=== PATIENT | female | born 1990 | race Caucasian/White ===

== ENCOUNTER 2022-10-30 12:01 | Outpatient (OUT) | payer BC, SELFPAY ==
[2022-10-30 12:50] LABS: Alanine Aminotransferase 147 U/L (14-59); Albumin Globulin Ratio 0.8; Alkaline Phosphatase 113 U/L (46-116); Anion Gap 12.8; Aspartate Amino Transferase 73 U/L (15-37); BUN Creatinine Ratio 12.5; Bilirubin Total 0.4 mg/dL (0.2-1.0); Calcium 9.8 mg/dL (8.5-10.1); Carbon Dioxide 30.5 mmol/L (21.0-32.0); Chloride 98 mmol/L (98-107); Estimated GFR (African America >60 (>=60); Estimated GFR (Non-African Ame >60 (>=60); Glucose 85 mg/dL (74-106); Potassium 4.3 mmol/L (3.5-5.1); Sodium 137 mmol/L (136-145)
[2022-10-30 12:55] LABS: Estimated Average Glucose 126 mg/dL
[2022-10-31 11:08] LABS: Insulin 18.8 uIU/mL (2.6-24.9)
[2022-10-31 12:08] LABS: C-Peptide, Serum 3.9 ng/mL (1.1-4.4)
== END 2022-10-30 12:02 ==
LOC: LAB 12:06
PROVIDERS: PCP Family Medicine; Visit Provider Family Medicine
DX: E16.2 Hypoglycemia, unspecified (principal)
CPT/HCPCS: 36415; 80053; 83036; 83525; 84681

== ENCOUNTER 2022-12-17 07:51 | Outpatient (OUT) | payer BC, SELFPAY ==
--- NOTE | 2022-12-17 07:55 | US_ITS ---
[address] [address] Patient Name: RACHEL LEMA MRN: [id number] date: 1990 Sex: F Assigned Patient Location: US Current Patient Location: US Accession/Order Number: [id number] Exam Date: 12/17/2022 08:00 Report Date: 12/17/2022 09:36 At the request of: HYUN DYER Procedure: US right upper quadrant EXAM: US right upper quadrant HISTORY: Elevated Liver Enzymes R74.8 COMPARISON: None. TECHNIQUE: Grayscale, color and Doppler FINDINGS: The liver is normal in size and contour. Diffuse increase in hepatic echotexture. No focal hepatic mass. Hepatopedal flow in the main portal vein with a flow velocity of 21 cm/s. The gallbladder is normal in size. The wall measures 2.6 mm. Negative sonographic Inman sign. The common bile duct measures 2.7 mm, normal. The pancreas is normal in appearance. The right kidney is normal measuring 10.5 x 6.0 x 4.3 cm. The cortex measures 1 cm. US/US right upper quadrant IMPRESSION: Echogenic liver suggesting hepatic steatosis Electronically authenticated by: GERSON MEANS Date: 12/17/2022 09:36
== END 2022-12-17 07:52 | disposition home or self-care (01) ==
LOC: US 07:51
PROVIDERS: PCP Family Medicine; Visit Provider Nurse Practitioner Family
DX: R74.8 Abnormal levels of other serum enzymes (principal)
CPT/HCPCS: 76705

== ENCOUNTER 2023-11-04 19:00 | Outpatient (REF) | payer BC, SELFPAY ==
[2023-11-09 14:12] LABS: Age Gdln ACOG Testing Note (.); HPV Aptima Negative (Negative); IGP, Aptima HPV, rfx 16/18,45 Note (.)
== END 2023-11-04 19:01 | disposition home or self-care (01) ==
LOC: LAB 19:00
PROVIDERS: PCP Family Medicine; Visit Provider Obstetrics & Gynecology
DX: Z01.419 Encounter for gynecological examination (general) (routine) without abnormal findings (principal)
CPT/HCPCS: 87624; 88175

== ENCOUNTER 2024-02-08 09:30 | Outpatient (OUT) | payer BC, SELFPAY ==
--- NOTE | 2024-02-08 09:32 | US_ITS ---
[address] [address] Patient Name: RACHEL LEMA MRN: [id number] date: 1990 Sex: F Assigned Patient Location: [facility] Current Patient Location: [facility] Accession/Order Number: [id number] Exam Date: 02/08/2024 09:32 Report Date: 02/08/2024 13:16 At the request of: WEN HUGO Procedure: US pelvis w/ transvaginal EXAMINATION: US pelvis w/ transvaginal HISTORY: PELVIC PAIN COMPARISON: Ultrasound pelvis 11/28/2020 TECHNIQUE: Transabdominal and/or transvaginal sonographic examination was performed as indicated by examination type. FINDINGS: UTERUS: Hysterectomy. RIGHT OVARY: Normal size and appearance. Duplex Doppler demonstrates normal waveform and flow; resistive index 0.4. Ovary size: 2.2 x 1.6 x 2.5 cm LEFT OVARY: Normal size and appearance. Duplex Doppler demonstrates normal waveform and flow; resistive index 0.6. Ovary size: 2.7 x 1.5 x 2.2 cm CUL-DE-SAC: Unremarkable. No significant free fluid. BLADDER: Unremarkable. OTHER: None. US/US pelvis w/ transvaginal IMPRESSION: 1. No acute or suspicious findings to account for patient's symptoms. Electronically authenticated by: WOO QUIROZ Date: 02/08/2024 13:16
--- OUTSIDE RECORDS SUMMARY | 2024-02-08 09:36 | XMS_ITS | CCD ---
Author Organization [facility] Care Team Providers Care Cleat Maker Name Role Phone PHYSICIAN, DEFAULT Unavailable Unavailable PHYSICIAN, DEFAULT Unavailable Unavailable MARY, GEOVANNA P Unavailable Unavailable MARY, GEOVANNA P Unavailable Unavailable SELF, REFERRED Unavailable Unavailable UNKNOWN, PHYSICIAN Unavailable Unavailable MARY, GEOVANNA P Unavailable Unavailable MARY, GEOVANNA P Unavailable Unavailable VONTHRON, MARY Unavailable Unavailable VONTHRON, MARY Unavailable Unavailable MARY, GEOVANNA P Unavailable Unavailable MARY, GEOVANNA P Unavailable Unavailable VONTHRON, MARY Unavailable Unavailable VONTHRON, MARY Unavailable Unavailable MARY, GEOVANNA P Unavailable Unavailable CA Unavailable Unavailable TEX TREJO Unavailable Unavailable CA Unavailable Unavailable BELLE, KANCHAN Unavailable Unavailable NILL, GEOVANNA R Unavailable Unavailable Nill, Geovanna R Unavailable Unavailable Nill, Geovanna R Unavailable Unavailable Nill, Geovanna R Unavailable Unavailable NONE, XXXX Unavailable Unavailable Rohrbacher, Gayle Unavailable Rolando Huang Admitting Unavailable Rolando Huang Attending Unavailable Rohrbacher, Gayle Primary Care Unavailable JENNY Doyle Admitting Unavailable JENNY Doyle Attending Unavailable Rohrbacher, Gayle Primary Care Unavailable Stalter, Robert Attending Unavailable Rohrbacher, Gayle Primary Care Unavailable Stalter, Robert Admitting Unavailable Rohrbacher, Gayle Primary Care Unavailable Stalter, Robert Admitting Unavailable Stalter, Robert Attending Unavailable JENNY Doyle Admitting Unavailable JENNY Doyle Attending Unavailable Rohrbacher, Gayle Primary Care Unavailable Rolando Huang Admitting Unavailable Rolando Huang Attending Unavailable Rohrbacher, Gayle Primary Care Unavailable Rohrbacher, Gayle Primary Care Unavailable Alon Hu Admitting Unavailable Alon Hu Attending Unavailable Rohrbacher, Gayle Primary Care Unavailable Alon Hu Admitting Unavailable Alon Hu Attending Unavailable Rolando Huang Admitting Unavailable Rolando Huang Attending Unavailable Gayle Alains Primary Care Unavailable OANH, DR CARVER Admitting Unavailable OANH, DR CARVER Attending Unavailable REQUEST, NONE LISTED Primary Care Unavaila ble OANH, DR CARVER Consulting Unavailable Jessica Iqbal Unavailable NO FAMILY, PHYSICIAN Primary Care Provider Unava ilable DO Evans Groves Attending Provider Emerald Mcguire Unavailable SAMSON Yadav Emergency Provider MD Jessica Iqbal Primary Care Provider SAMSON Alanis Primary Care Provider MD Odessa Hess Attending Provider Noa Yadav Admitting Unavailable Noa Yadav Attending Unavailable Jessica Iqbal Primary Care [facility]available [facility] Ad[facility] Unavailable [facility] Attending Unavailable NO FAMILY, PHYSICIAN Primary Care Unavailable Gayle Alanis Primary Care Unavailable Odessa Hess Admitting Unavailable Odessa Hess Attending Unavailable DALTON CARPENTER Attending Unavailable ODESSA HESS Attending Unavailable ODESSA HESS Attending Unavailable Allergies Allergy Classification Reported Allergen(s) Allergy Type Date of Onset Reaction(s) Facility Cephalosporins (antibiotic) (1 source) Cephalexin Drug Allergy 4 Unknown Reaction [facility] house dust allergenic extract (1 source) house dust allergenic extract Drug Allergy 4 Unknown Reaction [facility] Iodine (and Iodine containting drugs) (1 source) Iodine Drug Allergy 4 shock [facility] Penicillins (antibiotic) (1 source) Penicillin Drug Allergy 4 Unknown Reaction [facility] Shellfish (1 source) Shellfish Food Allergy 4 Unknown Reaction [facility] strawberry allergenic extract (1 source) strawberry allergenic extract Drug Allergy 4 Unknown Reaction [facility] (20 sources) cephalexin; Translations: [KEFLEX] Drug Allergy 0 AOF, Unknown [facility] Repository (20 sources) iodine; Translations: [IODINE] Drug Allergy 8 AOF, shock [facility] Repository (3 sources) penicillin; Translations: [PENICILLIN] Drug Allergy 8 AOF [facility] Repository (1 source) No Known Allergies; Translations: [No Known Allergies] Propensity to adverse reactions (disorder) [facility] Repository (8 sources) cephalexin; Translations: [CEPHALEXIN] Drug Allergy 4 AOF, Unknown, Unknown Reaction [facility] Repository (1 source) Contrast media; Translations: [CONTRAST DYE] Propensity to adverse reactions to drug (disorder) 4 AOF [facility] Repository (20 sources) penicillin; Translations: [PENICILLIN G] Drug Allergy 4 AOF, Unknown, Unknown Reaction [facility] Repository (20 sources) Fish Propensity to adverse reactions Throat swells, hard time breathing [employer] [facility] [employer] Other (20 sources) House dust mite Propensity to adverse reactions Unknown [employer] Other (20 sources) Shellfish Propensity to adverse reactions Unknown [employer] Other (20 sources) [place]; Translations: [Strawberries] Propensity to adverse reactions Unknown [facility] Repository (1 source) Adhesive Tape; Translations: [Tape] Propensity to adverse reactions (disorder) [facility] Repository (1 source) Amoxicillin; Translations: [amoxicillin] Drug Allergy [facility] Repository (1 source) Seafood; Translations: [Seafood] Propensity to adverse reactions to food (disorder) [facility] Repository (20 sources) Adhesive agent; Translations: [Adhesive] Drug allergy 9 rash [facility] Repository (1 source) Iodine (And Iodine Containting Drugs) Drug allergy (disorder) [facility] Repository (1 source) Penicillins Drug allergy (disorder) 1 [facility] Repository (1 source) suture Drug allergy (disorder) 1 [facility] Repository (3 sources) house dust allergenic extract; Translations: [house dust] Drug Allergy 4 Unknown Reaction [facility] (3 sources) Shellfish; Translations: [shellfish derived] Allergy to substance 4 Unknown Reaction [facility] (3 sources) strawberry allergenic extract; Translations: [strawberry] Drug Allergy 4 Unknown Reaction [facility] (4 sources) Fish Containing Products; Translations: [Fish Containing Products] Allergy to substance 4 Throat swells, hard time breathing [facility] Medications Current Medications Medication Drug Class(es) Dates Sig (Normalized) Sig (Original) citalopram 40 mg oral tablet (20 sources) Serotonin Reuptake Inhibitor Start: 10-05-2023 take 40 mg by mouth once daily Citalopram Active 40 MG PO Daily October 05, 2023 12:00am Citalopram Como bromide 40 MG TAKE 1 TABLET BY MOUTH ONCE DAILY FOR 90 DAYS Oral for 90 Days Active doxycycline monohydrate 100 mg oral tablet (3 sources) Tetracycline-class Drug Start: 03-27-2021 take 1 tablet by mouth every twelve hours Doxycycline Monohydrate 100 MG 1 tablet Orally every 12 hrs for 10 day(s) Feb, Active [id number] 0.3 ml EPINEPHrine 1 mg/ml auto-injector (20 sources) alpha-Adrenergic Agonist, beta-Adrenergic Agonist, Catecholamine Start: 10-05-2023 inject 0.3 mg by subcutaneous injection once Epinephrine Active 0.3 MG SUBCUT Once October 05, 2023 12:00am EpiPen 2-Elpidio 0.3 MG/0.3ML as directed Injection as directed for 30 day(s) Active {21 (ethinyl estradiol 0.035 MG / norgestimate 0.25 MG Oral Tablet) / 7 (inert ingredients 1 MG Oral Tablet) } Pack [Sprintec 28 Day] (4 sources) Progestin, Estrogen take 1 tablet by mouth every twenty-four hours Sprintec 28 0.25-35 MG-MCG 1 tablet Orally Once a day for hormone & PCOS Active Flash Glucose Sensor (Freestyle Hiwot 2 Sensor) kit (4 sources) Start: Flash Glucose Sensor (Freestyle Hiwot 2 Sensor) kit Active 0 .Route 3 January 06, 2024 8:25am Replace sensor every 14 days Start: 10-05-2023 End: 01-06-2024 Flash Glucose Sensor (Freest yle Hiwot 2 Sensor) kit Discontinued 0 .Route October 05, 2023 12:00am January 06, 2024 8:27am Replace sensor every 14 days Start: 10-05-2023 Flash Glucose Sensor (Freestyle Hiwot 2 Sensor) kit Active 0 .Route 3 October 05, 2023 12:00am Replace sensor every 14 days FreeStyle Hiwot 2 Sensor Sys tm (7 sources) Start: 08-24-2022 FreeStyle Libr e 2 Sensor Systm for 90 days Dx E16.2 Jul, Active FreeStyle Hiwot 2 Sensor Systm use as directed 1 weekly for 90 days Dx E16.2 Active hydrOXYzine hydrochloride 25 mg oral tablet (14 sources) Antihistamine Start: 10-05-2023 take 75 mg by mouth once daily at bedtime Hydroxyzine Hcl Active 75 MG PO Daily at bedtime October 05, 2023 12:00am take 3 tablets by mo uth every twenty-four hours hydrOXYzine HCl 25 MG 3 tablet at bedtim e as needed Orally Once a day Active take 1 tablet by nury th every twenty-four hours hydrOXYzine HCl 25 MG 1 tablet at bedtim e as needed Orally Once a day Active ketorolac tromethamine 10 mg oral tablet (3 sources) Nonsteroidal Anti-inflammatory Drug, Cyclooxygenase Inhibitor Start: 11-17-2023 take 10 mg by mouth every six hours Ketorolac Active 10 MG PO Every 6 hours November 17, 2023 12:00am maximum total duration of 5 days from all oral, intranasal, or parenteral formulations methylPREDNISolone 4 mg oral tablet (4 sources) Corticosteroid Start: 02-04-2021 methylPREDNISolone 4 MG as directed Orally daily for 6 days Jan, Active Potassimin (4 sources) Potassimin Activ e QUEtiapine 50 mg oral tablet (20 sources) Atypical Antipsychotic Start: 10-05-2023 take 50 mg by mouth once daily at bedtime Quetiapine Active 50 MG PO Daily at bedtime October 05, 2023 12:00am Start: 08-28-2020 take 1 tablet by nury th every twenty-four hours QUEtiapine Fumarate 25 MG 1 tablet at bedtime Orally Once a day for 90 day(s) Jul, Active QUEtiapine Fumar ate 50 MG TAKE 1 TABLET BY MOUTH ONCE DAILY AT BEDTIME FOR 90 DAYS Oral for 90 days Active Semaglutide (7 sources) Start: 01-06-2024 Semaglutide (O zempic) 0.25 mg or 0.5 mg (2 mg/3 mL) pen injector Active 0.5 MG SUBCUT every week 3.68 January 06, 2024 8:25am Start: 12-21-2023 End: 01-06-2024 Semaglutide (Ozempic) 0.25 m g or 0.5 mg (2 mg/3 mL) pen injector Discontinued 0.5 MG SUBCUT every week 3.68 December 21, 2023 1:49pm January 06, 2024 8:27am Start: 11-29-2023 End: 12-21-2023 Semaglutide (Ozempic) 0.25 m g or 0.5 mg (2 mg/3 mL) pen injector Discontinued 0 .ROUTE .COMPLEX November 29, 2023 1:32pm December 21, 2023 1:50pm INJECT 0.25 MG SUBCUTANEOUSLY ONCE A WEEK FOR 4 WEEKS Start: 11-29-2023 Semaglutide (O zempic) 0.25 mg or 0.5 mg (2 mg/3 mL) pen injector Active 0 .ROUTE .COMPLEX November 29, 2023 1:32pm INJECT 0.25 MG SUBCUTANEOUSLY ONCE A WEEK FOR 4 WEEKS Start: 11-01-2023 End: 11-29-2023 Semaglutide (Ozempic) 0.25 m g or 0.5 mg (2 mg/3 mL) pen injector Discontinued 0.25 MG SUBCUT every week 1.84 November 01, 2023 12:00am November 29, 2023 1:32pm for 4 weeks Start: 11-01-2023 Semaglutide (O zempic) 0.25 mg or 0.5 mg (2 mg/3 mL) pen injector Active 0.25 MG SUBCUT every week 1.84 November 01, 2023 12:00am for 4 weeks venlafaxine 37.5 mg oral tablet (3 sources) Serotonin and Norepinephrine Reuptake Inhibitor Start: 05-21-2022 take 1 tablet by mouth every twenty-four hours Venlafaxine HCl 37.5 MG 1 tablet with food Orally Once a day for 30 day(s) Apr, Active Completed/Discontinued Medications Medication Drug Class(es) Dates Sig (Normalized) Sig (Original) metFORMIN hydrochloride 500 mg oral tablet (3 sources) Biguanide Start: 10-05-2023 End: 11-01-2023 take 500 mg by mouth twice daily at mealtime Metformin Discontinued 500 MG PO Twice daily with meals 180 90 October 05, 2023 12:00am November 01, 2023 10:05am Problems Active Problems Problem Classification Problem Date Documented Date Episodic/Chronic Allergic reactions (20 sources) Allergy status to penicillin; Translations: [Allergy to shellfish] Onset: 10-29-2017 Resolved: 10-23-2021 Episodic Anxiety disorders (20 sources) Anxiety; Translations: [Anxiety disorder, unspecified] Chronic Asthma (20 sources) Asthmatic bronchitis; Translations: [Unspecified asthma, uncomplicated] Chronic Cardiac dysrhythmias (1 source) Palpitations Episodic Conditions associated with dizziness or vertigo (1 source) Dizziness and giddiness Episodic Diabetes mellitus without complication (13 sources) Type 2 diabetes mellitus without complications; Translations: [Type 2 diabetes mellitus without complication] Onset: 10-29-2017 10-06-2023 Chronic Diabetes mellitus without complication (3 sources) Impaired fasting glucose Onset: 10-01-2021 Resolved: 10-01-2021 Episodic Diabetes or abnormal glucose tolerance complicating ; childbirth; or the puerperium (5 sources) History of gestational diabetes mellitus; Translations: [Personal history of gestational diabetes] Episodic Disorders of lipid metabolism (20 sources) Pure hypercholesterolemia; Translations: [Pure hypercholesterolemia, unspecified] Chronic Disorders usually diagnosed in infancy, childhood, or adolescence (20 sources) Transient tic disorder ; Translations: [Transient tic disorder] Chronic Female infertility (20 sources) Female infertility; Translations: [Female infertility, unspecified] Chronic Immunizations and screening for infectious disease (1 source) Encounter for screening for human papillomavirus (HPV); Translations: [ENC SCREENING HUMAN PAPILLOMAVIRUS] Onset: 05-27-2022 Episodic Menstrual disorders (20 sources) Amenorrhea; Translations: [Amenorrhea, unspecified] Chronic Mood disorders (20 sources) Major depressive disorder, single episode, unspecified; Translations: [Depression] Onset: 04-16-2021 Resolved: 10-15-2021 Chronic Neoplasms of unspecified nature or uncertain behavior (4 sources) Neoplasm of unspecified behavior of unspecified site; Translations: [Neoplasm of unspecified behavior of other specified sites] Onset: 09-15-2017 Episodic Other and unspecified benign neoplasm (4 sources) Other benign neoplasm of skin of right upper limb, including shoulder; Translations: [OTH BENIGN NEOPLASM SKIN/ RIGHT UPPER LIMB, INC SHOULDER] Onset: 10-29-2017 Episodic Other endocrine disorders (11 sources) Hypoglycemia; Translations: [Hypoglycemia, unspecified] Chronic Other endocrine disorders (3 sources) Hypoglycemia, unspecified Chronic Other injuries and conditions due to external causes (1 source) Angioneurotic edema, initial encounter; Translations: [Angioneurotic edema, initial encounter] Onset: 12-08-2023 Episodic Other liver diseases (2 sources) Fatty (change of) liver, not elsewhere classified; Translations: [Fatty liver disease, nonalcoholic] Chronic Other liver diseases (1 source) Abnormal levels of other serum enzymes Episodic Other non-traumatic joint disorders (1 source) Pain in right knee; Translations: [Pain in right knee] Onset: 11-17-2023 Episodic Other screening for suspected conditions (not mental disorders or infectious disease) (7 sources) Encounter for screening for other metabolic disorders; Translations: [Encounter for screening for lipoid disorders] Onset: 10-01-2021 Resolved: 10-01-2021 Episodic Other skin disorders (4 sources) Localized swelling, mass and lump, right upper limb; Translations: [LOCALIZED SWELLING, MASS AND LUMP, RIGHT UPPER LIMB] Onset: 10-09-2017 Episodic Other upper respiratory infections (3 sources) Acute upper respiratory infection, unspecified; Translations: [Acute maxillary sinusitis, unspecified] Onset: 03-24-2021 Resolved: 03-27-2021 Episodic Residual codes; unclassified (20 sources) Obstructive sleep apnea syndrome; Translations: [Obstructive sleep apnea (adult) (pediatric)] Chronic Residual codes; unclassified (20 sources) Disturbance in sleep behavior; Translations: [Sleep disorder, unspecified] Episodic Sprains and strains (3 sources) Strain of knee; Translations: [Strain of unspecified muscle(s) and tendon(s) at lower leg level, right leg, initial encounter] 11-17-2023 Episodic Unclassified (2 sources) Unknown / UNK(Unknown) Onset: 09-15-2017 Unclassified (1 source) long-term (current) use of oral hypoglycemic drugs; Translations: [[facility] (CURRENT) USE OF ORAL HYPOGLYCEMIC DRUGS] Onset: 10-29-2017 Past or Other Problems Problem Classification Problem Date Documented Da te Episodic/Chronic Other injuries and conditions due to external causes (1 source) Allergy, unspecified, subsequent encounter Onset: 10-23-2021 Resolved: 10-23-2021 Episodic Residual codes; unclassified (1 source) Sleep disorder, unspecified Onset: 10-01-2021 Resolved: 10-01-2021 Episodic Unclassified (2 sources) Exposure to COVID-19 virus Z20.822; Translations: [Exposure to COVID-19 virus Z20.822] Onset: 03-24-2021 Resolved: 03-24-2021 Unclassified (1 source) Acute cough R05.1 Viral infection (1 source) COVID-19 Results Test Name Value Interpretation Reference Range Facility Romanian house dust mite IgE Ab [Units/volume] in SerumOrdered By: Odessa Hess on 12-08-2023 Romanian house dust mite IgE Qn (S) <0.10 kU/L Class 0 [facility] Comment on above: Performed at: [facility] [address] [id number] Director: Arun Moser MD, Phone: [phone] Clam IgE Ab [Units/volume] i n SerumOrdered By: Odessa Hess on 12-08-2023 Clam IgE Qn (S) <0.10 kU/L Class 0 [facility] Crab IgE Ab [Units/volume] i n SerumOrdered By: Odessa Hess on 12-08-2023 Crab IgE Qn (S) <0.10 kU/L Class 0 [facility] D Farinae Mite Allergenon D Farinae Mite Allergen <0.10 Normal Class 0 [facility] Comment on above: Result Comment: Perf ormed at: BN - [facility] [address] [id number] [employer] Groover: Arun Moser MD, Phone: [phone] Performed By: #### D PTERONY, D FARINAE #### [facility] , D Pteronyssinus Allergenon 0 12-08-2023 D Pteronyssinus Allergen <0.10 Normal Class 0 [facility] Comment on above: Result Comment: Jorge L huerta of Specific IgE Class Description of Class ----- < 0.10 0 Negative 0.10 - 0.31 0/I Equivocal/Low 0.32 - 0.55 I Low 0.56 - 1.40 II Moderate 1.41 - 3.90 III High 3.91 - 19.00 IV Very High 19.01 - 100.00 V Very High >100.00 Very High PERFORMED BY: [facility] [place] [address] PATHOLOGIST COSMETOLOGIST APPRENTICE AMBROSIO GARCÍA M.D. Performed By: #### D PTERONY, D FARINAE #### [facility] , house dust mite IgE Ab [Units/volume] in SerumOrdered By: Odessa Hess on 12-08-2023 house dust mite IgE Qn (S) <0.10 kU/L Class 0 [facility] Comment on above: Levels of Specific I gE Class Description of Class ----- < 0.10 0 Negative 0.10 - 0.31 0/I Equivocal/Low 0.32 - 0.55 I Low 0.56 - 1.40 II Moderate 1.41 - 3.90 III High 3.91 - 19.00 IV Very High 19.01 - 100.00 V Very High >100.00 Very High Lobster IgE Ab [Units/volume ] in SerumOrdered By: Odessa Hess on 12-08-2023 Lobster IgE Qn (S) <0.10 kU/L Class 0 [facility] Comment on above: Performed at: [place] [address] [place], [place] [id number] Director: Arun Moser MD, Phone: [phone] No Panel InformationOrdered By: Odessa Hess on 12-08-2023 Allergen Note See comment . [facility] Comment on above: Levels of Specific I gE Class Description of Class ----- < 0.10 0 Negative 0.10 - 0.31 0/I Equivocal/Low 0.32 - 0.55 I Low 0.56 - 1.40 II Moderate 1.41 - 3.90 III High 3.91 - 19.00 IV Very High 19.01 - 100.00 V Very High >100.00 Very High Oyster IgE Ab [Units/volume] in SerumOrdered By: Odessa Hess on 12-08-2023 Oyster IgE Qn (S) <0.10 kU/L Class 0 [facility] Scallop specific IgE antibod y assayOrdered By: Odessa Hess on 12-08-2023 Scallop IgE Qn (S) <0.10 kU/L Class 0 [facility] Shellfish Allergen (6)on Clam Allergen <0.10 Normal Class 0 [facility] Comment on above: Performed By: #### S HELLFISH #### [facility] , CLASS DESCRIPTION Normal . [facility] Comment on above: Result Comment: Jorge L huerta of Specific IgE Class Description of Class ----- < 0.10 0 Negative 0.10 - 0.31 0/I Equivocal/Low 0.32 - 0.55 I Low 0.56 - 1.40 II Moderate 1.41 - 3.90 III High 3.91 - 19.00 IV Very High 19.01 - 100.00 V Very High >100.00 Very High Performed By: #### S HELLFISH #### [facility] , Crab Allergen <0.10 Normal Class 0 [facility] Comment on above: Performed By: #### S HELLFISH #### [facility] , Lobster Allergen <0.10 Normal Class 0 [facility] Comment on above: Result Comment: Perf ormed at: [facility] [id number] [employer] [place]: Arun Moser MD, Phone: [phone] Performed By: #### S HELLFISH #### [facility] , Oyster Allergen <0.10 Normal Class 0 [facility] Comment on above: Result Comment: PERF ORMED BY: [place] [address] PATHOLOGIST COSMETOLOGIST APPRENTICE AMBROSIO GARCÍA M.D. Performed By: #### S HELLFISH #### [facility] , Scallop Allergen <0.10 Normal Class 0 [facility] Comment on above: Performed By: #### S HELLFISH #### [facility] , Shrimp Allergen <0.10 Normal Class 0 [facility] Comment on above: Performed By: #### S HELLFISH #### [facility] , Shrimp specific IgE antibody assayOrdered By: Odessa Hess on 12-08-2023 Shrimp IgE Qn (S) <0.10 kU/L Class 0 [facility] [address] knee RT wo [facility] 11-17-19 CT knee RT wo [facility] [place] [address] CT Scan Report Signed Patient: Kathy Lema MR#: [id number] : 1990 Acct:[id number] Age/Sex: 33 / F ADM Date: 11/17/23 Loc: ER Room: Type: [facility] ER Attending Dr: Copies to: Noa Yadav APRN Ordering Provider: Noa Yadav APRN Date of Service: 11/17/23 CT/CT knee RT wo con: pain over ACL, previous injury to meniscus CT right knee WITHOUT CONTRAST WITH 3D RECONSTRUCTIONS: CLINICAL HISTORY: Unable to put weight on right leg after dog injury. COMPARISON: Right knee series performed earlier today. TECHNIQUE: Spiral axial unenhanced images were obtained through the right knee. Sagittal, coronal and 3D volume-rendered reconstructions were also reviewed. This CT exam was performed using one or more following dose reduction techniques: Automated exposure control, adjustment of the mA and/or kV according to patient size, or use of iterative reconstruction technique. FINDINGS: No fracture. No joint effusion. No significant degenerative change. No significant soft tissue swelling. Musculature appears grossly unremarkable. No fluid collection. CT/CT knee RT wo con IMPRESSION: NO ACUTE BONY PROCESS INVOLVING THE RIGHT KNEE. Impression dictated by: Bhavin Xiao Jr., D.O.11/17/2023 12:11 PM Dictation Location: [facility] Transcribed By: [facility] 11/17/23 1211 Dictated By: Bhavin Xiao Jr, DO 11/17/23 1207 Signed By: 11/17/23 1211 Normal [facility] XR knee RT 4V*on 11-17-2023 XR knee RT 4V* [facility] [place] [address] XRay Report Signed Patient: Kathy Lema MR#: [id number] : 1990 Acct:[id number] Age/Sex: 33 / F ADM Date: 11/17/23 Loc: ER Room: Type: [facility] ER Attending Dr: Copies to: Noa Yadav APRN Ordering Provider: Noa Yadav APRN Date of Service: 11/17/23 XR/XR knee RT 4V*: felt pop today; hx surgical intervention RIGHT KNEE - 4 views COMPARISON: None CLINICAL DATA: Patient's dog was laying on right knee and when patient got up, she felt a pop. Difficulty bearing weight and medial knee pain. AP, lateral and both oblique views were obtained. There is no acute fracture or dislocation. There is no disproportionate joint space narrowing or prominent hypertrophy. There is a trace amount joint fluid. No soft tissue anomalies are noted. XR/XR knee RT 4V* IMPRESSION: NO ACUTE BONY FINDINGS. Impression dictated by: Alise Lynne M.D.11/17/2023 10:59 AM Dictation Location: [place] [address] Transcribed By: [facility] 11/17/23 1059 Dictated By: Alise Lynne MD 11/17/23 1058 Signed By: 11/17/23 1059 Normal [facility] [facility] Human papilloma virus 16+18+ 31+33+35+39+45+51+52+56+58+59+66+68 DNA [Presence] in [place] 11-04-2023 HPV 16+18+31+33+35+39+4 5+51+52+56+58+59+66 +68 DNA Probe+sig amp Ql (Cvx) Negative Negative [facility] Comment on above: This nucleic acid am plification test detects fourteen high- risk HPV types (16,18,31,33,35,39,45,51,52,56,58,59,66,68)without differentiation.Performed at: = - [facility] [address] [id number] Director: Agnes Lou MD, Phone: [phone] at: - [facility] [address] [id number] Director: Agnes Lou MD, Phone: [phone] No Panel Informationon 11-03 HPV High Risk Other Comment Note . [facility] Comment on above: TESTS RESULT FLAG UN ITS REF RANGE LAB GAGANDEEP GNOSIS: 02 NEGATIVE FOR INTRAEPITHELIAL LESION OR MALIGNANCY.Specimen adequacy: 02 Satisfactory for evaluation. No endocervical component is identified.Performed by: 02 Karen Bradley Principal Administrative Clerk (ASCP). 02Note: Note 02 The Pap smear is a screening test designed to aid in the detection of premalignant and malignant conditions of the uterine cervix. It is not a diagnostic procedure and should not be used as the sole means of detecting cervical cancer. Both false-positive and false-negative reports do occur.Test Methodology: Note 02 This liquid based ThinPrep(R) pap test was screened with the use of an image guided system.HPV Genotype Reflex Note 02 Criteria not met, HPV Genotype not performed. ---- FLAG LEGEND: L-Low Normal,H-High Normal,LL-Alert Low,HH-Alert High <-Panic Low,>-Panic High,A-Abnormal,AA-Critical Abnormal --Performed at:02 [facility] [address] [place] [address] Agnes Lou MD, Reference Lab Test Patient Age Note . [facility] Comment on above: TESTS RESULT FLAG UN ITS REF RANGE LAB Clinician Provided Cytology Information Source.............Cervix No. of containers..01 ThinPrep Seven Deng... 3065 FLAG LEGEND: L-Low Normal,H-High Normal,LL-Alert Low,HH-Alert High <-Panic Low,>-Panic High,A-Abnormal,AA-Critical Abnormal --Performed at:01 [facility] [address] [place] [address] Agnes Lou MD, HbA1c HPLC (Bld) [Mass fract ion]on 10-05-2023 HbA1c (Bld) [Mass fraction] 7.2 % [facility] COVID/FLU/RSV RT-PCRon 05-07 SARS-CoV-2 (COVID-19) RNA DIMAS+probe Ql (Unsp spec) Positive Hublished Other COVID/FLU/RSV RT-PCR Negative Hublished Other Quick Strepon 05-07-2023 S. pyogenes Org specific cx Ql (Throat) Negative Hublished Other Quick Strep [facility] Other A1C HEMOGLOBINon 08-05-2022 HbA1c (Bld) [Mass fraction] 5.8 % Hublished Other HbA1c (Bld) [Mass fraction]o n 08-05-2022 A1C HEMOGLOBIN [facility] Other COVID + FLU Quick Testingon 04-28-2022 SARS-CoV-2 (COVID-19) RNA DIMAS+probe Ql (Unsp spec) Negative Hublished Other COVID + FLU Quick Testing Negative Hublished Other Coding Summaryon 02-17-2022 Coding Summary HTMLBase 64 BldkxoikRIm3rEo+PGhlYWQ+PE1F IMDzO90cpIGifI3TH0vDRJ3QTLHZ UBYCMX6VCN0fqFE7RByyD9ViwyMr ZvnncSEvRF01EDj3AQC1oPwfUQmo qI2brOGuK4q4CeAvXI38jO72SHad EJFbKtY0SiVurofqsHCj C9sfFbVsrGUkRma+PHRhYmxlIHdp XLFfWHgtKBVxPkLitRubAS0fFd9x ZGVyLWNvbGxhcHNlOiBj e0xuLJSpLAguMD6utEvwC2UlzFX7 TAZan0l3Nd99cUQ+XPJiWSE6jLfe DZzaw686DpFdw3kqJSM1 nAKsSVfyXUP7B40ol6J3CLLqSRDl ROL0oSD8xM7drJmudtphX3IwaYTs ZfP2FHH8iCWgjQ6ffRix dbuszQ1lFdf+S88WSC2VTZHODP4L Zpa6H6RfDmzlgSL+MZ24GGIxCG93 qXSipPYsu4dzrFq5AmYb NTSoXCX2aDukDDfoa5DrGBIcZ11u tGGzc4X7YRIdwEcyiPUjPfKkxHY9 tH3qGLexpehgz3qwnglx Tntql6wzqw70vJ95J24uZLwkOXNo KOG4EJIzHXXudAiwfl1hoN8zGl9+ DMjvi2qjc3fziIc6BwDn UOGfljUdpKljZZS7v7CpDf55I8Bp kZgri8FjTmp3di54iUQfv9M0eZM0 TSrdHGVmeZ4hIKxjDqR6 OLFsPmReqF91lYTrWWhhCh7wnRii iNfeSV6iXDBmsljlLSGeyT0mBLSe xXVnpRipVR6qEPWywmtv l281NsNeWUD8AUTkrYJzC8PshR1q DfDnIKDeOJWnN9LofBJcZCveO772 NQeeDpP4QKFopgOgK8Cs BAMhjZpvNpI3q6W9Ho0Gu4Dzhmhm SRK9YMgcUCV4KvWvVpZoOoY9D3Ma Wvl9YFEcpXugBL8aF9Lb NLClhfoshyokpZB0KSEiWRPvkS63 mOHpWTiwKt8ey5Y7h330HQWnDEWg lS38Aa2gjXexREXdtBRI jB0gkqnqw5mgvsljZcOtCMUuYZm2 HCs5ODFyxZlzOhDxEMD0QlH8TRG7 oZBfvE0zxZrhdsavkV3o Oyc+I39fnJ8aLBW1LOV0srzaTWKv hnEgJW87KJ40S5SgQcrgyELbhNU+ OQXzuhHysPlbGW0yFbYd e1pon8PiFKmiU3PfNSCfPJtyHis4 ZMPpNPO0qLD7fS2pTYEeSGosk6K5 bME5R1ZtiaYcdg8yj1hz GISkBMjtQ47atEFwo7C3RHHgeTT1 YDGkkYysZkUktE47Aiz+PGNvbGdy q5SrAbfpl2pfd5mzzBr3 MqQnPBAudtLouIzbDCK7i9NaPg17 N32jTWcgHJJqDSVhZJMkNPEbwVzk cb9nkL0iJo2+PGNvbCB3 kMM1kD1uUZRdFpE9YLkmJ918RnAe cHXxOglry3svv3wukZe7KmRgQDRm exRunGjhUCS9o4AvZc62 O45bRPxhHCBjWVQiDQYtQDJxzDov tn6ksT8qYp0+DP2ab7fwil39eL27 dHI+QQBqUGL9rTsyRHjk LHNmkI5jTUatCpB1JGUdYlDtbE89 lQEnNOezRc6fnXbjhCsiFN2uDCOa lckqq899JcWmq7lrPTOe vSZhKCcbUAH8Y95hv7S9QKNsVTKc CDR0fOY7aI9bvLqsndkzvBXjvDhs slEgaIscXLzpVOetC922 IHRvcDsnPlBhdGllbnQgTmFtZTo8 I6LaMxj5THDjnYmuEK9keLXlIVpk Lr2qmHwmaQstAZ3dMSSv canrb773JaVus6fqXAVrkGSvWPta XAL1E44ev0L3QZRhSBGlGSX2rRT9 hS6saXjvluypkOKnpRgp izScaHmdOKpqJJorJ887SCLahKua EdOyjuYrIFPwoGW3YK60LE73mBSj n6H9vFO0Y9WbWSYflcbg bpwsaGR6WXXiQFAsqA12Aa4oeOnh Jy5nRBDbLVI7CDNudQVbB5BeeY6q BrQzGPHuNITrW1LpdCJr TYaoJ093EJqxDxQ1KZRdtsLrE2Zm XLWloHmcUcN9r2W7Wp7SU0J6JH17 FN30vZFct1I1lDH1Y4Nx ULRdetwjltsguIR6FVJhKUFneU45 Cd7euCzgLy2gJJErCXM5LZUkyYAs D6KvtP4tHsLaSMDoZCSu F7EkmJWyBPzhZ014SHxtAnF5YTCg akHkH2DtUHTxcQqzRiI9c1Q3Wy5R NSc0UC05BI81cTYxl8T0 oKY8M3IxZPZdjsiorpaegRX0GWPo ZWOpkP81Nx3emRbmLb8eQQQsIFZ9 VKExdFHsZ0OunC0wViNy FBEvWYYkC8MpxSLmOClzX727JVnu JjZ9EDXhgaRqG1WvBEQajImjBcT7 c6S1Iy0FFXFfJV64XOQ7 pVF4BI80NN02R1YuCdujkKWsjDN+ PHRhYmxlIHdpZHRoPScxMDAlJyBz aZjiYF6iCh4hQQTfNDIk dOtmaVSeJzTzo4flQPMwWOmqQN8s kEweO0EvmHZ5PYEha2w9Og76Y04d W1SkuSF+WIFdtTT3uFL8 tB7kNpOxTcG3KAitC876DbUjxUBc Wpzxb4ebd6xmmRw0VvQ7CAPvtaYv kOlcBPO1b4HtHr62R77d QFbuOARxRMJvIHEiGKJjkYkfbn4u wV0jLb8+UHQpyJK9yDH3xI4vUqNu JpO9YTqgD100RkJfrSRt Xbqrs2tqq0czuXe5GoMuLEFvrzMh qGtkIUK3r9YtGs39R7LrbThcs7Ft Ylp2cd84uXXuk2U6bNX3 V9WgHCQcaxnxtPKgfXwsKI9aNHAs opvkZXNfvO2bSYImQ5s7YlSwNkU6 FLxuI6AflqO6HWBicZYi IUgvDZT2U78mn7W2COLgRQAaCAS0 wAX6hI6tmCbyrphzkYJasRxsqlQz eFbsCFggSJhhK809KEMt wJnuPNRnhD6wIQWeuLSjiCxgWA6y TIPscphxDiuWOdPBKALTPC3ZGmZV EUGULIJJLSI3E5FuUtl5 LYOubTsqCX5gjIYmXVyzUd8raUrn jCpeYR9jMNHrmqxjRTUetG6qQTHy zOUkvKiaIL5xZLOjtlmt p210ZjWrGGT2HRXueDDlJ4IhvP1o TcQdYSYeTCVzX7TsvQMyICttC677 ULbyYtF1VCAkdyNeO2Lf WHYtsMdfKdF5b3Q0Me0pUa2lQC4o JRswQG74UK92lGAmw8N6eDS1G4Gr GLByxkhnvndslEA6TUDu QKCngK59mZHlUFcmJg7yd0X9z318 PKRaSQDohU99Dw2zsSnySPVadNMJ vN5utgsnz3kjmrugKaFf STBsYWi5VVz7JOBjnFaeDmQbPTC6 VvV4HHF0oHKbeB5xjXfyzfmdhE2g Oyc+QnFjRFCtgkM5C4Fn Igj7PTSdeFggVR6jbQTmJCqhHu6v cAfesTnzWV2pLCGobbayLWSafC7m HAUjcYTqlXbvNY0dSJNw foktk823AvUeIKM0PCCdbTTuO6Gf iY0mBcYmPURiTJDqA5KpcJWzEAfv F885UCgsOoQ8ODXeptTd X6ReONFukOhsOeX7o9S1Px0VSO0K WMZ1K4YyFxh6SYHkqUeuTL6ttUWi UJnoAg1jxNafpXmlBS1c ATBcwmhvCJBadG1cEPBqlUBepCei VR5jFVKwwgeqz027IlXvQJG7NNBj qISwT8SjlM1yEeXmIAOu XXYtQ4CozOFyUYgfQ447XVwaNeG7 MMNbanBtS2WcZJYrqLgjPtL1g4Q8 Cj6UCGlwmRZ+JK98qu03 W5GrVljtFkq4KWTyJAS3fGX6cX5y VYTqWNgwk2B8fXE6H3WaisKxxd3i a2znYHEkXMrdL98inIWu i1Z4GEZnlJB3ANWpiZdsGxAgjU02 Oyc+VQWbkKenv1VeEowkc8dth3cu hOc9SjZrBDCthtBuoKij AKW6s2QlAd90Y10eFXmaARQzMGZp NFLhYRAaqHarxx1rsS7tIg8+PGNv sGP6tQD2jX5vHwGfViW4 WSasM039KgVukGJzMwomm9rle0xd yHo8VuTeHMQghzByvQnoQQG9s1Xy Qa93W5TjlOhfp5FwYmu2 wg21hTQho2I2yLY7R7ZnAZFxyyla bALrcZfcJV0eCTSukwbqGMAftJ9a MPYwC7c4PbJnKvL1MFuj F5WdwxJ5RTHtfMShYXRomTMVyN0m qupoc0qirpbaKeBfOEWeCBp9QYd1 MHHzlGicLhStCYI9UyO3 HYM7kZXpoF5jyNrjaabczA5hYoj+ DVs0i9lrhQLoWX8cqJQ5TG14ZJ78 uQYac3E4cVY5N0TkILVg aslngkiuwNN1MSFzOZCflE71Mh3s hUhbDq2uVPWhWRH2TMOllKYvM6Bl oY6pIyNuIGTcWKDoE6Vr tQYyXCbvH603ESxyVdV9DRLumbMc G1LmXLUgeAmmQlG8y5W6Hs6FFG30 SK02PJ89iGSkn3D5mBT6 H0AlVBOculsoskefcZL0VLCoAAXn qL99Zh4raWvbXn2wRCJoGBP1ZLQy wLVkV2GblP6vNeNdGOVh CMFdV3LgnWUzIBkiE333MKaePfL6 NOBnknScP7UmEDDvePafWqH1f4Z9 Kt4KOl49OD68VP47jGGk e3Z3qBI9D1GvXQWyoaeuwsyjmSQ5 BFIkNTFosO06Uc5fyZbbEx2uNLEu ZXY1IGSduAXvA9DybU1p RpLyPLFqHAAfV3MppTJfXUztB412 TVobEfE0FWMvoxIjV0DjMXWjyJbv QvB5p9K9Li6YSYzpebx0 Y7XwSdrsvSH+LK61QYMzON18uMNh dJXyp7truRn5CsMtGDGnISW2mWyg DZzgr3LjCQOhP82uxRTh c2U (more content not included)... [facility] Coding Summary HTMLBase 64 CqhscgejHNs8eHi+PGhlYWQ+PE1F NSJmV57uxWUtgY9SR5nMSS8ZVLFB YIYPEB8DOX7fsDT2CIgvO5JcrbYy HcxqjPCdPS07OBo0SMS1zGwoTFwq pC6phMPpF5e7DvMzXW63bD74OEhc CRIvPuX4HnElwvwwxORa S9iuJmWepZLkAqu+PHRhYmxlIHdp FAGaWHptEZBkGlQesFecAH0mSz4r ZGVyLWNvbGxhcHNlOiBj e3irMIKaTMkpOC2pgTwoE2OsxZP2 RNVri9l4Rc98qVG+PIMoTUT6eWry RFkta090DpHvk5poSMF5 oNSrAClvWFN6D24py8S9NLGmYRCw GXG3yIY2tG2byBqhgbhqV0WajQTb SlY6SYW3gMRpuL4jkIye wwgrjL1iNbx+T99HQV0NPHHHBA7C Fah9G2IqHarskSR+TJ29GUCqOB59 aGIvjTWnt2mhpLs3MeUt JUUsWLY7pWqdMXeea8GcLPIxE89j wKEnm9K7UFBhrAusgMQbItYjwFD9 gQ9tFQdbcpsqe3utywmd Zcdrr1cnjv57uK14G59eERzzURLr XGB0EJElWEEpvIqbwi8unO0qQv6+ UJdsk5qsg1bsmHo2RfGc KBHrgpYcoAgmALL0m7IrIr86J4Op bFqvj8UxWyo2fz11vWPft3B9fEW9 XYriMNDzqG0fPIxtVwV9 AGNsPcEvyC65cVOrQEqwQv0cmEwq eUltJC2kSNNvpylvAMOspQ7dUOGp iOEstUsoQU2xXHWjyvjm v098QgKmBCR4UQUxnFPhU8BofF2o WpUmCIOrWJKmL8NkvLFoWWqdM908 IMviDkT6VJLfhvMmB3Dj AQBksHkcXjL6n4Y0Dq2Hi9Sfmbsi OPU4RKhjKOW2AgCuIbUqFkD0K6Zj Kdy8DLIcdDewVM2zF5Dw IYZsvabzxunzlRP7QFMzDIMclY78 rRXfUVmzKx9vg6B9j781SUEbBYBi mY72Ml3iaTizWGHepQHX pE5lfeper9vxdforFoZeLJXaXUb3 ERn3WGDpxMcpOiPtPNG0MhA2BUL7 dDZubP6ayQoyegdexK1t Oyc+J10miD4qKYB2MDP8plisVODf jxHtXF56DR14D5OgGhjomENwzRJ+ LBBvblTqeIjzCD2aKmIl b5enr6UwPMipG5OrEHNdBWyxRdk2 YIFbUXZ7aNC1jQ5sBLUnCTlto6T0 kXN6E0KvltAdno8bh6dv SYPjQXjhG90ugZUqf9N4UQYsdMY3 RKInvYpqOoCfeQ33Evn+PGNvbGdy g9WbHkkwj0hgp1xgdAe8 JnRmYNEbblUliPowORW1w2OsCr49 Q93hSVmaRQKyBDZrXGOoULKaeSpe nt9gfO6tIo6+PGNvbCB3 dAW9mK0xFEVrBtM0OPmeO988MePs qDWpTohin8fyn6gpiHp9UvZfGNGq zfIhxFqlCAQ8y4CxNc08 M78bTJtqEGQqXKHdVRDsUGOekLhz ik7gkE3lBk3+YY7si5csgn08iT32 dHI+JVIcMKN3kMlnKOmq CLKbjQ9jLRuyYhY3YPXlNbKkqL57 wDNqIEqsAx6fvOmloOpvUK4nGJJf vxfzf999PpTut5xaYZZe eSExDKfoHZR1A07ct1W5PLNoIRUj TRG1rIS5iC1mxXdsydqnjCSrkEyc byBuqYbvVLjdYWvsB623 IHRvcDsnPlBhdGllbnQgTmFtZTo8 Q9OzErn8ADOheScnEM3kzFCeOIpr Jx0anBwhrYmsPA6pOFZl pvzdv920GnLlj4ppEDXbyJGmSBuz EHS3V97jz4F3HSZjCYOtRBM4vYF6 mU5oxUjzpcinnMKcoUqo wiJslWltNBagZOmrB697CVNxpZde LhIrvbGsGGRqtQV7FP18IK06cWZi w4R9pGR1P9CnYBWcycbz jhzvtUV4DITdZLPetI85Ck7hhZth Gp1mPTQqDRH6MWZagKKaY2MybG3p PuJhIIKeXIUxY5PbzRHn DQlcQ443VPuwDzF0BQJahrPrZ3Sa IMGzcYmwBiI3p2G3Yh5DV1O9KQ72 EO32mJUsi7Z6dVD0A7Lc WSFqptnqlwmdnBW2YXMnUXZrjC73 Kl1szFmyTw0eMKHpYBY1BGCetXFg H1SjiC8lZiIaFZQgPXFb Y8GiaTOrFWijE306UWcyArX8IYWu juVoU3YtWTXygOmeWsI3x0C9Fk1M CTg9TK75PC62nWVrn0V6 iRU3V6GrCJZyrvrlijeeqSI3ULQr MHXanZ27Zv1bpLcoKa9sVWJmFDW7 ULWimHZgT5QkoJ9dOmGu TNRaDKIaG8MlaPZxBEwzG342WUcy HvW0FGRegcPaJ0CdNBJgxUpkYwZ6 t9L1Uw4XBEDiMV63WOB7 cLR6VM07JW61U5UsXrjylWOafAM+ PHRhYmxlIHdpZHRoPScxMDAlJyBz xZabFJ8cEb2pPJGiKKUf hQkuvYZfEyEqi4ftVCFyVTiwQJ5b sYtwL6JsyUA9WZRir8e0Nc08F59y L9KkfED+JXQnePK4vLX2 rI2zIsCdLvH6OVflN231EiSocUAh Kbguz1eeb2ojxQy9EfZ0WVPsziDl cKdjWPM2j3RyLv17Z03z CKoqQRXzEUQeFKGpVJLkuGdvth4a nN6bKb2+GNTwyZH0zHW8eN6iEpCy RnY4BTcmY736VbWcxXHc Afqhb1bal1lkzXg7SfNkXTGfjoZe aOgqTAI4c9GiNr25Y2FqyCkst8Hx Qbj4ig78dSXpp7G7vPB8 N7JuHBDpzvdarAZyzAkzEW2bSWXu ogiuKRRipU1oEDYuJ4k7NaQvJlT6 TJmkL2XjykV9YSDztNJc NYjwFRZ3L83qu4N5SCLpGOHmEFT6 qTF3tF7dtGzmapssjRIvmEmchyJj nAnkVQzkXYrfY437BTAz cAmxBIVvxU3dQWCjsAZlkGsoHQ3r HGSeqyxtMuzPZyJKXAXCFF0NCtVG OQGKFAJFFBY6W8NsUvd5 HLPqeZznEE9coHEzLOrpZz9fqMaz xDtaIA1oFBBiykciIETbrU0eLOHj qZJhfKwbQK1iOTPnsntr n256EwGmKKA0PHEsiBKdZ1MljB2r CvZeFIPrQJUmJ7XqaAUrHDyyS168 LMelPlL0SAYipeYpZ4Do GOKwvHbgDqT4q6F9Lb1gUy9kPL9v IKufGT34QE97eAKsi7J4yDI6R5Vn HFAkdbqqlsxzzGC9OHXb JZRveF23aUOjHIigLi0cy0B2r476 UAEiYOGarU77Lr3hqRxkGTTcvSFW tG9phmpyq3ulpeelYmPr PXYzBNu1ZWk2PPXlrXncHfKqXLR7 XjH8DBI9rVJbvU9idOcbizdrfO6q Oyc+NnWyFKWpysI4L1Gy Gxk8DSEynMjrSB6alOOyIVidTh4r dEzyfNuqIK5tHAQbqpvrBHQgmK5h OSYxoXJzsJgkLO1lRWYj xdjmc218GbXsGOO5VZSrkXWvV9Kv rN0pRkOtYXSzYDYfC6AehNMnUByp R146XRxbAnR7QPFlswXx R0LjSLQsfVrrZiL7n5G7Oy4DCZ9A AJP6N0AkYxw7TVXciPfoDA8zySWi UDxsVj4nxGqirIpjZP9p DYBntujpTPWzdU2aIEJfcANmbCno SD7rWGMvjwhrp588YhVsOSR3BLRu bAErK2OqmK1ySaDlCVWs YOIlS7QqdYNyDIyyK901XYaeUbV4 VKLiouXaS1ZmVONydBfsZsS2l4D5 Hd8NNViknON+LW42wt84 C8UwSfidCbr2HIQcWXI6oUJ3qR9y YTSmCKboh5T1xGR4F7LbdiQbma7w o6wtNXWxJOvxZ54ieQQr c7N7OXXhqVM9YTZswBfrYsWzrH12 Oyc+KCFqsUkdj3CnBdttb6kjh3tu yNe7QdUgJGCkehRulIpe OQV6s8KmTo29X98oJWvwRXPrHMNs SLHaHJKqgXevwe4wdY2gVx8+PGNv kFM7hBU9rB7wSsIbOmD3 RCoqL697RrKitYZmNqzmm8akd6mm eOo3LhBqEUPbkvKbqQnoAMR8f5Ng Ss01I2PlgSdwx8VvBav6 py37wDTfq1R2dFE9X5UcUJOcrtcq nADnuHhvVI9oIMClkeghUAYplQ7f NEFlX7n7CkUxVjY5JRfp J7KgfcU2QTSvrEVbTAYyhRUTbM2p fuell0shrwkdVnOxFQZpNZi5BFo5 PXBqhEgqAtEyIUJ1BjL1 YGG7oHXifR2roKikucvleY7xIvr+ ZWw1y8yszPEcAV6wbIA1TL20RI12 xVXap7O9mPK0R7XeOVNt wmyuuasdpRH9LADtLYLkcR94Kh7a gZdrIz7aODIuQRG0YFMpdHMhF7Ye tH8uJxXpNUBpSJIcM1Zw wWLaNTvmT574IYqpMtW1EAPhzfOw T5VnBZGxhJacZgM6f0V9Gs4WWJ26 IZ08KK68pQKan7G0oCB7 I8OqDWJrzublrhoyoWX8KBYqDNAg nS19He3mqYkqJb0zDNYrPDK4ZKTm pFSwF9FlbL0pTvXaPGWk BMOdX1WefBDfYRamI184OZmcPeU1 LPPqqlJtJ9EfKGTthZcrPvK1p0Q6 Bq9MZq31DS42HL57qWUy f9S1nAN5P1NcYASpuemdjzljsCW3 IZEmVWHtkB79Zp7smAudRo7pTSZu UPZ2BRCwyHRhG3MelT6a VhYyLSXfRKPlU5JvaKHmUEawZ433 AAyqQkF1YTStwkOhC6JfJKPqzDnu TmJ0t9N2Uk7JMTjcsjk2 Y0FcZrvnhBX+CB86UFEkOI19eFYk xFKhg4ylkOe7BpScYXDfZAE6dMse TUdoo5OhAXBgI95epSWh c2U (more content not included)... [facility] Consent [facility]son 02-03-2022 Consent Forms [id number] [facility] ED Clinical Summaryon 2021 ED Clinical Summary [facility] ? Urgent Care [address] [place], [place] [id number] Clinical Summary PERSON INFORMATION Name: KATYH LEMA Age: 31 Years Sex: FEMALE : 1990 MRN: Acct#: Visit Reason: UC - Eye Discharge; Eye drainage; R EYE IRRITATION Arrival: 01/30/2022 11:59:11 Discharge: 01/30/2022 13:35:00 LOS: 000 01:36 Check In: 01/30/2022 11:59:11 Checkout: 01/30/2022 13:35:00 Address: [place] [address] PCP: Gayle Alanis CNP PROVIDER INFORMATION Provider Role Assigned Unassigned Rock RN, Pamela ED Nurse 01/30/2022 11:59:37 Alon Snowden ED PA 01/30/2022 12:06:09 VITALS INFORMATION Vital Sign Triage Latest Temperature Tympanic Temperature Temporal Artery Pulse Rate O2 Sat Respiratory Rate Blood Pressure / / MEDICAL INFORMATION Medications Given: Medication Dose Route tetanus/diphth/pertuss (Tdap) adult/adol 0.5 mL IM Allergy Information: iodine; Tape; Strawberries; Seafood; penicillin; cephalexin; amoxicillin PHYSICIAN DOCUMENTATION DISCHARGE INFORMATION: Discharge Disposition: Home Discharge Location: Home PATIENT EDUCATION INFORMATION Instructions: Bacterial Conjunctivitis, Adult, [id number] Follow-Up: With: Address: When: Gayle Alanis [address] [place] [id number] Business (1) Comments: You have been diagnosed with mild right eye bacterial conjunctivitis. Begin tobramycin eyedrops as directed. This is very contagious. Wash bedding, wash hands frequently. Avoid exposure to other children for at least the next 24 hours until symptoms have resolved. If any significant blurred vision, worse in anyway return for additional medical care. DIAGNOSIS: Acute conjunctivitis of right eye Patient Understands: Yes - Patient/family/caregiver verbalizes understanding of instructions given Comment: Normal [facility] ED Clinical Summary [facility] ? Urgent Care [address] [place] [address] Clinical Summary PERSON INFORMATION Name: KATHY LEMA Age: 31 Years Sex: FEMALE : 1990 MRN: Acct#: Visit Reason: Medical screening exam; WORK PHYSICAL Arrival: 01/30/2022 11:56:19 Discharge: 01/30/2022 13:35:00 LOS: 000 01:39 Check In: 01/30/2022 11:56:19 Checkout: 01/30/2022 13:35:00 Address: [place] [address] PCP: Gayle Alanis CNP PROVIDER INFORMATION Provider Role Assigned Unassigned Rock RN, Pamela ED Nurse 01/30/2022 11:59:33 Alon Snowden ED PA 01/30/2022 12:06:06 VITALS INFORMATION Vital Sign Triage Latest Temperature Tympanic Temperature Temporal Artery Pulse Rate O2 Sat 97 % 97 % Respiratory Rate Blood Pressure /76 mmHg /76 mmHg MEDICAL INFORMATION Medications Given: Allergy Information: iodine; Tape; Strawberries; Seafood; penicillin; cephalexin; amoxicillin PHYSICIAN DOCUMENTATION DISCHARGE INFORMATION: Discharge Disposition: Home Discharge Location: Home PATIENT EDUCATION INFORMATION Instructions: VIS, Tetanus, Diphtheria, and Pertussis (Tdap) - CDC (01/03/2021) Follow-Up: With: Address: When: Gayle Alanis [address] [place] [address] Business (1) Comments: Work physical completed today. Patient is at normal risk of worplace injury and complications. There are no significant limiting previous injuries or conditions. We discussed staying well-hydrated, stretching, training and conditioning activities to limit risk of injury. Patient was advised if at anytime dizziness, shortness of breath, wheezing, syncope, head injury, concern of concussion, palpitations, anything unusual or changes to health that they should cease activity and be reevaluated. DIAGNOSIS: Decreased visual acuity; Need for Tdap vaccination; Physical examination of employee Patient Understands: Yes - Patient/family/caregiver verbalizes understanding of instructions given Comment: Normal [facility] ED Patient Summaryon 022 ED Patient Summary [facility] ? Urgent Care [address], [place] [id number] PATIENT DISCHARGE INSTRUCTIONS Patient Information Name: KATHY LEMA Age: 31 Years Date of : 1990 Reason For Visit: UC - Eye Discharge; Eye drainage; R EYE IRRITATION Arrival Time: 01/30/2022 11:59:11 Primary Care Physician: Gayle Alains CNP Attending Physician: Alon Snowden Comment: Patient Education With: Address: When: Gayle Alanis [address] [place] [id number] Business (1) Comments: You have been diagnosed with mild right eye bacterial conjunctivitis. Begin tobramycin eyedrops as directed. This is very contagious. Wash bedding, wash hands frequently. Avoid exposure to other children for at least the next 24 hours until symptoms have resolved. If any significant blurred vision, worse in anyway return for additional medical care. Bacterial Conjunctivitis, Adult Bacterial conjunctivitis is an infection of your conjunctiva. This is the clear membrane that covers the white part of your eye and the inner part of your eyelid. This infection can make your eye: ? Red or pink. ? Itchy or irritated. This condition spreads easily from person to person (is contagious) and from one eye to the other eye. What are the causes? This condition is caused by germs (bacteria). You may get the infection if you come into close contact with: ? A person who has the infection. ? Items that have germs on them (are contaminated), such as face towels, contact lens solution, or eye makeup. What increases the risk? You are more likely to get this condition if: ? You have contact with people who have the infection. ? You wear contact lenses. ? You have a sinus infection. ? You have had a recent eye injury or surgery. ? You have a weak body defense system (immune system). ? You have dry eyes. What are the signs or symptoms? ? Thick, yellowish discharge from the eye. ? Tearing or watery eyes. ? Itchy eyes. ? Burning feeling in your eyes. ? Eye redness. ? Swollen eyelids. ? Blurred vision. How is this treated? ? Antibiotic eye drops or ointment. ? Antibiotic medicine taken by mouth. This is used for infections that do not get better with drops or ointment or that last more than 10 days. ? Cool, wet cloths placed on the eyes. ? Artificial tears used 2?6 times a day. Follow these instructions at home: Medicines ? Take or apply your antibiotic medicine as told by your doctor. Do not stop using it even if you start to feel better. ? Take or apply clof-xnq-ygokyzh and prescription medicines only as told by your doctor. ? Do not touch your eyelid with the eye-drop bottle or the ointment tube. Managing discomfort ? Wipe any fluid from your eye with a warm, wet washcloth or a cotton ball. ? Place a clean, cool, wet cloth on your eye. Do this for 10?20 minutes, 3?4 times a day. General instructions ? Do not wear contacts until the infection is gone. Wear glasses until your doctor says it is okay to wear contacts again. ? Do not wear eye makeup until the infection is gone. Throw away old eye makeup. ? Change or wash your pillowcase every day. ? Do not share towels or washcloths. ? Wash your hands often with soap and water for at least 20 seconds and especially before touching your face or eyes. Use paper towels to dry your hands. ? Do not touch or rub your eyes. ? Do not drive or use heavy machinery if your vision is blurred. Contact a doctor if: ? You have a fever. ? You do not get better after 10 days. Get help right away if: ? You have a fever and your symptoms get worse all of a sudden. ? You have very bad pain when you move your eye. ? Your face: ? Hurts. ? Is red. ? Is swollen. ? You have sudden loss of vision. Summary ? Bacterial conjunctivitis is an infection of your conjunctiva. ? This infection spreads easily from person to person. ? Wash your hands often with soap and water for at least 20 seconds and especially before touching your face or eyes. Use paper towels to dry your hands. ? Take or apply your antibiotic medicine as told by your doctor. ? Contact a doctor if you have a fever or you do not get better after 10 days. This information is not intended to replace advice given to you by your health care provider. Make sure you discuss any questions you have with your health care provider. Document Revised: 08/27/2021 Document Reviewed: 08/27/2021 [employer] Patient Education ? 2021 [employer] Medication Information: The exam and treatment you received today in the [facility] Emergency Department were for an urgent problem and are not intended as complete care. It is important for you to follow up with a doctor, nurse practitioner, or physician?s commercial real estate assistant for ongoing care. If your symptoms b (more content not included)... Normal [facility] ED Patient Summary [facility] ? Urgent Care [address] [place] [address] PATIENT DISCHARGE INSTRUCTIONS Patient Information Name: KATHY LEMA Age: 31 Years Date of : 1990 Reason For Visit: Medical screening exam; WORK PHYSICAL Arrival Time: 01/30/2022 11:56:19 Primary Care Physician: Gayle Alanis CNP Attending Physician: Alon Snowden Comment: Patient Education With: Address: When: Gayle Alanis [address] [place] [address] Business (1) Comments: Work physical completed today. Patient is at normal risk of worplace injury and complications. There are no significant limiting previous injuries or conditions. We discussed staying well-hydrated, stretching, training and conditioning activities to limit risk of injury. Patient was advised if at anytime dizziness, shortness of breath, wheezing, syncope, head injury, concern of concussion, palpitations, anything unusual or changes to health that they should cease activity and be reevaluated. Tdap (Tetanus, Diphtheria, Pertussis) Vaccine: What You Need to Know 1. Why get vaccinated? Tdap vaccine can prevent tetanus, diphtheria, and pertussis. Diphtheria and pertussis spread from person to person. Tetanus enters the body through cuts or wounds. ? TETANUS (T) causes painful stiffening of the muscles. Tetanus can lead to serious health problems, including being unable to open the mouth, having trouble swallowing and breathing, or . ? DIPHTHERIA (D) can lead to difficulty breathing, heart failure, paralysis, or . ? PERTUSSIS (aP), also known as whooping cough, can cause uncontrollable, violent coughing that makes it hard to breathe, eat, or drink. Pertussis can be extremely serious especially in babies and young children, causing pneumonia, convulsions, brain damage, or . In teens and adults, it can cause weight loss, loss of bladder control, passing out, and rib fractures from severe coughing. 2. Tdap vaccine Tdap is only for children 7 years and older, adolescents, and adults. Adolescents should receive a single dose of Tdap, preferably at age 11 or 12 years. people should get a dose of Tdap during every , preferably during the early part of the third trimester, to help protect the from pertussis. Infants are most at risk for severe, life-threatening complications from pertussis. Adults who have never received Tdap should get a dose of Tdap. Also, adults should receive a booster dose of either Tdap or Td (a different vaccine that protects against tetanus and diphtheria but not pertussis) every 10 years, or after 5 years in the case of a severe or dirty wound or burn. Tdap may be given at the same time as other vaccines. 3. Talk with your health care provider Tell your vaccine provider if the person getting the vaccine: ? Has had an allergic reaction after a previous dose of any vaccine that protects against tetanus, diphtheria, or pertussis, or has any severe, life-threatening allergies ? Has had a coma, decreased level of consciousness, or prolonged seizures within 7 days after a previous dose of any pertussis vaccine (DTP, DTaP, or Tdap) ? Has seizures or another nervous system problem ? Has ever had Guillain-Sheehan? Syndrome (also called GBS ) ? Has had severe pain or swelling after a previous dose of any vaccine that protects against tetanus or diphtheria In some cases, your health care provider may decide to postpone Tdap vaccination until a future visit. People with minor illnesses, such as a cold, may be vaccinated. People who are moderately or severely ill should usually wait until they recover before getting Tdap vaccine. Your health care provider can give you more information. 4. Risks of a vaccine reaction ? Pain, redness, or swelling where the shot was given, mild fever, headache, feeling tired, and nausea, vomiting, diarrhea, or stomachache sometimes happen after Tdap vaccination. People sometimes faint after medical procedures, including vaccination. Tell your provider if you feel dizzy or have vision changes or ringing in the ears. As with any medicine, there is a very remote chance of a vaccine causing a severe allergic reaction, other serious injury, or . 5. What if there is a serious problem? An allergic reaction could occur after the vaccinated person leaves the clinic. If you see signs of a severe allergic reaction (hives, swelling of the face and throat, difficulty breathing, a fast heartbeat, dizziness, or weakness), call and get the person to the nearest hospital. For other signs that concern you, call your health care provider. Adverse reactions should be reported to the Vaccine Adverse Event Reporting System (VAERS). Your health care provider will usually file this report, or you can do it yourself. Visit the VAERS website at www.vaers.hhs.gov or call 2-480-022- (more content not included)... [facility] Note- Provideron 01-30-2022 Urgent Care Note- Provider Patient: KATHY LEMA Age: 31 years Sex: FEMALE : 1990 Associated Diagnoses: Acute conjunctivitis of right eye Author: Alon Snowden Basic Information Time seen: Date & time 01/30/2022 13:14:00. History source: Patient. Arrival mode: Walking. History limitation: None. 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 She states it feels gritty. No known foreign bodies. She does not have any photophobia, or clear tearing. She does not wear glasses or contacts. Feels like onset of pinkeye. Review of Systems Constitutional symptoms: No fever, no chills. Eye symptoms: Vision unchanged, pain, discharge, No diplopia, ENMT symptoms: No ear pain, no sore throat. Respiratory symptoms: No shortness of breath, no cough. Health Status Allergies: Allergic Reactions (Selected) Mild Tape- No reactions were documented. Unknown Seafood- No reactions were documented. Strawberries- No reactions were documented. Severity Not Documented Amoxicillin- No reactions were documented. Cephalexin- No reactions were documented. Iodine- No reactions were documented. Penicillin- No reactions were documented.. Medications: (Selected) Inpatient Medications Ordered tetanus/diphth/pertuss (Tdap) adult/adol: 0.5 mL, IM, Once Documented Medications Documented QUEtiapine 25 mg oral tablet: 25 mg = 1 tab(s), PO, Daily, 90 tab(s), 0 Refill(s) citalopram 40 mg oral tablet: 40 mg = 1 tab(s), PO, Daily, 30 tab(s), 0 Refill(s). Past Medical/ Family/ Social History Medical history: Resolved Bronchitis ([id number]): Resolved.. Surgical history: LEEP ([id number]) in the month of 10/2017 at 27 Years. section ([id number]). Loop cone biopsy ([id number]). Hysterectomy ([id number]).. Family history: No family history items have been selected or recorded.. Social history: Social & Psychosocial Habits Alcohol 10/21/2021 Alcohol Use: Never Substance Abuse 01/30/2022 Substance use: Never Tobacco 01/30/2022 Smoking tobacco use: Former tobacco user Electronic Cigarette/Vaping 01/30/2022 Electronic Cigarette Use: Never . Problem list: Active Problems (5) Anxiety Asthma Depression Endometriosis Smoker . Physical Examination Vital Signs Vital Signs 01/30/2022 12:25 EDT Temperature Oral 37 DegC Apical Heart Rate 78 bpm Respiratory Rate 18 br/min Systolic Blood Pressure 109 mmHg Diastolic Blood Pressure 76 mmHg SpO2 97 % . Measurements 01/30/2022 12:25 EDT Height 152.4 cm Weight 79.83 kg Body Mass Index 34.37 kg/m2 . General: Alert, no acute distress, Not ill-appearing, Skin: Warm, dry. Head: Normocephalic, atraumatic. Neck: Supple, trachea midline. Eye: Pupils are equal, round and reactive to light, extraocular movements are intact, Eyelids: Right, upper and lower, normal, mild purulent drainage and crusting of upper and lower lids right eye, No pain with blinking suggestive of corneal abrasion., No clear tearing, Eyelids everted and there is no visible foreign bodies, no hordeolum. Gentle pressure over bilateral globes does not cause pain or pressure. , no chalazion, no ectropion, no entropion, not edematous, no erythema, not with foreign body present, Conjunctiva: Right, with conjunctivitis, erythematous, Mild diffuse. Ears, nose, mouth and throat: Tympanic membrane: no erythema, no dullness, Sinus: no tenderness, Nose: Normal, Mouth: Normal, Mucous membranes moist, well-hydrated., Throat: Gag reflex present, no erythema, not with exudate, no swelling, no uvula shift. Cardiovascular: Regular rate and rhythm, No murmur. Respiratory: Lungs are clear to auscultation, respirations are non-labored, breath sounds are equal, No wheezing, rales, rhonchi, no retractions, nonlabored. Gastrointestinal: Soft, Nontender. Neurological: Alert and oriented to person, place, time, and situation, No focal neurological deficit observed, CN II-XII intact, normal speech observed. Lymphatics: Exam: not anterior cervical, not posterior cervical, not swollen. Psychiatric: Cooperative, appropriate mood & affect. Medical Decision Making Rationale: Mild right eye conjunctivitis. Tobramycin to both eyes. Contagious to others. Discharged home. Impression and Plan Diagnosis Acute conjunctivitis of right eye (SFR18-QR H10.31, Discharge, Medical) Plan Condition: Stable. Disposition: Discharged: Time 01/30/2022 13:15:00, to home. Prescriptions: [facility] prescriptions Pharmacy: tobramycin 0.3% ophthalmic solution (Prescribe): See Instructions, 2 gtts ev (more content not included)... Normal [facility] Urgent Care Note- Provider Patient: KATHY LEMA Age: 31 years Sex: FEMALE : 1990 Associated Diagnoses: Physical examination of employee; Need for Tdap vaccination; Decreased visual acuity Author: Alon Snowden Basic Information Time seen: Date & time 01/30/2022 12:39:00. History source: Patient. Arrival mode: Walking. History limitation: None. 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 Pt here for work physical. Pt also signed in to be seen for right eye irritation, drainage, mild redness. 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 Patient has forms present, filled out to completion. Denies any shortness of breath. Denies any chest pain. Denies musculoskeletal pain during activity Patient presents for physical exam. All findings within normal parameters. Copies made of the physical exam. Original returned to the patient. Can refer to scanned physical exam for further documentation. Dx: Sports Physical Health Status Allergies: Allergic Reactions (Selected) Mild Tape- No reactions were documented. Unknown Seafood- No reactions were documented. Strawberries- No reactions were documented. Severity Not Documented Amoxicillin- No reactions were documented. Cephalexin- No reactions were documented. Iodine- No reactions were documented. Penicillin- No reactions were documented. . Medications: (Selected) Documented Medications Documented QUEtiapine 25 mg oral tablet: 25 mg = 1 tab(s), PO, Daily, 90 tab(s), 0 Refill(s) citalopram 40 mg oral tablet: 40 mg = 1 tab(s), PO, Daily, 30 tab(s), 0 Refill(s) . Past Medical/ Family/ Social History Medical history: Resolved Bronchitis ([id number]): Resolved. . Surgical history: LEEP ([id number]) in the month of 10/2017 at 27 Years. section ([id number]). Loop cone biopsy ([id number]). Hysterectomy ([id number]). . Family history: No family history items have been selected or recorded. . Social history: Social & Psychosocial Habits Alcohol 10/21/2021 Alcohol Use: Never Substance Abuse Comment: [place] - 12/12/2018 09:36 - Akil MILIAN, Kelsey German Tobacco 10/21/2021 Smoking tobacco use: Former tobacco user Electronic Cigarette/Vaping 10/21/2021 Electronic Cigarette Use: Never . Problem list: Active Problems (5) Anxiety Asthma Depression Endometriosis Smoker . Physical Examination Vital Signs Vital Signs 01/30/2022 12:25 EDT Temperature Oral 37 DegC Apical Heart Rate 78 bpm Respiratory Rate 18 br/min Systolic Blood Pressure 109 mmHg Diastolic Blood Pressure 76 mmHg SpO2 97 % . Eye: Extraocular movements are intact, Intraocular pressure, Visual acuity: Right eye 20/ 15, left eye 20/ 15, both eyes 20/ 15, without correction, not impaired, Eyelids: Upper and lowerNot edematous, no erythema, Conjunctiva: Right, erythematousnot with conjunctivitis, not with subconjunctival hemorrhage. 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 MMR up-to-date. Tetanus vaccine was not up-to-date and not on file here. She was given tetanus vaccine here today at the urgent care. She is aware that there is a cost associated and she is willing to pay this out of pocket if need be. She states she will past the cost under her employer most likely.. Orders [facility] Orders Pharmacy: tetanus/diphth/pertuss (Tdap) adult/adol (Order): 0.5 mL, IM, Once . Impression and Plan Diagnosis Physical examination of employee (VOO00-MD Z02.89, Discharge, Medical) Need for Tdap vaccination ([id number] Z23, Discharge, Medical) Plan Condition: Stable. Disposition: Discharged: Time 01/30/2022 13:09:00, to home. Limitations Follow up with: Gayle Alanis Work physical completed today. Patient is at normal risk of worplace injury and complications. There are no significant limiting previous injuries or conditions. We discussed staying well-hydrated, stretching, training and conditioning activities to limit risk of injury. Patient was advised if at anytime dizziness, shortness of breath, wheezing, syncope, head injury, concern of concussion, palpitations, anything unusual or changes to health that they should cease activity and be reevaluated.. Counseled: Patient, Patient indicated understanding of instructions. [Electronically Signed on: 01/30/2022 13:11 EDT] Alon Snowden [Electronically Signed on: 01/30/2022 13:13 EDT] Alon Snowden [Verified on: 01/30/2022 13:11 EDT] Alon Snowden [facility] [address] Urgent Care Record [facility] ? Urgent Care [address] [place] [address] PATIENT DISCHARGE INSTRUCTIONS Patient Information Name: KATHY LEMA Age: 31 Years Date of : 1990 Reason For Visit: Medical screening exam; WORK PHYSICAL Arrival Time: 01/30/2022 11:56:19 Primary Care Physician: Gayle Alanis CNP Attending Physician: Alon Snowden Comment: Visit Diagnosis: Diagnoses This Visit Decreased visual acuity (H54.7) Medical screening exam ([id number]) Need for Tdap vaccination (Z23) Physical examination of employee (Z02.89) If you received any narcotics, sedation, or any other medication that causes drowsiness for the next 24 hours, unless otherwise directed: ? Do not drive a car. ? Do not operate machinery such as power tools, lawn mowers, drills, sewing machines, or stoves ? Avoid alcoholic beverages and drugs for allergies, nerves, or sleep ? Do not make important personal or business decisions or sign any legal documents With: Address: When: Gayle Alanis [address] [place] [address] Business (1) Comments: Work physical completed today. Patient is at normal risk of worplace injury and complications. There are no significant limiting previous injuries or conditions. We discussed staying well-hydrated, stretching, training and conditioning activities to limit risk of injury. Patient was advised if at anytime dizziness, shortness of breath, wheezing, syncope, head injury, concern of concussion, palpitations, anything unusual or changes to health that they should cease activity and be reevaluated. Medication Information: The exam and treatment you received today in the [facility] were for an urgent problem and are not intended as complete care. It is important for you to follow up with a doctor, nurse practitioner, or physician?s commercial real estate assistant for ongoing care. If your symptoms become worse or you do not improve as expected and you are unable to reach your usual health care provider, you should return to the Emergency Department, we are available 24 hours a day. For those patients who have received Radiology results, the interpretation of your X-ray as given to you by our Urgent Care physician is only a preliminary report. The Radiologist will review your films and if there is a change in the diagnosis you will be notified by phone. Please make sure you have provided a working phone number so we can reach you if necessary. In the event that you had a lab culture while you were a patient in the Urgent Care, you will be notified by phone if there is a need to change your antibiotic. Please make sure you have provided a working phone number so we can reach you if necessary. [facility] has provided you with a complete list of medications post discharge. Please inform your primary grade teacher/provider of your visit and for further instruction on these medications. Any specific questions regarding your chronic medications and dosages should be discussed with your primary care physician(s) and/or pharmacist. Medications to Continue That Have Not Changed Other Medications tobramycin ophthalmic (tobramycin 0.3% ophthalmic solution) 2 gtts every 2 hours day #1, then 2 gtts every 4-6 hours day #2-7 in both eyes. Refills: 1. Additional medications on your home medication list not specifically addressed. Please contact the ordering physician if you have questions about these medications. citalopram (citalopram 40 mg oral tablet) 1 tab(s) Oral every day. QUEtiapine (QUEtiapine 25 mg oral tablet) 1 tab(s) Oral every day. Visit Information Allergies: Substance Reaction Symptoms Type Comments amoxicillin Drug cephalexin Drug iodine Drug penicillin Drug Seafood Food Strawberries Food Tape Other Vital Signs: Vitals and Measurements this Visit (last charted value for your 01/30/2022 visit) Vital Signs This Visit Temperature Oral: 37 DegC Apical Heart Rate: 78 bpm Respiratory Rate: 18 br/min Systolic Blood Pressure: 109 mmHg Diastolic Blood Pressure: 76 mmHg SpO2: 97 % Measurements This Visit Height/Length Measured: 152.4 cm Weight Measured: 79.83 kg Body Mass Index: 34.37 kg/m2 Problems List: Problem Onset Comments Anxiety Asthma Depression Endometriosis Smoker Added secondary to documentation in Social History. Patient Education Tdap (Tetanus, Diphtheria, Pertussis) Vaccine: What You Need to Know 1. Why get vaccinated? Tdap vaccine can prevent tetanus, diphtheria, and pertussis. Diphtheria and pertussis spread from person to person. Tetanus enters the body through cuts or wounds. ? TETANUS (T) causes painful stiffening of the muscles. Tetanus can lead to serious health problems, including being unable to open the mouth, having trouble swallowing and breathing, or . ? DIPHTHERIA (D) can lead to diff (more content not included)... Normal [facility] Urgent Care Record [facility] ? Urgent Care [address] [place] [address] PATIENT DISCHARGE INSTRUCTIONS Patient Information Name: KATHY LEMA Age: 31 Years Date of : 1990 Reason For Visit: UC - Eye Discharge; Eye drainage; R EYE IRRITATION Arrival Time: 01/30/2022 11:59:11 Primary Care Physician: Gayle Alanis CNP Attending Physician: Alon Snowden Comment: Visit Diagnosis: Diagnoses This Visit Acute conjunctivitis of right eye (H10.31) Eye drainage ([id number]) UC - Eye Discharge ([id number]) If you received any narcotics, sedation, or any other medication that causes drowsiness for the next 24 hours, unless otherwise directed: ? Do not drive a car. ? Do not operate machinery such as power tools, lawn mowers, drills, sewing machines, or stoves ? Avoid alcoholic beverages and drugs for allergies, nerves, or sleep ? Do not make important personal or business decisions or sign any legal documents With: Address: When: Gayle Juan Jeve [facility] [place] [id number] Business (1) Comments: You have been diagnosed with mild right eye bacterial conjunctivitis. Begin tobramycin eyedrops as directed. This is very contagious. Wash bedding, wash hands frequently. Avoid exposure to other children for at least the next 24 hours until symptoms have resolved. If any significant blurred vision, worse in anyway return for additional medical care. Medication Information: The exam and treatment you received today in the [facility] were for an urgent problem and are not intended as complete care. It is important for you to follow up with a doctor, nurse practitioner, or physician?s commercial real estate assistant for ongoing care. If your symptoms become worse or you do not improve as expected and you are unable to reach your usual health care provider, you should return to the Emergency Department, we are available 24 hours a day. For those patients who have received Radiology results, the interpretation of your X-ray as given to you by our Urgent Care physician is only a preliminary report. The Radiologist will review your films and if there is a change in the diagnosis you will be notified by phone. Please make sure you have provided a working phone number so we can reach you if necessary. In the event that you had a lab culture while you were a patient in the Urgent Care, you will be notified by phone if there is a need to change your antibiotic. Please make sure you have provided a working phone number so we can reach you if necessary. [facility] has provided you with a complete list of medications post discharge. Please inform your primary grade teacher/provider of your visit and for further instruction on these medications. Any specific questions regarding your chronic medications and dosages should be discussed with your primary care physician(s) and/or pharmacist. New Medications [facility] [id number], [place] [id number], [phone] tobramycin ophthalmic (tobramycin 0.3% ophthalmic solution) 2 gtts every 2 hours day #1, then 2 gtts every 4-6 hours day #2-7 in both eyes. Refills: 1. Additional medications on your home medication list not specifically addressed. Please contact the ordering physician if you have questions about these medications. citalopram (citalopram 40 mg oral tablet) 1 tab(s) Oral every day. QUEtiapine (QUEtiapine 25 mg oral tablet) 1 tab(s) Oral every day. Visit Information Allergies: Substance Reaction Symptoms Type Comments amoxicillin Drug cephalexin Drug iodine Drug penicillin Drug Seafood Food Strawberries Food Tape Other Vital Signs: Vitals and Measurements this Visit (last charted value for your 01/30/2022 visit) No vitals and measurements documented Problems List: Problem Onset Comments Anxiety Asthma Depression Endometriosis Smoker Added secondary to documentation in Social History. Patient Education Bacterial Conjunctivitis, Adult Bacterial conjunctivitis is an infection of your conjunctiva. This is the clear membrane that covers the white part of your eye and the inner part of your eyelid. This infection can make your eye: ? Red or pink. ? Itchy or irritated. This condition spreads easily from person to person (is contagious) and from one eye to the other eye. What are the causes? This condition is caused by germs (bacteria). You may get the infection if you come into close contact with: ? A person who has the infection. ? Items that have germs on them (are contaminated), such as face towels, contact lens solution, or eye makeup. What increases the risk? You are more likely to get this condition if: ? You have contact with people who have the infection. ? You wear contact lenses. ? You have a sinus infection. ? You have had a recent eye (more content not included)... [facility] Coding Summaryon 10-31-2021 [facility] CflhvhmkDXb1xYi+PGhlYWQ+PE1F NLSlK43ccCDgsR5ZG3pQEP7KLECQ YATNJO5ZJY3vzSE8MSkoA5GjocPs JmamkWIdKW27RJd9XLF4dLfcASms mF3wvJYcL8k4EzDdUN70pP82SFzr PJUcJlF9GpEnkpkzbAHi H5rxVuWldMXkQkn+PHRhYmxlIHdp XZQgUSgaDIAiZqBazUyxUO5sVo1k ZGVyLWNvbGxhcHNlOiBj o4qnSOQnTDjiQE6adDyhG4BqaBS0 PIVmz4q3Mg86tCF+NRChSGY9wXoo DTxih490MsSck5zsJEP6 zLJcXQhsBNP8V95iy6G6SIEiEEGu WES4zZP7gH1goHnvbcfiC2QteTVt ReC1EAR4mNJorU6thHcy jltwlD0bWga+U86QWR3PLJFBFB1X Ykf3S6ExLpedoMH+AK97GKLuNK92 yDFhxZHgr1bwtKd4AuNa RXEmMFP9rWmcGXmzp6GmDSNqZ12q nXHyi2C6UAWkpWuqxTCuPpImzFD3 yU7zMBomfuuwx0tvvvfo Itxrx7bivh27jC28Z51bEUjbJMYm RUB7NLHkJBWzeLbpdp9siU5oAx4+ MVzfw5jih0sszGm0WzLc CYSinvHbfRzcXXF0q0YvXz63B6Lb hFcep5VxDvj7rc42gZYky4H9uKL4 PZvgJDGcdL3zUHxjZrL7 PYYvTmNecT65qRTkDRljYn1rgFob pFjgIW9yRXDmcysaCXHfdJ4vWKJt yEVusWbmIF9jGOEwbwtt l804AxSaORM8LGLhtDMfR0JrcQ5z JcAaMDYuASRgM8AsiVRbFZloQ983 YQoxGgF9IMYtdiAfH5Ge LQPisAlcAxA3p2P2Gz1Rv5Fazufv LJV3QXbjFBB2JuHyNlJmYoK7K6Cj Qpr8JEYcuBnhXI1fG3Vr BAYgygxvxikiwLM3QEZnMHPivV19 nLXyUMayHg6qn2T4t892YFJmXYMh lV44Di3zvEthDDGufZNN sI2nmkqln2kujbmiFpNfDZSjKFj9 JWg9JOWkiOwhLcBlXEH7CqV3EBA4 mPZntY1yrNeupzpljX9b Oyc+A87xuQ0fEZE5AAI2njadYJIo tjAsDD24RE35L5StTnxojRWayAH+ DHRvrjXlxPhaMS5vZkMq t3jtb4NtONyaT3UgQFUnAPvjZrb0 WLHvTZZ2tYY0xO3uBDZwSJfkf3M1 lUQ8O1SkvgKpvp2dq5ak AINcGRdkV01qiFTwq5R0LRZcfFH1 YNCncNzfQxNxwU23Ztz+PGNvbGdy j8MfSdyps8sbd7wetFc9 OdNwVQEvzyFttFtnKQP1x6EnYw22 Z91uFWwgHKUnHBFeHQEkHQGmiZji pu9kgX6rVg0+PGNvbCB3 bUN7iP5qMSCpLnF0NPusV215QlYh hIChDzqzb3lzi0xuaEm2VaOtGBWv cuVttPucTXN5t2DwRx04 W02uFXkoFONrXJLbBJIyIFCydOsh pm2jyT5lGh7+DD5ti3oynq30wP10 dHI+AGSwIYR8mOlnEAyp TJEgxV5qMLjsTkH1KVBnRxMrjB52 cORgOMfhYr1elYqepFiuIO8fPIIy awoss970LdHpe1mwWRBr kWUrERvaCKM0K70vt1F1FQKhWIHe YPX8cIJ0qM0gtEvfjcmzeELokQnv lbYjsWhiWYkdZHfqQ745 IHRvcDsnPlBhdGllbnQgTmFtZTo8 Q8GaKkp9XAJveKlrCQ1tlDJkHSwy Xa7woNalvZwnCX2nUCMe irhio770HqMlp6joJMUrnKCkTTbi WJZ7C81pw0L3IBPwCNHaEDN5jBU1 tA2hxLetranprWIkjHig xyMcnGxuCZetOHhlM197CGKvlGnb TaNwspHfZVDzfKO7BJ31YN65cZXb w0L5vVB3E4AlXJUjbvft svvkzVR4MGIvKHGmvV71Tu2uiPxf Tf3wTAYaRNC8VEKrvOTxG8MozI9m ZcTgVFSmNOXmP1OarIAp HCwsI868IFdaVsD1GBBftkFhJ2Qc VMKtbLdhVhO2s1X1Ga6MQ9Q7OL12 IL83xEJcp9O9jOL4C9Nc BEOxmfegdqwiiTN2EIQxIADawP82 Ep6wnHkeWv6eYSKdDWT0IEQfwUXn A5OraJ8mHoArTBNyKQAj K4JhoKRzHEskI058XFqrHmW7HSUs jxDiD5JvXVTetLkmOoB1n0O6Vp5Y PGj8GC04YD41xQIyz0T4 aWX6L4OsODIgrgizczbmwHP2GTUl HKHqpS63Pr0jiPdfHr2wNQNdLHW0 HHZbfKCqP7IviV0rUlDk FKJrRGMzV5EmsJVeSWkkS654QFny ZqQ2LVVliaTdX7AgHMUheApoRxJ1 h6B1Ij7IQRIcCL91ABV2 fTU0DO33JJ31U3AaPruwdDVqxCH+ PHRhYmxlIHdpZHRoPScxMDAlJyBz lRsaPW2gUi8aXQQtDTFy mMgzlAKiSvLoc8nhFXQrONogET2c oRugV7WrvTC6PJLqk9y3Gn98P18r E1GxpKK+YAEpwHH3gMI6 lA4bDrNrHsJ5BDvnE492XtPywOMb Cpecs2bky3wnwHh3WhU6QVLtaqGp xLhpYIZ4v5WaDw02O66s WYnlGICdVCTbELPjDNStcVgdlk2t jS6fWf6+YJQmjYV0eXX7dU6jQfTr YoH3NRdzS791MhNncLWo Ttjwu0mez3zfiCn2LzVqJWZhyfMm oZerIFZ9z0ZeGe80B9HqgQnyu6Pq Kxx2sc91sCCwi7W1ySR9 V2IdCITdlvqnxBOpuZxiXL8rXGCf odfsPHDsgF7fZHCpD8o7EaTrMmE5 JBvqD0MckjT1BJTnnGJl VVhkYHY8C75ro5Y4VKEfMNBmGSX4 rQP3sL5eaElvmxiayRHhuBbwxfXo oVymDEhlKYkoN045GLIf oTseHJTolP0rGBOweLVdqLodJU1x GZHujwezTxsFPyGGIXNRYL8UMxNQ UUJIMSVDXFR6E9QtWpj4 FYXrhYuiQI8saNGiBWrvLp5dbByj eFgfOV9hLCWiodnbBGTofN5hWOAe mZCiuLlrCA5gJDMwrvee u856QcOrRRP4CVMbtHNhR9DpgR8n HjAhNKPvBJOyY9VawWSxQDgiT183 GBpnGaN5TJZpdiQcV4Wi PPYwiPrvMzY3x6B3Hh0oNm6dVC6h NKcgBM06IF55tIRim0S4jQD2G3Ec JKJdoydlaclakUN0JINo IMAkpE46yMBrJYxwGo4fi3R2k117 MIIcQODfuL97Ta3bgAnxHWJklZKV dS0pypiro1ohnmiqFpQc PNVwSEy9VSh2MSCpmChxUqIjMSI3 VmE0LUC2xGGvaG3yuWdufrtfrW1t Oyc+YoTdWOFplrS3Z8Ap Yfq5UHPzzQzqPA7avMBrRZlsVb2g qNcdqVxbGQ1mEFNavwnrCZEsoB2a CDZzmPClnTgbYI4bNAWn epswz973CgAgRKO9PPGsiRNdK6Ng xN6rMrNeGQMxMMJyZ6RrkYKlYVxq O701JUccAvI6XTWsltZn D8BpDYIeyDcaIeE7b8P8Xx2ZII9T SXP2Z3LdLsr0OUIsoEosLC0okAWo MTfzQp6qgKqotFnxMQ1z CVKdcxubWSZspU2qSSXldWBycTbd IQ1aRSPfakoxr195JvLaKEJ8BRJa kJIfX1SzmO9cRwYyKCSa OUHwE7NwxGSvHLwdY207WSkfUgS6 CGWqsgPvE2ErTOEpbRecJuW2a2A4 Fo9AJVuilSI+YK15fu03 N0DwLgatZle2FKWmTUI8rAW2gQ7k XXJvQXnxl7Y8cGU1K2BskjJshb4q d5akQZGeNEmpT57wyGGb t8D6JZZtoGM0BOIkoWvaNaEthS69 Oyc+LHMljOmyb2UzNtgpr5hhs4nx qBf6KgKeARFzmsDpqRft RWO6q9MtIp76U82zANvaMFCcUCHj QZIrBEYsoNwdec2dnT1jEz5+PGNv pAU7gWA2oQ0oOhZpNtI6 TWdyQ267QkXpwXJaVdixi3rzq2pr aLq9RvDmRQPulfLdjYuzTUY2k5Gh Ws58Q8SrpJmzy4HsNuj8 iu70zRRza8F3zMB2N8VmDDDhymya zTBxzXhfYQ9tHBWspoirIDFphA8i XQBbT2y0VqBeHjP9ABnl J9GcrwL5IPZxyVRxEDNcaDJPdP1i megaf8uayanhOwUqNIShHYs3JJa6 LITkoSylOjUcWXU3QrI5 HBD9lJDhaG1fqYsejngthL8oZee+ AGv5k5tmsRCvEO8dlQC5SM43BW24 vXDad9X1rFP1P3SzVAXg vmvddtmkuIK2CXMuXTThwU70Ho2z xUdyKk7gVUPdVYT5ZKLbsNWiX2Ka aN2mNhSvJNNlTYKrZ7Ei jLNsHLgeA852YJxoJsE5XHHzmmXg U5RfTMQwuXfnInJ4p9B2Wx8HKC25 JJ60DS35lDSdl6X5hNN5 H8UtRBUkqeywzrtsqVF4HNHkUORr bJ37Yd9hxSqjRd1hPJXxZLA0SAQo bNZaL7MymV9hExDoQFKb JEFiI0InkFAlZImtL635YRokTnL8 NZVfieJwW6YlLRTaoKmlQpF9a6X4 Mh4SRi39TJ86MX78gJYz o7X2pGB2W8HjDFOnewgukuaegUE7 JHWxZDFkqU57Dg9piVntHk1tJTEw MOH6IGPwwFTwB1StrD3c OhIfMNPbJIKxG6EocOWjVVhdT447 DTvzSwO6DTVhceYvE9XmUFFsvJoh PdF6i6H7Wo7TEZskmrf2 W7OtBhtclJT+LY94URUuNH82yRLz gOBoo2ovzVl4ThGlPGCtUXO4cYms DCkgh9FqCXWjD32wcCPo c2U (more content not included)... [facility] Coding Summary HTMLBase 64 GbbsnpthWLj5aBz+PGhlYWQ+PE1F AYUpG29ifLQatN5DP8xKPS9HBQOO QWQRPL7ZOF6ltGK5UIagC2DfqqTn DooctKMzOH80XHs5KNU0rLxhDXwx iZ2yqAWrB9r4BuUeOL31xQ53NYjd OXGwVcD9DfRmxyvotDEo U8ccUmIvkGQoKyc+PHRhYmxlIHdp DYFdKOyrIKEmMmJftQnfNG9kXl8v ZGVyLWNvbGxhcHNlOiBj n1neMKZqHWywAU7taVyrZ7CjjPU4 AYQjt4i5Rt83iFM+SBZeDRB5mHtg NZnrk135YoCzn4pqSWW2 xJLpOGxmXLH8S41hu9L4NJNgHDOr QSO4dIY1sK8hdKbordbhV2VakJGw PoD0ZFB9qLNtkJ0guKjs mdztnZ4wEqz+T69NMK2GVTGCEV5X Xij7X7XyLjxksKC+RC80FEZxLP27 yTKkyMVhq8pfuQa8DdCz QAWrWNP4mKfdLAnhq6MuUXQaZ31y kTYhm7X2QSRobJijmRLmYgVnaEM1 nJ1aSFgydvlmk3kdvypb Yzzug7bpoz51pZ57C39fHFvdMKKi MVJ0WLLwYMDcbDhaud4epG5cQn0+ YPtqb2lve7wbbPw6AoMj ERZmyfDorHqqOGS2x8NkLy51B8Tw eEwyd8SxEyo5qo66kFEbh9O3gSY2 WRzhJDWamH2cWQjnMoM3 WJCpQdQszO61yBNyMIsuLl3biEwx pWanGE8eIAUhlcczFKEsfG1eBOZm fRIkaXtoUQ1dYNOucrmo n372TqPsXEA9EXLudFViS8UbtH1p JuJyJUDtSLXcC3PikLXlTYoeR771 XMebFzQ7SQRkzzNcD0Jt ZBNrxYqgDcI4p3S2Ev8Jn8Satmcr NJI1TUnzIIH9HxSxVsSsRyY8X5Ph Fkp3RBIzaGgaSW2fE4Rs EBHhpbellrvubQR2UNCgURKnnP59 iUJbMKdoQo0kw4D9f274TTYmRTPe pT29Db2cvBnwLJOwwWGO kG1rtjpaf3dkttvmTwWsAYTxMPh5 WMk5AILlrBimXwJfSHG1VbH7YDM5 hTGlkJ0kyPuzgbyxrO9n Oyc+I80emJ4tHCK8TEZ0dzfmOUAq jiCeRA42GC39I7RcFgkgrHEqaSE+ WNWezeTyvKrhTP0vKiAn i4dvc0GcSYnsL3CmRDPoANwjKul2 CTViROT5nUT5tF3rOCBoRNpzx0U3 oTA6Z3QoqxDpxb1ne4ee GHDeYDkbC68ziZLui3Y2ZYCskLZ7 NBVdgZnrDfNjyM70Mft+PGNvbGdy u2CdXhheh3byt7uitPx8 TkEkZGEasvTcmHmeZPE4w9RnGe73 T31tSUroWSYsLBIzQFVcMFAvqDtu uk7vuY2kSe6+PGNvbCB3 hKF0fP8eMNDkWlP1YFqyR948PqOr aOBfIlcwh3utm7rtzDk0NxEcHRSc qdWgkNckYQY6e4AaQc24 T09yNMivPXLlUZSxHIUoJYNdgXjh xm8kyO6uYe2+YC1vv7hsig12dF51 dHI+ZHIfIJL4iUfdXAvg MHHypG2eHGboCaE7SAZhOeCbvJ96 xBHpQDdeUg2nwBrieZagAJ3vKPEp rhivj285NyKdx0xyQSDf lKXzDEicAQB8M12lc0O0HNIrRNGg FDD8zGQ0uH5kkBrovcbyzEGfaErt dxYeuXlwJXlaQXijR817 IHRvcDsnPlBhdGllbnQgTmFtZTo8 U7XdWol5ABBxwZrnHJ7rxCCbCKll Jm5zpXgweUbwJG5jLFKx fjynk135MaIbs1plCYMwfBLrBHub QQM4B71fn8P3XQScNDMdQXK5qWN0 cR8utMsggroopKPapFws wmRkoOldJGooTVbxH740DIJlgGrj RaQvxbKeOBRjvIK6NH81MP72fVIi h5P3pOS9R2NpZFPdtufu kijswOF0WNXtNKVwcG29Jx1tyTvp Rw8iGEGnQWI0ERTmhEBiI4HgmV5s EwBhASSbAWYoL0NdtHYd KBksB794YVpwDbG7UDFwazHkK9Ba YKIobGxbFhQ2e3G3An9HL8P7KB18 CT35bBExj2Z4yXF1Z6Qh AOKfcokcwizfaLS9RFBaEQVzyL28 Nt8frUimGf3jXDCrMWF5XVNniABf P4EjcT1qQgBoUGArQNRe V5OwdOImTDgpE753MYdbVaV2UFUo rvDvQ5KhPNDbiQkvBiL2h4S0Ie5F WOu8MX35FS82pQQrx1R2 nEI0F4MrUUVsyunqxtnayVO6BQPz YYFhxU47Lx2nrYcmNx0pGZDeTRU7 EZRawNYqB0UvhG5nFuBx URJaLOKjA4EocVPrEFotC719XFcj EiF0NAQyamVjB6IvVCEmcLgcDdT1 h7U9Qx3JBPUkSV83ATK2 vUL7FG52RX86U0TeVbipuMKieFT+ PHRhYmxlIHdpZHRoPScxMDAlJyBz qJxaWW2pUk4lGRZbFLAj fFxarZMfMlFoj3kpRBDbHDqiUI3u bJcyE3SqaQW3UIXcn0e7Re99U14l V8VvlTO+OHArvUF3hWW9 iR4mSdJgRaU1HXjbW581LwDqoFLp Sjesr5ayk4nnpJt9WqE0COHgaxAq tIrjQZE9e6VfTf91X58n HIttTQAiJZKlPONfBMUygAsrip6g rC2zRr1+FAHhxKV4iOF2zH5uCiFz MnR8ESdgF488VeMknJBs Smjyg2kxm8uypPs7OcXzCFGpwgGq iQulOEV1k5TcDt67K1PwtExsb8Ax Ssc9mh04dQIyj8U0uNQ7 V9BbYPBttjhgqEJxfWwtTQ5jQGJj cpswLEUnhG9dQVOqP2a3FiSrDhF6 SEgmN9SqsyR5ZBHjkKCt KXzyQYF4A74om5L2IOSfFRLxBOL9 gFC8oP9xbZiqharydAJmqOdahhFs lVtuAOwyVWxcQ924IOUa uGxeOKZzqH6jUDIxdZRfcMtxIZ2l CUAzmvkqPkhMIjBOKRQEIQ3BSkCQ SVEGYEZNOAG1G5SsPwa9 RBTwxYzkKR8csGTrBWreMu0oqQkv tJsvTV5eAQYmgeqpXKYjpF1sPUJm lXEsiLuvWV1vDKHneyev q834EsPuDSI6NHDjlHCeS6AsjR5n MwKnZGTtSYTrX1JbhNTzRZglO675 CTinGpQ9XWEpzuFcM6Jm CDVegMtoWoP4v8A0Cc6jLb7xRC9g DIoiFK16XT21vWAvs0A3pAT0O1Nz UOXxwqrvlnjoyAM4EEDr SRNfoK95pAAxUWkxOf8gy9D8o143 GRRgZXZthX76Rx2kzAiqDZJsoXQI uW2hqezxz3mdkebhSxKs FGBfPYv3HBz1MIGteOdgYdOoPJH7 InE9KQZ7vXFxvT0hvSrwjkxdfW8b Oyc+ViKzXVAcpcB7V4Od Hlo1RWZhaHzkXJ8mjNZcTUtcNy7v gYsmkEyyXS1yNANiibzbNLWwyK1d HEEwqWUmlNudGW3zHOYu rvjyn756QuThGAB8RAUstARdI4Nq oJ5yGvUuVKMrUOAnB8KqhNFwWVty N034UGauZeA6KZDxjmDa U7DaEEBzlGeqKuR3k9V8Mx4HJM5M ZVB3V4AeLjn3TTBvvFdtRI2fkWAt IHkaHo2fnRrlsSrrVR4j XEEuuidaFNMsbV6tTJRnpAOqrCjw GF7kZPDpeelul422RgHbRRS6TMRm qJQoS1NpgI7gUlQwVVCg OIBbC5BwbKMrGNosD930IIhkTyZ0 HAVxceUjQ1IbRMStwZhpCqZ2q1V3 Wi2HaPSeI1CsB5w8G4Gu PjwvdHI+SJ14MAZrCA52nOPjqABm o6vwfDk9ZdBjAZTsOMC5gTnsTQjg t8UsYJCyE20ceVCnn3C3 XXAvcZcyjTScKjSloHO5eL4rHOuh rlwxb5zxqaydMwtrk5gnup32sF10 G18ePMijKRNfOOJzEJSi CGLjnCikez8ciT7fRh9+PGNvbCB3 eTP3wL0gKxVeQaF2KBtkF319EgRr nQHaHobvj6tyd1ipmJk7 CoUjTOOkaoVadSgwJWO2l5ZmUe77 N15yAIdtOTFlZIUzZKNfGSSgyIgh bk2trT1eZn5+XY7ft1xa sl17dW05jMP+YBApMCC9jAvhFHkk QPHkqV7nKVkzAkO0KEMtQxKepE08 fZKePAqgTz0bnTtshYtw FK5aRQVxukatd785ZqIyv8wxCDYg aUFuFXphHWR3M67sn2G6NAAcEUHf CRC8wEO3iG6epVddvuez zLXdgWyfyiAvmDnsZBewCXorQ599 EQOpfOruUgEtsOVkN2bmszTHRE7v OjwvdGQ+MYXsVUP8gHom EXsfCORxrN6uXWOlE0z0OrZzSbZ9 BAlpJ6ZsttQ9QEWvnENaIFQfsQHX sE3temvqz1gsfxkaSfNc VBWfAQo2ICe4JEZtnRmiYkBgRZI9 DxC4IVJ7aAFssT5cdIsvjnpeaR1h Oyc+RklOOjwvdGQ+PHRk XKO3tHayCYprWDKbyX8fWAAwE8o2 ZxNkDdX3XUybZ0WbkkB7CFBkrUVv OWOltFLIgF2johhow5pm tzjsXxItJCHqNFt6WFj9ZMWytFkt IwNrRFA0BoI1APM2hBOjtR4omJvy verhlB1uEwg+TVJOOjwv dGQ+BVPpDHL3vKpxFKgpVGXvfJ3u SPBtS8l8QxUaZqM2MFfzN6QrhvV7 WMQcmJMcRKTeuJMAzI9r qnisx7tfqeiaIvSxNASdSTq5XGu8 PAUbhCxkBvDqQNS3HsS4OYQ0xNDn sK7dvXiahymvzE2uIhq+ PIM0PEW3CW29EY27K4TvPsvqqDYe bGU+PHRhYmxlIHdpZHRoPScxMDAl NjXmrJatEF4vYm5dFHLv LWN (more content not included)... Normal [facility] ED Clinical Summaryon 2021 ED Clinical Summary [facility] - Emergency Department [address] [place], [place] [id number] ED Clinical Summary PERSON INFORMATION Name: KATHY LEMA Age: 31 Years Sex: FEMALE : 1990 MRN: Acct#: Visit Reason: Allergic reaction - minor; POSS ALLGERIC REACTION Arrival: 10/21/2021 20:11:57 Discharge: 10/21/2021 21:40:00 LOS: 000 01:29 Check In: 10/21/2021 20:11:57 Checkout:10/21/2021 21:40:00 Address: [address] [place] [id number] PCP: Gayle Alanis CNP PROVIDER INFORMATION Provider Role Assigned Unassigned Brenda Cee ED PA 10/21/2021 20:16:33 Elizabeth Marin CONSUMER SALES REPRESENTATIVE Nurse 10/21/2021 20:29:17 Mojgan Noonan CONSUMER SALES REPRESENTATIVE Nurse 10/21/2021 20:29:35 VITALS INFORMATION Vital Sign Triage Latest Temperature Tympanic Temperature Temporal Artery Pulse Rate 71 bpm 68 bpm O2 Sat 100 % 100 % Respiratory Rate 16 br/min 16 br/min Blood Pressure /81 mmHg /81 mmHg MEDICAL INFORMATION Medications Given: Medication Dose Route diphenhydrAMINE (Benadryl) 25 mg PO LORazepam (Ativan) 0.5 mg PO Allergy Information: iodine; Tape; penicillin; cephalexin; amoxicillin PHYSICIAN DOCUMENTATION DISCHARGE INFORMATION: Discharge Disposition: Home Discharge Location: Home PATIENT EDUCATION INFORMATION Instructions: Panic Attack; Seafood Allergy Follow-Up: With: Address: When: Gayle Alanis CNP [address] [place] [address] Within 3 to 5 days DIAGNOSIS: 1:Anxiety state Patient Understands: Yes - Patient/family/caregiver verbalizes understanding of instructions given Comment: [facility] ED Note-Nursingon 10-21-2021 ED Note-Nursing Pt presents to ED ro om 3 ambulatory from private vehicle c/o possible allergic reaction to shell fish. Pt states she was at work and reached into a freezer and was stuck by a lobster tail . Pt anxious. Has epi pen in hand upon arrival to ED but did not administer. Pt A&O x4. Lungs clear. PA at bedside. [facility] ED Patient Summaryon 022 ED Patient Summary [facility] - Emergency Department [address] [place] [address] PATIENT DISCHARGE INSTRUCTIONS Patient Information Name: KATHY LEMA Age: 31 Years Date of : 1990 Reason For Visit: Allergic reaction - minor; POSS ALLGERIC REACTION Arrival Time: 10/21/2021 20:11:57 Primary Care Physician: Gayle Alanis CNP Attending Physician: Frank Rubalcava DO Comment: Visit Diagnosis: Diagnoses This Visit Allergic reaction - minor ([id number]) Anxiety state (F41.1) Prescription Information: If you have been given a prescription for narcotics, seek immediate medical attention if you have any difficulty breathing or any sudden status changes such as confusion and sleepiness. If you or anyone you know is experiencing suicidal thoughts, mental health, alcohol and/or drug addiction problems; contact the [facility] 21/12 Crisis Hotline -Text 4HOPE to 857484. If you received any narcotics, sedation, or any other medication that causes drowsiness for the next 24 hours, unless otherwise directed: ? Do not drive a car. ? Do not operate machinery such as power tools, lawn mowers, drills, sewing machines, or stoves ? Avoid alcoholic beverages and drugs for allergies, nerves, or sleep ? Do not make important personal or business decisions or sign any legal documents With: Address: When: Zeke GUZMANGayle [address] [place] [address] Within 3 to 5 days Medication Information: The exam and treatment you received today in the [facility] Emergency Department were for an urgent problem and are not intended as complete care. It is important for you to follow up with a doctor, nurse practitioner, or physician?s commercial real estate assistant for ongoing care. If your symptoms become worse or you do not improve as expected and you are unable to reach your usual health care provider, you should return to the Emergency Department, we are available 24 hours a day. For those patients who have received Radiology results, the interpretation of your X-ray as given to you by our Emergency Department physician is only a preliminary report. The Radiologist will review your films and if there is a change in the diagnosis you will be notified by phone. Please make sure you have provided a working phone number so we can reach you if necessary. In the event that you had a lab culture while you were a patient in the Emergency Department, you will be notified by phone if there is a need to change your antibiotic. Please make sure you have provided a working phone number so we can reach you if necessary. [facility] Emergency Department has provided you with a complete list of medications post discharge. Please inform your primary grade teacher/provider of your visit and for further instruction on these medications. Any specific questions regarding your chronic medications and dosages should be discussed with your primary care physician(s) and/or pharmacist. Medications to Continue That Have Not Changed Other Medications citalopram (citalopram 40 mg oral tablet) 1 tab(s) Oral every day. QUEtiapine (QUEtiapine 25 mg oral tablet) 1 tab(s) Oral every day. Visit Information Allergies: Substance Reaction Symptoms Type Comments amoxicillin Drug cephalexin Drug iodine Drug penicillin Drug Tape Other Vital Signs: Vitals and Measurements this Visit (last charted value for your 10/21/2021 visit) Vital Signs This Visit Temperature Oral: 36.8 DegC Peripheral Pulse Rate: 68 bpm Respiratory Rate: 16 br/min Systolic Blood Pressure: 110 mmHg Diastolic Blood Pressure: 68 mmHg SpO2: 100 % Oxygen Therapy: Room air Measurements This Visit Height/Length Dosin.400 cm Height/Length Estimated: 152.400 cm Weight Dosin.830 kg Weight Estimated: 79.830 kg Problems List: Problem Onset Comments Anxiety Asthma Depression Endometriosis Smoker Added secondary to documentation in Social History. Patient Education Panic Attack A panic attack is a sudden episode of severe anxiety, fear, or discomfort that causes physical and emotional symptoms. The attack may be in response to something frightening, or it may occur for no known reason. Symptoms of a panic attack can be similar to symptoms of a heart attack or stroke. It is important to see your health care provider when you have a panic attack so that these conditions can be ruled out. A panic attack is a symptom of another condition. Most panic attacks go away with treatment of the underlying problem. If you have panic attacks often, you may have a condition called panic disorder. What are the causes? A panic attack may be caused by: ? An extreme, life-threatening situation, such as a war or natural disaster. ? An anxiety disorder, such as post-traumatic stress disorder. ? Depression. (more content not included)... Normal [facility] A1C HEMOGLOBINon 10-01-2021 HbA1c (Bld) [Mass fraction] 5.7 % [employer] [facility] [employer] Other HbA1c (Bld) [Mass fraction]o n 10-01-2021 A1C HEMOGLOBIN [facility] [employer] Other Coding Summaryon 09-25-2021 Coding Summary HTMLBase 64 ZksgldxjKPh8qLc+PGhlYWQ+PE1F RPXsU34ncMYvmL1XH2vKUA2GDSPO ZRFEDC8DGL5yoJX4IHdcX8JikrWi MvxuxZAwOZ95KQs5FKR7xBwhJRgr tQ4dyYSsP0q9YxSoWJ67dO32BWaf VDNiRcQ6SqVsumddsKZe U1yeDyXwdAFmPpn+PHRhYmxlIHdp XKOwXUhpGZDsYzQkrBltNU5pEb9u ZGVyLWNvbGxhcHNlOiBj e8ncXBIpMSjgRL4fpYuzC3NapEG3 THJxo9i3Fb33aOQ+JAIeKZW7zQmf UZvme322LpYsv4ujZCY3 jOZpYMtjZFQ3A52uq9G5SXHtBNHo APC8wJJ2xP0bzZsiheakT5XagIGi HqR8ZYW5fIStzI3ywHfw ygancD0tVwi+U17YOA3OVECUTF9N Fzk1T3VsAmnjcJC+HA63FNXoOJ52 zFVsfSGmq7axkJf4TwZt ZQNpQIK6mHqwFGjdh4HxYZQeQ10i dWMag3V5PSLksWzpvCVoAkMggPQ8 xB5sKMusjuqll9cfyacy Aitym8zrng63eQ02C73kEYhuBAId MRR7MFEeZFLcrRaefc1qiL2mAx6+ XKesh9cxn9khfYg9PwWy CPVrukYbmFjiFPJ2m3ZgGa81K8Qu kJkdv3GwFko2uu37lHKjl8K9wPV3 JMmpLIFvwR9tEFqeQfC1 BMKmDwZqkY92oJSbFBwlFy3gzRyb cSjwXI9bFIWzpieuAFDynV8sNXFx iEQlnQrvCK2mMXMtrbrs r797DkZmHLD5EWXxsMCgO8MjiI8n EhBsOPSyAUFzL0KydQSkGGqzV897 PFmuUpA4NCWrsdDtI4Zf XZHrzHldDwG6x7G0Xi0Sf8Qyozbn LQR9HMzzXFP8NpT5RiQeSvL1C0Es Jvn3BPNflLaoVU3wA4Wk KUXjghjkpxwbbAX1DTGyUXUcbX57 wTFtCPbtKw2ld1A0e820MYOhJVJt bB39Uw2zjRkcNEOevQBI vO7oprldp8mgneyrSwVnXJPtQVt2 DEb8SBQevLubDiHwNPA6RrB4WRI9 mQHlzJ7yeJagunohzT3n Oyc+I95plJ8lLNJ9FOG4lhfaDREk yjEaKL75TI78K0QyHzjvpJJqpKA+ GPOwlcIfzWvqNL1vAhVm m6tfo9WiMEuhT5NaTWWbRXxlKvh2 LQWjZCM6tYN8rV4wKPHvKUrcp2J0 sJO5V0JsqtBlfu1dl8vo USElGGmeA02nsKWsx7Y5FWIqhRD5 EBWohBkeJsVrwL26Qox+PGNvbGdy e6AaFxctd2big0rseMt2 NnNvQRUkljPcvHxrOYB3c4CzDo03 K11hVHriGSVcXVWqUFBgYWYoxSws lo5cfO6qSq5+PGNvbCB3 hAK0zV5hXVOpOsP6QSpoG536IzPy eKAxVktfg9lvu7srjQz0VrQzEVTk wcDljNrpNFO9y1GfIp94 C45wLWhkIOIhMRPlOTOvGPDxlIag hi1vgF6uNs0+KT5nd0blat68fH41 dHI+FUXtNSL6dAutWDob EPRlkZ9cNDgrLdR8KTFwWwHfzZ75 fARmOMvnCr3dvLdwmPajQS3kTUUe aanez987SyVdc1imZSKu wBNdLDauIQS9G39qk8V8JVTbDCTk MPP9tCA6kV3twTyyxbjnpYTarNqy wnUmwXhfQGvyLOdsB068 IHRvcDsnPlBhdGllbnQgTmFtZTo8 N9ErAtw3WJZfuNouPT6mqYRhGHig El9egSjffCffSY6sOLIw ebkko757NgTmy3znANNmzSFsYPzv DTB1G86kw0D2PNCaVTPtWFM1nML4 qU3ifEsocnsbbJFcmAfl nsGdeSfqWOswNAjeD651ZXYllBbs WfXhabBnOVLrpNE1RL71NB40zCPa c4R1hXV3Q2RnPSJnvvwf irdamXG8LFGwXLTobB81Io4gfAbx Vc5uHDMfNHD8ZPYmlKElN9JlqJ1q EvBuTICsKSRaA0GdbKMq ARraE247YBanVzI6LDEknyRsJ0Rt EAFiuVjuFqR6t1S1Wo8XZ0Z3AV09 KJ64mDZyt3Y4iAI4Q8Mp ZGDvvpkstzncpYC7RIMvTFRteW50 Da8vtTuiXp0uPQZgARM0HKFkyKBv B9DnbA2fIyWkQPLeBOOv G3HspEZaPJqtZ731HZnlYvN5JRHx viEdQ8EpZOUogEzdNyB6a7X6Do3F LUo5SF75DI08rQRxe5O4 yOV7V5QvUXRvqewglihpfBO0UUYs THUjeB46So7wmSooKy5eIJRbBPH4 JDDtzNSwA5YeeH5gAfOf PDYzPKSgO3MskDXeAQxgH334NFyi TpI0BPPihlSdW3PkXPHkrItfLgN4 e5J7Di3RBUIbNB07ITC2 vGH3PT62LH88J9TwAcgkzXWsxIL+ PHRhYmxlIHdpZHRoPScxMDAlJyBz kKhtCZ7sLe2fRGCuYFAb dTfjoKWvUdXbe2pjIUIwFKkbUP3h nMcmT7ZzoJY5UDSxi2g8Nc81U69y O9JuoCI+XPHwoCI4pJI4 sA4yPuKxLkV5CYuaM327VjQzwBQk Erqzi8rch6tbmFf2KnY4NVXvnyKk dZxkLWC6e3VqEf48S61h SQcvAOSwKXBuOQLqQKGpyHzoym6t hF9sWs3+GJGeuQC9yMT7bC1wNtCj NfK0DQfqD560RaYrlPQj Rautj3rji4ogyYo8ZuWmIFGdrzBe oExwUTJ0n8QxAr18T2YzzIlqn3Zg Txq3ix20sDKsu7R7oKR4 M5KpNTYqggpbzTEshWpkIA7jFGGl ekjcCCMgiW4aTPElC9o1HrIjPhT8 YUndL3HywiQ5WJHilYDe FXmmUHA3C02ne4R9WGJtJZLbNVD9 tKT6aQ3ooAohyckilTVtyThlpvFp jVsaXNegCFjoI965MYDb tPliVXUuxA5sWOMznONpjMhzSG7z KDOzkqinUvwNXsPYWRFJCI4IMhFA YHPQJPZOUOO1L9AaWch9 RNUgmZpeEN8frUTlNLfhEv4oyUpa dDcmNC0sVMJkxiinAUXvsO1bXZIb dHPdhDbaRB6xVEUlwkcx i478BlYxEVM5TJKdmDNmG7TuzY8j ZyRgASYpNMXjN3PvxFMpVZgjF839 GRoiFnI2WSUwgfGqE2Rk PWLczYsmHvM3a6M0Yn4iEz0sQF2e DQkrEH28YD71vBDae8K0vSI7B8Je TIEanzzaazosfMO4LMRt FKBjgG11nQDlFXezDd1vt2C1g024 KJUoQIFkvG15Xv2zfUduZUFklKAZ cJ2cbvwwb0nnlzsfMgCi OLAjOIs8VHi8ZXSxkMxbZcMlLOR6 OoN7IUM9eSNtuQ5phJzuwpafiX0d Oyc+YlKpRKAhugA6L8Ri Zed3ONUkiTvgDB5oaZRoOGmsMs5h rRmudSckCK6kNTNmuzahAGQveT5d MIYfdXAmuPdvAN5kRJQb yplcx268MwLsOBF2AQMzfFIwV2Kv dG2hInYlCGIlEFSoH7DkfSThRNcw Z056XEdyOxX0MYOkrsPg J4CtNBIapZdcBzO5e2C0Fa8XWV2P FJY6N2AqRfd5JJJixLrqAE5hmTAc AKdvTo6tjIxwiKltFR8c ACSugcngVTXfcQ9uRATuhXZssCnz AJ4uDCRzuyahj151LiHuAZX1KJVi cGUqV1EufZ1lMjAgKFPj TUTlL9RbiZNpUOyxH280ZMtkTnP8 ITYdcgMvU4PbEZKmbVzdAvG3h4S6 Uv6DNLyjfDD+LN84ab67 N3LgOdiiBbn2TSSfCQS7mAK2kA7f KQGzVEyvn5Q1sNB2I7AmqoSfgo9h w9wgNNWlEIzmH07swZMc v4F1MZFquKL8JYAzkUuoLhSfuD50 Oyc+LYEoaFidt2WlGevts5gsx2ip iUy1ZlIgBYHynoBwnXym XBL2e8IkAc68E79zWLlzBHWfJGQw DSHjINRleCcmxe3weI1yQd3+PGNv fZU4yEX2qI8tUvMqAhU8 LRqgN308GqSraGXcEglzu1mtt9ib dAz9YbUhTQAckyVrjYebFBP0r9Bj Bw74D7ExhAlol3KtElw0 tl45nZKxl1T2eKU6T9EyWFIzfrve nQPlgNjdAU8aQYYsllevOUZqkN4l QDInU7w6BcIkNwB7HDxv H0HyowG0QNZluBWcUPDsmUEIpI2n ertvz7haunghXwOcNBWqGFy5TAm6 DLMatIrkHgWgSPJ3TtZ1 WSC6rNHloL9vqVzthevbsX8lOto+ KQf4v7oqbHQjRW6hpUT0DQ25DN54 fSGob2U5gAY2K6NjYKCs svhzxwdeuGS4BIKtRHIduU09Ye4r zRpeDp2cMUSmPPZ3XMQigTXuM7Xx kM7zZeDkCKLxWJQiU7Bw xDUfTOvdC284QMtbMkP8JKDeduXr S9VeWTOxzRsgDuT4d4G8Jx6PZC26 GI41XM04zTTlj1F8bMP8 U7KcYWSzxlsaesviySJ4JEVgPYGz xK82Hx0msSxsDq3wKKErBBL2JZHq pAMhF0GzsJ8xMdNuVPOd ZPGdM5FhwQHgQOrmT894XSbjIsO0 ZJZwudGxC7SaFMXegRlyTrY2x3N9 Zk3QKb00SJ27PM49nPNx q4B0eYE4D5XiXQYqmipkudiunDN6 YQVeXRMkiM69Mc7naVqxQl2fWILh HZN3NBSgwKKzG0BqqT2g QdCmJXGhCCWjQ6BewLGuAQomT215 DKdmDaQ4OGQetyTkF7RgZDVmqBxl CnL9u6H3Gw1TFBsybfn4 Z7NnQbqfiAN+DA85TROzLV12pKDh sIYgz6whlLi8VmFnOJFwHFW3aHng PQyja2IcOPIvJ41esNDp c2U (more content not included)... [facility] Discharge Instructionson Discharge Instructions [id number] [facility] ED Clinical Summaryon 2021 ED Clinical Summary [facility] ? Urgent Care [address] [place] [id number] Clinical Summary PERSON INFORMATION Name: KATHY LEMA Age: 31 Years Sex: FEMALE : 1990 MRN: Acct#: Visit Reason: Medical screening exam; BWC F/U- LEFT PINKY FINGER Arrival: 09/23/2021 09:29:53 Discharge: 09/23/2021 09:57:00 LOS: 000 00:28 Check In: 09/23/2021 09:29:53 Checkout: 09/23/2021 09:57:00 Address: [address] [place] [id number] PCP: Gayle Alanis CNP PROVIDER INFORMATION Provider Role Assigned Unassigned Emerald Galindo ED Nurse 09/23/2021 09:32:24 Rolando Huang PA-C ED PA 09/23/2021 09:36:37 VITALS INFORMATION Vital Sign Triage Latest Temperature Tympanic Temperature Temporal Artery Pulse Rate O2 Sat Respiratory Rate Blood Pressure /70 mmHg /70 mmHg MEDICAL INFORMATION Medications Given: Allergy Information: iodine; Tape; penicillin; cephalexin; amoxicillin PHYSICIAN DOCUMENTATION DISCHARGE INFORMATION: Discharge Disposition: Home Discharge Location: Home PATIENT EDUCATION INFORMATION Instructions: Follow-Up: With: Address: When: Return to this practice , only if needed DIAGNOSIS: Contusion of left little finger; Sprain of left little finger Patient Understands: Yes - Patient/family/caregiver verbalizes understanding of instructions given Comment: Normal [facility] ED Patient Summaryon 022 ED Patient Summary [facility] ? Urgent Care [address] [place], [place] [id number] PATIENT DISCHARGE INSTRUCTIONS Patient Information Name: KATHY LEMA Age: 31 Years Date of : 1990 Reason For Visit: Medical screening exam; BWC F/U- LEFT PINKY FINGER Arrival Time: 09/23/2021 09:29:53 Primary Care Physician: Gayle Alanis CNP Attending Physician: Rolando Huang PA-C Comment: Patient Education With: Address: When: Return to this practice , only if needed Medication Information: The exam and treatment you received today in the [facility] Emergency Department were for an urgent problem and are not intended as complete care. It is important for you to follow up with a doctor, nurse practitioner, or physician?s commercial real estate assistant for ongoing care. If your symptoms become worse or you do not improve as expected and you are unable to reach your usual health care provider, you should return to the Emergency Department, we are available 24 hours a day. For those patients who have received Radiology results, the interpretation of your X-ray as given to you by our Emergency Department physician is only a preliminary report. The Radiologist will review your films and if there is a change in the diagnosis you will be notified by phone. Please make sure you have provided a working phone number so we can reach you if necessary. In the event that you had a lab culture while you were a patient in the Emergency Department, you will be notified by phone if there is a need to change your antibiotic. Please make sure you have provided a working phone number so we can reach you if necessary. [facility] Emergency Department has provided you with a complete list of medications post discharge. Please inform your primary grade teacher/provider of your visit and for further instruction on these medications. Any specific questions regarding your chronic medications and dosages should be discussed with your primary care physician(s) and/or pharmacist. Additional medications on your home medication list not specifically addressed. Please contact the ordering physician if you have questions about these medications. citalopram (citalopram 40 mg oral tablet) 1 tab(s) Oral every day. QUEtiapine (QUEtiapine 25 mg oral tablet) 1 tab(s) Oral every day. Visit Information Visit Diagnosis: Diagnoses This Visit Contusion of left little finger (S60.052A) Medical screening exam ([id number]) Sprain of left little finger (S63.587A) If you received any narcotics, sedation, or any other medication that causes drowsiness for the next 24 hours, unless otherwise directed: ? Do not drive a car. ? Do not operate machinery such as power tools, lawn mowers, drills, sewing machines, or stoves ? Avoid alcoholic beverages and drugs for allergies, nerves, or sleep ? Do not make important personal or business decisions or sign any legal documents Reason for Visit: [facility], here for evaluation on left 5th finger crush injury Allergies: Substance Reaction Symptoms Type Comments amoxicillin Drug cephalexin Drug iodine Drug penicillin Drug Tape Other Vital Signs: Vitals and Measurements this Visit (last charted value for your 09/23/2021 visit) Vital Signs This Visit Apical Heart Rate: 72 bpm Respiratory Rate: 16 br/min Systolic Blood Pressure: 116 mmHg Diastolic Blood Pressure: 70 mmHg Measurements This Visit Height: 152 cm Weight: 79.83 kg Body Mass Index: 34.55 kg/m2 Problems List: Problem Onset Comments Anxiety Asthma Depression Endometriosis Smoker Added secondary to documentation in Social History. Major Tests and Procedures: The following procedures and tests were performed during your ED visit. Laboratory Radiology Cardiology Viruses or Bacteria What?s got you sick? Antibiotics only treat bacterial infections. Viral illnesses cannot be treated with antibiotics. When an antibiotic is not prescribed, ask your healthcare professional for tips on how to relieve symptoms and feel better. Usual Cause Illness Viruses Bacteria Antibiotic Needed Cold/Runny Nose NO Bronchitis/Chest Cold (in otherwise healthy children and adults) NO Whooping Cough Yes Flu NO Strep Throat Yes Sore Throat (except strep) NO Fluid in the middle ear (otitis media with effusion) NO Urinary Tract Infection Yes Antibiotics Aren?t Always the Answer www.cdc.gov/getsmart GET SMART Know When Antibiotics Work U.S. Department of Health and Human Services Centers for Disease Control and Prevention January 2014 [facility] Urgent Care Note- Provideron 09-23-2021 Urgent Care Note- Provider Patient: KATHY LEMA Age: 31 years Sex: FEMALE : 1990 Associated Diagnoses: Sprain of left little finger; Contusion of left little finger Author: Rolando Huang PA-C Basic Information Additional information: Chief Complaint from Nursing Triage Note : Chief Complaint 09/23/2021 9:41 EDT Chief Complaint [facility], here for evaluation on left 5th finger crush injury . 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 Diagnosis: Contusion left little finger, sprain left little finger This is a 31 year old here today in follow-up for a work related injury. Two weeks ago she smashed her left fifth finger in the fire doors at work. She had to physically open the door to get her finger unstuck. She was seen here where x-rays were non acute. She continues with pain, swelling, ecchymosis and difficulty with full ROM of her left fifth finger since this occurred. She initially found a splint helpful. Today she reports she has been able to tolerate work without it and she has started some hand exercises that she remembers from when she broke her other hand/finger. She still has some mild swelling and some difficulty with full flexion, but states pain is controlled. She no longer needs Tylenol or Ibuprofen. She is tolerating her light work. She is right handed. No fevers, chills or malaise. No other joint pains or myalgias. No numbness, tingling or weakness. No skin rashes, ecchymosis has improved. There are no other associated symptoms. Nothing makes the symptoms better or worse. Symptoms are described as sudden onset, moderate in nature and improved. Health Status Allergies: Allergic Reactions (Selected) Mild Tape- No reactions were documented. Severity Not Documented Amoxicillin- No reactions were documented. Cephalexin- No reactions were documented. Iodine- No reactions were documented. Penicillin- No reactions were documented.. Medications: (Selected) Documented Medications Documented QUEtiapine 25 mg oral tablet: 25 mg = 1 tab(s), PO, Daily, 90 tab(s), 0 Refill(s) citalopram 40 mg oral tablet: 40 mg = 1 tab(s), PO, Daily, 30 tab(s), 0 Refill(s). Past Medical/ Family/ Social History Medical history: Resolved Bronchitis ([id number]): Resolved.. Surgical history: LEEP ([id number]) in the month of 10/2017 at 27 Years. section ([id number]). Loop cone biopsy ([id number]). Hysterectomy ([id number]).. Family history: No family history items have been selected or recorded.. Social history: Social & Psychosocial Habits Alcohol 03/20/2019 Alcohol Use: Never Substance Abuse Comment: Denies - 12/12/2018 09:36 - Akil MILIAN, Kelsey Garcia. Tobacco 09/23/2021 Smoking tobacco use: Former tobacco user Electronic Cigarette/Vaping 09/23/2021 Electronic Cigarette Use: Never . Problem list: Active Problems (5) Anxiety Asthma Depression Endometriosis Smoker . Physical Examination Vital Signs Vital Signs 09/23/2021 9:39 EDT Apical Heart Rate 72 bpm Respiratory Rate 16 br/min Systolic Blood Pressure 116 mmHg Diastolic Blood Pressure 70 mmHg . Measurements 09/23/2021 9:39 EDT Height 152 cm Weight 79.83 kg Body Mass Index 34.55 kg/m2 . GENERAL: Awake, alert and oriented to person, place and situation. Well nourished, well developed, non toxic, NAD. EXTREMITIES: No further TTP of the left fifth finger, no TTP of the metacarpals, still with slightly limited full flexion of that finger secondary to some swelling, non painful ROM, good extension. No cyanosis, clubbing or other edema. Good muscle tone. Brisk cap refill distally, radial pulses 2+ bilaterally. SKIN: No further ecchymosis to the middle left fifth finger, otherwise normal inspection, no visualized rash. NEUROLOGIC: Light touch sensation in tact, strength diminished secondary to pain. Normal mentation. No focal neurological deficits appreciated. Medical Decision Making Continue to work on ROM. Return to full duty work. Return with new, or worsening symptoms, or symptoms failing to improve as expected and the patient voiced their understanding. Questions answered. Follow-up here only as needed. Impression and Plan Diagnosis Sprain of left little finger ([id number] S63.617A, Discharge, Medical) Contusion of left little finger ([id number] S60.052A, Discharge, Medical) Plan Condition: Stable. Disposition: Discharged: Time 09/23/2021 09:51:00, to home. Follow up with: ; Return to this practice , only if needed. Counseled: Patient, Regarding diagnosis, Regarding treatment plan, Patient indicated understanding of instructions. [Electronically Signed on: 09/23/2021 11:22 EDT] Rolando Huang PA-C [Verified on: 09/23/2021 11:22 EDT] Rolando Huang (more content not included)... Normal [facility] [address]22 Urgent Care Record [facility] ? Urgent Care [address] [place] [address] PATIENT DISCHARGE INSTRUCTIONS Patient Information Name: KATHY LEMA Age: 31 Years Date of : 1990 Reason For Visit: Medical screening exam; [facility] F/U- LEFT PINKY FINGER Arrival Time: 09/23/2021 09:29:53 Primary Care Physician: Gayle Alanis CNP Attending Physician: Rolando Huang PA-C Comment: Visit Diagnosis: Diagnoses This Visit Contusion of left little finger (S60.462A) Medical screening exam ([id number]) Sprain of left little finger (S68.954D) If you received any narcotics, sedation, or any other medication that causes drowsiness for the next 24 hours, unless otherwise directed: ? Do not drive a car. ? Do not operate machinery such as power tools, lawn mowers, drills, sewing machines, or stoves ? Avoid alcoholic beverages and drugs for allergies, nerves, or sleep ? Do not make important personal or business decisions or sign any legal documents With: Address: When: Return to this practice , only if needed Medication Information: The exam and treatment you received today in the [facility] Care were for an urgent problem and are not intended as complete care. It is important for you to follow up with a doctor, nurse practitioner, or physician?s commercial real estate assistant for ongoing care. If your symptoms become worse or you do not improve as expected and you are unable to reach your usual health care provider, you should return to the Emergency Department, we are available 24 hours a day. For those patients who have received Radiology results, the interpretation of your X-ray as given to you by our Urgent Care physician is only a preliminary report. The Radiologist will review your films and if there is a change in the diagnosis you will be notified by phone. Please make sure you have provided a working phone number so we can reach you if necessary. In the event that you had a lab culture while you were a patient in the Urgent Care, you will be notified by phone if there is a need to change your antibiotic. Please make sure you have provided a working phone number so we can reach you if necessary. [facility] has provided you with a complete list of medications post discharge. Please inform your primary grade teacher/provider of your visit and for further instruction on these medications. Any specific questions regarding your chronic medications and dosages should be discussed with your primary care physician(s) and/or pharmacist. Additional medications on your home medication list not specifically addressed. Please contact the ordering physician if you have questions about these medications. citalopram (citalopram 40 mg oral tablet) 1 tab(s) Oral every day. QUEtiapine (QUEtiapine 25 mg oral tablet) 1 tab(s) Oral every day. Visit Information Allergies: Substance Reaction Symptoms Type Comments amoxicillin Drug cephalexin Drug iodine Drug penicillin Drug Tape Other Vital Signs: Vitals and Measurements this Visit (last charted value for your 09/23/2021 visit) Vital Signs This Visit Apical Heart Rate: 72 bpm Respiratory Rate: 16 br/min Systolic Blood Pressure: 116 mmHg Diastolic Blood Pressure: 70 mmHg Measurements This Visit Height: 152 cm Weight: 79.83 kg Body Mass Index: 34.55 kg/m2 Problems List: Problem Onset Comments Anxiety Asthma Depression Endometriosis Smoker Added secondary to documentation in Social History. Patient Education Viruses or Bacteria What?s got you sick? Antibiotics only treat bacterial infections. Viral illnesses cannot be treated with antibiotics. When an antibiotic is not prescribed, ask your healthcare professional for tips on how to relieve symptoms and feel better. Usual Cause Illness Viruses Bacteria Antibiotic Needed Cold/Runny Nose NO Bronchitis/Chest Cold (in otherwise healthy children and adults) NO Whooping Cough Yes Flu NO Strep Throat Yes Sore Throat (except strep) NO Fluid in the middle ear (otitis media with effusion) NO Urinary Tract Infection Yes Antibiotics Aren?t Always the Answer www.cdc.gov/getsmart GET SMART Know When Antibiotics Work U.S. Department of Health and Human Services Centers for Disease Control and Prevention January 2014 Normal [facility] Coding Summaryon 09-18-2021 Coding Summary HTMLBase 64 GoopqeuvKYq6wIp+PGhlYWQ+PE1F ZYHqA19edPBhgB4TG7jQLS0ZOFHR ZFEMBN5QPU4fvTM5VTbrC1VnwzZy XhntqWFbDY81KRo4XXT8pPxeBOnr vI7fpJZnS1b4OlXwDB54cB57ZOqo HPIpUwU1GtGuexvwkJCa D5tyHaFwlJPsVwu+PHRhYmxlIHdp JVFrKJlcLVRmCrOxxXcwWB3iXl5j ZGVyLWNvbGxhcHNlOiBj h6woVKYjKUdyWC1wmWdmV4CoxTA9 IEQcb7w5Sz54rLG+WPVnRYO0vZwq WFkmb181CdYii0qzXHE0 rMCxODuzCBH6C51ph0R5RHGgXIIa BMG2bHV5bB0tuMbtimikF4VfbXPb QgM4GUT8oYOzbN8saWxb zjgxmP1gFez+E41OVX3ISFOGMC9K Wta5W8RoChtuhZF+YJ96APEqPP05 jWCnkXAmz6fsqUo8TvOt QZMqCFQ6kSgpOFqir2KkSYRhG89b xNCoc3A1EDDzpJibzRWsAhAsfIS4 sX5yNWejpdcod2sgnqds Mfxdm0ioiz95mT17C02tBUnaINAy OCN2PDJaUYLrxNqkup2grN0dLn0+ NOfem2bbc1ktcPc5PzOn BTYrahBgmKsfFWP2e2DbHj96Y7Wg tLijq3ToKql7li35mLIzu5P8oYN9 BWrpIGPvdH9cOUpgKfO5 IZWvPoQtzK94jPMgTCtrOm8soLom xVtkLC6dPHMvflmhJKAejW7oBQBq ySJknWmpLN1tBLEbuijb o903KtAyOGK6PCZzeGQuK0OccM9g VhPiYAEgQNFqJ5PwwETbTYyoL593 UYanHcC7UUGbspTvI8Xf RMDtnYrmSbS7i2V8Rs7Yd0Nevsas VMT8CRuyTMU5LjHoNmHmZsY3P2Pc Ojn3PBOcgZutVG7hM4Oe RKGoavoswewyeNI5RGMxGHLvxJ09 bQRvIPqiAy8tl1P8x097DQIpMAZs dJ11Cv1eqKxfWOFdaHCA jQ5gboicl3glkpulYzQyYGGxPMe1 OSx0KGPluPheYaOzYGI0FvF3JBF8 dASvfW0knCghoaaimQ2d Oyc+L44psT0pAKH4ULB0gdvmFDIg wfTnGU26JK26L2HlRidfrPAtaRK+ CUYtghTlrCniBM9cEwWm l8mne3KvFXjlB0JbBAVkXEdbVyv2 ZBYgQRK4zXS5iL7lUJLqKNzhb9M3 sPG3I6HfhlRqtc7qo5er KTCfXTuwC83iuWIjv5V3ZVDpoLE5 EBAyzDxsUpJitW47Eon+PGNvbGdy p2LzFjjkg0ssg0wenSr4 MtNcEPDaclHxzSkqEYD8z5FpWd99 Y22oRKjkYAPbFVTyPTUkRWKmiUxk ao4emW5iMu3+PGNvbCB3 gLO7hO0kBQZbVwP5OPtlK950UhDy bNHwSzpfr6rem7qfbPb8RrGfTFXx drWhkNvpDXY4q3IqGe20 E43vAKosSVGzYWKrWPPtVNCyjTfp de9vkT5dMq0+PU6jg3znhs19aY96 dHI+AJBpXOK1kKwjPQjl BHFmgO8bKTlgTxL5ERRzBeLymS31 tJFsCVmmGd8gjFzbpAgdJN5nSYCz fhnln523NgQul5gbKFRu fZGlEBvvAGK7D85so5U0ZHRyCXPi UVN8hZR5jA2nwDdmzdcdrDSirEer kzNpgMbfNUqfIAxeR813 IHRvcDsnPlBhdGllbnQgTmFtZTo8 T5StOcr5SUUabRuxDE2zxKPbMMmj Zc2yuFmxjMabFX1gNZYi kwzaz124CrKha8kcQUCiqNQuDZtb YCQ7Q28kt7K1UEAfOYEbMVQ8mDU4 dH2acLwwbilhmDJopYzf sfJcrZpbKAgdUHzcE366LCZbbTih DpAlbaJvKTAcwIT3UL74AZ39eNNi a4I8hLJ3V1RpHNRpzpjd vtvxdIM9ZRSlHNVntF20Dr9apNtm Zv8pZXFyAQY9XWYneQUqZ9KvnS0t BfCiAEQqUCVdR7IgeQIc AJuzZ507VVknPwD6VSFperMrL1Wh FUJarTaxIpK6b5M7Wd6XL3V0LA06 WW25sUErh1D2lYH1S7Kc YDWlvskvpbaxmNO4YBObFDStyJ17 Vi6ueMqrEb8bKPYzEJP7SYPdkSPs N2KzbO0rIdBpMSWuRNZu W6YqjSBwWFbyM009TIssKxD4SYMy zjHvY7PfBQFmrIxcHsE5f4S3Rf8M QXc9NV95WW27dAZep5V1 bIH7I7GuEYWdcymsyvrudCL8RRAe CPQbhU52Fy3ozPowPk1wGPJkRCU8 JVBeqLSgQ1ZzlT9pBeTz TUKyVTBsS3TdoQLsGNtvR490GMaf DlC9CBAduwAdP1FhRQQdfEqtGsB1 y0N9Ps4XVYBgWK25RRW6 oXC4WQ44OB30J9SgGzdvtRHocIV+ PHRhYmxlIHdpZHRoPScxMDAlJyBz bNybPA9mYq2bKUKqYCBy kJllrCGsHlOqr2lxIWFbEGglBH1q nQzoD9AesJK3SFWrq2r9Qr22K36d Q0KhzJX+ZAAfmRF0lGM3 qH3zKtJyNcG9PPqzP554TdHsjOCv Hqbty8mum8zkqLj8HbN6UBYkrqCe iLhnBNL8j6TjIs49C89y ZDkdMHRyXIRcBKZeODOgvOzrfe9x rP9tVn1+VXDpqTE2hJI4xG7pVeSe KpV8FEixH529ViZovFUa Qthul6oly3otnGz7RjZcCELfpbLn hLchUUL7g7KaGx36P4TbvLwcb4Ao Ipf8ng70eQFdp5W0kWY9 H2ZtKDGshjoprQQnnOqdCF5uHBQr vjjmAJBgwZ5fQLOhJ9i2YaOnXzC5 GWokR2TlxaK4SKGydMLv EGhiXWM9D46xc6K7ZZVgQRVsKTM4 fQJ8dI6nwEmtnskrnPXatYrezhJt rRwgRHlxLGzeH674SQIt sGifGYMrbI2xGEUrxZLlfGmeYR4q KTVbzcruQncYCpPBYSMNGW2EEpQB PAHYKQWBSVJ7J1XtYez2 PIIthZmeYH9wmNSqOGuzHv4laOys kHiiGT5jCOUflfzaHSFieK5iMSLl sRMlvWhrMS1uDUJfhpht t967HmOqJKB0RFRyeMXsY7HsoZ7u MxIiTOCeCMBfM5NyxYEcTRppP531 EQpnXvS9IBTbctQqY6Uo MPDwkTadEaL7r6P2Ar7cPb2jZU9l CDtgYP88GG71qONyw5G6qEO0Y3Qy HGAncvbjjjcdyVP9XOBq RLEwiP52cZGlXClmUc4op0L9v712 EZMlMXQaaX00Dd1rrAjhKQKcbHSF eZ7xgpkpp9rniptuJrZd BIRuNOc2OIg3GBIhfResCiAtISE0 HaM6NVL9gTVxbD5juMabqtiveD1w Oyc+WrRoGBDrgfZ1L3Pd Mhf7KIZeaYydLF7frXQdXVuzJr6i wZmqpRjzJD1jXOHtbqdmDFIojM3e PLYlaDFkfUrhFQ4fWHUw vcixx177RbJrLMZ8HLWatQWkH3Yl tU9lBcJeFCUgBEJgE2WteWYkQUda H791EDfsDqK9DIKgccOk V2ItVHJbhLcqZuM7x1G7Jr4OHD0R VEQ7B2NgAgd4JBVukXfqJF9kaKIe VCbfYq4edDerrGsaME2v FILgneieBYZjqI5dQWCgtRDiaUmq SK8xIXLyoxapf808FhJdMEH5ZXVf pAGvT7NhxL8qEuNlEVJg UWIbB4HfnHSiKRxwP271BKltYjP9 WMGzaxTqY4BkZOBffMdxEsE0z0V9 Vr6BZAuhnAX+CN21ou54 X7KyRugmBqv3BLZrKLX6jGB0wO3j YGFaOSrgp8V1tNP2I6PzuvXpjp1f c4cjXBLhTFfiK17ojRLg u5W8VNOcwTE8LMQzuMacBuYktG65 Oyc+RIKqwVsmj3YjPreor1uca0fc nRb8AmZnHXSqwlPddNsl NAG7a1SqIj23M46yJRxhUUYnRXWd QYGxKYDzoDmncq4plW6eRn1+PGNv cND1cYT2tG7vHxKiQkX5 VEolO514LgYrhGXlOwwbv3cdp3fs zYt8FuHhRDUupvAiqEtcZCM2n5Jg Fs57B3SazLbaw4AmAwo3 oc47dBNyw0E3rLK1B5RwRJIehuyz pPUzbJdnPC3bPQLmbyzaMLSylB2j WJXrV8x3UuXwPqQ4RIuz W8EcanU1BOBasSEiWFUmzTNTkY6x nslha2ayfxrgIyAzTQDiDSt1OUm0 DLSjkQxeFeYdUFQ5UmP6 WXI3fRRdyR1hsDcjaacnwH4mAvf+ OZo7l9fqmPBkUM3kiWY9ZP79CU83 lRYat3L3lUG2D0WlHWDt whrzrqrrzPV3CAQnHXDaoF89Qv6c bMpqGo1vDNPbGIH7NBVjgNJkU1Vz tU2wKgKoFCVvWIBbB4Le tXGqRKpuC942QHvgFxC9BXEamaTw L4DkNFWkcGgfJaW5d6H6Tj5TSO47 BI73LB82hEXzc5C7bVJ6 I2MnKUPgjicnkxqzhOO0QBOjSQCi pQ08Nx8rxUpxBg2tFDZzNVV3GCUm vKXgP1FcxT2dZqDcCEGv DFHeB3OzoDDqAHduO044OMnrKwQ3 YGLipxQbM6DdFLAjsJmwBaP2r5Z5 Yr1WDy07AN27FN83yMKz z4N8aGO3O4HmMTIanojgxgzjqVG0 TRBxREKneN51Kc5giRfaSs1jUAAh ZIB0PAUxxLHnT0DvjN2a FbYuWADbKGYuI4OwfPOgMBzlK998 KNctJaQ5HYVigpCjO7GoTZCcsLpa NvT2d0U6Qd5EZTuoamh7 L2MoJpkeoCP+HM26WETqWX98jCVb mDJwt9qwhOv4WwGvCNNnYBI5fZos NIczj5LtCGGnD11iaMAn c2U (more content not included)... Normal [facility] Discharge Instructionson 04- 20-2022 Discharge Instructions [id number] [facility] Discharge Instructions [id number]#[id number] [facility] ED Clinical Summaryon 2021 ED Clinical Summary [facility] ? Urgent Care [address] [place] [id number] Clinical Summary PERSON INFORMATION Name: KATHY LEMA Age: 31 Years Sex: FEMALE : 1990 MRN: Acct#: Visit Reason: Medical screening exam; [facility] F/U- LEFT PINKY FINGER Arrival: 09/16/2021 09:43:16 Discharge: 09/16/2021 10:25:00 LOS: 000 00:42 Check In: 09/16/2021 09:43:16 Checkout: 09/16/2021 10:25:00 Address: [address] [place] [id number] PCP: Gayle Alanis CNP PROVIDER INFORMATION Provider Role Assigned Unassigned Rolando Huang PA-C ED PA 09/16/2021 09:45:45 Trev Sy CONSUMER SALES REPRESENTATIVE Nurse 09/16/2021 09:57:14 VITALS INFORMATION Vital Sign Triage Latest Temperature Tympanic Temperature Temporal Artery Pulse Rate O2 Sat 96 % 96 % Respiratory Rate Blood Pressure /75 mmHg /75 mmHg MEDICAL INFORMATION Medications Given: Allergy Information: iodine; Tape; penicillin; cephalexin; amoxicillin PHYSICIAN DOCUMENTATION DISCHARGE INFORMATION: Discharge Disposition: Home Discharge Location: Home PATIENT EDUCATION INFORMATION Instructions: Follow-Up: With: Address: When: Return to this practice Comments: WednesdaySeptember 23 at 9:30 a.m. DIAGNOSIS: Contusion of left little finger; Sprain of left little finger Patient Understands: Yes - Patient/family/caregiver verbalizes understanding of instructions given Comment: [facility] ED Patient Summaryon 022 ED Patient Summary [facility] ? Urgent Care [address] [place] [address] PATIENT DISCHARGE INSTRUCTIONS Patient Information Name: KATHY LEMA Age: 31 Years Date of : 1990 [facility]: [id number] Reason For Visit: Medical screening exam; [facility] F/U- LEFT PINKY FINGER Arrival Time: 09/16/2021 09:43:16 Primary Care Physician: Gayle Alanis CNP Attending Physician: Rolando Huang PA-C Comment: Patient Education With: Address: When: Return to this practice Comments: WednesdaySeptember 23 at 9:30 a.m. Medication Information: The exam and treatment you received today in the [facility] Emergency Department were for an urgent problem and are not intended as complete care. It is important for you to follow up with a doctor, nurse practitioner, or physician?s commercial real estate assistant for ongoing care. If your symptoms become worse or you do not improve as expected and you are unable to reach your usual health care provider, you should return to the Emergency Department, we are available 24 hours a day. For those patients who have received Radiology results, the interpretation of your X-ray as given to you by our Emergency Department physician is only a preliminary report. The Radiologist will review your films and if there is a change in the diagnosis you will be notified by phone. Please make sure you have provided a working phone number so we can reach you if necessary. In the event that you had a lab culture while you were a patient in the Emergency Department, you will be notified by phone if there is a need to change your antibiotic. Please make sure you have provided a working phone number so we can reach you if necessary. [facility] Emergency Department has provided you with a complete list of medications post discharge. Please inform your primary grade teacher/provider of your visit and for further instruction on these medications. Any specific questions regarding your chronic medications and dosages should be discussed with your primary care physician(s) and/or pharmacist. Medications to Continue That Have Not Changed Other Medications citalopram (citalopram 40 mg oral tablet) 1 tab(s) Oral every day. QUEtiapine (QUEtiapine 25 mg oral tablet) 1 tab(s) Oral every day. Visit Information Visit Diagnosis: Diagnoses This Visit Contusion of left little finger (S60.052A) Medical screening exam ([id number]) Sprain of left little finger (S63.617A) If you received any narcotics, sedation, or any other medication that causes drowsiness for the next 24 hours, unless otherwise directed: ? Do not drive a car. ? Do not operate machinery such as power tools, lawn mowers, drills, sewing machines, or stoves ? Avoid alcoholic beverages and drugs for allergies, nerves, or sleep ? Do not make important personal or business decisions or sign any legal documents Reason for Visit: medical screening - [facility] followup Allergies: Substance Reaction Symptoms Type Comments amoxicillin Drug cephalexin Drug iodine Drug penicillin Drug Tape Other Vital Signs: Vitals and Measurements this Visit (last charted value for your 09/16/2021 visit) Vital Signs This Visit Temperature Oral: 37.4 DegC Peripheral Pulse Rate: 78 bpm Respiratory Rate: 18 br/min Systolic Blood Pressure: 107 mmHg Diastolic Blood Pressure: 75 mmHg SpO2: 96 % Oxygen Therapy: Room air Problems List: Problem Onset Comments Anxiety Asthma Depression Endometriosis Smoker Added secondary to documentation in Social History. Major Tests and Procedures: The following procedures and tests were performed during your ED visit. Laboratory Radiology Cardiology Viruses or Bacteria What?s got you sick? Antibiotics only treat bacterial infections. Viral illnesses cannot be treated with antibiotics. When an antibiotic is not prescribed, ask your healthcare professional for tips on how to relieve symptoms and feel better. Usual Cause Illness Viruses Bacteria Antibiotic Needed Cold/Runny Nose NO Bronchitis/Chest Cold (in otherwise healthy children and adults) NO Whooping Cough Yes Flu NO Strep Throat Yes Sore Throat (except strep) NO Fluid in the middle ear (otitis media with effusion) NO Urinary Tract Infection Yes Antibiotics Aren?t Always the Answer www.cdc.gov/getsmart GET SMART Know When Antibiotics Work U.S. Department of Health and Human Services Centers for Disease Control and Prevention January 2014 [facility] Urgent Care Note- Provideron 09-16-2021 Urgent Care Note- Provider Patient: KATHY LEMA Age: 31 years Sex: FEMALE : 1990 Associated Diagnoses: Sprain of left little finger; Contusion of left little finger Author: Rolando Huang PA-C History of Present Illness OCCUPATIONAL HEALTH FOLLOW-UP Date of injury: 09/10/21 Claim #: [id number] Employer: [employer] Mechanism of Injury: Smashed left fifth finger in a fire door while working at school today. Diagnosis: Contusion left little finger, sprain left little finger This is a 31 year old here today in follow-up for a work related injury. Last week she smashed her left fifth finger in the fire doors at work. She had to physically open the door again to get her finger unstuck. She was seen here where x-rays were non acute. She continues with pain, swelling, ecchymosis and difficulty with full ROM of her left fifth finger since this occurred. She has found the splint helpful. She continues to use Tylenol and Ibuprofen as needed. She is tolerating her light work. She is right handed. 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 No fevers, chills or malaise. No other joint pains or myalgias. No numbness, tingling or weakness. No skin rashes or other ecchymosis. There are no other associated symptoms. The splint has been helpful. Nothing else makes the symptoms better or worse. Symptoms are described as sudden onset, moderate in nature and slightly improved. Health Status Allergies: Allergic Reactions (Selected) Mild Tape- No reactions were documented. Severity Not Documented Amoxicillin- No reactions were documented. Cephalexin- No reactions were documented. Iodine- No reactions were documented. Penicillin- No reactions were documented.. Medications: (Selected) Documented Medications Documented QUEtiapine 25 mg oral tablet: 25 mg = 1 tab(s), PO, Daily, 90 tab(s), 0 Refill(s) citalopram 40 mg oral tablet: 40 mg = 1 tab(s), PO, Daily, 30 tab(s), 0 Refill(s). Past Medical/ Family/ Social History Medical history: Resolved Bronchitis ([id number]): Resolved.. Surgical history: LEEP ([id number]) in the month of 10/2017 at 27 Years. section ([id number]). Loop cone biopsy ([id number]). Hysterectomy ([id number]).. Family history: No family history items have been selected or recorded.. Social history: Social & Psychosocial Habits Alcohol 03/20/2019 Alcohol Use: Never Substance Abuse Comment: Denies - 12/12/2018 09:36 - Akil MILIAN, Kelsey A. Tobacco 09/22/2020 Smoking tobacco use: Former smoker, quit more Electronic Cigarette/Vaping 09/22/2020 Electronic Cigarette Use: Never . Problem list: Active Problems (5) Anxiety Asthma Depression Endometriosis Smoker . Physical Examination Vital Signs Vital Signs 09/16/2021 10:05 EDT Temperature Oral 37.4 DegC HI Peripheral Pulse Rate 78 bpm Respiratory Rate 18 br/min Systolic Blood Pressure 107 mmHg Diastolic Blood Pressure 75 mmHg SpO2 96 % Oxygen Therapy Room air . GENERAL: Awake, alert and oriented to person, place and situation. Well nourished, well developed, non toxic, NAD. EXTREMITIES: TTP the middle left fifth finger, no TTP of the metacarpals, still with limited flexion of that finger secondary to pain and some swelling, good extension, tendon function is in tact. No cyanosis, clubbing or other edema. Good muscle tone. Brisk cap refill distally, radial pulses 2+ bilaterally. SKIN: Ecchymosis to the middle left fifth finger, otherwise normal inspection, no visualized rash. NEUROLOGIC: Light touch sensation in tact, strength diminished secondary to pain. Normal mentation. No focal neurological deficits appreciated. Medical Decision Making Orders Launch Orders Patient Care: Brace/Splint ED (Order): 09/16/2021 10:02 EDT, Clif tape. Transition to clif taping versus rigid splint. Continue Tylenol/Motrin, ice as needed. Continue light duty work. Start ROM when out of the splint and outside of work. Return with new, or worsening symptoms, or symptoms failing to improve as expected and the patient voiced their understanding. Questions answered. Follow-up here in 1 week, sooner as needed. Impression and Plan Diagnosis Sprain of left little finger ([id number] S63.617A, Discharge, Medical) Contusion of left little finger ([id number] S60.052A, Discharge, Medical) Plan Condition: Stable. Disposition: Discharged: Time 09/16/2021 10:02:00, to home. Follow up with: ; Return to this practice WednesdaySeptember 23 at 9:30 a.m.. Counseled: Patient, Regarding diagnosis, Regarding treatment plan, Patient indicated understanding of instructions. [Electronically Signed on: 09/16/2021 11:49 EDT] Rolando Huang PA-C [Verified on: 09/16/2021 11:49 EDT] Rolando Huang PA-C Normal [facility] [address] Urgent Care Record [facility] ? Urgent Care [address] [place] [address] PATIENT DISCHARGE INSTRUCTIONS Patient Information Name: KATHY LEMA Age: 31 Years Date of : 1990 Reason For Visit: Medical screening exam; BWC F/U- LEFT PINKY FINGER Arrival Time: 09/16/2021 09:43:16 Primary Care Physician: Gayle Alanis CNP Attending Physician: Rolando Huang PA-C Comment: Visit Diagnosis: Diagnoses This Visit Contusion of left little finger (S60.052A) Medical screening exam ([id number]) Sprain of left little finger (S63.618G) If you received any narcotics, sedation, or any other medication that causes drowsiness for the next 24 hours, unless otherwise directed: ? Do not drive a car. ? Do not operate machinery such as power tools, lawn mowers, drills, sewing machines, or stoves ? Avoid alcoholic beverages and drugs for allergies, nerves, or sleep ? Do not make important personal or business decisions or sign any legal documents With: Address: When: Return to this practice Comments: WednesdaySeptember 23 at 9:30 a.m. Medication Information: The exam and treatment you received today in the [facility] were for an urgent problem and are not intended as complete care. It is important for you to follow up with a doctor, nurse practitioner, or physician?s commercial real estate assistant for ongoing care. If your symptoms become worse or you do not improve as expected and you are unable to reach your usual health care provider, you should return to the Emergency Department, we are available 24 hours a day. For those patients who have received Radiology results, the interpretation of your X-ray as given to you by our Urgent Care physician is only a preliminary report. The Radiologist will review your films and if there is a change in the diagnosis you will be notified by phone. Please make sure you have provided a working phone number so we can reach you if necessary. In the event that you had a lab culture while you were a patient in the Urgent Care, you will be notified by phone if there is a need to change your antibiotic. Please make sure you have provided a working phone number so we can reach you if necessary. [facility] has provided you with a complete list of medications post discharge. Please inform your primary grade teacher/provider of your visit and for further instruction on these medications. Any specific questions regarding your chronic medications and dosages should be discussed with your primary care physician(s) and/or pharmacist. Medications to Continue That Have Not Changed Other Medications citalopram (citalopram 40 mg oral tablet) 1 tab(s) Oral every day. QUEtiapine (QUEtiapine 25 mg oral tablet) 1 tab(s) Oral every day. Visit Information Allergies: Substance Reaction Symptoms Type Comments amoxicillin Drug cephalexin Drug iodine Drug penicillin Drug Tape Other Vital Signs: Vitals and Measurements this Visit (last charted value for your 09/16/2021 visit) No vitals and measurements documented Problems List: Problem Onset Comments Anxiety Asthma Depression Endometriosis Smoker Added secondary to documentation in Social History. Patient Education Viruses or Bacteria What?s got you sick? Antibiotics only treat bacterial infections. Viral illnesses cannot be treated with antibiotics. When an antibiotic is not prescribed, ask your healthcare professional for tips on how to relieve symptoms and feel better. Usual Cause Illness Viruses Bacteria Antibiotic Needed Cold/Runny Nose NO Bronchitis/Chest Cold (in otherwise healthy children and adults) NO Whooping Cough Yes Flu NO Strep Throat Yes Sore Throat (except strep) NO Fluid in the middle ear (otitis media with effusion) NO Urinary Tract Infection Yes Antibiotics Aren?t Always the Answer www.cdc.gov/getsmart GET SMART Know When Antibiotics Work U.S. Department of Health and Human Services Centers for Disease Control and Prevention January 2014 Normal [facility] Coding Summaryon 09-11-2021 Coding Summary HTMLBase 64 GcynhbqxNIo2yWq+PGhlYWQ+PE1F BIOvV61uyYWzkQ2AY1eZKL2NNWUN ICUKYL7VEE1yoMS8ZArtU8CtpaZg VzhsvVQcKT34FUt3TXF0bFcmOItr yK9vqRTdC7h1QlTkXY20wE59LEeo MCOuVwD5XgNfrbhpzQUh B6npQrHcmGWuVdt+PHRhYmxlIHdp REMeSClcVFXrTvBpfHesAR7kHh0g ZGVyLWNvbGxhcHNlOiBj i3vlYISoOYeqLO7sbMpzO8NvtMC9 CFLlf7n1Uc59xEE+MGRkYZK4iJzj SEgpw040JkAxs2nlFIB0 tXQkSOguPFU4H07jx2V2UHUrFYDc GGC9pTB0kR3nqSvzyyhyT2RnuABg YlJ4FSG0iMQgxO6eyOav pblinB2yGwj+M15XRN5KSFTPVC4G Edc9L6UrSglgvWX+MJ24OOYuWB15 xXJzyBWta2nznIm0IpPu RHQiIYI5wQnmDXlrs8HmNEVkW18s eBHdb3J2GOOxvUwwxIWkFzXlzVU7 wC9uTFiyuxagi0hayrtj Weixv6gcjq72xB15V02sLKumCFHv UQD0FFHoJMZpeYpfxk3eeH2zYq0+ CHdmk1omt5cktQg7LbHz KBTizeOrzLlzHHC0x8ViXq50A5Fk tOdnd8FwAkq9xd20xGQqo0W2uXK0 UQhuXMZucF9gBGbeUwU6 TAWxItKupO78wAItOFifPv3raGjo pBwsLU9nBTOqufivDLUuhW0sERYe rISyzDxeOU8iABGykbzv s427YkOsZUG7FGFykQBaY7GwdV3a PtLiDFEzDEAfB0RexRReDRjhI271 OUelHxO6RLHdtiZbX5Zh VDDqiRijFeL2m0S9Ms4Yw1Uixdxj CYK5ZFcnTOY4DdK5DqLzLyO7Y9Hu Vwc8RSKpfQbpAQ8tV6If VOBxrbvuauefqIX9HKOqFVCdlJ50 cJLtOWptHh8zu0O8u051YVZkPEMi hJ74Qo9urVddIWCadLIU eR4agnknt3wpkailDmInLHOcOEq3 KNd2UUHteLwdBxOvQTI0VoE1HRR3 bNHhsZ0diLagyucojF4y Oyc+D75jcN8gJPW1FXW3ngekTSEk ymDzXC87DR59T5PbDzgvoHCgtFG+ UPYdmiEvoDqqAG6gRuNa g2tjs3MrVZhjK6FoUAMpGLvaDtn5 EXZhYMW0vEG2lN1fFHMyOVnne0U2 qYR0Z5OnitEveu6wg7bt KNKpQXcwM54fmZLgm1J1EXOtwKU4 JOWzhFaeWgFbgO87Uur+PGNvbGdy t7LvAcafi5cpf5begTy9 QbIvSHVlihMtfOdfUJJ6v5LdXj67 W00sVNwcOPIwKCRfCPAbNYOawPyz bm5ndN2vAs6+PGNvbCB3 nDI5lR5xTAHkIeU4RCisG822NkBg mIBzMmflh2wle2opsSq1OaShSWJb wpWapDlxPCN3x6TyOw27 D23oCWaxWWUvAVPxKKSvSSKeoRlp yl7txR6kEj3+GF1an2zipe82gH61 dHI+AQIyNCK6fSvqMHtc FJSakN7sGYjpJoL3DBQqKsMpzV40 mOCkCStpTc5duUwdhZikWB0wYXHl ifncv505TrDrp1ldXJYl cBSjJRjfPIP2G50tq8P8UBRdZPVs VJN9cSB4bM2sfPsblysaxKBmwQou fbKgcWeoUPjbCUvjQ438 IHRvcDsnPlBhdGllbnQgTmFtZTo8 G4YiDmy3QSHjlFceOL7fpHEwSFhg Ia8dsXfpiYxwAK9oGBDw gaslf031HsQot1axZKBxkLNlSOyv NHV5D85vo3Y4OUIaIRJoSLK0xWI0 uP1vkNfpsmicqZKlbWho mmCxeUbzKHzqFVxnW557NLVglHdc KhVtfhHeQHYygSM9KL42JC18jKPg w4C8aNW4S2NoSUZbjkyn osesvKY8WVTnHCAwjA76Av1bwFsf Ne3qQLQjGSD2QTRyrWKyT9EfwJ7k BkSqTRVwGPTtR9LwoJIo TZbfU682KWxpDmR7CBUyvqUoQ7Cf DZSfrEyeEdJ4b4I1Bq4DF8K5LS65 IQ27jGYtw1U1vAK0V9Eg HKVhwvxurncxmNR7EZSoQJBumS02 Xq0mdOgxUk5kWCRxZQX8JPHsmMXz J9BoxV8wBuHlOIVpJYIv N7AsdWJfWVpwU430XJuqJwC4RMXt tyHsS8UyURLzlUbaTkX6x5I7Co4I VDj2JY66VZ58hADzj4B4 tSB7Z5OpVOAnmsvkkumivBW4QEBb PGJdwG25No9ydJmkKx6uFHRpDIC9 LQDfmJOfV1GaoZ0gKqNe RYBdZBFtI9MgoQGzBBybH438TWda ZyG3YKTnsxEaM1FiRXHniGfcTuO1 u0M6Jk2ASLRbYM14SCA8 aFH3BZ08FH10R5QeYmvraTFhjNF+ PHRhYmxlIHdpZHRoPScxMDAlJyBz dIjzZL8jRz9xBFItEWOj cHxzdCCkDvBhx0vzAIIpVUrnRV3o nImxA7MzmSE1YCPto2m7Fc45I39c S8YulDO+QGFbfZE1lSG9 mY7tHuCbDxL2PWajB386JsYxqXHv Aszdh1bdd7alsHu6OwJ3GQQjftXo rEbdHDX7k1LaZo61V22x NTgfCPCeAHOyKZRmBQMkpYdcyf8x aO3zGa0+GANdxQJ2nQX3mU8tReSa GeS9GHyzL532PvWelFJq Ayidn3igr6gbjSn8SqXeXOYwcdXc qHflRRT4y8VaOw03K7ZpiNssk2Xw Ojk6pj82bUJbm8W4lXB1 I2EbMAOouuepkBTqdLskTP7dPCGz ovirNGLorK7gXOObF3e8EqPlJlU6 UXumE6IkqjW4KRXhaNKp BEswUOU5U59cu3Q6ZABxJUGgMQM6 fDO2jD0chPrchkgyhZNjmCoekwEy zLykHXdlTPcbK932ZPWk pDuaVUIyrF8eXUWjsDQhgVflIL7l VMOcqwthIzmLVyZHHSHQGR0XOgIT LLKBLLIUIMI2I7EcQki0 BXYtyTtvPB1whSHlNEwmYr0odPbw hNrkKH2wJRCphgowFJJifP7nDAPw qYYnjJqeDX7qGFXtexyj c344NbQtLXP3FLMhdVDbO6IhuC5l IkXgSKLdOUKjS3LyuOZbXYydS536 QYtuJrS1VWTgolJeE9Zl UNPztXnvRkE3j8E7Qr4rYi4zJM2x HHkrGB30KL42yBCsd6Q6uSW9J0Ez AQSqhbcpwrdgmPP8CFUx JZTbkC40mQDcTGljFy3cx2Y6k627 WHFyNGCwwO47Ql5wkGidSMFesZSO gE2afnorp6qjpqqfTtAw WFXnERw7CWi5VPKfwQltSzMyPQV5 QoQ9PUF5wXLefA2dbQqxrahvdH3m Oyc+IcNiKAXynfJ7J9Wo Bpc6LGBlmPjpAC5jaOLcVLxzOa6j oEdglVamAD2rBIGieqbtHQSptM1c JEDbwWMfeGhkUD4rHGWg brbcw970SyAjZLI3HDCzwZCfT8Bs xU9fRlRxIRXjEDIyT2FnrSPyISlf S978MShmUiU5RNIkawSr T0JxNYNkfKhbZjS4b5G7Lq4DTZ6H YBK5M1CeGyq3KRUhmTcqOE8dpYQm VKtgZv8xcRtuaXhfDE2c IYUgubnwNXHoqB2zRBMoiSMvfVeu BJ4qGTOuwwbew401QaYpYIK7RCGm uDQjN0DnlQ5aXxTwOIQm APGxW2CmyCJpMIlkO898CMlcXtY6 QRGmpaJfJ6BsWSDpiUisNaN8j2N9 Us7MCFdaqTD+XK97vg64 E5YoJmriJsv9ODFrHYM6yZD5vE1o LZMjDKcgk6W3fNB1U0AfpyHkge6d m2tdUBLkBPptF36kuJOg s2S9FNYbaQE0XEYmhIqvBkHyhR52 Oyc+QGWajUzsq4ZkXmzcv4wnc5vy sUu0YbWeQMSekjIqnKbs GOL9q3UpKj53O30eQTjfYTMdUTUp YLUbHKQwgYuurt5zdB5xHn4+PGNv qKX6oBT0sP5yJnFsGjR9 FTknE810TjKafOReMnacb0nqk9uo lBd6JyJwKLQkwfPwxRqtCKQ6u0Zo Bb24X7CcqRryd7LeWqb5 bw43gIHkm7A4wHW2Z2UbPEZskfcv qVLygGynIW6pORDimbbzVFUvxS7d GIOqO1h7RnZyCcI7WOjg L4AwwjA6AUFxcOEpLEEyzARTgH1o kejki7mbccclJtUqEWQeQLl1SGq0 ZRXneXoqWhWhYTO3SeR0 GKY4qNWqiI1ctKurguhedI0uLbp+ NVc4p3ycvSAsVV0ysSO6KM81IO74 oTJxt5Q7dWD7A5PvFCRg vfahtctqcEW5PRAnNCTceH09Dw7s pHmkEz6bPKCxQHZ2NLJseRUbR2Yi dF4eYbLoQWTwGKCqL5Tq dJGhTWslM082TRwjAbZ0ERJvcfRn Q5WaOESblPzbWlJ7t9A5Ok5BTA13 WD38PC34rGEeq7C5cVY4 J2WyKFAcbxsfovsggEG7PJYnSNLg fD42Gv8idQfhGp9vVDAgJUX6KVZc yKGfB9VpaZ2eNxOuUSTt QAErW9LikPEoXTdfB596ZQrmOmV8 WWXmvoUeS1LkAYVzzBsqKbX3q6T6 Lo7YNz19NG31QF86jNYj a3F2bVK0H1QlUYJrvljlwkncbMC0 ZWHeCNGjsR14Zi4jdCojXp2uEGFg RBX6FKHbmUNpB9CqyE9e FmLzLQXwSIGuX4NeqTDsIWsoH794 HVeeTtP4JDFaqsNoT0SeCUZouXxf HsN0s0E5Ui7OZEvsout0 W9ZkSwwcmWT+PM42LEPjLC33rBVt zRQiz5kgxAk4VtStMPVcGCB4aIjv CDwkb7UnRUAyU00oxBOe c2U (more content not included)... [facility] Discharge Instructionson Discharge Instructions [id number] [facility] Outside Recordson 09-11-2021 Outside Records [id number]#[id number] ED Clinical Summary [facility] ? Urgent Care [address] [place], [place] [id number] Clinical Summary PERSON INFORMATION Name: KATHY LEMA Age: 31 Years Sex: FEMALE : 1990 MRN: Acct#: Visit Reason: UC - Wrist/Hand/Finger Pain or Swelling; LEFT HAND PAIN Arrival: 09/10/2021 13:42:28 Discharge: 09/10/2021 15:20:00 LOS: 000 01:38 Check In: 09/10/2021 13:42:28 Checkout: 09/10/2021 15:20:00 Address: [address] [place] [id number] PCP: Gayle Alanis CNP PROVIDER INFORMATION Provider Role Assigned Unassigned Rolando Huang PA-C ED PA 09/10/2021 13:49:02 Rock RN, Pamela ED Nurse 09/10/2021 14:21:59 VITALS INFORMATION Vital Sign Triage Latest Temperature Tympanic Temperature Temporal Artery Pulse Rate O2 Sat 96 % 96 % Respiratory Rate Blood Pressure /74 mmHg /74 mmHg MEDICAL INFORMATION Medications Given: Allergy Information: iodine; Tape; penicillin; cephalexin; amoxicillin PHYSICIAN DOCUMENTATION DISCHARGE INFORMATION: Discharge Disposition: Home Discharge Location: Home PATIENT EDUCATION INFORMATION Instructions: Contusion, Fvmj-ic-Pnqn; Finger Sprain, Adult, Qfkh-yr-Aohn Follow-Up: With: Address: When: Return to this practice Comments: September 16 at 9:30 a.m. DIAGNOSIS: Contusion of finger of left hand; Sprain of finger of left hand Patient Understands: Yes - Patient/family/caregiver verbalizes understanding of instructions given Comment: Normal [facility] ED Patient Summaryon 022 ED Patient Summary [facility] ? Urgent Care [address] [place] [address] PATIENT DISCHARGE INSTRUCTIONS Patient Information Name: KATHY LEMA Age: 31 Years Date of : 1990 Reason For Visit: UC - Wrist/Hand/Finger Pain or Swelling; LEFT HAND PAIN Arrival Time: 09/10/2021 13:42:28 Primary Care Physician: Gayle Alanis CNP Attending Physician: Rolando Huang PA-C Comment: Patient Education With: Address: When: Return to this practice Comments: September 16 at 9:30 a.m. Contusion A contusion is a deep bruise. This is a result of an injury that causes bleeding under the skin. Symptoms of bruising include pain, swelling, and discolored skin. The skin may turn blue, purple, or yellow. Follow these instructions at home: Managing pain, stiffness, and swelling You may use RICE. This stands for: ? Resting. ? Icing. ? Compression, or putting pressure. ? Elevating, or raising the injured area. To follow this method, do these actions: ? Rest the injured area. ? If told, put ice on the injured area. ? Put ice in a plastic bag. ? Place a towel between your skin and the bag. ? Leave the ice on for 20 minutes, 2?3 times per day. ? If told, put light pressure (compression) on the injured area using an elastic bandage. Make sure the bandage is not too tight. If the area tingles or becomes numb, remove it and put it back on as told by your doctor. ? If possible, raise (elevate) the injured area above the level of your heart while you are sitting or lying down. General instructions ? Take rkvf-vsg-jmxkdba and prescription medicines only as told by your doctor. ? Keep all follow-up visits as told by your doctor. This is important. Contact a doctor if: ? Your symptoms do not get better after several days of treatment. ? Your symptoms get worse. ? You have trouble moving the injured area. Get help right away if: ? You have very bad pain. ? You have a loss of feeling (numbness) in a hand or foot. ? Your hand or foot turns pale or cold. Summary ? A contusion is a deep bruise. This is a result of an injury that causes bleeding under the skin. ? Symptoms of bruising include pain, swelling, and discolored skin. The skin may turn blue, purple, or yellow. ? This condition is treated with rest, ice, compression, and elevation. This is also called RICE. You may be given fsjv-wko-ilnwdgp medicines for pain. ? Contact a doctor if you do not feel better, or you feel worse. Get help right away if you have very bad pain, have lost feeling in a hand or foot, or the area turns pale or cold. This information is not intended to replace advice given to you by your health care provider. Make sure you discuss any questions you have with your health care provider. Document Revised: 01/06/2019 Document Reviewed: 01/06/2019 [employer] Patient Education ? 2020 [email or web address]. Finger Sprain, Adult A finger sprain is a tear or stretch in a ligament in your finger. Ligaments are tissues that connect bones to each other. Follow these instructions at home: If you have a splint: ? Do not put pressure on any part of the splint until it is fully hardened. This may take many hours. ? Wear the splint as told by your doctor. Take it off only as told by your doctor. ? Loosen the splint if your fingers tingle, lose feeling (get numb), or turn cold and blue. ? Keep the splint clean. ? If the splint is not waterproof: ? Do not let it get wet. ? Cover it with a watertight covering when you take a bath or a shower. If you have a cast: ? Do not put pressure on any part of the cast until it is fully hardened. This may take many hours. ? Do not stick anything inside the cast to scratch your skin. ? Check the skin around the cast every day. Tell your doctor about any concerns. ? You may put lotion on dry skin around the edges of the cast. Do not put lotion on the skin under the cast. ? Keep the cast clean. ? If the cast is not waterproof: ? Do not let it get wet. ? Cover it with a watertight covering when you take a bath or a shower. Managing pain, stiffness, and swelling ? If directed, put ice on the injured area: ? If you have a removable splint, take it off as told by your doctor. ? Put ice in a plastic bag. ? Place a towel between your skin and the bag or between your cast and the bag. ? Leave the ice on for 20 minutes, 2?3 times a day. ? Gently move your fingers often to avoid stiffness and to lessen swelling. ? Raise (elevate) the injured area above the level of your heart while you are sitting or lying down. Medicines ? Take jprs-tuw-farqymg and prescription medicines only as told by your doctor. ? Do not drive or use heavy machinery while taking prescription pain medicine. General instructions ? Keep any bandages (dressings) dry until (more content not included)... 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 She was attempting to close them. She states they have been having problems opening and closing the doors for quite some time. She had to physically open the door again to get her finger unstuck. She put ice on her hand and took some Ibuprofen and completed her shift basically doing light duty and then came here. No previous left hand issues. She is right handed. No fevers, chills or malaise. No other joint pains or myalgias. No numbness, tingling or weakness. No skin rashes or ecchymosis. There are no other associated symptoms. Trying to bend the finger makes it worse. Rest has been helpful. Nothing else makes the symptoms better or worse. Symptoms are described as sudden onset, moderate in nature and persisting. Health Status Allergies: Allergic Reactions (Selected) Mild Tape- No reactions were documented. Severity Not Documented Amoxicillin- No reactions were documented. Cephalexin- No reactions were documented. Iodine- No reactions were documented. Penicillin- No reactions were documented.. Medications: (Selected) Prescriptions Prescribed Zofran ODT 4 mg oral tablet, disintegratin mg = 1 tab(s), PO, q8hr (int), for 2 day(s), PRN: as needed for nausea/vomiting, 6 tab(s), 0 Refill(s) Documented Medications Documented QUEtiapine 25 mg oral tablet: 25 mg = 1 tab(s), PO, Daily, 90 tab(s), 0 Refill(s) Sprintec 0.25 mg-35 mcg oral tablet: 1 tab(s), PO, Daily, 28 tab(s), 0 Refill(s) citalopram 40 mg oral tablet: 40 mg = 1 tab(s), PO, Daily, 30 tab(s), 0 Refill(s). Past Medical/ Family/ Social History Medical history: No active or resolved past medical history items have been selected or recorded.. Surgical history: LEEP ([id number]) in the month of 10/2017 at 27 Years. section ([id number]). Loop cone biopsy ([id number]).. Family history: No family history items have been selected or recorded.. Social history: Social & Psychosocial Habits Alcohol 03/20/2019 Alcohol Use: Never Substance Abuse Comment: Denies - 12/12/2018 09:36 - Akil MILIAN, Kelsey Garcia. Tobacco 09/22/2020 Smoking tobacco use: Former smoker, quit more Electronic Cigarette/Vaping 09/22/2020 Electronic Cigarette Use: Never . Problem list: Active Problems (5) Asthma Bronchitis Depression Endometriosis Smoker . Physical Examination Vital Signs Vital Signs 09/10/2021 13:55 EDT Temperature Temporal 36.9 DegC Apical Heart Rate 77 bpm Respiratory Rate 18 br/min Systolic Blood Pressure 117 mmHg Diastolic Blood Pressure 74 mmHg SpO2 96 % . GENERAL: Awake, alert and oriented to person, place and situation. Well nourished, well developed, non toxic, NAD. EXTREMITIES: TTP the entire left fifth finger and the left fifth metacarpal, with limited flexion/extension secondary to pain. No cyanosis, clubbing or edema. Good muscle tone. Brisk cap refill distally, radial pulses 2+ bilaterally. SKIN: Ecchymosis to the left fifth finger, otherwise normal inspection, no visualized rash. NEUROLOGIC: Light touch sensation in tact, strength diminished secondary to pain. Normal mentation. No focal neurological deficits appreciated. Medical Decision Making Orders Launch Orders Radiology: XR Hand Complete Left (Order): 09/10/2021 13:59 EDT Stat, pain, smashed hand/5th finger in fire door, Allow Modification Per Radiologist, Transport Mode: Cart, Launch Orders Patient Care: Brace/Splint ED (Order): 09/10/2021 15:05 EDT, Finger splint. Rest, ice, compress, and elevate. Finger splint is applied by the nurse and checked by myself, and extremity is neurovascularly in tact at the time of discharge. Return to mostly right handed work. 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 She feels she will be able to work and do most of her expected tasks without too much difficulty. Return with new, or worsening symptoms, or symptoms failing to improve as expected and the patient voiced their understanding. Questions answered. Follow-up here for recheck on Wednesday. Impression and Plan Diagnosis Sprain of left little finger ([id number] S63.617A, Discharge, Medical) Contusion of left little finger without damage to nail ([id number]-VJ S60.052A, Discharge, Medical) Plan Condition: Stable. Dispositi (more content not included)... Normal [facility] [address] Urgent Care Record [facility] ? Urgent Care [address] [place] [address] PATIENT DISCHARGE INSTRUCTIONS Patient Information Name: KATHY LEMA Age: 31 Years Date of : 1990 [facility]: [id number] Reason For Visit: UC - Wrist/Hand/Finger Pain or Swelling; LEFT HAND PAIN Arrival Time: 09/10/2021 13:42:28 Primary Care Physician: Gayle Alanis CNP Attending Physician: Rolando Huang PA-C Comment: Visit Diagnosis: Diagnoses This Visit Contusion of finger of left hand (S60.00XA) Sprain of finger of left hand (S63.619A) UC - Wrist/Hand/Finger Pain or Swelling ([id number]) If you received any narcotics, sedation, or any other medication that causes drowsiness for the next 24 hours, unless otherwise directed: ? Do not drive a car. ? Do not operate machinery such as power tools, lawn mowers, drills, sewing machines, or stoves ? Avoid alcoholic beverages and drugs for allergies, nerves, or sleep ? Do not make important personal or business decisions or sign any legal documents With: Address: When: Return to this practice Comments: September 16 at 9:30 a.m. Medication Information: The exam and treatment you received today in the [facility] were for an urgent problem and are not intended as complete care. It is important for you to follow up with a doctor, nurse practitioner, or physician?s commercial real estate assistant for ongoing care. If your symptoms become worse or you do not improve as expected and you are unable to reach your usual health care provider, you should return to the Emergency Department, we are available 24 hours a day. For those patients who have received Radiology results, the interpretation of your X-ray as given to you by our Urgent Care physician is only a preliminary report. The Radiologist will review your films and if there is a change in the diagnosis you will be notified by phone. Please make sure you have provided a working phone number so we can reach you if necessary. In the event that you had a lab culture while you were a patient in the Urgent Care, you will be notified by phone if there is a need to change your antibiotic. Please make sure you have provided a working phone number so we can reach you if necessary. [facility] has provided you with a complete list of medications post discharge. Please inform your primary grade teacher/provider of your visit and for further instruction on these medications. Any specific questions regarding your chronic medications and dosages should be discussed with your primary care physician(s) and/or pharmacist. Additional medications on your home medication list not specifically addressed. Please contact the ordering physician if you have questions about these medications. citalopram (citalopram 40 mg oral tablet) 1 tab(s) Oral every day. QUEtiapine (QUEtiapine 25 mg oral tablet) 1 tab(s) Oral every day. Visit Information Allergies: Substance Reaction Symptoms Type Comments amoxicillin Drug cephalexin Drug iodine Drug penicillin Drug Tape Other Vital Signs: Vitals and Measurements this Visit (last charted value for your 09/10/2021 visit) Vital Signs This Visit Temperature Temporal: 36.9 DegC Apical Heart Rate: 77 bpm Respiratory Rate: 18 br/min Systolic Blood Pressure: 117 mmHg Diastolic Blood Pressure: 74 mmHg SpO2: 96 % Measurements This Visit Height: 152.4 cm Weight: 77.11 kg Body Mass Index: 33.2 kg/m2 Problems List: Problem Onset Comments Anxiety Asthma Depression Endometriosis Smoker Added secondary to documentation in Social History. Patient Education Contusion A contusion is a deep bruise. This is a result of an injury that causes bleeding under the skin. Symptoms of bruising include pain, swelling, and discolored skin. The skin may turn blue, purple, or yellow. Follow these instructions at home: Managing pain, stiffness, and swelling You may use RICE. This stands for: ? Resting. ? Icing. ? Compression, or putting pressure. ? Elevating, or raising the injured area. To follow this method, do these actions: ? Rest the injured area. ? If told, put ice on the injured area. ? Put ice in a plastic bag. ? Place a towel between your skin and the bag. ? Leave the ice on for 20 minutes, 2?3 times per day. ? If told, put light pressure (compression) on the injured area using an elastic bandage. Make sure the bandage is not too tight. If the area tingles or becomes numb, remove it and put it back on as told by your doctor. ? If possible, raise (elevate) the injured area above the level of your heart while you are sitting or lying down. General instructions ? Take tpxh-cmx-wjqdgxi and prescription medicines only as told by your doctor. ? Keep all follow-up visits as told by your doctor. This is important. Contact a doctor if: ? Your symptoms do not get (more content not included)... [facility] XR Hand Complete Lefton 08-29 XR Hand Complete Left EXAM: XR Hand Complete Left HISTORY: pain, smashed hand/5th finger in fire door COMPARISON: None TECHNIQUE: 3 views of the left hand were obtained. FINDINGS: No definite acute fracture or dislocation is seen. No significant focal osseous or articular abnormalities are identified. Soft tissues are grossly within normal limits. IMPRESSION: Left hand study fails to demonstrate definite acute fracture or dislocation. Follow-up as needed. Final Dictated by: Shahbaz Camargo MD Dictated DT/TM: 09/10/21 2:32 Signed (Electronic Signature): Shahbaz Camargo MD 09/10/21 2:38 pm Technologist: KEV ALBA [facility] Coding Summaryon 06-09-2021 Coding Summary HTMLBase 64 [id number]+PE1F AOIsY30cyLQnoR5EU8hULN0UZVHF PNTRFQ5APO6tlQR3FJmjR6TwjiLl AqltjDXnRE49TRl2EIS6tWmiRSjc tP6sdTTgH5e1NdOjZR87gT74GYbn ZYWaGjP2UtUtgqrcaCTp W3dcFhGftAPwSim+PHRhYmxlIHdp NBXeATphZDRdHpOvbQrdEV8gRn0q ZGVyLWNvbGxhcHNlOiBj t8ifBOUxBTksGK4heIfwY6IjiRL6 EAOkm8z3Og46uOZ+VFUqUWM6eRmv RRleh735WuNmi3cnROR2 fUXmJZejQUV4S70wg3N7LURvRGYo DCX1nAC7hC3yzVnbkbllE9YckKHw XcY7HMO0kRBdyF2udPoa lviupV6yQat+Z20QGD3NAUWWMI5T Rbr8T9JlKyrxyFT+NV57VEXkFX43 qYPyeKDkp1pypZz2YgTw XNIcSIF3tVenRBcts9HcFWVyC17y qTLrh5Z1PFRdiVvmzSCpGkRakXB6 jV6dZPzegjisn5jxntkp Gafzg7ywbn94fV24R71qWLssLXSi QHI8HOCeNRHpeJwmzx0voC0jUn7+ XGxyb5ixe3kqnWw9WkLi IQTfbuIlhDumFHA0n9DfJd26N2Wl tDnav0YqRjg9ku13fXRkr7R9rIY5 TFurPLQjmB3mGGghBrC0 CNWmOmLgpZ85vLSuFEsfAm0hiViy tItjUF7wDGTdiqycGIVveZ6oHOUu hYFthHddZB3jCWTnymow y601QlBcNOR3OSUvgUWoQ8GuvJ8c FgRxJPRvDBHiI2QjvAGdMEkpC780 VZvvIdK6JOJjzzPiE9Ms EZAtkTwzZhY9r3G4Id1Gq1Xawfmv ECB6PNlyJZEjKxJmRvUcMbH4Y0Sa Uwp5CVEdaErnTY7qW0Mg UTEgpxppoknpjLT4ZDSaZLKsiQ32 oSKxWHriTl1qx2Q8w892BNEiATIm hL87Fy2dvQlrFTNvtZKF jA0gyljsb1wapayrQgCeVZScFEa2 AXu5UQAguWjuRgQcEVK4OkW9JOR6 zCMupJ2dgTjvdrcrjG8b Oyc+A18fbB1iOAQ3XWG8slzoPLKb hjSlZP63YQ37M3MeHkrssBNsmGN+ LVOlmaIpuDehMJ7xYmEz j3rzd8GyTZsoA6KuROJbZKzlOzf2 LVRpZZM8eTF2qG5vKUUdLSbkj9C6 eNR1V9StrbBbrr7gx6sl OLZbHOllV07bhNCvt3P7VJYniGU6 IWSuoGlvPhVlgH78Gzz+PGNvbGdy f8NhPwdgn8lpr0gvlCr6 EjJgJMCacdZnxGawXQB4i8QeGj09 U81hXOxlFWHjNCWqOFRqUWHrwJrh zm6ciQ3qIc6+PGNvbCB3 jOX2jU8nOSLuSvP3NArxK796SuNt rXFcZrwsu5onv0kbqLf2XsJaADFu dkQweKyfWIO4p8XrAz20 X20pTWnbNOBwYTJoJAUqRMTfwYmq sc5lyS3sAe4+JK3uv5qyqc65cB65 dHI+SVZyHFZ2wYpxWZqj TZUguF1xBDjuCdI6FLRuCnSshP62 aOLsYAlnKr7hlQdpdZivVM5aETKz keoxc264WwSge8bpZBEa dTBdBWhlOXK4Z57nz1H6PHBuFOHf LPL4qQD1rM7srFnombnovRUspVjf ezIolJphEHkfEOspP045 IHRvcDsnPlBhdGllbnQgTmFtZTo8 J1OxSer4ODEykYkjQR6ylMGqKOxm Do8ofRefjBpxPU2bPNUe uslxj410GjZmi2txUVLvnPThUUzn NUE9E51yh0C1TUFtRVVlIPO8aXA6 oF4wvJnfrteacLAllAam ctQykMgnZYooUFebF048QSXtrJgj LaBbsuIkBDIfsBC9JR72PZ08vDDq d3Z7dEB0Y0EgCWVciqcr kzycjJZ0GNFbGSBhiA23Ww0ksTnp Vm2sOUQmXWG2ARCjwJItH9PujH7s OwVzEXBkXOGwD1JztIKq UDebD672EPvuUfY9PYBejkXgU8Df QHIyaHtcOvE3r7W9Fr0BL5W7NC96 JZ29yKJyq5Z6jGB2X7Ch MKNebweyumplgGL6DCSgZDEmnF05 Ky0zxAjfYb8qRXPpJUG3DYUdkDGt G2EfyK7bKhPsMSLiTJWt Y2HjhYAdKMmiQ705WCamLxI1WZJn jrDhQ9LhHXSvpQrtGvL5v3C9Dg2U QBx5ZB28PC68uDPwp8Q4 wSV7W7BaFVQeirytjutidTH9YDNt HIJcgB50Ek6vcVvrRg6xMFApNVD1 VBMreRXsZ0PzjT3tQsGx WEDsJIHyB8WwaHHjKCdhV407OEpb YyE0OHZudkPwY7WuDQChlXygXjU9 o2H2Xg2SHAExGR01FLK7 tYL4JY93GN09F6LaQbkdmGSpfWZ+ PHRhYmxlIHdpZHRoPScxMDAlJyBz qPeyHA8rFh1iHLKeEYEg aXmxdXEuDgNzy8guBEPdRCejHS9a iMabK4QwzVG7WMRvk8o5Gu46Q40l C7TrvXM+ZDIvcLX3pEW6 kJ6eRaZsLqJ5VChfC529EnRocTDq Ftvpx7nnv1qfkGz9VyG9SILljtVe lFtcMZQ0j4OcAk79Q62a REgxDKLtZRAlCPAyMFVewCduxk7i dX0mWi5+WBQmaLU8dYN5lL1bPiMv EzK4RLqnG177OqJcaKKf Powen3aej3xqbFj6LdSzWTNrycHs nGolTBY2s6UdXg70U7DxaVzmp5Ik Lxo2nc48wIRuh0F1aUU8 J2AoARTqogydwDRifOfmNY2zHSDb kmspKEUunL8eGBXxA5c2FhCoGtK1 HPnqG5GuyuU0DKLmwIVi WXhhQCX7X09dn0U8JCGiBRQkECF2 xLE0sB2ycLktkbraaPOcrOsctbVe nHvnOCfmFGnyR210GDVo rLhwRKMmbS2oCODkaNAxrDxqZY6r ZVAoalbiKdgPNmRWXRIAOO7GYsVD AKXXZJCZTGW6X6UqSgs1 WGBatSdcLS8pfXXnCKctFp6ciXai fIypSH1uJCScuvsvAWWnzL2rHQOk rGHxxTvdLS5kKUJdobnq c157PhXbVXX5LHBgyPUfK6CpeH4r UpOwMOBsDKIfH4HeqKLfILtdB586 ILlbFuM2LXZsopLtZ0Ft VEErbXssXyL3d7W3Dq4cGd1fFK9p PXcyIK30CB19wSRjz7Y2nLB0A3Ki LFCovavvmmaehTN4IUMf BYOfbJ96vNZhXYsxWp9zo4T5i712 XWZqBPNfpT97Iz8csQlmFQDoqXUG rL7tjlvjf9rjmohyAyDc VTDmYZi1IJs6ZDOdbFwsIbRdFRF9 DmL9MLU2xYFujD4wxQcevtbjpX6t Oyc+ZpQsIZGzimU7T0Gh Dht0MLHtmVkdQT7zwJYaVEylAn0h jOkkeRlxMY1hRHXeufakABTxkV3j PYOcmNJimWngYP1rGLMo cgvwo503EvNbPNL8DESmwOTeD5Pn lC0uKsYdWLMkYPLjL7DaaOLzCBmv N357LFzuYoF9LEQnijSh Z3RjOFFbaOcmVsB9d6F2Wq6RDQ8Y DRB5R3UtQrg7KOOzjOxdLA6tgCBw IHihXf2brLrwlMtwET6e UVMzqniyHCPaeY5lADBtySBvqJlp KJ8ePXSzpelgb833HrBlJQK8PBCs zTLdO3JqcE3rUvOnMDCr QTJvO3ZjuZDcECaeN616ZGuiFmF3 ARLzwgZsK0LlPULudPgeJxL1k1M0 Pb4IMGbxoRW+JL67dy97 W2TpWlozHwy8SIZzMIP6lHE7cP3e UPSjRAybj7W6kKD4N1TlqsXjem0e o5xcOJMfBZpoO40vxUAj i0I8RJWplTK0HLBreVkwSoDpzK73 Oyc+RIMgrWqdd3YfBhwvr0sko0hg gUj2CwNgKJJbdtEubJjx OMV2d6SaLt21G08iXHzdKVIaXSNt MFPgHOIxfXvahi2yjN7bUw9+PGNv tAD8rWH8qF7pMzWwXlT7 PTwjT892JwVipLOhYdwkp4jyv8ui hTc7RnLbWTSruoPryMboFPZ9v0Xg Rx44X6SrnGyct9StUzp7 sl99cAOfb4D0tPH6K8LdJFHhtzfn vPTatEgaDN2uMVSwrrskBNKrnD6w ASInR6v9CfSoHgF0JEfc K3FitjG5IMXiwGWlEARlvCZMoU8t isqth6fhkhvzUgFuBWWxLMn2BPu1 UBJwzBknUfWvMBW8ApJ2 FST7fLMpdJ7oqRlorlvtoK6yJji+ JEl6y8mcjGRdMA3tmJM6ZL21XU35 iRZrl0W1nMJ1N4OdMCDd wvkvswrwqVC3GZGeYPVloT20Bm8s rBjrNs1wNMQqKUO4RYLicBEeU9Px vA3gNyRqVRTtPPGoE0Xl aAYsTNrbI135ZTukJwI6CEUotjRn E8OoIVHzzPhfCxU5s4Q0Ev6YJN33 WN75KD54cJQuu6I9cBB3 U7YcBBRricuiowmtqCS0XBJgTYGw yH24Kb0bvDgcLv1xRLMpNIT5HRDp wMTzY6TzcT5tBbToREEl JYElL3JauIXcCEayB193HQubGzO6 JVJegyWiF1JqTSIsoXdoBwO6i2U0 Bu4UCk28ZI73UV78yBXg e0U8nQI5H9QfGAXjjhqdmrwjlRJ5 YQApWJZotZ15Cr3yvTvlGx0sIHGb KRH0SKXsyGCiA1JirF9u FjCvRYYyYYKcU1MfoNNrHXvyX270 ZWyvYcP8AKXuiwAvH3PgPZExgRpj KbM6o3S6Zg7BEIvrebo5 Z7BdRmgpbVZ+VI37WWUzSQ75nJSo wWNog5uopVu6VwXnFWTeKFI4rGds AQwmf9IwSCVmJ77boEOo c2U (more content not included)... [facility] Coding Summary HTMLBase 64 TgqvrkxxKPu7xOx+PGhlYWQ+PE1F ROKpE56laSRirG4GG2uEWA3PDDPB WXAJOF3OGO5buYV8LSljT5XteuWq UapjnQYeSM38NXy6UHG3oSwyBNps mJ3vtGKeU3c0DmXtCO22zT04RXcy PUYiWvT1RiKygivfgAQz Y3oyNuYgjNSmDad+PHRhYmxlIHdp MHXfMBlyAVEnUfFilUojGO5uWy5k ZGVyLWNvbGxhcHNlOiBj a8ibAUUhUTvyRG2ddEbxL0MzcVE3 SPWxj8q6Pg37jNR+YEHiQYK7gXhu UFizx456TjVom9dmGKC7 cCBiNLqtREI8A44gw6O8IYEpFVWq ROW4wLP3fU8kwZassqpkX5TbqYLs BkR5QCI5pRKraH5zqAks mmerqR1mPwm+I02FAK8KUESPCK1T Dlw0X1ChTecnaNA+WT07PXJuQZ65 dZJtwFPcb9ouuUu2FcGu QGWvEID1hNucINqrp3ZyJSAlU68x tCLah4A9VKVccAuihDSgRhPsaTW3 qF3mCQjpbkfkq7txughg Vkgos5cazi84bO41R82oQXofVHPi PCM4IXYyWIAyjNzhar8udV0fEt7+ BIihl4dou5vfgUa0GiTx BDYzuuWngJljGTM4u5JfEv29P7Vz dRxfv0JpIbr9ab96uSNsv7L6bQC9 YZitHAKpqN0zOTcaFcG4 HEOyJgWtqK92kRQaYFzyXd3nqWia fZepNP5tHPNfogoyETBahP7lLVMi vXOtmKcvYW6tQEVytxra g650PwMvQVZ4CZTqzWWcV0DwnO5o JuLpVGSbVLDqX5BkpPUsPUbsF634 KTaoWdU8OBCxibVpH9Un BZGvfXkuByU7x4D5Qt5Ok8Qxnibz USD9BBllYPRvKsTnEjWxYpL4K7Pe Ezk2MRMasCzyZQ3rT9Aj VCAtosgxtwldkSM0SZYeQPJgxS00 xHMlYGgdWr4ko7Q3s558ERNoEZNr iF75Gu9tdAzgMGHmbCTQ bR4zmiyhr9tdykceZkQhIYHvHQl4 ENa9JGSlaVngXgRwXAT3VrI9VBV9 nKMboC2nxFqppapsfD9r Oyc+E02beH1rRVA5ZOB8vzppJSYi kiDaRV54NA14C4SlIlztsOCmeWK+ TCEclpFdoIkvNS7qBaTj a2ucq8TpDBcpP3IsXKBoGKyuHak4 MACzALC4mGX6nE1cQJJyHAhgf7L5 fAJ0W0UtxpYnkq5tg5tw LMYsFMfiN49tcSJtq7L9SXOofTD0 TZCcnPahMbNjpR08Exy+PGNvbGdy x1QvKtequ3pwi5txjKd0 IyLeLBCtoyQcvAnaDGL4p7RdBh32 S44iHZceWYQdXRVxREWiBWYrmAzj fw7joX3bNi2+PGNvbCB3 qOI9fW1vSUQqCnU5AKnsL118FqPl qZTkTekzx1tqr4ahpIe1NuDdURFb obScrZghRVJ3i0BgEp08 R74eBRyfUNIsXPVeHNWuGRWsoCti ed6eaK9qGd7+SI3dh3kufw64uG13 dHI+HSFmPHF5dGmfZVuk AWQwhR1eVDhpFgA2HKVyXlDedX89 eTAcXNstIw7wlNhzdBigGY4vIYNa keaos266SgHjb7moYBWg dHVhJKlcRBW9O82jw6K3PGOgXTXx YLS3sIM1iW7ttUkjkjsaiGZnaFbz tmYvkNpcDEbvUXdzX155 IHRvcDsnPlBhdGllbnQgTmFtZTo8 K3KuLex7SXElqEdcAV6ecKRfLDue Ac0ksKjiqMkqVF2gNXEj noanm852GsEaz3nqTDUolOTlHCul VTT0L86pi0A3BJStVGHfGKJ0bFY0 iI2ajKewknsxgOChvTex ldDexLypDHymWVvbO718UJPbgFjx ZzBpcdFuSPPrlUV6PJ09GH79jUPt d7Z5vCB0K6SdFLMznris lrdljAU8APUsAXZptC89Ai0bxHpk Gj0hCXVkWKN6ILVtzJKmL5LxdF4d CaVqKQMhJQMcG5WhjRTj MXnbP430HBcrAhP0IUKeohPrC6Xe RMInkEeaZwQ4v2H8Zq5WN7Y3GN01 NH79vYJvs5H9xPJ8P0Kf TNRlcsyxjvebeZS7YOTqQNPvpG42 Nz1ueKmiDo0uEBJqAPB4LVFbsTZd R8BdmY8lAmIlOBCpBNIv W8CinZPjLJfkU760SAzxFhG5ICJf boCqG7NiKUAfdUfdFrI2g7O3Vy1K QSv1ZO70AC54eVReg4V0 oSK5P4IdCXNhuudqipalrYN4JAOf NYMgnH76Xt4xeYddGx6dCBBuSFB7 JDMgeTDzE0TmgR6dNuTe AKVyKLMqW8NtpINtAKmuH142LZkl JwU9PEVcmsUrJ6YwPOIjeJqtMkX9 t3T5Ej9ZLMHdPC06TJQ5 hQE4GA10AJ05B1DqHctedMXllXH+ PHRhYmxlIHdpZHRoPScxMDAlJyBz hWouQT9gOz9aFLWvGUMu aRdeuCJfGzBtb9qkWZBtSKgcEU6x wDruO4RppRT4BKXfz7p9Kz74E79p D9EgjGQ+HWSurLX9iYX9 dE5pVqUjCnJ2JSrlM993SyZehXMu Fhewf4ype3ksqFz8NaS9KUTjwbXr vAtjRSV9r3FeSl78N59v ZQvhNZUnPEHmTPSpVFDvqPrdhj3a nA4kNt1+CEThpAU2xXS8fN8vBaUg UaW1OVjwU756OgRdlEDq Pllky3znr8sunNi8OjRfPZMzozKh xLxtIVN3m8YfOb56U8IpcWmhu7Eb Jer2iy55lXKfc1E0yJK7 T8NuJTGlqeyakWSfpDdiEV4aKGCy klncTUHqcV6vVPTyD1n0PfVnQxG0 RSwqX2ByeyJ0ZKCjxJAw DUhiGLB1A82zj6Z4QEAvWHZoFUR2 xIW9lT9qmXprfffipWTmzLzkakVp qTlwBBdeJBjuC528MFPl mPzbFFLznB1iHUXnrDIdfGxiEP9k XOCdfspuLhmDAePUZWHKGA0DZzYA TKRUWGCBTMH2B8LxYie8 KQPhvLsbEL3hfENaGGzgLi3qwZif pJbmRR1hBVLrajskNLLvqA9pHAFm dFPwwEwmSJ3wXPQavxxe o742CoZmMLL8SBUnwLDpR8YgqK6n OkZcFSRhOZUwS9LjjCGaVKahX185 SYzqMgR8UWUqlxDxK3Sz HWZlyIwrBsI1b4O0Oh7jJh4kHM6g CEpuMC88HS43bZXvo3B7oOC2F5Wh WAOqvdcczlteuJC7FULt IEDigR43sCHgKPhiQc1rs2M0o526 IDEvYWKotH71Ic4ipGorRTEjkGNE jF3dfosfy0cmucsqQkEz NGOaAJz3LRq0RGExyTswAsLaOIQ4 NsJ7IYB7oGXhqL3uzWvirfuxtC1d Oyc+ZcLqRJSapzI2C1Dt Fge0PYRdcXwrCB5ccSMeFNfpMv4b gCeraEtdBF5yBGXplwmpCQYdgO0v MXJdnWPjxIwaZD8gCVAe qersz673GoSaBWP4XOSojXIdM6Rh zG7yKlGwFKMmLDVgY2DvdGMeCOfb R335UWpmMuP4AGTbqfGb L8FcKHWnwGfuQoI5j3C3Lf5BID6O FSQ4R5OzYpc4QJDqbHyaMV2mjVKd YPnvVg4znBycqVbeQC4y BSFjpelvXFZyhQ6gUSXvaSTerAps MU7bNCJxpcrna560ThSlNBV1PCHx rWByW2BvaF5lGwNzBRUs RGGaG8MwpRNdADxhH577WIwlTdR0 RZOdtrDrL1TkJWLllWnlWcH0y8I4 Du1GqJWkS3OoO9z8X1Bb PjwvdHI+RI63MLFiTL58iJZumSTq h6zzzDx7BiUjMVUjHOP0eMgpNIoe n2ZvRUMtJ49wsPBzy6Q0 RILxvRnagGIrCiRvjYB2iR9kPAgy bhqti6iqwczbVvkvn1lwqa27qR10 O09pXOgeWCWjHCViAWGx VWOlzPrsbv1jdK4gYf5+PGNvbCB3 wRB8aI2mEvBeBjI1JEqfZ076VlPa cJIdBebpx4wrx9qmrNb1 QvQgDCQcyxXaoFzqJQR3z8MbPd00 D16nXFxhQEJvBNCwHPMhAWUgvOwx mn7wiU1gWm2+ZF8rs3dx ku46rK19kFK+PYCcHUU5bTbqCSmj DFDcbQ3lQAdlUzU5LEIiQdSceS28 qFGpAUgtOy4cwSlhwYqw VX6wMLRzmxccm765ClVmh9nxSGMq nMDuNVnpAVW1C87fw9B8WNRnLNQv BXG5mYE9gP6hyDipnxlb lFLytDkbxlRsjJhgENckGNmdV957 YVWnnBfcLrCzaVBtR1txrbGWHS3i OjwvdGQ+WOZaAVH3aPed PXhfTWFksG6pSWDmX3j2YsUiXoI3 SSarD3ZqpbO3LMVfjHHcSCUayHYV cB1zetafx1rrsokuGqOb NMUuJBs5RKp2DNMzqMhzOuJlGWI3 BvW9UMW2pTLjsD2ptNgpihmleS7e Oyc+RklOOjwvdGQ+PHRk IKA1oBgpEJcjRJSgsY8bFDOlM6d8 VhAfWyW5NDfhG2CqwdK7GQFepOCc HZAqhKBHmK5ivldtj0gm rqvcGwDxHNXnBZg7VOt3XMFkcCmd LqYfMPM1VsD4YLE3mVUayU1dgAnm afaxoO6kUjw+TVJOOjwv dGQ+GHRuSAB7mIjlSQsrEKCsoW5u NDIkR6j1QrBqHvV6EOinT0QldrG7 ZUKfgNXmEBGpxZYDmJ1j zklcj1wqvvxgJmOrTPUrCCs9QPe2 PRQeqCpnSgPtNPL0VoZ8WFY6bZPp lZ5bqMbrlgxpjA0rZvo+ MTO7WZL5TD09AW74H6UdWvdneEFx bGU+PHRhYmxlIHdpZHRoPScxMDAl IdUhaWioDN1sVc1pOQZd LWN (more content not included)... Normal [facility] ED Clinical Summaryon 2021 ED Clinical Summary [facility] - Emergency Department [address] [place] [id number] ED Clinical Summary PERSON INFORMATION Name: KATHY ELMA Age: 31 Years Sex: FEMALE : 1990 MRN: Acct#: Visit Reason: Post surgical problem; POST OP RIGHT LOWER ABD. Arrival: 05/31/2021 10:54:36 Discharge: 05/31/2021 11:30:00 LOS: 000 00:36 Check In: 05/31/2021 10:54:36 Checkout:05/31/2021 11:30:00 Address: [facility] [place] [facility] [address] PCP: Gayle Alanis CNP PROVIDER INFORMATION Provider Role Assigned Unassigned Robert Cox MD ED Provider 05/31/2021 10:56:42 Doug RN, Karyna Mayorga ED Nurse 05/31/2021 11:15:17 VITALS INFORMATION Vital Sign Triage Latest Temperature Tympanic Temperature Temporal Artery Pulse Rate 84 bpm 84 bpm O2 Sat 96 % 96 % Respiratory Rate 18 br/min 18 br/min Blood Pressure /61 mmHg /61 mmHg MEDICAL INFORMATION Medications Given: Allergy Information: iodine; Tape; penicillin; cephalexin; amoxicillin PHYSICIAN DOCUMENTATION DISCHARGE INFORMATION: Discharge Disposition: Home Discharge Location: PATIENT EDUCATION INFORMATION Instructions: Wound Dehiscence, Bwdr-lh-Xhfz Follow-Up: With: Address: When: Gayle Alanis CNP [address] [place] [address] Within 3 to 5 days DIAGNOSIS: 1:Wound dehiscence Patient Understands: Yes - Patient/family/caregiver verbalizes understanding of instructions given Comment: Normal [facility] ED Patient Summaryon 022 ED Patient Summary [facility] - Emergency Department [address] [place] [address] [id number] PATIENT DISCHARGE INSTRUCTIONS Patient Information Name: KATHY LEMA Age: 31 Years Date of : 1990 Reason For Visit: Post surgical problem; POST OP RIGHT LOWER ABD. Arrival Time: 05/31/2021 10:54:36 Primary Care Physician: Gayle Alanis CNP Attending Physician: Robert Cox MD Comment: Visit Diagnosis: Diagnoses This Visit Post surgical problem ([id number]) Wound dehiscence (T81.30XA) Prescription Information: If you have been given a prescription for narcotics, seek immediate medical attention if you have any difficulty breathing or any sudden status changes such as confusion and sleepiness. If you or anyone you know is experiencing suicidal thoughts, mental health, alcohol and/or drug addiction problems; contact the [facility] 21/12 Crisis Hotline -Text 4HWLY cv [id number]. If you received any narcotics, sedation, or any other medication that causes drowsiness for the next 24 hours, unless otherwise directed: ? Do not drive a car. ? Do not operate machinery such as power tools, lawn mowers, drills, sewing machines, or stoves ? Avoid alcoholic beverages and drugs for allergies, nerves, or sleep ? Do not make important personal or business decisions or sign any legal documents With: Address: When: Gayle Alanis CNP [facility] [place] [address] Within 3 to 5 days Medication Information: The exam and treatment you received today in the [facility] Emergency Department were for an urgent problem and are not intended as complete care. It is important for you to follow up with a doctor, nurse practitioner, or physician?s commercial real estate assistant for ongoing care. If your symptoms become worse or you do not improve as expected and you are unable to reach your usual health care provider, you should return to the Emergency Department, we are available 24 hours a day. For those patients who have received Radiology results, the interpretation of your X-ray as given to you by our Emergency Department physician is only a preliminary report. The Radiologist will review your films and if there is a change in the diagnosis you will be notified by phone. Please make sure you have provided a working phone number so we can reach you if necessary. In the event that you had a lab culture while you were a patient in the Emergency Department, you will be notified by phone if there is a need to change your antibiotic. Please make sure you have provided a working phone number so we can reach you if necessary. [facility] Emergency Department has provided you with a complete list of medications post discharge. Please inform your primary grade teacher/provider of your visit and for further instruction on these medications. Any specific questions regarding your chronic medications and dosages should be discussed with your primary care physician(s) and/or pharmacist. Additional medications on your home medication list not specifically addressed. Please contact the ordering physician if you have questions about these medications. citalopram (citalopram 40 mg oral tablet) 1 tab(s) Oral every day. ethinyl estradiol-norgestimate (Sprintec 0.25 mg-35 mcg oral tablet) 1 tab(s) Oral every day. ondansetron (Zofran ODT 4 mg oral tablet, disintegrating) 1 tab(s) Oral every 8 hours as needed as needed for nausea/vomiting for 2 Days. Refills: 0. QUEtiapine (QUEtiapine 25 mg oral tablet) 1 tab(s) Oral every day. Visit Information Allergies: Substance Reaction Symptoms Type Comments amoxicillin Drug cephalexin Drug iodine Drug penicillin Drug Tape Other Vital Signs: Vitals and Measurements this Visit (last charted value for your 05/31/2021 visit) Vital Signs This Visit Temperature Oral: 37.1 DegC Peripheral Pulse Rate: 84 bpm Respiratory Rate: 18 br/min Systolic Blood Pressure: 112 mmHg Diastolic Blood Pressure: 61 mmHg SpO2: 96 % Oxygen Therapy: Room air Measurements This Visit Height/Length Dosin.400 cm Height/Length Estimated: 152.400 cm Weight Dosin.000 kg Weight Estimated: 77.000 kg Problems List: Problem Onset Comments Asthma Bronchitis Depression Endometriosis Smoker Added secondary to documentation in Social History. Patient Education Wound Dehiscence Monitor for signs of infection, keep wound clean and dry. Follow-up with the surgeon to review this emergency department visit or as needed. Return to emergency department for any worsening symptoms. Wound dehiscence is when a cut from surgery (an incision) opens up and does not heal like it should. This problem usually happens 7?10 days after surgery. You may have bleeding from the cut. You may also have pain or a fever. This condition shoul (more content not included)... Normal [facility] Operative Reporton 8 Operative Report MR#: [id number] [facility] Pt. Name: Kathy Lema Room #: 0C Discharge Date: Birthdate: 1990 OPERATIVE REPORTDATE OF SURGERY: 10/29/2017SURGEON: Geovanna Hernandez M.D.DIESEL MACHINIST: Alexandr Mukherjee M.D.PREOPERATIVE DIAGNOSIS: Right dorsal forearm, benign fibroushistiocytoma.POSTOPER ATIVE DIAGNOSIS: Right dorsal forearm, benign fibroushistiocytoma.PROCEDUR E PERFORMED: Excision of mass from right dorsal forearm previoushistology as benign fibrous histiocytoma.ANESTHESIA: General.SPECIMENS: The mass was removed and sent for pathologic analysis inaddition to the overlying epidermis and dermal layer.IMPLANTS: None.ESTIMATED BLOOD LOSS: Minimal.TOURNIQUET TIME: 41 minutes.DRAINS: None.X-RAYS: None.COMPLICATIONS: None.INDICATIONS FOR PROCEDURE: Kathy is a 27-year-old female, who was seenin the outpatient clinic with recurrence of a benign fibrous histiocytoma.Pathology was reviewed and confirmed here as well. She was offered surgicalexcision due to pain caused by blunt trauma as well as the continued pain,occasional ulceration and appearance.Prior to undergoing the procedure the patient was informed of all risks,benefits and alternatives including but not exclusive of bleeding infectionand nerve or vascular damage, partial or complete, permanent or temporary,motor or sensory., DVT, PE, , tumor recurrence or spread, need foradditional procedures. Understands scar may be non-cosmetic. Understands nopromises made, given or implied. After informed consent was obtained, sheelected to proceed.DESCRIPTION OF PROCEDURE: The patient was met in the preoperative holdingarea. Informed consent was reviewed and she was transferred to theoperating room in stable condition. She was placed supine on the table.The right upper extremity was sterilely prepped and draped in standardfashion. Preoperative antibiotics were given per protocol consisting ofclindamycin due to her cephalosporin allergy. Surgical time-out wasperformed confirming the correct patient and correct site. The mass wasidentified in the subcutaneous surface tissue of the right dorsal forearm.An elliptical incision was made encompassing the entirety of the mass inthe longitudinal orientation approximately 3 x 2 cm. Electrocautery wasused to free the mass from the surrounding adipose tissue down to the levelof the fascia. The fascia was not violated. The mass was then dissectedgently off the fascia using a combination of sharp, blunt andelectrocautery dissection.. The mass was removed en bloc with the attachedepidermis and dermal tissue. Once it had been removed, the distal andulnar portion was tagged with a 2-0 Vicryl suture using 2 long tails todenote the orientation. The wound was then inspected and hemostasis wasachieved using electrocautery. The wound was then copiously irrigated withwater, hydrogen peroxide, and bacitracin normal saline multiple times toensure complete irrigation. The wound was then closed in standard fashion.3-0 Vicryl was used to close the subcutaneous tissue followed by 4-0 Biosynin the subcuticular tissue. Dermabond was placed over the wound. Asterile dressing was applied consisting of silver impregnated Mepilex,followed by a Kerlix and Jorge A.The patient was then awoken from general anesthesia without complication,transferred to the PACU in stable condition. She will plan for homedischarge. She was provided with scripts for Jupiter, doxycycline, andColace.She will follow up with Dr. Hernandez in approximately 1 week. She mayparticipate in activity as tolerated and we have encouraged finger range ofmotion. DVT prophylaxis not indicated in this case.Dr. Hernandez was present for the entirety of this case and made all criticaldecisions regarding this patient's care.Electronically Signed by:Geovanna Hernandez M.D. 11/12/2017 03:03 P Geoavnna Hernandez M.D. I was present for the cortez and critical portions and I was otherwiseimmediately available to assist. Date Dict: 10/29/2017/12:23 P/Farzana Mazariegos Trans: 10/29/2017 10:40 P/mmoDN_JN:[id number] Normal [facility] POC GLUCOSE LABon 10-29-2017 Glucose mass conc 95 mg/dL Normal 70-100 [facility] Comment on above: Performed By: #### 8 [id number] ####[facility] [facility] [place] [address], [facility] POC URINE PREGNANCYon 2017 HCG.beta subunit ( test) Ql (U) Negative Normal NEGATIVE [facility] Comment on above: Result Comment: Perf ormed in PACU Performed By: #### 8 [id number] ####[facility] [facility] [place] [address], [facility] MRI FOREARM WO CONTRAST INDIGO Ton 10-09-2017 MRI FOREARM WO CONTRAST RIGHT [facility] [address] [place] [address] Patient Name: KATHY LEMA : 1990ex: FAge: Race: WhiteMRN: [id number]. Location: 84Patient Status: DVisit #: [id number] Date: 10/08/2017 4:55:00 PMCompleted Date: 10/09/2017 10:52 AMRequesting Provider: GEOVANNA HERNANDEZ Attending Provider: GEOVANNA HERNANDEZ Report Copy To: MARY WEI Signs & Symptoms: D49.9 Neoplasm of unspecified behavior of unspecified site R88Xonsjou: Ravia, No FB per SS Precert ok per Alyse bmw PT HAS IODINE ALLEGRY, IS WORRIED ABOUT THIS BEING W W/O CONTRAST Patient refusing contrast at this time. - CHComments: , , , Ordering Provider - GEOVANNA HERNANDEZ MD , Rendering Provider - GEOVANNA HERNANDEZ MD , Exam: MRI FOREARM WO CONTRAST RIGHTAccession #: [id number] MRI FOREARM WO CONTRAST RIGHT 10/09/2017 10:56 AM EDT SIGNS AND SYMPTOMS: D49.9 Neoplasm of unspecified behavior of unspecified site I10 TECHNOLOGIST COMMENTS: Patient has a recurrent lump on the posterior aspect mid right forearm. Patient complains of pain around the lump and radiating to the wrist. Two gel caps placed inferiorly and superiorly to the lump. Patient states right forearm surgery February 2015. QUESTION FOR THE RADIOLOGIST: , , , Ordering Esthela HERNANDEZ MD , Rendering Esthela HERNANDEZ MD , PROTOCOL: Images were obtained in the following sequences:3-plane localizer, axial PD fat-sat, axial T1, coronal T1, coronal PD fat-sat, sagittal PD fat-sat, sagittal T1. COMPARISON: None. FINDINGS: Skeleton: Intact. Subcutaneous fat: Dorsal discoid soft tissue mass along the fascia immediately over the extensor carpi ulnaris of the mid forearm. Primarily low signal on T1 and T2 sequences would imply fibrous mass. There is some edema heterogeneously as well as some peripheral edema within the adjacent fat. Muscles: Extensor carpi ulnaris is indented by the mass but not infiltrated. Other muscles intact. Tendons: Intact. Neurovascular structures: Intact. IMPRESSION: Discoid mass within the dorsal subcutaneous fat of the mid forearm 15 x 20 x 6 mm in size. Likely benign but with some peripheral edema. Low signal intensity implies fibrous tissue, possibly some ossification. Nodular fasciitis may appear similar. Electronically signed by:Abdirahman Morales. Transcribed by: [email or web address], User Resident: Electronically Signed by: ABDIRAHMAN MORALES @ 10/10/2017 09:58 AM Normal [facility] Comment on above: Order Comment: , , = ========= , Ordering Esthela HERNANDEZ MD , Rendering Esthela HERNANDEZ MD , CHEST AND LATERALon 09-16-19 CHEST AND LATERAL [facility] CenterDepartment [facility] [address] [place] [address] Patient Name: KATHY LEMA : 1990ex: FAge: Race: WhiteMRN: [id number]. Location: 84Patient Status: OVisit #: [id number] Date: 09/15/2017 10:00:00 AMCompleted Date: 09/15/2017 10:07 AMRequesting Provider: GEOVANNA HERNANDEZ Attending Provider: GEOVANNA HERNANDEZ Report Copy To: Signs & Symptoms: D49.9 Neoplasm of unspecified behavior of unspecified site D55Ihftfvd: AthenaComments: , , recurrent right arm tumor mass, to rule out mass , , , Ordering Esthela - GEOVANNA HERNANDEZ MD , Rendering Provider Yobani HERNANDEZ MD , Exam: CHEST AND LATERALAccession #: [id number] [address] AND LATERAL 09/15/2017 10:07 AM EDT SIGNS AND SYMPTOMS: D49.9 Neoplasm of unspecified behavior of unspecified site I10 TECHNOLOGIST COMMENTS: patient has recurrent mass in right forearm, evaluate for any lung involvement QUESTION FOR THE RADIOLOGIST: , , recurrent right arm tumor mass, to rule out mass , , , Ordering Esthela HERNANDEZ MD , Rendering Esthela - GEOVANNA HERNANDEZ MD , PROTOCOL: AP(PA) and Lateral views were obtained. COMPARISON: None FINDINGS: 2 views of the chest reveal normal cardiac size and configuration. Lungs and costophrenic recesses are clear. Trachea is in the midline. Bony skeleton appears intact. IMPRESSION: Normal chest x-rays. Electronically signed by:Lindsay Fitch. Transcribed by: [email or web address], User Resident: Electronically Signed by: LINDSAY FITCH @ 09/15/2017 05:03 PM Normal [facility] Comment on above: Order Comment: , , r ecurrent right arm tumor mass, to rule out mass , , , Ordering Esthela HERNANDEZ MD , Rendering Esthela HERNANDEZ MD , Fabrice 04-02-2017 CNOVSP Visit (SP) Office ([facility]4) ----KATHY LEMA ([id number]) 1990 FDate Time Provider Gugnbtqsmc10/3/17 10:30 AM KANCHAN BELLE HEM[facility]4 During your visit today, we recorded the following information about you: Temperature Pulse Respiration Blood pressure 98.3 degrees 81/minute 18/minute 118/61 Weight Height Last Period 76.7 kg 1.56 m 04/01/17Lorena Vinson LPN, LIANNA 04/02/2017 10:29 AM SignedAdditional intake questions:Has the patient had nausea, vomiting, diarrhea, constipation, fatigue for ANDgt;1 week? None of the aboveDoes the patient have a decreased appetite? NoDoes patient want to see a Clinical Assoc? No(yes to any of above refer patient to schedulers for dietitian appointment) )Does patient have any new or increased numbness or tingling of extremities? NoIs patient interested in fertility information? NoDoes patient need any prescription refills? NoElectronically Signed By: Clary Moy MD 04/02/2017 1:10 PM SignedB[facility] INTITUTECONSULT NOTE - Kanchan Belle MD, PhDSOLID TUMOR ONCOLOGYPATIENT NAME: Kathy Mayorga ArleneEDICAL RECORD NUMBER: [id number] OF SERVICE: April 02, 2017CHIEF COMPLAINT: Benign Fibrous HistiocytomaHISTORY OF PRESENT ILLNESS: Patient is a 26 yo female with a pmhx significantfor diabetes on metformin who presents for evaluation of a benign fibroushistiocytoma s/p excisional biopsy. She initially presented with a BB likesubcutaneous lesion on her right forearm back in September of this year. This lesiongrew until January. She was evaluated by a local doctor in [place] whoattributed this to a benign cyst, but recommended CT imaging. [facility] She was seen at [facility] where she had the lesion removed on 03/11. Locally her pathology wasconcerning for a hypercellular neoplasm. Pathology was sent here for a secondopinion. Dr. Crespo read this pathology, diagnosing Benign Fibrous Histiocytoma.This was conveyed to the patient via telephone. Patient is interested in whatshe can do to keep this from returning. Patient denies SOB, chest pain,abdominal pain, nausea, vomiting.PAST MEDICAL HISTORY:PAST MEDICAL HISTORYDiagnosis Date- Diabetes 1.5, managed as type 2 (HCC)PAST SURGICAL HISTORY: No past surgical history on file.C-SectionLEEPDANDamp;CE xcisional Biopsy of right forearm lesionALLERGIES:ALLERGIESAll ergen Reactions- Iodine [Contrast Dy* Anaphylaxis- Keflex [Cephalexin] Hives- Penicillin G Hives patient states any of the ANDquot;cillinsANDquot;CURRE NT MEDICATIONS:citalopram (CELEXA) 20 mg tablet Take 20 mg by mouth once daily.metFORMIN ER (GLUMETZA) 500 mg 24 hr tablet Take 500 mg by mouth daily withbreakfast.etonogestrel subdermal implant 68 mg (NEXPLANON) 68 mg by SUBDERMAL route onetime only.EPINEPHrine (EPIPEN) 0.3 mg/0.3 mL (1:1,000) atIn Inject 0.3 mg intramuscularlyas needed.albuterol HFA (PROAIR HFA) 90 mcg/actuation inhaler Inhale 2 Puffs asinstructed every 4 hours as needed for Wheezing/Shortness of Breath.FAMILY HISTORY: No family history on file.SOCIAL HISTORY: Former smoker (2-3 years, one pack per week). Denies alcoholuse. 9 yo child at home. Not working at this time.REVIEW OF SYSTEMS:A full 10 point ROS was negative other than as reported in HPI.PHYSICAL EXAMINATION: BP 118/61 Pulse 81 Temp (Src) 98.3 (Oral) Resp 18 Ht 5' 1.417ANDquot; (1.56m) Wt 169 lb 3.2 oz (76.7kg) SpO2 97[room air]% LMP 04/01/2017 BMI 31.54 kg/(m2).ECOGeneral: alert, oriented, NAD, obese femaleEyes: no scleral icterus, EOMIHEENT: oropharynx grossly normal, no thyromegalyCV: S1, S2, RRRResp: clear to auscultation bilaterally; nonlaboredAbd: soft, nt, ndExt: no edema BLE, symmetric. Right sided lesion well healed from surgery. Scartissue noted subcutaneously.Skin: no rash, no open woundsPsych: appropriate mood, appropriate affectIMPRESSION/PLAN:Manuel Lema is a 26 yo female presenting for follow-up regarding a benignfibrous histiocytoma excised from her right forearm. This is indeed a benignlesion and doesn't warrant adjuvant treatment or follow-up. Patient advised toabstain from tobacco use. Patient informed that there is nothing that she tomer to keep this from returning. If she has any questions/concerns she can feelfree to reach out to my office. No follow-up needed.I saw and examined the patient with Dr. Belle who formulated the above plan.Sanket Lantigua, [facility]-1IntSelect Specialty HospitalOLID TUMOR STAFF:ATTENDING PHYSICIAN NOTE OF PERSONAL INVOLVEMENT IN CAREI have reviewed the note obtained and documented by Dr. Lantigua and I personallyparticipated in the cortez components. The following comments revise or confirmrelevant cortez components of the note.As above, a 26-year-old female being seen for recent resection of a lesion inher right forearm. [facility] hist[facility]. It has been completelyresected and there is a low risk for local recurrence, however this risk cannotbe modified by any additional treatment at this time. She was reassured by theresults of the biopsy. No need for surveillance. She should be reevaluated ifshe develops a recurrence.Kanchan Belle MD, PhDStaff, Hematology and Medical Oncologycc:Mary Wei, [id number] [facility] [address]Cvcmw: [phone]: [phone] R Nill, MD[address] [place] [id number] Provider: GEOVANNA MONTERROSO [[id number]]Allergies As of Date: 04/02/2017 Noted Allergy ReactionIODINE (CONTRAST DYE) 02/23/2014 10 - AnaphylaxisKEFLEX (CEPHALEXIN) 02/23/2014 4 - HivesPENICILLIN G 02/23/2014 4 - Hives Comments: patient states any of the cillins Date Reviewed: 04/02/2017Reviewed by: Lorena Velázquez) LIANNA Vinson - Fully AssessedReason for Visit: Consult [173]Primary Visit Diagnosis:Benign tumor [D36.9]Follow-up and Disposition History RecordedPrescriptions as of 04/02/2017 Sig: CITALOPRAM 20 MG TABLET Take 20 mg by mouth once stacey* METFORMIN ER 500 MG 24 HR TAB* Take 500 mg by mouth daily wi* ETONOGESTREL 68 MG SUBDERMAL * 68 mg by SUBDERMAL route one * EPINEPHRINE 0.3 MG/0.3 ML INJ* Inject 0.3 mg intramuscularly* ALBUTEROL SULFATE HFA 90 MCG/* Inhale 2 Puffs as instructed *Medication notes this encounter ETONOGESTREL 68 MG SUBDERMAL IMPLANT >> Lorena Vinson LPN, LPN 04/02/2017 10:26 AM >> LORENA VINSON WedApr 02, 2017 10:26 AM Does not have; Not usingProblem List As Of Date 04/02/2017 Noted Resolved Benign tumor [D36.9] INVALID FOR*Visit Notes:>> Lorena Vinson LPN WedApr 02, 2017 10:29 AM Status: SignedAdditional intake questions:Has the patient had nausea, vomiting, diarrhea, constipation, fatigue for> 1 week? None of the aboveDoes the patient have a decreased appetite? NoDoes patient want to see a Clinical Assoc? No(yes to any of above refer patient to schedulers for dietitianappointment) )Does patient have any new or increased numbness or tingling ofextremities? NoIs patient interested in fertility information? NoDoes patient need any prescription refills? No [facility] PROGRESSon 04-02-2017 PROGRESS HNO ID: [id number] thor: Kanchan Jonervice: (none)Author Type: PhysicianType: Progress NotesFiled: 04/02/2017 1:10 PMNote Text:[facility] INTITUTECONSULT NOTE - Kanchan Belle MD, PhDSOLID TUMOR ONCOLOGYPATIENT NAME: Kathy CorbinEDICBEAN RECORD NUMBER: [id number] OF SERVICE: April 02, 2017CHIEF COMPLAINT: Benign Fibrous HistiocytomaHISTORY OF PRESENT ILLNESS: Patient is a 26 yo female with a pmhxsignificant for diabetes on metformin who presents for evaluation of abenign fibrous histiocytoma s/p excisional biopsy. She initially presentedwith a BB like subcutaneous lesion on her right forearm back in September ofthis year. This lesion grew until January. She was evaluated by a localdoctor in [place] who attributed this to a benign cyst, butrecommended CT imaging. Patient [facility] because [facility]the [facility]. She was seen at [facility] where she had the lesionremoved on 03/11. Locally her pathology was concerning for a hypercellularneoplasm. Pathology was sent here for a second opinion. Dr. Zak meadows pathology, diagnosing Benign Fibrous Histiocytoma. This was conveyedto the patient via telephone. Patient is interested in what she can do tokeep this from returning. Patient denies SOB, chest pain, abdominal pain,nausea, vomiting.PAST MEDICAL HISTORY:PAST MEDICAL HISTORYDiagnosis Date- Diabetes 1.5, managed as type 2 (HCC)PAST SURGICAL HISTORY: No past surgical history on file.C-SectionLEEPDANDCExcis ional Biopsy of right forearm lesionALLERGIES:ALLERGIESAll ergen Reactions- Iodine [Contrast Dy* Anaphylaxis- Keflex [Cephalexin] Hives- Penicillin G Hives patient states any of the cillins CURRENT MEDICATIONS:citalopram (CELEXA) 20 mg tablet Take 20 mg by mouth once daily.metFORMIN ER (GLUMETZA) 500 mg 24 hr tablet Take 500 mg by mouth dailywith breakfast.etonogestrel subdermal implant 68 mg (NEXPLANON) 68 mg by SUBDERMAL routeone time only.EPINEPHrine (EPIPEN) 0.3 mg/0.3 mL (1:1,000) atIn Inject 0.3 mgintramuscularly as needed.albuterol HFA (PROAIR HFA) 90 mcg/actuation inhaler Inhale 2 Puffs asinstructed every 4 hours as needed for Wheezing/Shortness of Breath.FAMILY HISTORY: No family history on file.SOCIAL HISTORY: Former smoker (2-3 years, one pack per week). Deniesalcohol use. 9 yo child at home. Not working at this time.REVIEW OF SYSTEMS:A full 10 point ROS was negative other than as reported in HPI.PHYSICAL EXAMINATION: BP 118/61 Pulse 81 Temp (Src) 98.3 (Oral) Resp 18 Ht 5' 1.417 (1.56m) Wt 169 lb 3.2 oz (76.7kg) SpO2 97[roomair]% LMP 04/01/2017 BMI 31.54 kg/(m2).ECOGeneral: alert, oriented, NAD, obese femaleEyes: no scleral icterus, EOMIHEENT: oropharynx grossly normal, no thyromegalyCV: S1, S2, RRRResp: clear to auscultation bilaterally; nonlaboredAbd: soft, nt, ndExt: no edema BLE, symmetric. Right sided lesion well healed from surgery.Scar tissue noted subcutaneously.Skin: no rash, no open woundsPsych: appropriate mood, appropriate affectIMPRESSION/PLAN:Manuel Lema is a 26 yo female presenting for follow-up regarding abenign fibrous histiocytoma excised from her right forearm. This is indeeda benign lesion and doesn't warrant adjuvant treatment or follow-up.Patient advised to abstain from tobacco use. Patient informed that thereis nothing that she can do to keep this from returning. If she has anyquestions/concerns she can feel free to reach out to my office. Nofollow-up needed.I saw and examined the patient with Dr. Belle who formulated the aboveplan.Sanket Lantigua, JING[facility]-1[facility] MedicineSOLID TUMOR STAFF:ATTENDING PHYSICIAN NOTE OF PERSONAL INVOLVEMENT IN CAREI have reviewed the note obtained and documented by Dr. Lantigua and Ipersonally participated in the cortez components. The following commentsrevise or confirm relevant cortez components of the note.As above, a 26-year-old female being seen for recent resection of a lesionin her right forearm. The pathology has been reviewed [facility] at [facility] and this represents a benign fibrous histiocytoma. It has beencompletely resected and there is a low risk for local recurrence, howeverthis risk cannot be modified by any additional treatment at this time.She was reassured by the results of the biopsy. No need for surveillance. She should be reevaluated if she develops a recurrence.Kanchan Belle MD, PhDStaff, Hematology and Medical Oncologycc:Mary Wei, [id number] [place] [id number]: [phone]: [phone] R [place]ill, [place] [id number] [facility] Coding Summary.on 03-24-2017 Coding Summary. 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 However, the narrative phrase printed from the coding software may appear abbreviated, or result in slightly different terminology. Revised Coded By: Nettie Whitten Revised Date Saved: 03/24/2017 01:20 pm [facility] SURGICAL PATHOLOGYon SURGICAL PATHOLOGY Specimen #: [id number] Physician: GEOVANNA MONTERROSO M.D. FINAL DIAGNOSISSkin and soft tissue, right forearm, excision - Benign fibrous histiocytoma, aneurysmal variant.COMMENTThank you for sending in consultation this specimen from the right forearmof a 26-year-old female.Histologically, there are multiple tissue fragments consisting of a blandplump spindle cell proliferation arranged in a storiform pattern withintermixed hemosiderin, lipid-laden macrophages, inflammatory cells andprominent hemorrhage. The cells show minimal cytologic atypia. Providedimmunohistochemical stains show the lesions cells are variably positive forCD68 and negative for CK AE1/3, CD34, desmin, Melan-A and S100. Ki-67 showsa low proliferative rate of the tumor cells (5-10%)The histologic findings are those of a benign fibrous histiocytoma withaneurysmal/telangiectati c features. This benign neoplasm can show somealarming histologic features to those unfamiliar with this entity as it istypically hypercellular and associated with prominent hemorrhage. Althoughinitial evaluation of Ki-67 may appear to be high, closer inspection showsit is primarily staining the proliferating inflammatory cells while themajority of the tumor cells are negative. Fibrous histiocytoma isconsidered a benign neoplasm that has a minimal propensity to recurlocally.Thank you for sending this case in consultation. Please call the Bone andSoft Tissue Pathology Consultation Service at [phone] with questionsor if additional follow-up information becomes available regarding thispatient. This case was reviewed in conjunction with the bone and softtissue pathology fellow, Zen Bardales MD. BPR/RSDick 03/17/17Cole Krueger M.D., PhD(Electronic Signature) SPECIME N SUBMITTEDA: 8 SLIDES & 1 BLOCK ([id number]) CLINICAL DATANone provided. of Report: 03/22/2017Date of Procedure: 03/17/2017Date of Receipt: 03/17/2017Submitted by: GEOVANNA MONTERROSO M.D.Location: [facility] [address] [facility] [address]. Normal [facility] Operative Reporton 10-13-201 7 Operative Report Date of Surgery: 03/11/2017SURGEON: Geovanna Monterroso M.D.PREOPERATIVE DIAGNOSIS: Right dorsal forearm subcutaneous nodulePOSTOPERATIVE DIAGNOSIS: Right dorsal forearm subcutaneous noduleOPERATION: Excisional biopsy, right dorsal forearm subcutaneous nodule,incision length was 2 cm and the lesion was approximately 1.2 cmANESTHESIA: Local without 0.5% Marcaine plainESTIMATED BLOOD LOSS: Less than 3 mLINDICATIONS AND CONSENT: The patient is a 26-year-old female with asix-month history of enlarging, painful at times subcutaneous nodule in theright dorsal lateral forearm. There was a small area of pigmentationoverlying the subcutaneous nodule. It was distal to large upper armtattoo. Indications, risks, benefits, alternatives of proceeding withexcisional biopsy under local anesthesia were explained extensively to thepatient including risk of bleeding, infection, scarring, pain, recurrenceor need for further surgery. All of her questions were answered. Informedconsent was obtained.PROCEDURE: The patient was brought to the Operating Room and placed in thesupine position. The area is prepped and draped in the usual sterilefashion. It was anesthetized with 0.5% Marcaine. An incision was made inthe area of the skin crease overlying the long axis of the subcutaneousnodule. It was carried down through subcutaneous tissue using sharpdissection. A dark subcutaneous nodule was encountered which was brown,pigmented. It was loosely organized and kind of granular in appearance,possibly enlarged pigment-laden lymph node. There were some mildinflammatory changes around it. This was removed in a piecemeal fashion.The wound was irrigated. There were no cysts or lipomas. Subcutaneoustissue was reapproximated with interrupted 3-0 Monocryl suture. The skinwas then closed with interrupted 4-0 nylon sutures. There was goodhemostasis. A sterile pressure dressing was applied. Sponge and needlecounts correct x2 per nursing personnel. The patient tolerated theprocedure well.ESTIMATED BLOOD LOSS: Less than 3 mLGeovanna Monterroso M.D.glsDictated: 03/11/2017 #[id number]: 03/11/2017 #[id number]: Geovanna Monterroso M.D. [facility] Comment on above: Result Comment: Elec tronically Signed By: Geovanna Monterroso MDbr\Date and Time Signed: 03/12/17 16:11 EDT History and Physicalon 03-11 History and Physical Patient: KATHY LEMA Age: 26 years Sex: Female : 1990 Associated Diagnoses: None Author: Geovanna Monterroso MD Subjective no changes to H & P [facility] Comment on above: Result Comment: Elec tronically Signed By: Geovanna Monterroso MDbr\Date and Time Signed: 03/11/17 08:00 EDT Inpatient Patient Summaryon 03-11-2017 [facility] Inst[facility] INFORMATION Name: KATHY LEMA PHYSICIANS Admitting Physician: Geovanna Monterroso MD Physician: Geovanna Monterroso MD PCP: NONE, XXXXDischarge Diagnosis: Nodule, subcutaneous Comment: PATIENT EDUCATION INFORMATIONInstructions:[facility] Leaflets:Follow up:With: Address: When: Geovanna Monterroso [address] [place] [phone] Business (1) Within 7 to 10 days MEDICATION LISTComment: [facility] Main OR Intraoperative Recor don 03-11-2017 Main OR Intraoperative Record IntraOp Document Type FT Summary Primary Physician: Geovanna Monterroso MD Finalized Date/Time: 03/11/17 12:48:45 Pt. Name: KATHY LEMA Tierra CheneyB./Sex: 1990 Female Med Rec #: [id number] Physician: Geovanna Monterroso MD Financial #: [id number] Pt. Type: A Room/Bed: AX07/01 Admit/Disch: 03/11/17 07:51:56 - Institution: Case Times FT Entry 1 Patient Times In Room 03/11/17 09:08:00 Out Room 03/11/17 09:38:00 Procedure Times Start 03/11/17 09:17:00 Stop 03/11/17 09:36:00 Anesthesia Times Last Modified By: Gayle Mccullough CST 03/11/17 09:38:48 General Comments: 03/11/2017 Chart opened to review and send charges Asa cobb Case Attendance FT Entry 1 Entry 2 Entry 3 Case Attendee Elda GILES, Geovanna Henry CST, Karen Alexis RN, Joseline Role Performed Surgeon - Primary Scrub - Primary Construction Equipment Technician - Primary Time In 03/11/17 09:08:00 03/11/17 09:08:00 03/11/17 09:08:00 Time Out 03/11/17 09:36:00 03/11/17 09:38:00 03/11/17 09:38:00 Procedure CYST LESION CYST LESION CYST LESION REMOVAL(Right) REMOVAL(Right) REMOVAL(Right) Comments Jamshid Acosta MS 3 scrubbed for case Last Modified By: Joseline Alexis RN 03/11/17 Joseline Alexis RN 03/11/17 Joseline Alexis RN 03/11/17 10:40:13 09:47:08 09:47:08 Perioperative Protocols FT Pre-Care Text: Implements protective measures prior to operative or invasive procedure, confirms identity before the operative or invasive procedure, verifies operative procedure, surgical site, and laterality Entry 1 Procedure(s) CYST LESION Patient Identity Birthday, ID Band REMOVAL(Right) Verified (select at Check, Patient least 2): Participation Consents / H and P HandP, Surgery/Procedure Operative Site N/A Verified Consent Marking Verified Surgical Site Yes Laterality Verified Yes Verified Procedure Verified Yes Correct Patient Yes Position Verified Availability Equipment, Medication Prep Dry Yes Verified (If Applicable) Time Out Geovanna Monterroso MD, Time Out Complete 03/11/17 09:14:00 Participants Carl COBB, Karen Malhotra, Vanesa MILIAN, Joseline Outcomes Met? Yes Last Modified By: Joseline Alexis RN 03/11/17 09:15:29 Post-Care Text: The patient is free from signs and symptoms of injury caused by extraneous objects Allergy Information FT Pre-Care Text: Verifies allergies Entry 1 Allergies Reviewed? Yes Allergies Reviewed Self/Patient With Outcomes Met? Yes Last Modified By: Joseline Alexis RN 03/11/17 09:17:03 Post-Care Text: The patient received appropriate medication(s) safely administered during the perioperative period Surgical Procedures FT Entry 1 Procedure Description Procedure CYST LESION REMOVAL Modifiers Right Surgeon Description EXCISION SUBCUTANEOUS NODULE RIGHT FOREARM Primary Procedure Yes Primary Surgeon Geovanna Monetrroso MD Start 03/11/17 09:17:00 Stop 03/11/17 09:36:00 Anesthesia Type Local Surgical Service General Wound Class 1 - Clean Last Modified By: Joseline Alexis RN 03/11/17 09:47:16 General Case Data FT Pre-Care Text: Classifies surgical wound, implements aseptic technique, initiates traffic control Entry 1 Case Information OR OR 6 FT Case Level Level 1 Wound Class 1 - Clean Specialty General Preop Diagnosis SUBCUTANEOUS NODULE Postop Same As Preop Yes RIGHT FOREARM Postop Diagnosis SUBCUTANEOUS NODULE Outcomes Met? Yes RIGHT FOREARM Last Modified By: Joseline Alexis RN 03/11/17 09:22:38 Post-Care Text: The patient is free from signs and symptoms of infection Skin Assessment (Pre Procedure) FT Pre-Care Text: Implements protective measures to prevent skin/ tissue injury due to thermal or mechanical sources Evaluates for signs and symptoms of physical injury to skin and tissue Entry 1 Skin Integrity Intact, Brundage, Warm, and Skin Abnormality No Dry Outcomes Met? Yes Last Modified By: Joseline Alexis RN 03/11/17 09:23:02 Post-Care Text: The patient is free from signs and symptoms of injury caused by extraneous objects General Comments: Patient has multiple piercings covered with bandaids-MAICOL Garcia Patient Positioning FT Pre-Care Text: Identifies physical alterations that require additional precautions for procedure-specific positioning, verifies presence of prosthetics or corrective devices, positions the patient, evaluates the patient for signs and symptoms of injury as a result of positioning Entry 1 Procedure CYST LESION Body Position Supine REMOVAL(Right) Feet Uncrossed? Yes Left Arm Position Resting at Side Right Arm Position Extended on Padded Arm Left Leg Position Extended Board Right Leg Position Extended Positioning Device Safety Strap, Pillow Under Head Large Press Points Checked Yes By Joseline Alexis RN, Nill MD, Michael R Outcomes Met? Yes Last Modified By: Joseline Alexis RN 03/11/17 09:23:52 Post-Care Text: The patient is free from signs and symptoms of injury related to positioning General Comments: Patient veralized comfort for positioning-MAICOL Garcia Patient Care Devices FT Pre-Care Text: Implements protective measures to prevent skin/ tissue injury due to thermal or mechanical sources Entry 1 Equipment Type MONITOR CHARGE SURGERY Outcomes Met? Yes [F] Last Modified By: Joseline Alexis RN 03/11/17 09:24:04 Post-Care Text: The patient is free from signs and symptoms of injury caused by extraneous objects Transport To OR FT Pre-Care Text: Transports according to individual needs. Evaluates for signs and symptoms of skin and tissue injury as a result of transfer or transport Entry 1 Via Ambulatory By Joseline Alexis RN Safety Precautions N/A Outcomes Met? Yes Last Modified By: Joseline Alexis RN 03/11/17 09:24:16 Post-Care Text: The patient is free from signs and symptoms of injury related to transfer/transport Counts Verification FT Pre-Care Text: Performs required counts Entry 1 Entry 2 Procedure(s) CYST LESION CYST LESION REMOVAL(Right) REMOVAL(Right) Type Initial Final Items Sponges, Sharps Sponges, Sharps Status Correct Correct Time By Ruffing POOL TECHNICIAN, Karen E, Ruffing POOL TECHNICIAN, Karen E, Vanesa MILIAN, Joseline Marvin RN Outcomes Met? Yes Yes Last Modified By: Joseline Alexis RN 03/11/17 Joseline Alexis RN 03/11/17 09:24:35 09:24:35 Post-Care Text: The patient is free from signs and symptoms of injury caused by extraneous objects Skin Prep FT Pre-Care Text: Performs skin preparations Entry 1 Procedure CYST LESION Prep Area Right lower forearm, REMOVAL(Right) lateral, site of nodule Prep Agents Chloraprep/Dry Prior to Draping Hair Removal Methods Clipper Site Right forearm, Dr. Monterroso By Joseline Alexis RN Outcomes Met? Yes Last Modified By: Joseline Alexis RN 03/11/17 10:43:50 Post-Care Text: The patient is free from signs and symptoms of infection General Comments: Hair clipping done by Dr. Monterroso. Area prepped was on right lower forarm, lateral side with hand pronated down. -MAICOL Garcia Departure From OR FT Pre-Care Text: Transports according to individual needs. Evaluates for signs and symptoms of skin and tissue injury as a result of transfer or transport. Entry 1 Via Ambulatory Safety Precautions Patient Discharged Directly From OR PostOp Destination Home Transported By Joseline Alexis RN Patient Status Stable Skin. Condition Intact, Brundage, Warm, and Dry Airway Maintenance Oxygen in Use? No Outcomes Met? Yes Last Modified By: Joseline Alexis RN 03/11/17 09:28:29 Post-Care Text: The patient is free from signs and symptoms of injury related to transfer/transport General Comments: Skin same as preop with exception of surgical site. Patient taken back to [facility] and discharged by MAICOL Garcia -JoseRN Dressing/Packing FT Pre-Care Text: Administers care to wound sites Entry 1 Type Dressing Items BANDAGE COBAN STERILE 3 X 5YD [1583S][F] Site and Details Adaptic, bacitracin, Outcomes Met? Yes 4x4s, 3 inch coban Last Modified By: Joseline Alexis RN 03/11/17 09:28:59 Post-Care Text: The patient is free from signs and symptoms of infection Medication Administration FT Pre-Care Text: Verifies allergies, administers prescribed medications and solutions, administers prescribed antibiotic therapy and immunizing agents as ordered, evaluates response to medications Administers prescribed medications and solutions Entry 1 Expiration Date Yes Ordered By Geovanna Monterroso MD Transcribed/To Joseline Alexis RN Administered By Geovanna Monterroso MD By Outcomes Met? Yes Last Modified By: Joseline Alexis RN 03/11/17 09:29:15 Post-Care Text: The patient received appropriate medication(s) safely administered during the perioperative period For [facility] please see scanned medication reconcilliation form for medications used at the field during the procedure. Cultures and Specimens FT Pre-Care Text: Manages specimen handling and disposition Manages culture specimen collection Entry 1 Cultures Ordered No Specimens Ordered Yes Specimen Disposition Designated OR Area Frozen Section Times Outcomes Met? Yes Last Modified By: Joseline Alexis RN 03/11/17 09:29:40 Post-Care Text: The patient is free from signs and symptoms of injury caused by extraneous objects The patient is free from signs and symptoms of infection General Comments: Nodule right forearm sent for pathology-MAICOL Garcia Case Comments Finalized By: Gayle Mccullough CST Document Signatures Signed By: Joseline Alexis RN 03/11/17 10:45 Gayle Mccullough CST 03/11/17 12:[address] [facility] Main OR Preoperative Recordo n 03-11-2017 Main OR Preoperative Record Holding Area Document Type FT Summary Primary Physician: Geovanna Monterroso MD Finalized Date/Time: 03/11/17 08:34:09 Pt. Name: KATHY LEMA Tierra Sears/Sex: 1990 Female Med Rec #: [id number] Physician: Geovanna Monterroso MD Financial #: [id number] Pt. Type: A Room/Bed: [place] [address] Admit/Disch: 03/11/17 07:51:56 - Institution: Case Times Holding FT Pre-Care Text: Verifies consent for planned procedure, identifies individual values and wishes concerning care, includes family members in perioperative teaching Secures patient's records' belongings, and valuables, maintains patient's dignity and privacy, and maintains patient confidentiality Entry 1 In Holding 03/11/17 08:00:00 Outcomes Met? Yes Last Modified By: Xenia Flaherty RN 03/11/17 08:31:47 Post-Care Text: The patient participates in decisions affecting his or her perioperative plan of care The patient's right to privacy is maintained Surgery Checklist FT Entry 1 Patient Birthday, ID Band Procedure Surgical Consent, With Identification: Check, Patient Verification: Patient Participation NPO after Midnight: Yes Date/Time: 03/10/17 18:00:00 Personal Items: Contact Lenses, Jewelry Personal Items 5 earrings and or Comment: piercings Complaints of Pain: No Operative Site No Marking: Location: right forearm Does Patient Smoke No Patient states Yes Comment - Adult sister postop adult Supervision supervision available Case Cancelled in No Holding Area see comments below for reason Last Modified By: Xenia Flaherty RN 03/11/17 08:34:07 Finalized By: Xenia Flaherty RN Document Signatures Signed By: Xenia Flaherty RN 03/11/17 08:[address] [facility] Patient Education - Texton 1 Patient Education - Text Patient Education Materials Follows: Normal [facility] Vital Signs Date Time Vital Sign Value Performing Clinician Facility 01-06-2024 08:05-0400 Body height 152.4 cm DICTAPHONE MECHANIC Noa Maradiagadebbie Work Phone: [facility] 01-06-2024 08:05-0400 Body mass index (BMI) [Ratio] 34.2 kg/m2 DICTAPHONE MECHANIC Noa Kiepert Work Phone: [facility] 01-06-2024 08:05-0400 Body weight 79.37 kg DICTAPHONE MECHANIC Noa Kiepert Work Phone: [facility] 01-06-2024 08:05-0400 Diastolic blood pressure 74 mm[Hg] DICTAPHONE MECHANIC Noa Kiepert Work Phone: [facility] 01-06-2024 08:05-0400 Heart rate 85 /min DICTAPHONE MECHANIC Noa Kiepert Work Phone: [facility] 01-06-2024 08:05-0400 SaO2% (BldA) [Mass fraction] 98 % DICTAPHONE MECHANIC Noa Kiepert Work Phone: [facility] 01-06-2024 08:05-0400 Systolic blood pressure 108 mm[Hg] DICTAPHONE MECHANIC Noa Kiepert Work Phone: [facility] 11-17-2023 10:25-0400 Body height 152.4 cm DICTAPHONE MECHANIC Noa Kiepert Work Phone: [facility] 11-17-2023 10:25-0400 Body temperature 98.2 [degF] DICTAPHONE MECHANIC Noa Kiepert Work Phone: [facility] 11-17-2023 10:25-0400 Body weight 81.64 kg DICTAPHONE MECHANIC Noa Kiepert Work Phone: [facility] 11-17-2023 10:25-0400 Diastolic blood pressure 66 mm[Hg] DICTAPHONE MECHANIC Noa Kiepert Work Phone: [facility] 11-17-2023 10:25-0400 Heart rate 100 /min DICTAPHONE MECHANIC Noa Kiepert Work Phone: [facility] 11-17-2023 10:25-0400 Respiratory rate 20 /min DICTAPHONE MECHANIC Noa Kiepert Work Phone: [facility] 11-17-2023 10:25-0400 SaO2% (BldA) [Mass fraction] 98 % DICTAPHONE MECHANIC Noa Kiepert Work Phone: [facility] 11-17-2023 10:25-0400 Systolic blood pressure 141 mm[Hg] DICTAPHONE MECHANIC Noa Kiepert Work Phone: [facility] 11-01-2023 09:55-0400 Body height 152.4 cm DICTAPHONE MECHANIC Noa Kiepert Work Phone: [facility] 11-01-2023 09:55-0400 Body mass index (BMI) [Ratio] 35.2 kg/m2 DICTAPHONE MECHANIC Noa Kiepert Work Phone: [facility] 11-01-2023 09:55-0400 Body weight 81.64 kg DICTAPHONE MECHANIC Noa Kiepert Work Phone: [facility] 11-01-2023 09:55-0400 Diastolic blood pressure 70 mm[Hg] DICTAPHONE MECHANIC Noa Kiepert Work Phone: [facility] 11-01-2023 09:55-0400 Heart rate 71 /min DICTAPHONE MECHANIC Noa Kiepert Work Phone: [facility] 11-01-2023 09:55-0400 SaO2% (BldA) [Mass fraction] 98 % DICTAPHONE MECHANIC Noa Kiepert Work Phone: [facility] 11-01-2023 09:55-0400 Systolic blood pressure 108 mm[Hg] DICTAPHONE MECHANIC Noa Kiepert Work Phone: [facility] 10-05-2023 13:58-0400 Body height 152.4 cm DICTAPHONE MECHANIC Noa Kiepert Work Phone: [facility] 10-05-2023 13:58-0400 Body mass index (BMI) [Ratio] 35.7 kg/m2 DICTAPHONE MECHANIC Noa Kiepert Work Phone: [facility] 10-05-2023 13:58-0400 Body weight 83 kg SAMSON Latham Kiepert Work Phone: [facility] 10-05-2023 13:58-0400 Diastolic blood pressure 80 mm[Hg] DICTAPHONE MECHANIC Nao Kiepert Work Phone: [facility] 10-05-2023 13:58-0400 Heart rate 83 /min SAMSON Latham Kiepert Work Phone: [facility] 10-05-2023 13:58-0400 SaO2% (BldA) [Mass fraction] 99 % SAMSON Latham Kiepert Work Phone: [facility] 10-05-2023 13:58-0400 Systolic blood pressure 112 mm[Hg] SAMSON Latham Kiepert Work Phone: [facility] 05-07-2023 17:20-0500 Body height 152.4 cm Emerald Mcguire Other [facility] Other 05-07-2023 17:20-0500 Body mass index (BMI) [Ratio] 36.89 kg/m2 Emerald Mcguire Other [facility] Other 05-07-2023 17:20-0500 Body temperature 101.3 [degF] Emerald Mcguire Other [facility] Other 05-07-2023 17:20-0500 Body weight 85.69 kg Emerald Shayla Other [facility] Other 05-07-2023 17:20-0500 Respiratory rate 18 /min Emerald Mcguire Other [facility] Other 05-07-2023 17:20-0500 SaO2% (BldA) [Mass fraction] 96 % Emerald Mcguire Other [facility] Other 12-02-2022 09:30-0400 Body height 152.4 cm Gayle Orantespaola Other [facility] Other 12-02-2022 09:30-0400 Body mass index (BMI) [Ratio] 36.32 kg/m2 Gayle Zeke Other [facility] Other 12-02-2022 09:30-0400 Body weight 84.37 kg Gayle Orantespaola Other [facility] Other 12-02-2022 09:30-0400 Diastolic blood pressure 64 mm[Hg] Gayle Zeke Other [facility] Other 12-02-2022 09:30-0400 Systolic blood pressure 120 mm[Hg] Gayle Zeke Other [facility] Other 10-30-2022 11:00-0400 Body height 152.4 cm Jessica Iqbal Other [facility] Other 10-30-2022 11:00-0400 Body mass index (BMI) [Ratio] 35.74 kg/m2 Jessica Iqbal Other [facility] Other 10-30-2022 11:00-0400 Body weight 83.01 kg Jessica Iqbal Other [facility] Other 10-30-2022 11:00-0400 Diastolic blood pressure 78 mm[Hg] Jessica Iqbal Other [facility] Other 10-30-2022 11:00-0400 SaO2% (BldA) [Mass fraction] 97 % Jessica Rasheed Other [facility] Other 10-30-2022 11:00-0400 Systolic blood pressure 122 mm[Hg] Jessica Rasheed Other [facility] Other 08-05-2022 16:00-0500 Body height 152.4 cm Gayle Alanis Other [facility] Other 08-05-2022 16:00-0500 Body mass index (BMI) [Ratio] 34.95 kg/m2 Gayle Alanis Other [facility] Other 08-05-2022 16:00-0500 Body weight 81.19 kg Gayle Alanis Other [facility] Other 08-05-2022 16:00-0500 Diastolic blood pressure 78 mm[Hg] Gayle Aritar Other [facility] Other 08-05-2022 16:00-0500 Systolic blood pressure 126 mm[Hg] Gayle Aritar Other [facility] Other 05-21-2022 11:15-0500 Body height 152.4 cm Gayle Alanis Other [facility] Other 05-21-2022 11:15-0500 Body mass index (BMI) [Ratio] 34.17 kg/m2 Gayle Aritar Other [facility] Other 05-21-2022 11:15-0500 Body weight 79.38 kg Gayle Juan Jr Other [facility] Other 05-21-2022 11:15-0500 Diastolic blood pressure 76 mm[Hg] Gayle Orantesxiaobrianeve Other [facility] Other 05-21-2022 11:15-0500 SaO2% (BldA) [Mass fraction] 96 % Gayle Orantesxiaobrianr Other [facility] Other 05-21-2022 11:15-0500 Systolic blood pressure 111 mm[Hg] Gayle Orantespaola Other [facility] Other 04-28-2022 12:30-0500 Body height 152.4 cm Gayle Zeke Other [facility] Other 10-23-2021 09:15-0400 Body height 152.4 cm Gayle Zeke Other [facility] Other 10-23-2021 09:15-0400 Body mass index (BMI) [Ratio] 34.17 kg/m2 Gayle Zeke Other [facility] Other 10-23-2021 09:15-0400 Body weight 79.38 kg Gayle Radhabrianr Other [facility] Other 10-23-2021 09:15-0400 Diastolic blood pressure 78 mm[Hg] Gayle Juan Jr Other [facility] Other 10-23-2021 09:15-0400 SaO2% (BldA) [Mass fraction] 98 % Gayle Juan Jr Other [facility] Other 10-23-2021 09:15-0400 Systolic blood pressure 120 mm[Hg] Gayle Zeke Other [facility] Other 10-01-2021 15:00-0400 Body height 152.4 cm Gayle Zeke Other [facility] Other 10-01-2021 15:00-0400 Body mass index (BMI) [Ratio] 34.95 kg/m2 Gayle Zeke Other [facility] Other 10-01-2021 15:00-0400 Body weight 81.19 kg Gayle Zeke Other [facility] Other 10-01-2021 15:00-0400 Diastolic blood pressure 70 mm[Hg] Gayle Zeke Other [facility] Other 10-01-2021 15:00-0400 SaO2% (BldA) [Mass fraction] 97 % Gayle Zeke Other [facility] Other 10-01-2021 15:00-0400 Systolic blood pressure 120 mm[Hg] Gayle Zeke Other [facility] Other Encounters Encounter Date Encounter Type Care Provider Facility Start: 01-06-2024 End: 01-06-2024 ambulatory SAMSON Yadav Work Phone: [facility] Work Phone: Start: 01-06-2024 End: 01-06-2024 Patient encounter procedure [facility]adav [facility] Work Phone: Start: 12-15-2023 End: 12-15-2023 ambulatory ODESSA E RAMBASEK Not Available Start: 12-08-2023 End: 12-08-2023 Patient encounter procedure SAMSON Yadav Work Phone: [facility] [place] Work Phone: Start: 12-08-2023 End: 12-08-2023 ambulatory SAMSON Yadav Work Phone: [facility] Work Phone: Start: 11-17-2023 End: 11-17-2023 Emergency department patient visit SAMSON Yadav Work Phone: [facility] Work Phone: Start: 11-17-2023 End: 11-17-2023 ambulatory ODESSA E RAMBASEK Not Available Start: 11-04-2023 End: 11-04-2023 ambulatory DALTON OANH Not Available Start: 11-04-2023 Non-patient / Non-visit SAMSON Yadav Work Phone: [facility] Professional Moe Delo Work Phone: Start: 11-01-2023 End: 11-01-2023 Patient encounter procedure SAMSON Yadav Work Phone[facility] Work Phone: Start: 10-05-2023 End: 10-05-2023 Patient encounter procedure SAMSON Yadav Work Phone: [facility] Physician [facility] Work Phone: Start: 05-07-2023 End: 05-07-2023 ambulatory Emerald Mcguire Other [facility] [employer] Other Start: 05-07-2023 Office outpatient vi sit 15 minutes Emerald Mcguire [facility] Start: 05-07-2023 Telephone encounter Gayle Joey her [facility] Start: 03-19-2023 End: 03-19-2023 ambulatory PHYSICIAN [facility] Work Phone: Start: 03-19-2023 End: 03-19-2023 Patient encounter procedure PHYSICIAN NO [facility] Start: 12-23-2022 End: 12-23-2022 ambulatory Gayle Zkee Other [facility] Other Start: 12-23-2022 Telephone encounter Gayle Joey her [place] Start: 12-02-2022 End: 12-02-2022 ambulatory Gayle Zeke Other [facility] Other Start: 12-02-2022 Office outpatient vi sit 15 minutes Gayle Alanis [facility] Start: 11-24-2022 End: 11-24-2022 ambulatory Jessica Iqbal Other [facility] Other Start: 11-24-2022 Telephone encounter Jessica Iqbal [facility] Start: 11-12-2022 End: 11-12-2022 ambulatory Jessica Iqbal Other [facility] Other Start: 11-12-2022 Telephone encounter Jessica Iqbal [facility] Start: 10-30-2022 End: 10-30-2022 ambulatory Jessica Iqbal Other [facility] Other Start: 10-30-2022 Office outpatient vi sit 15 minutes Jessica Iqbal [facility] Start: 08-24-2022 End: 08-24-2022 ambulatory Gayle Alanis Other [employer] Other Start: 08-24-2022 Telephone encounter Gayle Joey her [facility] Start: 08-21-2022 End: 08-21-2022 ambulatory Gayle Garciaacher Other [employer] Other Start: 08-21-2022 Telephone encounter Gayle Cook her [facility] Start: 08-18-2022 End: 08-18-2022 ambulatory Gayle Garciaacher Other [facility] Other Start: 08-18-2022 Telephone encounter Gayle Cook her [place] Start: 08-05-2022 End: 08-05-2022 ambulatory Gayle Garciaacher Other [facility] Other Start: 08-05-2022 Office outpatient vi sit 25 minutes Gayle Rolandaxiaoacher [facility] Start: 06-17-2022 End: 06-17-2022 ambulatory Gayle Aritar Other [facility] Other Start: 06-17-2022 Telephone encounter Gayle Cook her [facility] [place] Start: 06-03-2022 End: 06-03-2022 ambulatory Gayle Garciaacher Other [facility] Other Start: 06-03-2022 Telephone encounter Gayle Cook her [facility] [place] Start: 05-21-2022 End: 05-21-2022 ambulatory Gayle Garciaacher Other [employer] Other Start: 05-21-2022 Office outpatient vi sit 15 minutes Gayle Garciaacher [facility] Start: 05-20-2022 End: 05-20-[address] DALOTN CARPENTER Facility: Start: 04-28-2022 End: 04-28-2022 ambulatory Gayle Orantesrbacher Other [facility] Other Start: 04-28-2022 Office outpatient vi sit 15 minutes Gayle Zeke [facility] Start: 04-28-2022 Telephone encounter Gayle Cook her [facility] Start: 01-30-2022 End: 01-30-2022 ambulatory Gayle Zeke Facility:[facility] Start: 10-23-2021 End: 10-23-2021 ambulatory Gayle Zeke Other [facility] Other Start: 10-23-2021 Office outpatient vi sit 15 minutes Gayle Zeke [facility] Start: 10-22-2021 End: 10-31-2021 ambulatory JENNY Doyle Facility:[facility] Start: 10-21-2021 End: 10-31-2021 Emergency department patient visit JENNY Doyle Facility:[facility] Start: 10-15-2021 End: 10-15-2021 ambulatory Gayle Zeke Other Hublished Other Start: 10-15-2021 Telephone encounter Gayle Orantesxiaojim her [facility] Start: 10-01-2021 End: 10-01-2021 ambulatory Gayle Zeke Other Hublished Other Start: 10-01-2021 Encounter for genera l adult medical examination without abnormal findings Gayle Zeke [facility] Start: 10-01-2021 Periodic preventive med est patient 18-39 yrs Gayle Zeke [facility] Start: 09-23-2021 Telephone encounter Gayle Orantesubaldo her [facility] Start: 09-23-2021 End: 09-23-2021 ambulatory Rolando Huang Hublished Other Start: 09-16-2021 End: 09-17-2021 ambulatory Rolando Huang Facility:[facility] Start: 09-10-2021 End: 09-11-2021 ambulatory Rolandowolf Huang Facility:[facility] Start: 06-01-2021 End: 06-01-2021 ambulatory Gayle Alanis Facility:[facility] Start: 05-31-2021 End: 05-31-2021 Emergency department patient visit Robert Cox Facility:[facility] Start: 04-16-2021 End: 04-16-2021 ambulatory Gayle Alanis Other Hublished Other Start: 04-16-2021 Telephone encounter Gayle Cook her [facility] Start: 03-27-2021 Telephone encounter Gayle Cook her [facility] Start: 03-24-2021 Office outpatient vi sit 15 minutes Gayle Alanis [facility] Start: 10-29-2017 End: 10-30-2017 Ambulatory GEOVANNA HERNANDEZ Facility:[facility] Start: 10-09-2017 End: 10-10-2017 Ambulatory GEOVANNA HERNANDEZ Facility:[facility] Start: 09-15-2017 End: 09-16-2017 Ambulatory GEOVANNA HERNANDEZ Facility:[facility] Start: 08-31-2017 End: 09-01-2017 Ambulatory DEFAULT PHYSICIAN Facility:[facility] Start: 04-02-2017 End: 04-02-2017 Ambulatory KANCHAN BELLE [facility] Start: 03-11-2017 End: 03-11-2017 Ambulatory Geovanna Monterroso Facility:[facility] Procedures Date Procedure Procedure Detail Performing Clinician Start: 11-17-2023 CT of right knee DICTAPHONE MECHANIC C james Yadav Work Phone: Start: 11-17-2023 X-ray of right knee APR N Noa Yadav Work Phone: Start: 10-29-2017 Anes integ extremiti es ant trunk & perineum nos TEX TREJO Start: 10-29-2017 EXC FOREARM LES SC 3 CM/> GEOVANNA HERNANDEZ Plan of Treatment Date Care Activity Detail Author Romanian house dust mite IgE Ab [Units/volume] in [facility] Clam IgE Ab [Units/v olume] in [facility] Crab IgE Ab [Units/v olume] in [facility] house dust mite IgE Ab [Units/volume] in [facility] Lobster IgE Ab [Units/volume] in [facility] Oyster IgE Ab [Units/volume] in [facility] Patient Education Ligament Injur ies in the Knee (DC) [facility] Work Phone: Patient referral [facility] Work Phone: Scallop IgE Ab [Units/volume] in [facility] Shrimp IgE Ab [Units/volume] in [facility] Immunizations Immunization Date Immunization Notes Care Provider Fa [facility] 03-19-2023 influenza, injectabl e, quadrivalent, preservative free DICTAPHONE MECHANIC Noa Kiepert Work Phone: [facility] 07-30-2022 measles, mumps and rubella virus vaccine DICTAPHONE MECHANIC Noa Kiepert Work Phone: [facility] 07-02-2022 measles, mumps and rubella virus vaccine DICTAPHONE MECHANIC Noa Kiepert Work Phone: [facility] 01-30-2022 tetanus toxoid, reduced diphtheria toxoid, and acellular pertussis vaccine, adsorbed DICTAPHONE MECHANIC Noa Kiepert Work Phone: [facility] 11-01-2020 COVID-19 Vaccine Pfizer - Documentation Purposes Only Gayle Alanis Other [facility] 10-11-2020 COVID-19 Vaccine Pfizer - Documentation Purposes Only Gayle Alanis Other [facility] 05-30-2018 tetanus toxoid, reduced diphtheria toxoid, and acellular pertussis vaccine, adsorbed Gayle Alanis Other [facility] 10-13-2010 TORADOL/KETOROLAC 15 mg/ml Gayle Alanis Other Hublished Other Payers Date Payer Category Payer Self-pay 2021 Unknown [id number] 2017 [employer] ( [employer] others) [id number] 2017 [employer] ( and others) 1990 Unknown [id number] 18 1990 Unknown [id number] 2.16.840.1.832495.3.579.2.7 18 1990 Unknown [id number] 2.16.840.1.345703.3.579.2.7 18 1990 Unknown [id number] 2.16.840.1.377280.3.579.2.7 18 1990 Unknown [id number] 2.16.840.1.912384.3.579.2.7 18 1990 Unknown [id number] 2.16.840.1.073191.3.579.2.7 18 1990 Unknown [id number] 2.16.840.1.456673.3.579.2.7 18 1990 Unknown [id number] 2.16.840.1.195394.3.579.2.7 18 1990 Unknown [id number] 2.16.840.1.704928.3.579.2.7 18 1990 Unknown [id number] 2.16.840.1.631934.3.579.2.5 93 1990 Unknown [id number] 2.16.840.1.319420.3.579.2.1 259 1990 Unknown [id number] 2.16.840.1.470631.3.579.2.1 259 1990 Unknown [id number] 2.16.840.1.101300.3.579.2.1 259 1959 [id number] [id number] [employer] ( and others) [facility] [id number] Medicaid [employer] [employer] [id number] Unknown Unknown [id number] 2.16.840.1.557330.3.579.2.5 31 Unknown [id number] 2.16.840.1.650307.3.579.2.5 31 Unknown [id number] 2.16.840.1.017838.3.579.2.5 31 Social History Date Type Detail Facility Unknown if ever smoked Hublished Other Sex Assigned At Sex Assigned At Hublished Other Start: 1990 Sex Assigned At Female [facility] Start: 11-17-2023 Tobacco smoking status NHIS Never smoked tobacco (finding) [facility] NEGATED: Highlighted row [facility] Clinical Notes 03-24-2021 to 05-07-2023 Note Date & Type Note Facility 05-07-2023 Evaluation note Encounter Date Diagnosis Assessment Notes Apr, Exposure to COVID-19 virus (ICD-10 - Z20.822) Apr, COVID-19 (ICD-10 - U07.1) Discharge Instructions for COVID-19 (Suspected or Confirmed ) material was printed Drink plenty fluids, get plenty of rest. Continue home medications as prescribed. Take Tylenol or Motrin as needed for aches pains or fevers. You must quarantine for 5 days after the onset of your symptoms of COVID. Follow-up with your family physician if no improvement in 2 to 3 days Apr, Sore throat (ICD-10 - J02.9) Hublished Other 07-05-2023 Evaluation note* Encounter Date Diagnosis Assessment Notes Treatment Notes Treatment Clinical Notes Nov, Hypoglycemia (ICD-10 - E16.2) Discussed with pt symptom and reviewed recent lab work, her insulin level and C Peptide was within normal limits. Her a1c is 6.0. Discussed diet and eating small frequent meals. Will also send for a referral to endocrinology to futher evaluate symptoms as these seem to be random and occuring every day. Referral placed. Pt is agreeable to plan of care. Nov, Impaired fasting glucose (ICD-10 - R73.01) Nov, History of gestational diabetes (ICD-10 - Z86.32) Nov, Elevated liver enzymes (ICD-10 - R74.8) Discussed that liver enzymes are elevated, she denies any family history of fatty liver. She is also denies any use of alcohol and Tyelnol Reviewed medication list. Will send for a liver ultrasound to rule out causes. Pt verbalizes understanding and agrees to plan of care. Hublished Other 06-02-2023 Evaluation note* Encounter Date Diagnosis Assessment Notes Treatment Notes Treatment Clinical Notes Oct, Hypoglycemia (ICD-10 - E16.2) Initiate further lab work. Discussed potential referral to Endocrinology based on labs. Hublished Other 03-08-2023 Evaluation note* Encounter Date Diagnosis Assessment Notes Treatment Notes Treatment Clinical Notes Jul, Dizziness (ICD-10 - R42) Discussed dizziness and palpitations that typically occur when her blood sugar levels are low. DIscussed will obtain blood work to evalaute these symptoms. will call with further recommendations once get labs back pt verbalzies understanding. Jul, Low blood sugar reading (ICD-10 - E16.2) Discussed low blood sugar episdoes. Discussed eating small meals during the day with healthy protien snacks to maintain a blood sugar levels. Educated on what to do in the event of low blood sugar readings. Jul, Palpitations (ICD-10 - R00.2) Jul, Screening for lipid disorders (ICD-10 - Z13.220) Due for labs. Jul, Elevated fasting glucose (ICD-10 - R73.01) She has a histoy of elevated fasting glcucose, but has been havign low blood sugar levels over the last few weeks. A1c is normal. A1c is 5.8. Hublished Other 12-22-2022 Evaluation note* Encounter Date Diagnosis Assessment Notes Treatment Notes Treatment Clinical Notes Apr, Moderate episode of recurrent major depressive disorder (ICD-10 - F33.1) Patient is not suicidal or homicidal at this time. Discussed treatment options with patient today. It was decided in collaboration with the patient to start Effexor daily for management with depression/anxiety and stop the seroquel and Celexa and she would like a referral to psychiatry for further management and recommendations. Medication profile and possible SE reviewed with patient today. Patient to take medication as directed and prescribed. Do not skip/miss doses and do not stop abruptly. Patient is not interested in counseling at this time. Warning s/s reviewed with patient today. Patient to go immediately to the ER should patient experience any of these. Follow up in 4 weeks to assess symptoms and medication effectiveness. Patient verbalizes understanding and agrees to treatment plan. Hublished Other 11-29-2022 Evaluation note* Encounter Date Diagnosis Assessment Notes Treatment Notes Treatment Clinical Notes Mar, Recurrent major depressive disorder, in partial remission (ICD-10 - F33.41) Hublished Other 11-29-2022 Evaluation note* Encounter Date Diagnosis Assessment Notes Treatment Notes Treatment Clinical Notes Mar, Acute cough (ICD-10 - R05.1) Advised patient that COVID, Influenza A and B rapid antigen test was negative in office today. Advised patient that does not mean that you will not develop COVID or Influenza or do not currently have a low viral count of COVID or influenza. The rapid test works best if symptoms have been over 72 hours and the results can vary if you are asymptomatic There is a higher chance of false negative results to occur if testing is performed too soon. Viral supportive care as directed. Increase fluids/rest, Tylenol/Motrin as needed for aches/fever, OTC cough/cold medications as needed as directed, cool mist humidifier, throat lozenges. If symptoms persist or worsen follow up. Immediate eval for warning s/sx as discussed, including but not limited to SOB, severe wheezing, difficulty breathing, chest pain, palpitations, fever <103, persistent fevers not reduced by antipyretic, severe headache, neck pain/stiffness, abdominal pain, persistent N/V, severe dehydration. Patient verbalizes understanding and is agreeable to treatment plan. Hublished Other 09-06-2022 Note [id number]09-02-2022 NotePatient Education Materials Follows:Disease Bacterial Conjunctivitis, Adult Bacterial conjunctivitis is an infection of your conjunctiva. This is the clear membrane that covers the white part of your eye and the inner part of your eyelid. This infection can make your eye: ? Red or pink. ? Itchy or irritated. This condition spreads easily from person to person (is contagious) and from one eye to the other eye. What are the causes? This condition is caused by germs (bacteria). You may get the infection if you come into close contact with: ? A person who has the infection. ? Items that have germs on them (are contaminated), such as face towels, contact lens solution, or eye makeup. What increases the risk? You are more likely to get this condition if: ? You have contact with people who have the infection. ? You wear contact lenses. ? You have a sinus infection. ? You have had a recent eye injury or surgery. ? You have a weak body defense system (immune system). ? You have dry eyes. What are the signs or symptoms? ? Thick, yellowish discharge from the eye. ? Tearing or watery eyes. ? Itchy eyes. ? Burning feeling in your eyes. ? Eye redness. ? Swollen eyelids. ? Blurred vision. How is this treated? ? Antibiotic eye drops or ointment. ? Antibiotic medicine taken by mouth. This is used for infections that do not get better with dropsor ointment or that last more than 10 days. ? Cool, wet cloths placed on the eyes. ? Artificial tears used 2?6 times a day. Follow these instructions at home: Medicines ? Take or apply your antibiotic medicine as told by your doctor. Do not stop using it even if you start to feel better. ? Take or apply nblw-zqh-wrnlmhh and prescription medicines only as told by your doctor. ? Do not touch your eyelid with the eye-drop bottle or the ointment tube. Managing discomfort ? Wipe any fluid from your eye with a warm, wet washcloth or a cotton ball. ? Place a clean, cool, wet cloth on your eye. Do this for 10?20 minutes, 3?4 times a day. General instructions ? Do not wear contacts until the infection is gone. Wear glasses until your doctor says it is okay to wear contacts again. ? Do not wear eye makeup until the infection is gone. Throw away old eye makeup. ? Change or wash your pillowcase every day. ? Do not share towels or washcloths. ? Wash your hands often with soap and water for at least 20 seconds and especially before touching your face or eyes. Use paper towels to dry your hands. ? Do not touch or rub your eyes. ? Do not drive or use heavy machinery if your vision is blurred. Contact a doctor if: ? You have a fever. ? You do not get better after 10 days. Get help right away if: ? You have a fever and your symptoms get worse all of a sudden. ? You have very bad pain when you move your eye. ? Your face: ? Hurts. ? Is red. ? Is swollen. ? You have sudden loss of vision. Summary ? Bacterial conjunctivitis is an infection of your conjunctiva. ? This infection spreads easily from person to person. ? Wash your hands often with soap and water for at least 20 seconds and especially before touching your face or eyes. Use paper towels to dry your hands. ? Take or apply your antibiotic medicine as told by your doctor. ? Contact a doctor if you have a fever or you do not get better after 10 days. This information is not intended to replace advice given to you by your health care provider. Make sure you discuss any questions you have with your health care provider. Document Revised: 08/27/2021 Document Reviewed: 08/27/2021 [employer] Patient Education ? 2021 [email or web address] Note Patient Education Materials Follows:Disease Tdap (Tetanus, Diphtheria, Pertussis) Vaccine: What You Need to Know 1. Why get vaccinated? Tdap vaccine can prevent tetanus, diphtheria, and pertussis. Diphtheria and pertussis spread from person to person. Tetanus enters the body through cuts or wounds. ? TETANUS (T) causes painful stiffening of the muscles. Tetanus can lead to serious health problems, including being unable to open the mouth, having trouble swallowing and breathing, or . ? DIPHTHERIA (D) can lead to difficulty breathing, heart failure, paralysis, or . ? PERTUSSIS (aP), also known as whooping cough, can cause uncontrollable, violent coughing that makes it hard to breathe, eat, or drink. Pertussis can be extremely serious especially in babies and young children, causing pneumonia, convulsions, brain damage, or . In teens and adults, it can cause weight loss, loss of bladder control, passing out, and rib fractures from severe coughing. 2. Tdap vaccine Tdap is only for children 7 years and older, adolescents, and adults. Adolescents should receive a single dose of Tdap, preferably at age 11 or 12 years. people should get a dose of Tdap during every , preferably during the early part of the third trimester, to help protect the from pertussis. Infants are most at risk for severe, life-threatening complications from pertussis. Adults who have never received Tdap should get a dose of Tdap. Also, adults should receive a booster dose of either Tdap or Td (a different vaccine that protects against tetanus and diphtheria but not pertussis) every 10 years, or after 5 years in the case of a severe or dirty wound or burn. Tdap may be given at the same time as other vaccines. 3. Talk with your health care provider Tell your vaccine provider if the person getting the vaccine: ? Has had an allergic reaction after a previous dose of any vaccine that protects against tetanus, diphtheria, or pertussis, or has any severe, life- threatening allergies ? Has had a coma, decreased level of consciousness, or prolonged seizures within 7 days after a previous dose of any pertussis vaccine (DTP, DTaP, or Tdap) ? Has seizures or another nervous system problem ? Has ever had Guillain-Sheehan? Syndrome (also called GBS ) ? Has had severe pain or swelling after a previous dose of any vaccine that protects against tetanus or diphtheria In some cases, your health care provider may decide to postpone Tdap vaccination until a future visit. People with minor illnesses, such as a cold, may be vaccinated. People who are moderately or severely ill should usually wait until they recover before getting Tdap vaccine. Your health care provider can give you more information. 4. Risks of a vaccine reaction ? Pain, redness, or swelling where the shot was given, mild fever, headache, feeling tired, and nausea, vomiting, diarrhea, or stomachache sometimes happen after Tdap vaccination. People sometimes faint after medical procedures, including vaccination. Tell your provider if you feel dizzy or have vision changes or ringing in the ears. As with any medicine, there is a very remote chance of a vaccine causing a severe allergic reaction, other serious injury, or . 5. What if there is a serious problem? An allergic reaction could occur after the vaccinated person leaves the clinic. If you see signs ofa severe allergic reaction (hives, swelling of the face and throat, difficulty breathing, a fast heartbeat, dizziness, or weakness), call and get the person to the nearest hospital. For other signs that concern you, call your health care provider. Adverse reactions should be reported to the Vaccine Adverse Event Reporting System (VAERS). Your health care provider will usually file this report, or you can do it yourself. Visit the VAERS websiteat www.vaers.[facility].gov or call . VAERS is only for reporting reactions, and VAERS staffmembers do not give medical advice. 6. The National Vaccine Injury Compensation Program The National Vaccine Injury Compensation Program (VICP) is a federal program that was created to compensate people who may have been injured by certain vaccines. Claims regarding alleged injury or due to vaccination have a time limit for filing, which may be as short as two years. Visit the VICP website at www.hrsa.gov/vaccinecompensation or call to learn about the program and about filing a claim. 7. How can I learn more? ? Ask your health care provider. ? Call your local or state health department. ? Visit the website of the Food and Drug Administration (FDA) for vaccine package inserts and additional information at www.fda.gov/aagpbwro-avpnt-giurbkouv/vaccines. ? Contact the Centers for Disease Control and Prevention (CDC): ? Call (5-908-AGL-INFO) or ? Visit CDC's website at www.cdc.gov/vaccines. Vaccine Information Statement Tdap (Tetanus, Diphtheria, P (more content not included)...[address]26-2022 Evaluation note* Encounter Date Diagnosis Assessment Notes Treatment Notes Treatment Clinical Notes September, Shellfish allergy (ICD-10 - Z91.013) September, Allergic reaction, subsequent encounter (ICD-10 - T78.40XD) The patient was seen today for ER/Urgent Care follow-up. All available records were reviewed and discussed with the patient. All new medications prescribed were reviewed. Any additional changes are noted above. She notes that she is doing well since the episdoes. No shortness of breath, difficulty breathing or sensation that throat is swollen. Continue to monitor. Follow-up as needed. New order for epi-pens given. Hublished Other 05-24-2022 NoteEducation Materials Immunology Seafood Allergy A seafood allergy is an abnormal reaction to fish or shellfish by the body's defense system (immunesystem). If you are allergic to seafood, your body reacts to fish or shellfish as if it is a dangerous substance. In some cases, a seafood allergy can cause a severe, life-threatening reaction that may make it hard to breathe (anaphylaxis). A shellfish allergy is one of the most common types of allergy. Shellfish includes crab, lobster, and shrimp. A shellfish allergy often does not start until the person is an adult. It is less common to have an allergy to finned fish, such as tuna, halibut, or salmon. Often, a fish allergy also does not start until the person is an adult. What are the causes? A seafood allergy happens when the immune system sees fish or shellfish as harmful and releases chemicals (antibodies) to fight it. What are the signs or symptoms? Symptoms of this condition include: ? Itching or tingling in your mouth. ? Coughing. ? Nasal congestion. ? Sneezing. ? Nausea and vomiting. ? Diarrhea. ? Headaches. In people with a severe allergy, a life-threatening reaction can occur called anaphylaxis. Get helpright away if you have symptoms of anaphylaxis, such as: ? Feeling stations superintendent the face (flushed). This may include redness. ? Itchy, red, swollen areas of skin (hives). ? Swelling of the eyes, lips, face, mouth, tongue, or throat. ? Difficulty breathing, speaking, or swallowing. ? Noisy breathing (wheezing). ? Dizziness or light-headedness. ? Fainting. ? Pain or cramping in the abdomen. How is this diagnosed? This condition may be diagnosed based on: ? A physical exam. ? Your medical history. ? Blood tests. ? A skin prick test. For this test, a small amount of a liquid containing an allergy-causing substance is put on your arm. ? A food challenge test. This test involves eating the food that may be causing the allergic response while being monitored for a reaction by your health care provider. How is this treated? There is no cure for a seafood allergy. Treatment focuses on preventing exposure to the fish or shellfish you are allergic to and treating reactions if you are exposed to the food. Mild symptoms may not need treatment. Severe reactions usually need to be treated at a hospital. Treatment may include: ? Medicines that help: ? Tighten your blood vessels (epinephrine). ? Relieve itching and hives (antihistamines). ? Widen the narrow and tight airways (bronchodilators). ? Reduce swelling (corticosteroids). ? Oxygen therapy to help you breathe. ? IV fluids to keep you hydrated. After a severe reaction, you may be given rescue medicines, such as: ? An anaphylaxis kit. ? An epinephrine injection, commonly called an auto-injector pen (pre-filled automatic epinephrine injection device). Your health care provider may teach you how to use these if you are accidentally exposed to an allergen. Follow these instructions at home: Eating and drinking ? Do not eat the shellfish or fish that you are allergic to. ? Read food labels carefully. Fish and shellfish can be ingredients in sauces, broths, and other products. ? When you eat out, let your field observer know that you have a seafood allergy. Ask how foods are prepared. General instructions ? Take xwrn-ssc-adtgfps and prescription medicines only as told by your health care provider. ? Wear a medical alert bracelet or necklace that describes your allergy. ? Carry your anaphylaxis kit or an auto-injector pen with you at all times. Use them as told by your health care provider. ? Make sure that you, your family members, and your employer know: ? The signs of anaphylaxis. ? How to use an anaphylaxis kit. ? How to use an auto-injector pen. ? If you think that you are having an anaphylactic reaction, use your auto- injector pen or anaphylaxis kit. ? Replace your auto-injector pen immediately after use in case you have another reaction. ? Get medical care after you use your auto-injector pen. This is important because you can have a delayed, life-threatening reaction after taking the medicine (rebound anaphylaxis). ? Inform all health care providers that you have a seafood allergy. ? Keep all follow-up visits as told by your health care provider. This is important. Contact a health care provider if you: ? Have symptoms that do not go away within 2 days. ? Have symptoms that get worse. ? Have new symptoms. Get help right away if you have symptoms of anaphylaxis: ? Flushed skin. ? Hives. ? Swelling of the eyes, lips, face, mouth, tongue, or throat. ? Difficulty breathing, speaking, or swallowing. ? Wheezing. ? Dizziness or light-headedness. ? Fainting. ? Pain or cramping in the abdomen. These symptoms may represent a serious problem that is an emergency. Do not wait to see if the symptoms will go away. Use your auto-injector pen or an (more content not included)...[id number] Evaluation note* Encounter Date Diagnosis Assessment Notes Treatment Notes Treatment Clinical Notes September, Recurrent major depressive disorder, in partial remission (ICD-10 - F33.41) Hublished Other 05-04-2022 Evaluation note* Encounter Date Diagnosis Assessment Notes Treatment Notes Treatment Clinical Notes September, Recurrent major depressive disorder, in partial remission (ICD-10 - F33.41) Remains stable on current therapeutic dose. Patient is encouraged to stay active and remain involved. Try to keep themselves busy. Take medication as directed and we will continue to monitor. September, Wellness examination (ICD-10 - Z00.00) Wellness performed today. Height, weight, BMI, and immunization records reviewed. Encouraged regular periods of exercise. Enocuraged to eat a diet rich in plant-based floods and lean protein. Limit junk food and sources of excess calories. September, Screening for metabolic disorder (ICD-10 - Z13.228) Laboratory tests ordered. Will call with results. It you do not here from the office in 2 weeks call for results. September, Screening for lipid disorders (ICD-10 - Z13.220) September, Sleep disturbance (ICD-10 - G47.9) Stable on medication. No current issues. September, Elevated fasting blood sugar (ICD-10 - R73.01) History of elevated fasting glucose. Sugars reviewed and above normal values of <100. Dx of IFG discussed as well as the risk of progression to to DMII. Tx options reviewed - ADA diet, regular aerobic exercise (150 min weekly) with f/u in 6 months. Goal of A1C <6 % and FBG <100 discussed. She is at goal with her A1c. Hublished Other 04-26-2022 Evaluation note* Encounter Date Diagnosis Assessment Notes Treatment Notes Treatment Clinical Notes Aug, Moderate episode of recurrent major depressive disorder (ICD-10 - F33.1) Hublished Other 04-26-2022 NotePatient Education Materials Follows: [id number] NotePatient Education Materials Follows:[id number] NotePatient Education Materials Follows: Contusion A contusion is a deep bruise. This is a result of an injury that causes bleeding under the skin. Symptoms of bruising include pain, swelling, and discolored skin. The skin may turn blue, purple, or yellow. Follow these instructions at home: Managing pain, stiffness, and swelling You may use RICE. This stands for: ? Resting. ? Icing. ? Compression, or putting pressure. ? Elevating, or raising the injured area. To follow this method, do these actions: ? Rest the injured area. ? If told, put ice on the injured area. ? Put ice in a plastic bag. ? Place a towel between your skin and the bag. ? Leave the ice on for 20 minutes, 2?3 times per day. ? If told, put light pressure (compression) on the injured area using an elastic bandage. Make surethe bandage is not too tight. If the area tingles or becomes numb, remove it and put it back on as told by your doctor. ? If possible, raise (elevate) the injured area above the level of your heart while you are sittingor lying down. General instructions ? Take alag-pfr-otmmmwf and prescription medicines only as told by your doctor. ? Keep all follow-up visits as told by your doctor. This is important. Contact a doctor if: ? Your symptoms do not get better after several days of treatment. ? Your symptoms get worse. ? You have trouble moving the injured area. Get help right away if: ? You have very bad pain. ? You have a loss of feeling (numbness) in a hand or foot. ? Your hand or foot turns pale or cold. Summary ? A contusion is a deep bruise. This is a result of an injury that causes bleeding under the skin. ? Symptoms of bruising include pain, swelling, and discolored skin. The skin may turn blue, purple,or yellow. ? This condition is treated with rest, ice, compression, and elevation. This is also called RICE. You may be given powg-mwk-bydkcxc medicines for pain. ? Contact a doctor if you do not feel better, or you feel worse. Get help right away if you have very bad pain, have lost feeling in a hand or foot, or the area turns pale or cold. This information is not intended to replace advice given to you by your health care provider. Make sure you discuss any questions you have with your health care provider. Document Revised: 01/06/2019 Document Reviewed: 01/06/2019 [employer] Patient Education ? 2020 [employer] Finger Sprain, Adult A finger sprain is a tear or stretch in a ligament in your finger. Ligaments are tissues that connect bones to each other. Follow these instructions at home: If you have a splint: ? Do not put pressure on any part of the splint until it is fully hardened. This may take many hours. ? Wear the splint as told by your doctor. Take it off only as told by your doctor. ? Loosen the splint if your fingers tingle, lose feeling (get numb), or turn cold and blue. ? Keep the splint clean. ? If the splint is not waterproof: ? Do not let it get wet. ? Cover it with a watertight covering when you take a bath or a shower. If you have a cast: ? Do not put pressure on any part of the cast until it is fully hardened. This may take many hours. ? Do not stick anything inside the cast to scratch your skin. ? Check the skin around the cast every day. Tell your doctor about any concerns. ? You may put lotion on dry skin around the edges of the cast. Do not put lotion on the skin under the cast. ? Keep the cast clean. ? If the cast is not waterproof: ? Do not let it get wet. ? Cover it with a watertight covering when you take a bath or a shower. Managing pain, stiffness, and swelling ? If directed, put ice on the injured area: ? If you have a removable splint, take it off as told by your doctor. ? Put ice in a plastic bag. ? Place a towel between your skin and the bag or between your cast and the bag. ? Leave the ice on for 20 minutes, 2?3 times a day. ? Gently move your fingers often to avoid stiffness and to lessen swelling. ? Raise (elevate) the injured area above the level of your heart while you are sitting or lying down. Medicines ? Take qvnh-oot-jcubyxq and prescription medicines only as told by your doctor. ? Do not drive or use heavy machinery while taking prescription pain medicine. General instructions ? Keep any bandages (dressings) dry until your doctor says they can be taken off. ? Do exercises as told by your doctor or physical therapist. ? Do not wear rings on your injured finger. ? Keep all follow-up visits as told by your doctor. This is important. Get help right away if: ? Your pain is not helped by medicine. ? Your bruising or swelling gets worse. ? Your splint or cast is damaged. ? You lose feeling in your finger. ? Your finger turns blue. ? Your finger feels colder than normal when you touch it. ? You have a fever. Summary ? A finger sprain is a tear or stretch i (more content not included)...[facility] [id number] NoteEducation Materials Dermatology Wound Dehiscence Monitor for signs of infection, keep wound clean and dry. Follow-up with the surgeon to review thisemergency department visit or as needed. Return to emergency department for any worsening symptoms. Wound dehiscence is when a cut from surgery (an incision) opens up and does not heal like it should. This problem usually happens 7?10 days after surgery. You may have bleeding from the cut. You may also have pain or a fever. This condition should be treated early. Follow these instructions at home: Medicines ? Take yosd-ibn-krefhrb and prescription medicines only as told by your doctor. ? If you were prescribed an antibiotic medicine, take it as told by your doctor. Do not stop takingit even if you start to feel better. ? Use medicines that help to stop itching as told by your doctor. The wound may feel itchy as it heals. Wound care ? Follow instructions from your doctor about how to take care of your wound. Make sure you: ? Wash your hands with soap and water before you change your bandage (dressing) or wash the wound area. If you cannot use soap and water, use hand box maker wood. ? Wash your wound with mild soap and water 2 times a day, or as told. Rinse off the soap. Pat the area dry with a clean towel. Do not rub the wound. ? Change bandages as told by your doctor. ? Do not pick or scratch at the wound. ? Check your wound area every day for signs of infection. Check for: ? More redness, swelling, or pain. ? More fluid or blood. ? Warmth. ? Pus or a bad smell. Activity ? Avoid exercises that make you sweat or could stretch your wound. ? Do not lift anything that is heavier than 10 lb (4.5 kg) until the wound is healed or until your doctor says that it is safe. General instructions ? Do not take baths, swim, or use a hot tub until your doctor approves. You may take showers. ? Keep all follow-up visits as told by your doctor. This is important. Contact a doctor if: ? Your wound does not seem to be healing right. ? You have a fever. Get help right away if: ? You have more redness, swelling, or pain around your wound. ? You have more fluid coming from your wound. ? Your wound feels warm to the touch. ? You have pus or a bad smell coming from your wound. ? More of the wound breaks open. ? You have red streaks spreading from your wound. ? You have a lot of bleeding from your wound. Summary ? Wound dehiscence is when a cut from surgery (an incision) opens up and does not heal like it should. ? Follow instructions from your doctor about how to take care of your wound. ? Check your wound area every day for signs of infection. These signs can be redness, swelling, pain, fluid, blood, warmth, pus, or a bad smell. ? If you were prescribed an antibiotic medicine, take it as told by your doctor. Do not stop takingit even if you start to feel better. ? Contact a doctor if your wound does not seem to be healing right. This information is not intended to replace advice given to you by your health care provider. Make sure you discuss any questions you have with your health care provider. Document Revised: 04/29/2018 Document Reviewed: 04/21/2017 [employer] Patient Education ? 2019 [employer]-17-2021 Evaluation note* Encounter Date Diagnosis Assessment Notes Treatment Notes Treatment Clinical Notes Mar, Moderate episode of recurrent major depressive disorder (ICD-10 - F33.1) Hublished Other 10-28-2021 Evaluation note* Encounter Date Diagnosis Assessment Notes Treatment Notes Treatment Clinical Notes Feb, Acute non-recurrent maxillary sinusitis (ICD-10 - J01.00) Hublished Other 10-25-2021 Evaluation note* Encounter Date Diagnosis Assessment Notes Treatment Notes Treatment Clinical Notes Feb, Exposure to COVID-19 virus (ICD-10 - Z20.822) Feb, Viral upper respiratory tract infection (ICD-10 - J06.9) COVID test negative in office today. Discussed dx with patient. Will treat as viral based on PE and duration of symptoms. Advised patient that viral syndromes last 7-10 days, antibiotics are not indicated. Take OTC cough.cold medications. Tylenol/Motrin as needed for aches/fever. Supportive care as directed, push fluids/rest, cool mist humidification, nasal saline irrigation/spray. Follow up if symptoms persist or change, immediate eval for warning s/sx as discussed. Patient verbalizes understanding and is agreeable to treatment plan. Hublished Other Evaluation noteNo InformationNort [employer] Other Evaluation noteNo assessment information available [facility] Work Phone: evaluation note* Diagnosis Onset Date Resolution Status Type II diabetes mellitus ac [place] Type II diabetes mellitus ac [facility] Work Phone: evaluation note* Diagnosis Onset Date Resolution Status Type II diabetes mellitus ac [facility] Work Phone: Hisafwk general Narrative - Reported* Type Description Date Medical History depression Medical History Family history of diabetes melli tus Medical History Gestational diabetes Medical History Allergies Medical History Left Ankle Sprain Medical History Vaccine reaction Medical History Seafood allergy, anaphylaxis Medical History Exercise-induced asthma Medical History Vitamin D deficiency, unspecifie d Medical History type II diabetes Medical History PCOS Medical History CPAP for sleep apnea Medical History Positive Covid 04/2020 Surgical History 2008 Surgical History LEEP Surgical History D&C Surgical History laparoscopy Surgical History LEEP 09/24/2014 Surgical History Colonoscopy and EGD 2014 Surgical History Right arm beign tumor removed Hospitalization History 2007 Hospitalization History [facility] positive Cov id 05/21/2020 Hublished Other history general Narrative - Reported* Type Description Date Medical History depression Medical History Family history of diabetes melli tus Medical History Gestational diabetes Medical History Allergies Medical History Left Ankle Sprain Medical History Vaccine reaction Medical History Seafood allergy, anaphylaxis Medical History Exercise-induced asthma Medical History Vitamin D deficiency, unspecifie d Medical History type II diabetes Medical History PCOS Medical History CPAP for sleep apnea Medical History Positive Covid 04/2020 Surgical History 2007 Surgical History LEEP Surgical History D&C Surgical History laparoscopy Surgical History LEEP 09/24/2014 Surgical History Colonoscopy and EGD 2014 Surgical History Right arm beign tumor removed Surgical History hysterectomy 04/2021 Hospitalization History 2007 Hospitalization History [facility] positive Cov id 05/21/2020 Hublished Other history general Narrative - Reported* Type Description Date Medical History depression Medical History Family history of diabetes melli tus Medical History Gestational diabetes Medical History Allergies Medical History Left Ankle Sprain Medical History Vaccine reaction Medical History Seafood allergy, anaphylaxis Medical History Exercise-induced asthma Medical History Vitamin D deficiency, unspecifie d Medical History type II diabetes Medical History PCOS Medical History CPAP for sleep apnea Medical History Positive Covid 04/2020 Surgical History 2007 Surgical History LEEP Surgical History D&C Surgical History laparoscopy Surgical History LEEP 09/24/2014 Surgical History Colonoscopy and EGD 2014 Surgical History Right arm beign tumor removed 1 Surgical History hysterectomy 04/2021 Surgical History ablasion 2020 Hospitalization History 2007 Hospitalization History [facility] positive Cov id 05/21/2020 Hublished Other Summary Purpose Family History Relationship Condition Age at Onset Recorded Date/T wolf grandparent Unknown Not Specified Hypertension Unknown History of stroke Unknown natural son Family history of mental disorder Unknown Relationship Condition Age at Onset Recorded Date/T wolf grandparent Unknown mother Hypertension Unknown History of stroke Unknown son Family history of mental disorder Unknown Advance Directives Advance Directive Response Recorded Date/ Time Advance Directives No April 2:04pm Reason for Referral Reason *FU 12/09 evaluate Diagnosis 1 Hypoglycemia (E16.2) Diagnosis 2 Impaired fasting glu cose (R73.01) Diagnosis 3 History of gestation al diabetes (Z86.32) Referral Organization [facility] [employer] [place] Referring Provider First Name Gayle Referring Provider Last Name Radhaacher Referring Provider Specialty Nurse Pract itioner Referred Organization [employer] Referred Provider Elyse Valladares Referred Address [address],[place], [place],[address] Referred Provider Specialty Internal Med icine Referral Priority Routine General Notes Keira Montelongo 11:38:36 AM >received today, attachments made, waiting for notes to be locked Keira Montelongo 12/02/2022 02:50:53 PM >note locked, referral faxed Reason 06/15/22 evaluate and treat Diagnosis 1 Moderate episode of recurrent major depressive disorder (F33.1) Referral Organization [facility] [employer] [place] Referring Provider First Name Gayle Referring Provider Last Name Zkee Referring Provider Specialty Nurse Pract itioner Referred Organization [facility] [place]erred Address [address] [place],[address] Referred Provider Specialty Psychiatry Referral Priority Routine Referral Appointment Date 2022-06-15 General Notes Keira Montelongo 11:14:16 AM >received today, waiting for notes to be locked Keira Montelongo 05/26/2022 09:47:42 AM >notes locked and faxed Keira Montelongo 05/27/2022 09:48:56 AM >faxed first attempt letter Keira Montelongo 06/03/2022 09:04:21 AM >faxed second attempt letter Keira Montelongo 06/03/2022 05:30:18 PM >received fax that office never received referral. refaxed at this time Keira Montelongo 06/10/2022 08:27:37 AM >faxed first attempt letter again to see if they received referral. Keira Montelongo 06/12/2022 01:23:37 PM >received fax with appt date. Pt scheduled with Keira Dillard 06/16/2022 12:54:31 PM >faxed first request for confirmation letter Keira Montelongo 06/23/2022 04:07:43 PM >called [facility] to see if patient came to this appt. left vm Keira Montelongo 06/30/2022 08:50:53 AM >faxed second request for confirmation letter Keira Montelongo 06/30/2022 03:39:22 PM >received notes and sent to Gayle for review. closing referral at this time. Clinical Notes F: [id number] Chief Complaint and Reason for Visit Chief Complaint flu vaccine Chief Complaint sugar concerns med discuss rt knee pain Reason for Visit Type II diabetes alex litus Type II diabetes mellitus Chief Complaint sugar concerns med discuss rt knee pain T78.3XXA Reason for Visit Type II diabetes alex litus Type II diabetes mellitus Chief Complaint med discuss rt knee pain T78.3XXA 3 month f/u Reason for Visit Type II diabetes alex litus Additional Source Comments INFORMATION SOURCE (unrecogn ized section and content) DATE CREATED AUTHOR 11/16/2017 [facility] DATE CREATED AUTHOR AUTHOR'S ORGANIZ ATION 11/23/2017 [facility] DATE CREATED AUTHOR AUTHOR'S ORGANIZ ATION 11/23/2017 [facility] DATE CREATED AUTHOR AUTHOR'S ORGANIZ ATION 03/01/2022 [facility] DATE CREATED AUTHOR AUTHOR'S ORGANIZ ATION 05/27/2022 [facility] DATE CREATED AUTHOR AUTHOR'S ORGANIZ ATION 12/14/2023 [facility] DATE CREATED AUTHOR AUTHOR'S ORGANIZ ATION 12/19/2023 [facility] EPIC REASON FOR VISIT (unrecogniz ed section and content) doximity [phone] sore t hroat cough exposurenot feeling any betterrefillNo InformationannualrefillMagruder ER f/u-allergic reactionNo InformationrefillCOVID/Fluswitch medsmed concernsnotediscuss going back on metforminlab resultslibre 2 orderNo InformationBlood SugarsLibre 2 SensorfyiGo over recent labsUS resultsCOUGH, CONGESTIONNo Information Care Teams (unrecognized sec tion and content) Team Status: Active Member Role Status Dates PHYSICIAN NO FAMILY Primary Care Provider Active Team Status: Inactive Member Role Status Dates PHYSICIAN NO FAMILY Primary Care Provider Active Evans Groves DO [facility] Attending Provider Active Team Status: Active Member Role Status Dates Jessica Iqbal MD Primary Care Provider Active Team Status: Inactive Member Role Status Dates PHYSICIAN NO FAMILY Primary Care Provider Active Start: October 05, 2023 End: October 05, 2023 Gayle Alanis APRN [employer]HOU[employer]CH[employer]-C Attending Provider Act uriah Start: October 05, 2023 End: October 05, 2023 Team Status: Inactive Member Role Status Dates PHYSICIAN NO FAMILY Primary Care Provider Active Start: November 01, 2023 End: November 01, 2023 Gayle Alanis APRN [employer]OWERHOU[employer] MECHANIC-C Attending Provider Act uriah Start: November 01, 2023 End: November 01, 2023 Team Status: Active Member Role Status Dates PHYSICIAN NO FAMILY Primary Care Provider Active Start: November 04, 2023 Dalton Carpenter Attending Provider Active Start: 2023 Team Status: Inactive Member Role Status Dates Noa Yadav APRN Emergency Provider Active Start: November 17, 2023 End: November 17, 2023 Jessica Iqbal MD Primary Care Provider Active Start: November 17, 2023 End: November 17, 2023 Team Status: Active Member Role Status Dates Gayle Alanis APRN POWERHOUSE MECHANIC-C Primary Care Provider Active Team Status: Active Member Role Status Dates PHYSICIAN NO FAMILY Primary Care Provider Active Start: November 04, 2023 Dalton Carpenter DO Attending Provider Active Start : November 04, 2023 Team Status: Inactive Member Role Status Dates SAMSON Lyons Primary Care Provider Active Start: December 08, 2023 End: December 08, 2023 Odessa Hess MD Attending Provider Active Sta rt: December 08, 2023 End: December 08, 2023 Team Status: Inactive Member Role Status Dates SAMSON Lyons Primary Care Provider, Attending Provider Active Start: January 06, 2024 End: January 06, 2024 Goals (unrecognized section and content) Goals may be documented in a n alternate section FOR RECORDS PERTAINING TO PATIENTS WHO ARE OR HAVE BEEN ENROLLED IN A CHEMICAL DEPENDENCY/SUBSTANCEABUSE PROGRAM, SOME INFORMATION MAY BE OMITTED. This clinical summary was aggregated from multiple sources. Caution should be exercised in using it in the provision of clinical care. This summary normalizes information from multiple sources, and as a consequence, information in this document may materially change the coding, format and clinical context of patient data. In addition, data may be omitted in some cases. CLINICAL DECISIONS SHOULD BE BASED ON THE PRIMARY CLINICAL RECORDS. [facility] [employer] [facility]. provides no warranty or guarantee of the accuracy or completeness of information in this document.
== END 2024-02-08 09:31 | disposition home or self-care (01) ==
LOC: NOMS 09:30
PROVIDERS: PCP Family Medicine; Visit Provider Obstetrics & Gynecology
DX: N94.89 Other specified conditions associated with female genital organs and menstrual cycle (principal)
CPT/HCPCS: 76830; 76856

== ENCOUNTER 2025-01-25 10:49 | Outpatient (OUT) | payer BC, SELFPAY ==
--- OUTSIDE RECORDS SUMMARY | 2024-11-20 03:45 | XMS_ITS ---
Author Organization [facility] Address [address] [place] [address] Care Team Providers Care Gaming Director Name Role Phone Chris Benjamin Primary Care Provider REASON FOR VISIT 3 month f/u Encounters Encounter Location Date Provider Diagnosis [place] [address] [place] [address] 2024 Chris Benjamin Plan Of Treatment No Information Progress Notes * TOREYSANDRITARACHEL NDOB: [birth year] (34 yo F)Acc No.[id number]:11/20/2024 Behavioral Health Patient: RACHEL HAQ Provider: JOHN Calvo :1990 A ge:34 Y S ex:Female Date:11/20/2024 [id number] Subjective: * Chief Complaints: * 1 . 3 month f/u. * Medical History: Objective: * Vitals: Assessment: Plan: * Treatment: * Images: * Electronic signature of JOHN Downey on 01/25/2025 at 10:53 AM EDT Sign off status: Pending * Provider: JOHN Calvo Date: 0 11/20/2024 Generated for Printi ng/Faxing/eTransmitting on: 0 01/25/2025 10:53 AM EDT
--- OUTSIDE RECORDS SUMMARY | 2025-01-25 06:43 | XMS_ITS | Continuity of Care Document ---
Author Organization [facility] Address [address] [place] [address] Phone Care Team Providers Care Bin Piler Name Role Phone Gayle Alanis APRN Primary Care Provider Gayle Alanis APRN Attending Provider [phone] Care Teams Patient Care Team Team Status: Active Member Role Status Dates Gayle Alanis APRN GENERAL PRODUCTION WORKER-C Primary Care Provider Active Patient Care Team Team Status: Inactive Member Role Status Dates Gayle Alanis APRN GENERAL PRODUCTION WORKER-C Primary Care Provider Active Start: January 25, 2025 End: January 25, 2025 Gayle Alanis APRN GENERAL PRODUCTION WORKERYobaniC Attending Provider Act uriah Start: January 25, 2025 End: January 25, 2025 Chief Complaint and Reason for Visit Chief Complaint Admit Date A1c check January 25, 2025 9: 58am Reason for Visit Admit Date Anxiety January 25, 2025 9: 58am Pure hypercholesterolemia January 25 9:58am Recurrent major depressive disorder, in partial remission January 25, 2025 9:58am Type II diabetes mellitus January 25 9:58am Wellness examination January 25, 2025 9 :58am Allergies, Adverse Reactions, Alerts Allergen Type Severity Reaction Last Updated Verified Status adhesive Allergy Unknown rash January 24 4:34pm Yes Active cephalexin Allergy Unknown Unknown Reaction December 302024 4:34pm Yes Active house dust Allergy Unknown Unknown Reaction December 302024 4:34pm Yes Active iodine Allergy Unknown shock January 24, 025 4:34pm Yes Active penicillin G Allergy Unknown Unknown Reaction January 24, 2025 4:34pm Yes Active Social History Smoking Status Status Start Date End Date Date of Observa tion Ex-smoker (finding) September 212024 5:05am Observation Status Observation Response Date of Response Legal Sex Female (finding) Sex Assigned At Female [birth year] Family History Relationship Condition Age at Onset Recorded Date/T wolf grandparent Unknown mother Hypertension Unknown History of stroke Unknown son Family history of mental disorder Unknown Problems Active Problems Medical Problem Onset Date Status Family history of heart disease Unknown Active Type II diabetes mellitus Unknown Active Anxiety Unknown Active Gastroenteritis Unknown Active Wellness examination Unknown Active Pure hypercholesterolemia Unknown Active Atypical chest pain Unknown Active Recurrent major depressive disorder, in partial remission Unknown Active Inactive/Resolved Problems Medical Problem Onset Date Status Heart palpitations Unknown Resolved Strain of right knee Unknown Resolved Headache Unknown Resolved Tachycardia Unknown Resolved Tachycardia Unknown Resolved Viral syndrome Unknown Resolved Medications Medication Status Dose Units Route Directions Qty Days St art Date Stop Date End Date Instructions Adherence Semaglutide (Ozempic) 0.25 mg or 0.5 mg (2 mg/3 mL) pen injector Discont inued 0 .ROUTE .COMPLEX 3 November 29, 2023 1:32pm December 21, 2023 1:50p m INJECT 0.25 MG SUBCUTANEOUSL Y ONCE A WEEK FOR 4 WEEKS Semaglutide (Ozempic) 0.25 mg or 0.5 mg (2 mg/3 mL) pen injector Discont inued 0.5 MG SUBCUT every week 3.68 December 21, 2023 1:49pm Augus t 2023 8:27a m Quetiapine 50 mg tablet Discont inued 50 MG PO Daily at bedtime 30 30 Novemb er 2023 12:56p m September 25, 2024 8:36a m Citalopram 40 mg tablet Active 40 MG PO Daily 30 30 Novemb er 2023 12:57p m Complies with drug therapy Hydroxyzine Hcl 25 mg tablet Active 75 MG PO Daily at bedtime as needed for itching 90 30 Novemb er 2023 12:57p m Complies with drug therapy Semaglutide 1 mg/dose (4 mg/3 mL) pen injector Discont inued 1 MG SUBCUT every week 3.75 30 December 04, 2024 4:03pm Augus t 2024 11:23 am Semaglutide 1 mg/dose (4 mg/3 mL) pen injector Discont inued 1 MG SUBCUT every week 9.75 January 05, 2025 11:23a m Augus t 2024 10:24 am Ketorolac 10 mg tablet Discont inued 10 MG PO Every 6 hours November 17, 2023 12:00a m Octob er 2023 10:00 am maximum total duration of 5 days from all oral, intranasal, or parenteral formulations Ibuprofen 600 mg tablet Active 600 MG PO Every 6 hours as needed for Pain 2024 1:00am do not exceed 4 doses in a 24 hour period Complies with drug therapy Promethazin e 25 mg suppository Discont inued 25 MG IA EVERY 4-6 HOURS as needed for nausea and vomiting 12 Octobe r 2023 12:00a m Augus t 2024 10:11 am Semaglutide (Ozempic) 0.25 mg or 0.5 mg (2 mg/3 mL) pen injector Discont inued 0.5 MG SUBCUT every week 3.68 January 06, 2024 8:25am Janua ry 2024 10:25 am Flash Glucose Sensor (Freestyle Hiwot 2 Sensor) kit Active 0 .Route January 06, 2024 8:25am Replace sensor every 14 days Ondansetron 4 mg tablet,disi ntegrating Active 4 MG PO Q8H as needed for nausea and vomiting 29 03 Octobe r 2023 12:00a m Complies with drug therapy Citalopram 40 mg tablet Discont inued 40 MG PO Daily October 05, 2023 12:00a m Novem solomon 2023 12:57 pm Epinephrine 0.3 mg/0.3 mL auto-inject or Active 0.3 MG SUBCUT Once as needed for anaphylaxis October 05, 2023 12:00a m Complies with drug therapy Hydroxyzine Hcl 25 mg tablet Discont inued 75 MG PO Daily at bedtime as needed for itching October 05, 2023 12:00a m Novem solomon 2023 12:57 pm Quetiapine 50 mg tablet Discont inued 50 MG PO Daily at bedtime October 05, 2023 12:00a m Novem solomon 2023 12:57 pm Metformin 500 mg tablet Discont inued 500 MG PO Twice daily with meals 180 90 October 05, 2023 12:00a m November 01, 2023 10:05 am Flash Glucose Sensor (Freestyle Hiwot 2 Sensor) kit Discont inued 0 .Route 3 October 05, 2023 12:00a m Augus t 2023 8:27a m Replace sensor every 14 days Semaglutide (Ozempic) 0.25 mg or 0.5 mg (2 mg/3 mL) pen injector Discont inued 0.25 MG SUBCUT every week 1.84 30 November 01, 2023 12:00a m November 29, 2023 1:32p m for 4 weeks Alprazolam 0.25 mg tablet Active 0.25 MG PO as needed 2024 1:00am Complies with drug therapy Olanzapine 5 mg tablet Active 5 MG PO Daily 2024 1:00am Complies with drug therapy Semaglutide 1 mg/dose (4 mg/3 mL) pen injector Discont inued 1 MG SUBCUT every week 3.75 30 2024 10:23a m December 04, 2024 4:04p m Dextrometho rphan-Bupro pion (Auvelity) 45-105 mg tablet, IR and ER, biphasic Active 1 TAB PO Daily at bedtime September 25, 2024 12:00a m Complies with drug therapy Cariprazine (Vraylar) 1.5 mg capsule Active 1.5 MG PO Daily at bedtime September 25, 2024 12:00a m Complies with drug therapy Semaglutide 2 mg/dose (8 mg/3 mL) pen injector Active 2 MG SUBCUT every week 9.75 90 January 25, 2025 10:24a m Complies with drug therapy Immunizations Immunization Event Date Not Given Reason Dose Number Mint Machine Operator Lot Number Vaccine Information Statement (VIS) Detail Administration Location COVID-19 Guru Antoine ([employer]) October 11, 2020 COVID-19 [employer] ([employer]) November 01, 2020 Measles, Mumps, and Rubella Virus Vaccine July 02, 2022 Measles, Mumps, and Rubella Virus Vaccine July 30, 2022 Quadrivalent Influenza March 19, 2023 Tetanus, Diphtheria, Pertussis (Tdap) May 30, 2018 Tetanus, Diphtheria, Pertussis (Tdap) January 30, 2022 Vital Signs Vital Reading Result Reference Range Collection Date/Time Height 60 [in_i] January 25 10:03am Weight 82.10 kg January 25 10:03am Body Temperature 97.2 [degF] 97.6-99.0 December 10:03am Heart Rate 81 /min 60-100 January 25 10:03am Oxygen saturation by Pulse oximetry 100 % 95-100 January 25, 2025 10 :03am BP Systolic 114 mm[Hg] 100-140 January 25 10:03am BP Diastolic 74 mm[Hg] 60-100 January 25 10:03am BMI (Body Mass Index) 35.3 kg/m2 January 25, 2025 10:03am Advance Directives Advance Directive Response Recorded Date/ Time Advance Directives No April 2:04pm Insurance Providers Guarantor Kathy Cuevas Address [address] [place] [address] [place] [address] Contact Info. Home Phone: Payer Policy Id Subscriber's Name Subscriber Id Effectiv e Date Expiration Date Kb SANCHEZ [id number] Crystal Iniguez [id number] Encounters Encounter Location(s) Arrival/Admit Date Discharge/Depart Date Provider(s) Departed Physician/Prov ider Office Visit -[facility] January 25, 2025 9:58am January 25, 2025 10:42am Gayle Alanis APRN CNP Recent Diagnosis Onset Date Admit Date Anxiety Unknown January 25 9:58am Pure hypercholesterolemia Unknown January 25, 2025 9:58am Recurrent major depressive d isorder, in partial remission Unknown January 25, 2025 9:58am Type II diabetes mellitus Unknown January 25, 2025 9:58am Wellness examination Unknown December 9:58am Assessments Diagnosis Onset Date Resolution Status Admit Date Anxiety acute January 25, 2 025 9:58am Pure hypercholesterolemia acute January 25, 2025 9:58am Recurrent major depressive disorder, in partial remission acute A ugust 2024 9:58am Type II diabetes mellitus acute January 25, 2025 9:58am Wellness examination acute Augu st 2024 9:58am Plan of Treatment Author Gayle Alanis [facility] Authored January 25, 2025 10 :28am Personalized health advice was given for screenings discussed and provided. Advanced care planning reviewed and/or information given as requested. Additional counseling was provided here today in regards to general topics regarding health education were discussed in detail. All preventative issues were discussed including remaining a nonsmoker, colorectal screening, the importance of proper sleep for brain health maintenance, maintaining a heart-healthy balanced diet, recognizing and addressing signs of anxiety and depression, maintaining positive relationships with family and friends. To goal. A1c is 6.1 today. Tolerating the medication without any side effects. Has also changed eating habits. Increase Trulicity Prior to your visit today we reviewed your chart and outlined the testing and treatment needed for your care. We discussed possible complications of diabetes including risk of heart disease, stroke, and kidney disease. Your goal is to keep your HgA1C below 7 (preferably <6.5) and your blood pressure less than 130/85 (and preferably < 120/80) and maintaining a healthy weight with a BMI less than 26. We are working together to achieve these goals with the following plan; healthier diet, understanding your medications, and your compliance. Barriers to these goals have been discussed. Future Tests Future scheduled test information is unavailable Pending Tests Test Name Ordered Date Scheduled Date Comprehensive Metabolic Panel January 25, 2025 10:28am Future Visits Future appointment information is unavailable Referrals to Other Providers Referral information is unavailable Future Procedures Procedure Name Ordered Date Scheduled Date Complete Blood Count Auto Diff January 25, 2025 10:28am Lipid Panel January 25, 2025 10:28am MicroAlb Creat Ratio,U January 25, 2025 10:28am Future Medications Future medication information is unavailable Patient Instructions Patient instructions are unavailable
--- OUTSIDE RECORDS SUMMARY | 2025-01-25 10:53 | XMS_ITS | Encounter Summary ---
Author Organization [facility] Address [address] [place] [address] Care Team Providers Care Organizational Psychologist Name Role Phone Unavailable Primary Care Provider Unavailabl e Encounter Details Date Type Department Care Team (Late st Contact Info) Description 11/17/2023 External Result Encounter [facility] External Department Unsolicited Noa Yadav, MARIO [address] [place] [address] Social History Tobacco Use Types Packs/Day Years Used Date Smoking Tobacco: Never Smokeless Tobacco: Never Comments No Sex and Gender Information Value Date Recorded Sex Assigned at Not on file Legal Sex Female 7:11 PM EDT Gender Identity Not on file Sexual Orientation Straight 11/03/2023 3: 48 PM EDT documented as of this encounter Plan of Treatment Not on file documented as of this encounter Procedures Procedure Name Priority Date/Time Associated Diagnosis Comments CT KNEE RIGHT WO IV CONTRAST 11/17/2023 12:07 PM EDT documented in this encounter Results * CT knee right wo IV contrast (11/17/2023 12:07 PM EDT) Anatomical Region Laterality Modality Lower Extremities, Knee Right Computed Tomography 11/17/2023 12:0 7 PM EDT Impressions 11/17/2023 12:14 PM EDT NO ACUTE BONY PROCESS INVOLVING THE RIGHT KNEE. Impression dictated by: Bhavin Xiao Jr., D.OBrea11/17/2023 12:11 PM Dictation Location: RADIO--15 Transcribed By: [facility] 11/17/23 1211 Dictated By: Bhavin Xiao Jr, DO 11/17/23 1207 Signed By: <Electronically signed by Bhavin Xiao Jr, in OV> 11/17/23 1211 Narrative 11/17/2023 12:14 PM EDT [facility] Main [place] [id number] CT Scan Report Signed Patient: Kathy Cuevas MR#: [id number] : 1990 Acct:[id number] Age/Sex: 33 / F ADM Date: 11/17/23 Loc: ER Room: Type: REG ER Attending Dr: Copies to: Noa Yadav [...] fluid collection. CT/CT knee RT wo con Procedure Note Radiology, Radiologist, MD - 11/17/2023 [facility] Main [address] [address] [address] Scan Report Signed Patient: Kathy Cuevas NMR#: [id number] : 1990Acct:[id number] Age/Sex: 33 / FADM Date: 11/17/23 Loc: ER Room:Type: REG ER Attending Dr: Copies to: Noa Yadav APRN Ordering Provider: Noa Yadav APRN Date of Service: 11/17/23 CT/CT knee RT wo con: pain over ACL, previousinjury to meniscus CT right knee WITHOUT CONTRAST WITH 3D RECONSTRUCTIONS: CLINICAL HISTORY: Unable to put weight on right leg after dog injury. COMPARISON: Right knee series performed earlier today. TECHNIQUE: Spiral axial unenhanced images were obtained through the rightknee. Sagittal, coronal and 3D volume-rendered reconstructions were also reviewed. This CT examwas performed using one or more following dose reduction techniques: Automated exposure control,adjustment of the mA and/or kV according to patient size, or use of iterative reconstruction technique. FINDINGS: No fracture. No joint effusion. No significant degenerativechange. No significant soft tissue swelling. Musculature appears grossly unremarkable. No fluidcollection. CT/CT knee RT wo con IMPRESSION: NO ACUTE BONY PROCESS INVOLVING THE RIGHT KNEE. Impression dictated by: Bhavin Xiao Jr., D.OBrea11/17/2023 12:11 PM Dictation Location: [place] [address] Transcribed By: [facility] 11/17/23 1211 Dictated By: Bhavin Xiao Jr, DO 11/17/23 1207 Signed By: <Electronically signed by Bhavin Xiao Jr, DO inOV> 11/17/23 1211 us Noa Yadav NP IMG CT PROCEDURES Final Resu lt documented in this encounter Visit Diagnoses Not on filedocumented in this encounter
--- OUTSIDE RECORDS SUMMARY | 2025-01-25 10:53 | XMS_ITS | Clinical Summary ---
Author Organization [facility] Address [address] [place] [address] Care Team Providers Care Asw/Asuw Tactical Air Controller Name Role Phone Unavailable Primary Care Provider Unavailabl e Allergies Active Allergy Reactions Criticality Noted Date Comments Amoxicillin 02/08/2024 Cephalexin Hives 02/23/2014 Other Reaction(s): Unknown Other Reaction(s): Unknown, Unknown Reaction Dust Mite Extract 11/17/2023 Other Reaction(s): Unknown Reaction Fish Allergy 11/17/2023 Other Reaction(s): Throat swells, hard time breathing Iodinated Contrast Media Anaphylaxis High 02/23/2014 Iodine Unknown 10/28/2023 Other Reaction(s): shock Other 10/28/2023 SUTURES Penicillin G Hives 02/23/2014 Other Reaction(s): Unknown Other Reaction(s): Unknown, Unknown Reaction patient states any of the cillins Penicillins 02/23/2014 Shellfish Allergy 11/17/2023 Other Reaction(s): Unknown Reaction [place] Extract 11/17/2023 Other Reaction(s): Unknown Reaction Wound Dressing Adhesive 10/28/2023 Other Reaction(s): Unknown Other Reaction(s): rash Medications citalopram (CeleXA) 40 MG tablet Take 40 mg by mouth Daily 10/05/2023 Active QUEtiapine (SEROquel) 25 MG tablet Take 25 mg by mouth Daily Active hydrOXYzine HCl (Atarax) 25 MG tablet Take 25 mg by mouth Take 3 tablets daily 10/05/2023 Active Semaglutide,0.2 5 or 0.5MG/DOS, 2 MG/3ML solution pen-injector every week 11/01/2023 Activ e EPINEPHrine (Epipen) 0.3 MG/0.3ML injection syringe Once 10/05/2023 Active ibuprofen 800 MG tablet TAKE 1 TABLET BY MOUTH EVERY 6-8 HOURS NEEDED FOR PAIN 09/06/2023 Active ketorolac (Toradol) 10 MG tablet Every 6 hours 11/17/2023 Active Continuous Glucose Sensor (FreeStyle Hiwot 2 Sensor) misc REPLACE SENSOR EVERY 14 DAYS 01/30/2024 Active metFORMIN, MOD, (Glumetza) 500 MG 24 hr tablet Take 500 mg by mouth in the morning. Take with meals. Active QUEtiapine (SEROquel) 50 MG tablet Take 50 mg by mouth at bedtime 01/30/2024 Active semaglutide (Ozempic, 0.25 or 0.5 MG/DOSE,) 2 MG/1.5ML solution pen-injector 11/01/2023 Active Active Problems No known active problems Family History Medical History Relation Name Comments Diabetes Father Darek Rheum arthritis Father's Sister 1 Florina Diabetes Father's Sister 2 Marley Hypertension Mother Stroke Mother Cancer Paternal Grandfather Bhavin Diabetes Paternal Grandfather Bhavin Heart failure Paternal Grandmother Hope Rheum arthritis Paternal Grandmother Hope Relation Name Status Comments Father Darek Alive Father's Sister 1 Florina Father's Sister 2 York Mother Alive Paternal Grandfather Bhavin Paternal Grandmother Hope Social History Tobacco Use Types Packs/Day Years Used Date Smoking Tobacco: Never Smokeless Tobacco: Never Tobacco Cessation:Counseling Given: Not Answered Comments No Sex and Gender Information Value Date Recorded Sex Assigned at Not on file Legal Sex Female 7:11 PM EDT Gender Identity Not on file Sexual Orientation Straight 11/03/2023 3: 48 PM EDT Last Filed Vital Signs Vital Sign Reading Time Taken Comments Blood Pressure 122/76 02/08/2024 10:36 AM EDT Pulse 82 01/05/2023 12:44 PM EDT Temperature - - Respiratory Rate 18 01/05/2023 12:44 PM EDT Oxygen Saturation 96% 01/05/2023 12:44 PM EDT Inhaled Oxygen Concentration - - Weight 78.9 kg (174 lb) 02/08/2024 10:36 AM EDT Height 152.4 cm (5') 11/17/2023 9:14 AM EDT Body Mass Index 33.98 11/17/2023 9:14 AM EDT Plan of Treatment Health Maintenance Due Date Last Done Comments Influenza Vaccine (#1) 2025 03/19/2023 Cervical Cancer Screening 11/03/2028 HPV/Cotest 11/03/2028 Pap Smear 11/03/2028 11/04/2023 Procedures Procedure Name Priority Date/Time Associated Diagnosis Comments PAP SMEAR Routine 11/04/2023 12:00 AM EDT from Last 3 Months or Most Recently Relevant to Health Maintenance Results * Pap Smear (11/04/2023 12:00 AM EDT) Swab Cervical swab / Unknown us Dalton Jayden DO LAB CYTOLOGY ORDERABLES Final Re sult EXTERNAL LAB from Last 3 Months or Most Recently Relevant to Health Maintenance Insurance [facility]
--- OUTSIDE RECORDS SUMMARY | 2025-01-25 10:53 | XMS_ITS | Clinical Summary ---
Author Organization [facility] Address [address] [place] [address] Phone Care Team Providers Care Top Cleaner Name Role Phone Unavailable Primary Care Provider Unavailabl e Social History Tobacco Use Types Packs/Day Years Used Date Smoking Tobacco: Never Assessed Comments Unknown Sex and Gender Information Value Date Recorded Sex Assigned at Not on file Legal Sex Female 1:00 PM EST Gender Identity Not on file Sexual Orientation Not on file Plan of Treatment Health Maintenance Due Date Last Done Comments HIV Screening 1990 Lipid Panel 1990 Yearly Adult Physical 1990 MMR Vaccines (1 of 1 - Stand norberto series) 1991 Hepatitis C Screening 2008 Hepatitis B Vaccines (1 of 3 - 19+ 3-dose series) 2009 Cervical Cancer Screening 2011 HPV/Cotest 2011 Pap Smear 2011 DTaP/Tdap/Td Vaccines (1 - Tdap) 2012 HPV Vaccines (1 - 3-dose sta ndard series) 2017 COVID-19 Vaccine (1 - 2023-2 5 season) 2024 Influenza Vaccine (#1) 2025 Zoster Vaccines (1 of 2) 2040 HIB Vaccines Aged Out No longer eligi ble based on patient's age to complete this topic Hepatitis A Vaccines Aged Out No long er eligible based on patient's age to complete this topic IPV Vaccines Aged Out No longer eligi ble based on patient's age to complete this topic Meningococcal Vaccine Aged Out No ariane riddhi eligible based on patient's age to complete this topic Pneumococcal Vaccine: Pediat rics and At-Risk Adult Patients Aged Out No longer dimas gible based on patient's age to complete this topic Rotavirus Vaccines Aged Out No longer eligible based on patient's age to complete this topic Insurance [facility]
--- OUTSIDE RECORDS SUMMARY | 2025-01-25 10:53 | XMS_ITS | Encounter Summary ---
Author Organization [facility] Address [address] [place] [address] Care Team Providers Care Lvn Lpn Name Role Phone Unavailable Primary Care Provider Unavailabl e Encounter Details Date Type Department Care Team (Late st Contact Info) Description 11/17/2023 External Result Encounter [facility] External Department Unsolicited Noa Yadav, MARIO [address] [place] [address] Social History Tobacco Use Types Packs/Day Years [...] Procedure Name Priority Date/Time Associated Diagnosis Comments XR KNEE 4+ VIEWS RIGHT 11/17/2023 10:58 AM EDT documented in this encounter Results * XR knee 4+ views right (11/17/2023 10:58 AM EDT) Anatomical Region Laterality Modality Lower Extremities, Knee Right [facility] 11/17/2023 10:5 8 AM EDT Impressions 11/17/2023 11:02 AM EDT NO ACUTE BONY FINDINGS. Impression dictated by: Alise Lynne M.D.11/17/2023 10:59 AM Dictation Location: [facility]- Transcribed By: [facility] 11/17/23 1059 Dictated By: Alise Lynne MD 11/17/23 1058 Signed By: <Electronically signed by MD Alise Lynne in OV> 11/17/23 1059 Narrative 11/17/2023 11:02 AM EDT [place] [id number] XRay Report Signed Patient: Kathy Cuevas MR#: [id number] : 1990 Acct:[id number] Age/Sex: 33 / F ADM Date: 11/17/23 [...] anomalies are noted. XR/XR knee RT 4V* Procedure Note Radiology, Radiologist, MD - 11/17/2023 [place] Main [address] [address] XRay Report Signed Patient: Kathy Cuevas NMR#: [id number] : 1990Acct:[id number] Age/Sex: 33 / FADM Date: 11/17/23 Loc: ER Room:Type: REG ER Attending Dr: Copies to: Noa Yadav APRN Ordering Provider: Noa Yadav APRN Date of Service: 11/17/23 XR/XR knee RT 4V*: felt pop today; hx surgicalintervention RIGHT KNEE - 4 views COMPARISON: None CLINICAL DATA: Patient's dog was laying on right knee and when patient gotup, she felt a pop. Difficulty bearing weight and medial knee pain. AP, lateral and both oblique views were obtained. There is no acutefracture or dislocation. There is no disproportionate joint space narrowing or prominent hypertrophy.There is a trace amount joint fluid. No soft tissue anomalies are noted. XR/XR knee RT 4V* IMPRESSION: NO ACUTE BONY FINDINGS. Impression dictated by: Alise Lynne M.D.11/17/2023 10:59 AM [facility]ictation [facility] Transcribed By: [facility] 11/17/23 1059 Dictated By: Alise Lynne MD 11/17/23 1058 Signed By: <Electronically signed by MD Alise Lynne in OV> 11/17/23 1059 Noa Yadav CAN FILLING AND CLOSING MACHINE TENDER IMG XR PROCEDURES Final Resu lt documented in this encounter Visit Diagnoses Not on filedocumented in this encounter
--- OUTSIDE RECORDS SUMMARY | 2025-01-25 10:53 | XMS_ITS | Encounter Summary ---
Author Organization [facility] Address [address] [place] [address] Care Team Providers Care A P Manager Name Role Phone Unavailable Primary Care Provider Unavailabl e Encounter Details Date Type Department Care Team (Late st Contact Info) Description 02/08/2024 Clinisync Result Encounter [facility] External Department Unsolicited Wen Carpenter, DO [address] [place] [address] Social History Tobacco Use Types Packs/Day Years Used Date Smoking Tobacco: Never Smokeless Tobacco: Never Comments No Sex and Gender Information Value Date Recorded Sex Assigned at Not on file Legal Sex Female 7:11 PM EDT Gender Identity Not on file Sexual Orientation Straight 11/03/2023 3: 48 PM EDT documented as of this encounter Miscellaneous Notes * Result Encounter Note - Lin Gomez LPN - 02/08/2024 1:21 PM EDT Detailed voicemail left for pt about US results. documented in this encounter Plan of Treatment Not on file documented as of this encounter Procedures Procedure Name Priority Date/Time Associated Diagnosis Comments US PELVIS W/ TRANSVAGINAL 02/08/2024 1:16 PM EDT documented in this encounter Results * US PELVIS W/ TRANSVAGINAL (02/08/2024 1:16 PM EDT) Anatomical Region Laterality Modality Other 02/08/2024 1:16 PM EDT Narrative 02/08/2024 1:19 [place] [address] Ultrasound Report Signed Patient: RACHEL CUEVAS MR#: [id number] : 1990 Acct:[id number] Age/Sex: 33 / F ADM Date: 02/08/24 Loc: [facility] Attending Dr: Wen Carpenter D.O. Ordering Physician: Wen Carpenter D.O. Date of Service: 02/08/24 Procedure(s): US pelvis w/ transvaginal Accession Number(s): [id number] cc: Jessica Iqbal M.D.; Wen Carpenter D.O. [place] [id number] Patient Name: RACHEL CUEVAS MRN: [id number] date: 1990 Sex: F Assigned Patient Location: [facility] Current Patient Location: [facility] Accession/Order Number: [id number] Exam Date: 02/08/2024 09:32 Report Date: 02/08/2024 13:16 At the request of: WEN CARPENTER Procedure: US pelvis w/ transvaginal EXAMINATION: US pelvis w/ transvaginal HISTORY: PELVIC PAIN COMPARISON: Ultrasound pelvis 11/28/2020 TECHNIQUE: Transabdominal and/or transvaginal sonographic examination was performed as indicated by examination type. FINDINGS: UTERUS: Hysterectomy. RIGHT OVARY: Normal size and appearance. Duplex Doppler demonstrates normal waveform and flow; resistive index 0.4. Ovary size: 2.2 x 1.6 x 2.5 cm LEFT OVARY: Normal size and appearance. Duplex Doppler demonstrates normal waveform and flow; resistive index 0.6. Ovary size: 2.7 x 1.5 x 2.2 cm CUL-DE-SAC: Unremarkable. No significant free fluid. BLADDER: Unremarkable. OTHER: None. US/US pelvis w/ transvaginal IMPRESSION: 1. No acute or suspicious findings to account for patient's symptoms. Electronically authenticated by: BURKE JARAMILLO Date: 02/08/2024 13:16 Dictated By: Burke Jaramillo M.D. Signed By: 02/08/24 1319 DD/ 15 TD/TT: [employer] Program Coordinator: Procedure Note Radiology, Radiologist, - 02/08/2024 [place] [address] Ultrasound Report Signed Patient: RACHEL CUEVAS [facility]#: [id number] : 1990Acct:[id number] Age/Sex: 33 / FADM Date: 02/08/24 Loc: [facility] Attending Dr: Wen Carpenter D.O. Ordering Physician: Wen Carpenter D.O. Date of Service: 02/08/24 Procedure(s): US pelvis w/ transvaginal Accession Number(s): [id number] cc: Jessica Iqbal M.D.; Wen Carpenter D.O. [place] [id number] Patient Name: RACHEL CUEVAS MRN: [id number] date: 1990 Sex: F Assigned Patient Location: [facility] Current Patient Location: [facility] Accession/Order Number: [id number] Exam Date: 02/08/2024 09:32 Report Date: 02/08/2024 13:16 At the request of: WEN CARPENTER Procedure: US pelvis w/ transvaginal EXAMINATION: US pelvis w/ transvaginal HISTORY: PELVIC PAIN COMPARISON: Ultrasound pelvis 11/28/2020 TECHNIQUE: Transabdominal and/or transvaginal sonographic examination was performed as indicated by examination type. FINDINGS: UTERUS: Hysterectomy. RIGHT OVARY: Normal size and appearance. Duplex Doppler demonstratesnormal waveform and flow; resistive index 0.4. Ovary size: 2.2 x 1.6 x 2.5 cm LEFT OVARY: Normal size and appearance. Duplex Doppler demonstrates normal waveform and flow; resistive index 0.6. Ovary size: 2.7 x 1.5 x 2.2 cm CUL-DE-SAC: Unremarkable. No significant free fluid. BLADDER: Unremarkable. OTHER: None. US/US pelvis w/ transvaginal IMPRESSION: 1. No acute or suspicious findings to account for patient's symptoms. Electronically authenticated by: BURKE JARAMILLO Date: 02/08/2024 13:16 Dictated By: Burke Jaramillo M.D. Signed By:02/08/24 1319 DD/ 15 TD/TT: [employer] Program Coordinator: us Wen Jayden DO [facility] Final Result documented in this encounter Visit Diagnoses Not on filedocumented in this encounter
--- OUTSIDE RECORDS SUMMARY | 2025-01-25 10:54 | XMS_ITS | Patient Health Record ---
Author Organization [facility] [employer] es Address [address] [place] [address] Care Team Providers Care Puff Ironer Name Role Phone Chris Benjamin Primary Care Provider Renée Campbell Unavailable [phone] Beatris Buenrostro Unavailable [phone] Allergies Allergen (clinical drug ingredient) Drug/Non Drug Allergy documented on EMR Reaction Allergy Type Onset Date Status Keflex Unknown Drug Allergy Active Iodine Unknown Drug Allergy Active Penicillin Unknown Drug Allergy Active Reason For Referral No Information Medications Medication SIG (Take, Route, Frequency, Duration) Notes Start Date End Date Status Vraylar 1.5 MG 1 capsule Orally Onc e a day; Duration: 30 days 07/24/2024 Active Ozempic (0.25 or 0.5 MG/DOSE) 2 MG/3ML 0.2 mL Subcutaneous once a week Active hydrOXYzine HCl 25 MG TAKE 3 TABLETS BY MOUTH EVERYDAY AT BEDTIME WHEN NEEDED; Duration: 30 days Active Auvelity 45-105 MG 1 tablet Orally Once a day; Duration: 30 days 09/18/2024 Active ALPRAZolam 0.25 MG 1 tablet Orally Twice a day; Duration: 14 days As needed 12/05/2024 Active Citalopram Hydrobromide 40 MG TAKE 1 TABLET BY MOUTH EVERY DAY; Duration: 30 Active Social History Tobacco Use: Social History Observation Description Date Details (start date - stop date) Never Smoker NA - NA Alcohol Screening: Question Answer Notes Did you have a drink containing alcohol in the p ast year? No Points 0 Interpretation Negative Depression Screening (PHQ-9): Question Answer Notes Little interest or pleasure in doing things Near ly every day Feeling down, depressed, or hopeless More than h long-term the days Trouble falling or staying a sleep, or sleeping too much Nearly every day Feeling tired or having little energy Nearly raji ry day Poor appetite or overeating Nearly every day Feeling bad about yourself-o r that you are a failure or have let yourself or your family down Nearly every day Trouble concentrating on thi ngs, such as reading the newspaper or watching television Several days Moving or speaking so slowly that other people could have noticed. Or the opposite being so fidgety or restless that you have been moving around a lot more than usual Several days Thoughts that you would be b domingo off , or of hurting yourself in some way Not at all Total Score 19 Intepretation Moderately severe depression Tobacco Control (Standard) Question Answer Notes Tobacco use: Nonsmoker Problems Problem Type SNOMED Code ICD Code Onset Dates Problem Status W/U Status Risk Notes Problem Anxiety (69538888) Anxiety (F41.9) Active confirmed Problem Moderate recurrent major depression (19686777) Major depressive disorder, recurrent episode, moderate (F33.1) Active confirmed Problem Moderate recurrent major depression (85534608) Moderate episode of recurrent major depressive disorder (F33.1) Active confirmed Problem Obese class II (02456984777801 5) BMI 35.0-35.9,adult (Z68.35) Active confirmed Problem Body mass index 30.00 to 34.99 (63697114334140 7) BMI 34.0-34.9,adult (Z68.34) Active confirmed Problem Obese class I (28294866047558 7) BMI 33.0-33.9,adult (Z68.33) Active confirmed Vital Signs Heart Rate 95 /min 12/18/2024 Temperature 97.8 degrees Fahrenheit 07/24/2024 Oximetry 98 % 12/18/2024 Blood pressure diastolic 75 mm Hg 12/18/2024 Height 5ft 0.5in in 12/18/2024 Blood pressure systolic 106 mm Hg 12/18/2024 Weight 179.6 lbs 12/18/2024 BMI 34.49 kg/m2 12/18/2024 Encounters Encounter Location Date Provider Diagnosis [facility] [address] [place] [address] 04/26/2024 [facility] Moderate episode of recurrent major depressive disorder F33.1 and Major depressive disorder, recurrent episode, moderate F33.1 [facility] [address] [place] [address] 05/18/2024 [facility] [address] [place] [address] 06/19/2024 [facility] [address] [place] [address] 09/14/2024 [facility] [address] [place] [address] 10/18/2024 [facility] [address] [place] [address] 11/14/2024 Kip [facility] Moderate episode of recurrent major depressive disorder F33.1 [facility] [address] [place] [address] 12/04/2024 Beatris Chitra Major depressive disorder, recurrent episode, moderate F33.1 [facility] [address] [place] [address] 12/06/2024 Kip [facility] Major depressive disorder, recurrent episode, moderate F33.1 [facility] [address] [place] [address] 05/18/2024 Kip [facility] Moderate episode of recurrent major depressive disorder F33.1 and Major depressive disorder, recurrent episode, moderate F33.1 [facility] [address] [place] [address] 07/24/2024 Kip [facility] Major depressive disorder, recurrent episode, moderate F33.1 [facility] [address] [place] [address] 08/22/2024 Kip [facility] Moderate episode of recurrent major depressive disorder F33.1 and Major depressive disorder, recurrent episode, moderate F33.1 [facility] [address] [place] [address] 09/18/2024 Kip [facility] Moderate episode of recurrent major depressive disorder F33.1 and Major depressive disorder, recurrent episode, moderate F33.1 [address] [facility] [place] [address] 10/16/2024 Chris Benjamin Moderate episode of recurrent major depressive disorder F33.1 and Major depressive disorder, recurrent episode, moderate F33.1 [facility] [place] [address] 12/18/2024 Ming Cassidy Major depressive disorder, recurrent episode, moderate F33.1 [address] [address] 06/15/2024 Ming Cassidy Major depressive disorder, recurrent episode, moderate F33.1 Assessments Encounter Date Diagnosis (ICD Code) Assessment Notes Treatment Notes Treatment Clinical Notes Section Notes 12/18/2024 Major depressive disorder, recurrent episode, moderate (ICD-10 - F33.1) Informed consent obtained: YES, we discussed the diagnosis/diagnoses , the treatment options, treatment(s) recommendations vs. no treatment. We discussed risks and benefits of treatment options, treatment recommendations vs. no treatment. Currently at low risk for self harm. Denies ongoing feelings of hopelessness. Denies ongoing suicidal ideation, intent or plan in session. Pharmacological management: Alternative medication plans were discussed with the patient and or guardian. All relevant and serious adverse effects were discussed. Standard precautions and potential benefits were discussed. Patient/Guardian consented to begin medication/ continue treatment plan. questions answered satisfactorily, agreeable to treatment plan Cont current treatment Tolerating meds well, compliant Call for problems Follow up 3 months Patient/Guardian will call sooner if symptoms worsen. Patient understands to go to the ER if needed if symptoms become severe. Crisis intervention plan was discussed and agreed upon. Patient/Guardian will call 911 in case of emergency. Emergency contact information was provided to the patient/guardian. 04/26/2024 Moderate episode of recurrent major depressive disorder (ICD-10 - F33.1) 05/18/2024 Major depressive disorder, recurrent episode, moderate (ICD-10 - F33.1) Patient will add olanzapine 2.5 mg for the first 7 days and increase to 5 mg. Follow up in 30 days to discuss and evaluate as needed Xanax 0.25 mg provided for increased anxiety. Informed consent obtained: YES, we discussed the diagnosis/diagnoses , the treatment options, treatment(s) recommendations vs. no treatment. We discussed risks and benefits of treatment options, treatment recommendations vs. no treatment. Currently at low risk for self harm. Denies ongoing feelings of hopelessness. Denies ongoing suicidal ideation, intent or plan in session. Pharmacological management: Alternative medication plans were discussed with the patient and or guardian. All relevant and serious adverse effects were discussed. Standard precautions and potential benefits were discussed. Patient/Guardian consented to begin medication/ continue treatment plan. questions answered satisfactorily, agreeable to treatment plan Cont current treatment Tolerating meds well, compliant Call for problems Follow up 3 months Patient/Guardian will call sooner if symptoms worsen. Patient understands to go to the ER if needed if symptoms become severe. Crisis intervention plan was discussed and agreed upon. Patient/Guardian will call 911 in case of emergency. Emergency contact information was provided to the patient/guardian. 05/18/2024 Moderate episode of recurrent major depressive disorder (ICD-10 - F33.1) Informed consent obtained: YES, we discussed the diagnosis/diagnoses , the treatment options, treatment(s) recommendations vs. no treatment. We discussed risks and benefits of treatment options, treatment recommendations vs. no treatment. Currently at low risk for self harm. Denies ongoing feelings of hopelessness. Denies ongoing suicidal ideation, intent or plan in session. Pharmacological management: Alternative medication plans were discussed with the patient and or guardian. All relevant and serious adverse effects were discussed. Standard precautions and potential benefits were discussed. Patient/Guardian consented to begin medication/ continue treatment plan. questions answered satisfactorily, agreeable to treatment plan Cont current treatment Tolerating meds well, compliant Call for problems Follow up 3 months Patient/Guardian will call sooner if symptoms worsen. Patient understands to go to the ER if needed if symptoms become severe. Crisis intervention plan was discussed and agreed upon. Patient/Guardian will call 911 in case of emergency. Emergency contact information was provided to the patient/guardian. 06/15/2024 Major depressive disorder, recurrent episode, moderate (ICD-10 - F33.1) Patient will continue current treatment plan. Patient verbally acknowledges understanding instructions including medication education and has no further questions comments or concerns at this time. . Follow in 3 Month . Recommended treatment for Bipolar disorder includes FDA approved and OFF label medications: second generation antipsychotics and mood stabilizers. Discussed life threatening side effect of Lamotrigine. Pt is to monitor for new skin rashes or sensation of a sunburn or itchiness or redness, mouth sores or sores in mucus membranes, and call provider immediately and or go to ER, and stop the medication. Second generation antipsychotic medications can cause headache, drowsiness, agitation, dizziness, nausea, or extrapyramidal symptoms such as tremors, muscle spasms, slowness of movement or jerking of muscles. . Stable . The patient verbalizes understanding with all questions answered thoroughly and is in agreement with treatment plan. . Continue current treatment. Call for problems . GOALS: . Maintain medication regimen . _Improve mood stability . _Improve anxiety control . _Improve social and interpersonal functioning . Patient/Guardian will call sooner if symptoms worsen. Patient understands to go to ER if needed if symptoms become severe. . Crisis Intervention plan was discussed and agreed upon. Patient/Guardian will call 911 in case of emergency. Emergency contact information was provided to the patient/guardian. . Pharmacological management: . Alternative medication plans were discussed with the patient/guardian. All relevant side effects and potential adverse effects were discussed with the patient/guardian. Standard cautions and potential benefits were discussed. Patient/Guardian consented to the start/continuation of the treatment. 07/24/2024 Major depressive disorder, recurrent episode, moderate (ICD-10 - F33.1) Patient will trial Vraylar 1.5 for the next month. Samples provided. Follow up in 30 days to discuss and evaluate. . Informed consent obtained: YES, we discussed the diagnosis/diagnoses , the treatment options, treatment(s) recommendations vs. no treatment. We discussed risks and benefits of treatment options, treatment recommendations vs. no treatment. Currently at low risk for self harm. Denies ongoing feelings of hopelessness. Denies ongoing suicidal ideation, intent or plan in session. Pharmacological management: Alternative medication plans were discussed with the patient and or guardian. All relevant and serious adverse effects were discussed. Standard precautions and potential benefits were discussed. Patient/Guardian consented to begin medication/ continue treatment plan. questions answered satisfactorily, agreeable to treatment plan Cont current treatment Tolerating meds well, compliant Call for problems Follow up 3 months Patient/Guardian will call sooner if symptoms worsen. Patient understands to go to the ER if needed if symptoms become severe. Crisis intervention plan was discussed and agreed upon. Patient/Guardian will call 911 in case of emergency. Emergency contact information was provided to the patient/guardian. 08/22/2024 Major depressive disorder, recurrent episode, moderate (ICD-10 - F33.1) Informed consent obtained: YES, we discussed the diagnosis/diagnoses , the treatment options, treatment(s) recommendations vs. no treatment. We discussed risks and benefits of treatment options, treatment recommendations vs. no treatment. Currently at low risk for self harm. Denies ongoing feelings of hopelessness. Denies ongoing suicidal ideation, intent or plan in session. Pharmacological management: Alternative medication plans were discussed with the patient and or guardian. All relevant and serious adverse effects were discussed. Standard precautions and potential benefits were discussed. Patient/Guardian consented to begin medication/ continue treatment plan. questions answered satisfactorily, agreeable to treatment plan Cont current treatment Tolerating meds well, compliant Call for problems Follow up 3 months Patient/Guardian will call sooner if symptoms worsen. Patient understands to go to the ER if needed if symptoms become severe. Crisis intervention plan was discussed and agreed upon. Patient/Guardian will call 911 in case of emergency. Emergency contact information was provided to the patient/guardian. 08/22/2024 Moderate episode of recurrent major depressive disorder (ICD-10 - F33.1) Informed consent obtained: YES, we discussed the diagnosis/diagnoses , the treatment options, treatment(s) recommendations vs. no treatment. We discussed risks and benefits of treatment options, treatment recommendations vs. no treatment. Currently at low risk for self harm. Denies ongoing feelings of hopelessness. Denies ongoing suicidal ideation, intent or plan in session. Pharmacological management: Alternative medication plans were discussed with the patient and or guardian. All relevant and serious adverse effects were discussed. Standard precautions and potential benefits were discussed. Patient/Guardian consented to begin medication/ continue treatment plan. questions answered satisfactorily, agreeable to treatment plan Cont current treatment Tolerating meds well, compliant Call for problems Follow up 3 months Patient/Guardian will call sooner if symptoms worsen. Patient understands to go to the ER if needed if symptoms become severe. Crisis intervention plan was discussed and agreed upon. Patient/Guardian will call 911 in case of emergency. Emergency contact information was provided to the patient/guardian. 09/18/2024 Major depressive disorder, recurrent episode, moderate (ICD-10 - F33.1) Patient will discontinue citalopram and start auvelity. Follow up in 1 month to discuss and evaluate. Informed consent obtained: YES, we discussed the diagnosis/diagnoses , the treatment options, treatment(s) recommendations vs. no treatment. We discussed risks and benefits of treatment options, treatment recommendations vs. no treatment. Currently at low risk for self harm. Denies ongoing feelings of hopelessness. Denies ongoing suicidal ideation, intent or plan in session. Pharmacological management: Alternative medication plans were discussed with the patient and or guardian. All relevant and serious adverse effects were discussed. Standard precautions and potential benefits were discussed. Patient/Guardian consented to begin medication/ continue treatment plan. questions answered satisfactorily, agreeable to treatment plan Cont current treatment Tolerating meds well, compliant Call for problems Follow up 3 months Patient/Guardian will call sooner if symptoms worsen. Patient understands to go to the ER if needed if symptoms become severe. Crisis intervention plan was discussed and agreed upon. Patient/Guardian will call 911 in case of emergency. Emergency contact information was provided to the patient/guardian. 09/18/2024 Moderate episode of recurrent major depressive disorder (ICD-10 - F33.1) 10/16/2024 Major depressive disorder, recurrent episode, moderate (ICD-10 - F33.1) 10/16/2024 Moderate episode of recurrent major depressive disorder (ICD-10 - F33.1) Informed consent obtained: YES, we discussed the diagnosis/diagnoses , the treatment options, treatment(s) recommendations vs. no treatment. We discussed risks and benefits of treatment options, treatment recommendations vs. no treatment. Currently at low risk for self harm. Denies ongoing feelings of hopelessness. Denies ongoing suicidal ideation, intent or plan in session. Pharmacological management: Alternative medication plans were discussed with the patient and or guardian. All relevant and serious adverse effects were discussed. Standard precautions and potential benefits were discussed. Patient/Guardian consented to begin medication/ continue treatment plan. questions answered satisfactorily, agreeable to treatment plan Cont current treatment Tolerating meds well, compliant Call for problems Follow up 3 months Patient/Guardian will call sooner if symptoms worsen. Patient understands to go to the ER if needed if symptoms become severe. Crisis intervention plan was discussed and agreed upon. Patient/Guardian will call 911 in case of emergency. Emergency contact information was provided to the patient/guardian. 11/14/2024 Moderate episode of recurrent major depressive disorder (ICD-10 - F33.1) 12/04/2024 Major depressive disorder, recurrent episode, moderate (ICD-10 - F33.1) 12/06/2024 Major depressive disorder, recurrent episode, moderate (ICD-10 - F33.1) 04/26/2024 Major depressive disorder, recurrent episode, moderate (ICD-10 - F33.1) Plan Of Treatment No Information Insurance Providers Payer Name Payer Address Payer Phone Subscriber Number Group Number Insured Name Patient Relationship to Insured Coverage Start Date Coverage End Date [employer] Primary [address] [place] [address] [id number] RONNI CUEVAS Spouse - patient is the spouse of the insured 3 Medical (General) History Medical History History ICD Code depression anxiety bi polar Surgical History Surgery Date(Month/Year) D&C ablasion Hospitalization History Reason Date(Month/Year) see surgical
--- OUTSIDE RECORDS SUMMARY | 2025-01-25 11:06 | XMS_ITS | CCD ---
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 Name Role Phone PHYSICIAN, DEFAULT Unavailable Unavailable [...] Unavailable Unavailable MARY, GEOVANNA P Unavailable Unavailable ME Unavailable Unavailable TEX TREJO Unavailable Unavailable ME Unavailable Unavailable BELLE, KANCHAN Unavailable Unavailable NILL, [...] Unavailable Rohrbacher, Gayle Primary Care Unavailable Rolando Huagn Admitting Unavailable Rolando Huang Attending Unavailable Rohrbacher, Gayle Primary Care Unavailable Rohrbacher, Gayle Primary Care Unavailable Alon Hu Admitting Unavailable Alon Hu Attending Unavailable Rohrbacher, Gayle Primary Care Unavailable Alon Hu Admitting Unavailable Alon Hu Attending Unavailable Rolando Huang Admitting Unavailable Rolando Huang Attending Unavailable Gayle Alanis Primary Care Unavailable JAYDEN, DR CARVER Admitting Unavailable JAYDEN, DR CARVER Attending Unavailable REQUEST, NONE LISTED Primary Care Unavaila ble JAYDEN, DR CARVER Consulting Unavailable Jessica Iqbal Unavailable NO FAMILY, PHYSICIAN Primary Care Provider Unava ilable DO [place] Attending Provider [phone] Emerald Mcguire Unavailable SAMSON Yadav Emergency Provider MD Jessica Iqbal Primary Care Provider [phone] SAMSON Alanis Primary Care Provider MD Odessa Hess Attending Provider [phone] DALTON CARPENTER Attending Unavailable ODESSA HESS Attending Unavailable ODESSA HESS Attending Unavailable DALTON CARPENTER Attending Unavailable SAMSON Alanisfer Primary Care Provider SAMSON Kaye Emergency Provider Unavailable Primary Care Provider Unavailchip Alanis APRN Gayle Primary Care Provider Rosy Kaye APRN Emergency Provider Laurie Galindo MD Emergency Provider Tex Hidalgo MD Attending Provider Gayle Alanis APRN Primary Care Provider Tex Hidalgo MD Emergency Provider Tex Hidalgo Jr Admitting Unavailable Tex Hidalgo Jr Attending Unavailable Gayle Alanis Primary Care Unavailable Laurie Galindo Admitting Unavailable Laurie Galindo Attending Unavailable Gayle Alanis Primary Care Unavailable Rosy Kaye Admitting Unavailable Rosy Kaye Attending Unavailable Gayle Alanis Primary Care Unavailable Odessa Hess Admitting Unavailable Odessa Hess Attending Unavailable Gayle Alanis Primary Care Unavailable Tex Hidalgo Jr Admitting Unavailable Tex Hidalgo Jr Attending Unavailable Gayle Alanis Primary Care Unavailable Noa Yadav Admitting Unavailable Noa Yadav Attending Unavailable Jessica Iqbal Primary Care Unavailable Allergies Allergy Classification Reported Allergen(s) Allergy Type Date of Onset Reaction(s) Facility Cephalosporins (antibiotic) (1 source) Cephalexin Drug Allergy 4 Unknown Reaction [facility] house dust allergenic extract (1 source) house dust allergenic extract Drug Allergy 4 Unknown Reaction [facility] Iodine (and Iodine containting drugs) (1 source) Iodine Drug Allergy 4 shock [facility] Penicillins (antibiotic) (1 source) Penicillin Drug Allergy 4 Unknown Reaction [facility] Shellfish (1 source) Shellfish Food Allergy 4 Unknown Reaction [facility] strawberry allergenic extract (1 source) strawberry allergenic extract Drug Allergy 4 Unknown Reaction [facility] (20 sources) cephalexin; Translations: [KEFLEX] Drug Allergy 0 [facility], Unknown [facility] Repository (20 sources) iodine; Translations: [IODINE] Drug Allergy 8 Unknown [facility] Repository (3 sources) penicillin; Translations: [PENICILLIN] Drug Allergy 8 AOF [facility] Repository (1 source) No Known Allergies; Translations: [No Known Allergies] Propensity to adverse reactions (disorder) [facility] Repository (18 sources) cephalexin; Translations: [CEPHALEXIN] Drug Allergy 4 [facility] Repository (1 source) Contrast media; Translations: [CONTRAST DYE] Propensity to adverse reactions to drug (disorder) 4 [facility] Repository (20 sources) penicillin; Translations: [PENICILLIN G] Drug Allergy 4 [facility] Repository (20 sources) Fish Propensity to adverse reactions Throat swells, hard time breathing Hybrigenics Other (20 sources) House dust mite Propensity to adverse reactions Unknown [facility] Other (20 sources) Shellfish Propensity to adverse reactions Unknown [facility] Other (20 sources) [place]; Translations: [Strawberries] Propensity to adverse reactions Unknown [facility] Repository (1 source) Adhesive Tape; Translations: [Tape] Propensity to adverse reactions (disorder) [facility] Repository (3 sources) Amoxicillin; Translations: [amoxicillin] Drug Allergy 4 [facility] Repository (1 source) Seafood; Translations: [Seafood] Propensity to adverse reactions to food (disorder) [facility] Repository (20 sources) Adhesive agent; Translations: [Adhesive] Drug allergy 9 rash [facility] Repository (1 source) Iodine (And Iodine Containting Drugs) Drug allergy (disorder) [facility] Repository (1 source) Penicillins Drug allergy (disorder) 1 [facility] Repository (1 source) suture Drug allergy (disorder) 1 [facility] Repository (10 sources) house dust allergenic extract; Translations: [house dust] Drug Allergy 4 Unknown Reaction [facility] (4 sources) Shellfish; Translations: [shellfish derived] Allergy to substance 4 Unknown Reaction [facility] (4 sources) strawberry allergenic extract; Translations: [strawberry] Drug Allergy 4 Unknown Reaction [facility] (5 sources) Fish Containing Products; Translations: [Fish Containing Products] Allergy to substance 4 Throat swells, hard time breathing [facility] (3 sources) Other Allergy to substance 4 [facility] Healthcare (3 sources) Wound Dressing Adhesive Drug Allergy 4 [facility] Healthcare (2 sources) House dust mite Allergy to substance 4 [facility] Healthcare (2 sources) Shellfish Allergy to substance 4 [facility] Healthcare (2 sources) [place] Allergy to substance 4 [facility] (2 sources) Iodinated Contrast Media Drug Allergy 4 Anaphylaxis [facility] Medications Current Medications Medication Drug Class(es) Dates Sig (Normalized) Sig (Original) ALPRAZolam 0.25 mg oral tablet (3 sources) Benzodiazepine Start: 06-09-2024 Alprazolam 0.25 mg tablet Active 0.25 MG PO as needed June 09, 2024 1:00am cariprazine 1.5 mg oral capsule (1 source) Atypical Antipsychotic Start: 09-25-2024 take 1 capsule by mouth once daily at bedtime Cariprazine (Vraylar) 1.5 mg capsule Active 1.5 MG PO Daily at bedtime September 25, 2024 12:00am citalopram 40 mg oral tablet (20 sources) Serotonin Reuptake Inhibitor Start: 10-05-2023 End: 04-28-2024 take 1 tablet by mouth once daily Citalopram 40 mg tablet Active 40 MG PO Daily April 28, 2024 12:57pm Citalopram [place] bromide 40 MG TAKE 1 TABLET BY MOUTH ONCE DAILY FOR 90 DAYS Oral for 90 Days Active Continuous Glucose Sensor (FreeStyle Hiwot 2 Sensor) misc (2 sources) Start: 01-30-2024 Continuous Glucose Sensor (FreeStyle Hiwot 2 Sensor) misc REPLACE SENSOR EVERY 14 DAYS 01/30/2024 Active Dextromethorphan-B upropion (Auvelity) 45-105 mg tablet, IR and ER, biphasic (1 source) Start: 09-25-2024 take 1 tablet by mouth once daily at bedtime Dextromethorphan- Bupropion (Auvelity) 45-105 mg tablet, IR and ER, biphasic Active 1 TAB PO Daily at bedtime September 25, 2024 12:00am doxycycline monohydrate 100 mg oral tablet (3 sources) Tetracycline-class Drug Start: 03-27-2021 take 1 tablet by mouth every twelve hours Doxycycline Monohydrate 100 MG 1 tablet Orally every 12 hrs for 10 day(s) Feb, Active [id number] 0.3 ml EPINEPHrine 1 mg/ml auto-injector (20 sources) alpha-Adrenergic Agonist, beta-Adrenergic Agonist, Catecholamine Start: 10-05-2023 EPINEPHrine (Epipen) 0.3 MG/0.3ML injection syringe Once 10/05/2023 Active Start: 10-05-2023 Epinephrine 0. 3 mg/0.3 mL auto-injector Active 0.3 MG SUBCUT Once as needed for anaphylaxis October 05, 2023 12:00am EpiPen 2-Elpidio 0.3 [...] Glucose Sensor (Freestyle Hiwot 2 Sensor) kit (18 sources) Start: Flash Glucose Sensor (Freestyle Hiwot 2 Sensor) kit Active 0 .Route January 06, 2024 7:25am Replace sensor every 14 days Start: 01-06-2024 Flash Glucose Sensor (Freestyle Hiwot 2 Sensor) kit Active 0 .Route 3 January 06, 2024 8:25am Replace sensor every 14 days Start: 10-05-2023 End: 01-06-2024 Flash Glucose Sensor (Freest yle Hiwot 2 Sensor) kit Discontinued 0 .Route 3 October 04, 2023 11:00pm January 06, 2024 7:27am Replace sensor every 14 days Start: 10-05-2023 End: 01-06-2024 Flash Glucose Sensor (Freest yle Hiwot 2 Sensor) kit Discontinued 0 .Route 3 October 05, 2023 12:00am January 06, 2024 [...] Active hydrOXYzine hydrochloride 25 mg oral tablet (20 sources) Antihistamine Start: 10-05-2023 End: 04-28-2024 take 3 tablets by mouth once daily at bedtime as needed Hydroxyzine Hcl 25 mg tablet Active 75 MG PO Daily at bedtime as needed for itching April 28, 2024 12:57pm Start: 10-05-2023 take 75 mg by mouth once daily at bedtime Hydroxyzine Hcl Active 75 MG PO Daily at bedtime October 05, 2023 12:00am take 3 tablets by mo uth every twenty-four hours hydrOXYzine HCl 25 MG 3 tablet at bedtime as needed Orally Once a day Active take 1 tablet by nury th every twenty-four hours hydrOXYzine HCl 25 MG 1 tablet at bedtime as needed Orally Once a day Active ibuprofen 600 mg oral tablet (7 sources) Nonsteroidal Anti-inflammatory Drug Start: 06-01-2024 take 4 tablets by mouth every twenty-four hours for pain Ibuprofen 600 mg tablet Active 600 MG PO Every 6 hours as needed for Pain June 01, 2024 1:00am do not exceed 4 doses in a 24 hour period Start: 09-06-2023 ibuprofen 800 MG tablet TAKE 1 TABLET BY MOUTH EVERY 6-8 HOURS NEEDED FOR PAIN 09/06/2023 Active methylPREDNISolone 4 mg oral tablet (4 sources) Corticosteroid Start: 02-04-2021 methylPREDNISolone 4 MG as directed Orally daily for 6 days Jan, Active OLANZapine 5 mg oral tablet (3 sources) Atypical Antipsychotic Start: 06-09-2024 take 1 tablet by mouth once daily Olanzapine 5 mg tablet Active 5 MG PO Daily June 09, 2024 1:00am ondansetron 4 mg disintegrating oral tablet (7 sources) Serotonin-3 Receptor Antagonist Start: 03-28-2024 take 1 tablet by mouth every eight hours as needed for nausea and vomiting Ondansetron 4 mg tablet,disintegrating Active 4 MG PO Q8H as needed for nausea and vomiting 29 03March 28, 2024 12:00am Potassimin (4 sources) Potassimin Activ e promethazine hydrochloride 25 mg rectal suppository (6 sources) Phenothiazine Start: 03-30-2024 Promethazine 25 mg suppository Active 25 MG ME EVERY 4-6 HOURS as needed for nausea and vomiting March 30, 2024 12:00am Start: 03-30-2024 Promethazine A ctive 25 MG ME EVERY 4-6 HOURS March 30, 2024 12:00am 0.25 mg, 0.5 mg dose 1.5 ml semaglutide 1.34 mg/ml pen injector (2 sources) Start: 11-01-2023 semaglutide (O zempic, 0.25 or 0.5 MG/DOSE,) 2 MG/1.5ML solution pen-injector 11/01/2023 Active Semaglutide (3 sources) Start: 06-09-2024 inject 1 mg by subcutaneous injection every week Semaglutide 1 mg/dose (4 mg/3 mL) pen injector Active 1 MG SUBCUT every week 3.75 June 09, 2024 10:23am Start: 06-09-2024 inject 1 mg by subcu taneous injection every week Semaglutide 1 mg/dose (4 mg/3 mL) pen injector Active 1 MG SUBCUT every week 3.75 June 09, 2024 9:23am Semaglutide,0.25 or 0.5MG/DOS, 2 MG/3ML solution pen-injector (3 sources) Start: 11-01-2023 Semaglutide,0.25 or 0.5MG/DOS, 2 MG/3ML solution pen-injector every week 11/01/2023 Active venlafaxine 37.5 mg oral tablet (3 sources) Serotonin and Norepinephrine Reuptake Inhibitor Start: 05-21-2022 take 1 tablet by mouth every twenty-fou r hours Venlafaxine HCl 37.5 MG 1 tablet with food Orally Once a day for 30 day(s) Apr, Active Completed/Discontinued Medications Medication Drug Class(es) Dates Sig (Normalized) Sig (Original) ketorolac tromethamine 10 mg oral tablet (12 sources) Nonsteroidal Anti-inflammatory Drug, Cyclooxygenase Inhibitor Start: 11-17-2023 End: 03-28-2024 take 1 tablet by mouth every six hours Ketorolac 10 mg tablet Discontinued 10 MG PO Every 6 hours November 17, 2023 12:00am March 28, 2024 10:00am maximum total duration of 5 days from all oral, intranasal, or parenteral formulations metFORMIN hydrochloride 500 mg oral tablet (12 sources) Biguanide Start: 10-05-2023 End: 11-01-2023 take 1 tablet by mouth twice daily at mealtime Metformin 500 mg tablet Discontinued 500 MG PO Twice daily with meals 180 90 October 05, 2023 12:00am November 01, 2023 10:05am take 1 tablet by nury th at mealtime, then take 1 tablet by mouth every twenty-four hours metFORMIN, MOD, (Glumetza) 500 MG 24 hr tablet Take 500 mg by mouth in the morning. Take with meals. Active QUEtiapine 50 mg oral tablet (20 sources) Atypical Antipsychotic Start: 10-05-2023 End: 09-25-2024 take 1 tablet by mouth once daily at bedtime Quetiapine 50 mg tablet Discontinued 50 MG PO Daily at bedtime April 28, 2024 12:56pm September 25, 2024 8:36am Start: 08-28-2020 take 1 tablet by nury th every twenty-four hours QUEtiapine Fumarate 25 MG 1 tablet at bedtime Orally Once a day for 90 day(s) Jul, Active QUEtiapine Fumar ate 50 MG TAKE 1 TABLET BY MOUTH ONCE DAILY AT BEDTIME FOR 90 DAYS Oral for 90 days Active Semaglutide (20 sources) Start: 01-06-2024 End: 06-09-2024 Semaglutide (Ozempic) 0.25 m g or 0.5 mg (2 mg/3 mL) pen injector Discontinued 0.5 MG SUBCUT every week 3.68 January 06, 2024 8:25am June 09, 2024 10:25am Start: 01-06-2024 End: 06-09-2024 Semaglutide (Ozempic) 0.25 m g or 0.5 mg (2 mg/3 mL) pen injector Discontinued 0.5 MG SUBCUT every week 3.68 January 06, 2024 7:25am June 09, 2024 9:25am Start: 01-06-2024 Semaglutide (O zempic) 0.25 mg or 0.5 mg (2 mg/3 mL) pen injector Active 0.5 MG SUBCUT every week 3.68 January 06, 2024 7:25am Start: 01-06-2024 Semaglutide (O zempic) 0.25 mg or 0.5 mg (2 mg/3 mL) pen injector Active 0.5 MG SUBCUT every week 3.68 January 06, 2024 8:25am Start: 12-21-2023 End: 01-06-2024 Semaglutide (Ozempic) 0.25 m g or 0.5 mg (2 mg/3 mL) pen injector Discontinued 0.5 MG SUBCUT every week 3.68 December 21, 2023 12:49pm January 06, 2024 7:27am Start: 12-21-2023 End: 01-06-2024 Semaglutide (Ozempic) 0.25 m g or 0.5 mg (2 mg/3 mL) pen injector Discontinued 0.5 MG SUBCUT every week 3.68 December 21, 2023 1:49pm January 06, 2024 8:27am Start: 11-29-2023 End: 12-21-2023 Semaglutide (Ozempic) 0.25 m g or 0.5 mg (2 mg/3 mL) pen injector Discontinued 0 .ROUTE .COMPLEX November 29, 2023 12:32pm December 21, 2023 12:50pm INJECT 0.25 MG SUBCUTANEOUSLY ONCE A WEEK FOR 4 WEEKS Start: 11-29-2023 End: 12-21-2023 Semaglutide (Ozempic) 0.25 m g or 0.5 mg (2 mg/3 mL) pen injector Discontinued 0 .ROUTE .COMPLEX November 29, 2023 1:32pm December 21, 2023 1:50pm INJECT 0.25 MG SUBCUTANEOUSLY ONCE A WEEK FOR 4 WEEKS Start: 11-29-2023 Semaglutide (O zempic) 0.25 mg or 0.5 mg (2 mg/3 mL) pen injector Active 0 .ROUTE .COMPLEX 3 November 29, 2023 1:32pm INJECT 0.25 MG SUBCUTANEOUSLY ONCE A WEEK FOR 4 WEEKS Start: 11-01-2023 End: 11-29-2023 Semaglutide (Ozempic) 0.25 m g or 0.5 mg (2 mg/3 mL) pen injector Discontinued 0.25 MG SUBCUT every week 1.84 October 31, 2023 11:00pm November 29, 2023 12:32pm for 4 weeks Start: 11-01-2023 End: 11-29-2023 Semaglutide (Ozempic) 0.25 [...] November 01, 2023 12:00am for 4 weeks Problems Active Problems Problem Classification Problem Date Documented Date Episodic/Chronic Allergic reactions (20 sources) Allergy status to penicillin; Translations: [Allergy to shellfish] Onset: 10-29-2017 Resolved: 10-23-2021 Episodic Anxiety disorders (20 sources) Anxiety; Translations: [Anxiety disorder, unspecified] Chronic Asthma (20 sources) Asthmatic bronchitis; Translations: [Unspecified asthma, uncomplicated] Chronic Cardiac dysrhythmias (13 sources) Palpitations; Translations: [Tachycardia] Onset: 09-21-2024 Episodic Conditions associated with dizziness or vertigo (1 source) Dizziness and giddiness Episodic Diabetes mellitus without complication (20 sources) Type 2 diabetes mellitus without complications; [...] Female infertility; Translations: [Female infertility, unspecified] Chronic Headache; including migraine (6 sources) Headache; Translations: [Headache] 03-30-2024 Episodic Immunizations and screening for infectious disease (1 [...] of other specified sites] Onset: 09-15-2017 Episodic Noninfectious gastroenteritis (12 sources) Gastroenteritis; Translations: [Noninfective gastroenteritis and colitis, unspecified] 03-28-2024 Episodic Other and unspecified benign neoplasm (4 sources) Other benign neoplasm of skin of right upper limb, including shoulder; Translations: [OTH BENIGN NEOPLASM SKIN/ RIGHT UPPER LIMB, INC SHOULDER] Onset: 10-29-2017 Episodic Other endocrine disorders (11 sources) Hypoglycemia; Translations: [Hypoglycemia, unspecified] Chronic Other endocrine disorders (3 sources) Hypoglycemia, unspecified Chronic Other liver diseases (2 sources) Fatty (change of) liver, not elsewhere classified; Translations: [Fatty liver disease, nonalcoholic] Chronic Other liver diseases (1 source) Abnormal levels of other serum enzymes Episodic Other screening for suspected conditions (not [...] sleep behavior; Translations: [Sleep disorder, unspecified] Episodic Residual codes; unclassified (3 sources) Family history of cardiac disorder; Translations: [Family history of ischemic heart disease and other diseases of the circulatory system] 06-09-2024 Episodic Residual codes; unclassified (2 sources) Family history of ischemic heart disease and other diseases of the circulatory system; Translations: [Family history of other cardiovascular diseases] 06-09-2024 Episodic Sprains and strains (10 sources) Strain of knee; Translations: [Strain of unspecified muscle(s) and tendon(s) at lower leg level, right leg, initial encounter] 11-17-2023 Episodic Unclassified (2 sources) Unknown / UNK(Unknown) Onset: 09-15-2017 Unclassified (1 source) [facility] (current) use of oral hypoglycemic drugs; Translations: [SKILLED NURSING (CURRENT) USE OF ORAL HYPOGLYCEMIC DRUGS] Onset: 10-29-2017 Unclassified (1 source) Supraventricular tachycardia, unspecified; Translations: [Supraventricular tachycardia, unspecified] Onset: 06-04-2024 Unclassified (1 source) Low back pain, unspecified; Translations: [Low back pain, unspecified] Onset: 03-30-2024 Viral infection (6 sources) Viral disease; Translations: [Viral infection, unspecified] 03-30-2024 Episodic Past or Other Problems Problem Classification Problem Date Documented Da te Episodic/Chronic Abdominal pain (2 sources) Pain in female pelvis; Translations: [Pelvic and perineal pain] 02-08-2024 Episodic Nausea and vomiting (1 source) Nausea with vomiting, unspecified; Translations: [Nausea with vomiting, unspecified] Onset: 03-30-2024 Episodic Nonspecific chest pain (8 sources) Atypical chest pain; Translations: [Other chest pain] Onset: 06-01-2024 06-01-2024 Episodic Other female genital disorders (2 sources) Ovarian pain; Translations: [Other specified conditions associated with female genital organs and menstrual cycle] 02-08-2024 Episodic Other gastrointestinal disorders (1 source) Diarrhea, unspecified; Translations: [Diarrhea, unspecified] Onset: 03-30-2024 Episodic Other injuries and conditions due to external causes (1 source) Allergy, unspecified, subsequent encounter Onset: 10-23-2021 Resolved: 10-23-2021 Episodic Other injuries and conditions due to external causes (1 source) Angioneurotic edema, initial encounter; Translations: [Angioneurotic edema, initial encounter] Onset: 12-08-2023 Episodic Other non-traumatic joint disorders (1 source) Pain in right knee; Translations: [Pain in right knee] Onset: 11-17-2023 Episodic Residual codes; unclassified (1 source) Sleep disorder, unspecified Onset: 10-01-2021 Resolved: 10-01-2021 Episodic Unclassified (2 sources) Exposure to COVID-19 virus Z20.822; Translations: [Exposure to COVID-19 virus Z20.822] Onset: 03-24-2021 Resolved: 03-24-2021 Unclassified (1 source) Acute cough R05.1 Viral infection (1 source) COVID-19 Results Test Name Value Interpretation Reference Range Facility Alanine aminotransferase [En zymatic activity/volume] in Serum or PlasmaOrdered By: Tex Hidalgo on 09-21-2024 ALT [Catalytic activity/Vol] Alanine aminotransferase [Enzymatic activity/volume] in Serum or Plasma 7-52 [facility] Albumin [Mass/volume] in Ser um or Plasma by Bromocresol green (BCG) dye binding methoOrdered By: Tex Hidalgo on 09-21-2024 Albumin BCG dye [Mass/Vol] Albumin [Mass/volume] in Serum or Plasma by Bromocresol green (BCG) dye binding metho 3.5-5.7 [facility] Alkaline phosphatase [Enzyma tic activity/volume] in Serum or PlasmaOrdered By: Tex Hidalgo on 09-21-2024 ALP [Catalytic activity/Vol] Alkaline phosphatase [Enzymatic activity/volume] in Serum or Plasma High 34-104 [facility] Aspartate aminotransferase [ Enzymatic activity/volume] in Serum or PlasmaOrdered By: Tex Hidalgo on 09-21-2024 AST [Catalytic activity/Vol] Aspartate aminotransferase [Enzymatic activity/volume] in Serum or Plasma 13-39 [facility] B-Type Natriuretic Peptideon 09-21-2024 Natriuretic peptide B (Bld) [Mass/Vol] 4.0 pg/mL Low 5-100 [facility] Comment on above: Result Comment: PERF ORMED BY: [facility] [address] [place] [address] PATHOLOGIST [employer] DEMON[employer]ATOR DHIRAJ ARIAS M.D. Performed By: #### S HELLFISH #### [facility] , Basophils Auto (Bld) [#/Vol] Ordered By: Tex Hidalgo on 09-21-2024 Basophils (Bld) [#/Vol] Automated basophil count 0.0-0.2 [facility] Basophils/100 WBC Auto (Bld) Ordered By: Tex Hidalgo on 09-21-2024 Basophils/100 WBC (Bld) Automated basophil % . [facility] Bilirubin.total [Mass/volume ] in Serum or PlasmaOrdered By: Tex Hidalgo on 09-21-2024 Bilirubin [Mass/Vol] Bilirubin.total [Mass/volume] in Serum or Plasma 0.3-1.0 [facility] Calcium [Mass/volume] in Ser um or PlasmaOrdered By: Tex Hidalgo on 09-21-2024 Calcium [Mass/Vol] Calcium [Mass/volume ] in Serum or Plasma 8.6-10.3 [facility] Carbon dioxide, total [Moles /volume] in Serum or PlasmaOrdered By: Tex Hidalgo on 09-21-2024 CO2 [Moles/Vol] Carbon dioxide, tota l [Moles/volume] in Serum or Plasma 21.0-31.0 [facility] Chloride [Moles/volume] in S madelin or PlasmaOrdered By: Tex Hidalgo on 09-21-2024 Chloride [Moles/Vol] Chloride [Moles/vol ume] in Serum or Plasma 98-107 [facility] Complete Blood Count Auto Di ffon 09-21-2024 Basophils (Bld) [#/Vol] 0.1 10*3/uL Normal 0.0-0.2 [facility] Comment on above: Result Comment: PERF ORMED BY: [facility] [address] [place] [address] PATHOLOGIST [employer] DHIRAJ ARIAS M.D. Performed By: #### S HELLFISH #### [facility] , Basophils/100 WBC (Bld) 0.8 % Normal . [facility] Comment on above: Performed By: #### S HELLFISH #### [facility] , Eosinophils (Bld) [#/Vol] 0.1 10*3/uL Normal 0.0-0.45 [facility] Comment on above: Performed By: #### S HELLFISH #### [facility] , Eosinophils/100 WBC (Bld) 0.7 % Normal . [facility] Comment on above: Performed By: #### S HELLFISH #### [facility] , Erythrocyte distribution width (RBC) [Ratio] 13.0 % Normal 11.9-15.3 [facility] [facility] Comment on above: Performed By: #### S HELLFISH #### [facility] , Hematocrit (Bld) [Volume fraction] 41.7 % Normal 34.0-46.4 [facility] Comment on above: Performed By: #### S HELLFISH #### [facility] , Hemoglobin (Bld) [Mass/Vol] 14.0 g/dL Normal 11.8-15.4 [facility] Comment on above: Performed By: #### S HELLFISH #### [facility] , Lymphocytes (Bld) [#/Vol] 5.5 10*3/uL High 1.00-4.8 [facility] Comment on above: Performed By: #### S HELLFISH #### [facility] , Lymphocytes/100 WBC (Bld) 34.3 % Normal . [facility] Comment on above: Performed By: #### S HELLFISH #### [facility] , MCH (RBC) [Entitic mass] 28.3 pg Normal 24.7-34.3 [facility] Comment on above: Performed By: #### S HELLFISH #### [facility] , MCV (RBC) [Entitic vol] 84.4 fL Normal 80-100 [facility] Comment on above: Performed By: #### S HELLFISH #### [facility] , Mean Corpuscular HGB Conc 33.6 g/dL Normal 32.0-35.0 [facility] Comment on above: Performed By: #### S HELLFISH #### [facility] , Monocytes (Bld) [#/Vol] 1.0 10*3/uL High 0.0-0.8 [facility] Comment on above: Performed By: #### S HELLFISH #### [facility] , Monocytes/100 WBC (Bld) 18.46 % Normal 0.00-20.00 [facility] Comment on above: Performed By: #### S HELLFISH #### [facility] , Monocytes/100 WBC (Bld) 6.1 % Normal . [facility] Comment on above: Performed By: #### S HELLFISH #### [facility] , Neutrophils (Bld) [#/Vol] 9.4 10*3/uL High 1.8-7.7 [facility] Comment on above: Performed By: #### S HELLFISH #### [facility] , Neutrophils/100 WBC (Bld) 58.1 % Normal . [facility] Comment on above: Performed By: #### S HELLFISH #### [facility] , NRBC% 0.0 /100{WBC} Normal 0-0.5 [facility] Comment on above: Performed By: #### S HELLFISH #### [facility] , Platelet mean volume (Bld) [Entitic vol] 7.3 fL Normal 6.3-10.7 [facility] Comment on above: Performed By: #### S HELLFISH #### [facility] , Platelets (Bld) [#/Vol] 519 10*3/uL High 150-450 [facility] Comment on above: Performed By: #### S HELLFISH #### [facility] , RBC (Bld) [#/Vol] 4.94 10*6/uL Normal 3.60-5.00 [facility] Comment on above: Performed By: #### S HELLFISH #### [facility] , WBC (Bld) [#/Vol] 16.1 10*3/uL High 3.8-11.6 [facility] Comment on above: Performed By: #### S HELLFISH #### [facility] , Comprehensive Metabolic Pane ariane 09-21-2024 Albumin [Mass/Vol] 4.6 g/dL Normal 3.5-5.7 [facility] Comment on above: Performed By: #### S HELLFISH #### [facility] , Albumin/Globulin [Mass ratio] 1.2 {ratio} Normal [facility] Comment on above: Performed By: #### S HELLFISH #### [facility] , ALP [Catalytic activity/Vol] 107 U/L High 34-104 [facility] Comment on above: Performed By: #### S HELLFISH #### [facility] , ALT [Catalytic activity/Vol] 31 U/L Normal 7-52 [facility] Comment on above: Performed By: #### S HELLFISH #### [facility] , Anion gap [Moles/Vol] 13.5 mmol/L Normal 6.0-15.0 [facility] Comment on above: Performed By: #### S HELLFISH #### [facility] , AST [Catalytic activity/Vol] 18 U/L Normal 13-39 [facility] Comment on above: Performed By: #### S HELLFISH #### [facility] , Bilirubin [Mass/Vol] 0.3 mg/dL Normal 0.3-1.0 [facility] Comment on above: Performed By: #### S HELLFISH #### [facility] , Calcium [Mass/Vol] 9.8 mg/dL Normal 8.6-10.3 [facility] Comment on above: Performed By: #### S HELLFISH #### [facility] , Chloride [Moles/Vol] 101 mmol/L Normal 98-107 [facility] Comment on above: Performed By: #### S HELLFISH #### [facility] , CO2 [Moles/Vol] 25.3 mmol/L Normal 21.0-31.0 [facility] Comment on above: Performed By: #### S HELLFISH #### [facility] , Creatinine [Mass/Vol] 0.73 mg/dL Normal 0.60-1.20 [facility] Comment on above: Performed By: #### S HELLFISH #### [facility] , Creatinine Clr Calc Pharmacy 100.92 Normal [facility] Comment on above: Performed By: #### S HELLFISH #### [facility] , GFR/1.73 sq M.predicted MDRD (S/P/Bld) [Vol rate/Area] mL/min/{1.73_m2} Normal [facility] Comment on above: Performed By: #### S HELLFISH #### [facility] , Globulin (S) [Mass/Vol] 3.8 g/dL Normal [facility] Comment on above: Performed By: #### S HELLFISH #### [facility] , Glucose [Mass/Vol] 101 mg/dL High 70-100 [facility] Comment on above: Result Comment: [place] Glucose Reference Range is dependent on time and content of last meal. Glucose of more than 200 mg/dL in a nonstressed, ambulatory subject supports the diagnosis of Diabetes Mellitus. ADA recommended reference range Performed By: #### S HELLFISH #### [facility] , Potassium [Moles/Vol] 3.8 mmol/L Normal 3.5-5.1 [facility] Comment on above: Performed By: #### S HELLFISH #### [facility] , Protein [Mass/Vol] 8.4 g/dL Normal 6.4-8.9 [facility] Comment on above: Performed By: #### S HELLFISH #### [facility] , Sodium [Moles/Vol] 136 mmol/L Normal 136-145 [facility] Comment on above: Performed By: #### S HELLFISH #### [facility] , Urea nitrogen [Mass/Vol] 16 mg/dL Normal 12-22 [facility] Comment on above: Performed By: #### S HELLFISH #### [facility] , Creatine Kinaseon 09-21-2024 CK [Catalytic activity/Vol] 43 U/L Normal [facility] Comment on above: Performed By: #### S HELLFISH #### [facility] , Creatine kinase [Enzymatic a ctivity/volume] in Serum or PlasmaOrdered By: Tex Hidalgo on 09-21-2024 CK [Catalytic activity/Vol] Creatine kinase [Enzymatic activity/volume] in Serum or Plasma [facility] Creatinine [Mass/volume] in Serum or PlasmaOrdered By: Tex Hidalgo on 09-21-2024 Creatinine [Mass/Vol] Creatinine [Mass/v olume] in Serum or Plasma 0.60-1.20 [facility] ECG 12 lead ECGon 09-21-2024 ECG 12 lead ECG [place] [address] Electrocardiograph Report Signed Patient: Kathy Lema MR#: [id number] : 1990 Acct:[id number] Age/Sex: 34 / F ADM Date: 09/21/24 Loc: ER Room: Type: [facility] ER Attending Dr: Ordering Provider: Tex Hidalgo Jr, MD Date of Service: 09/21/24 ECG/ECG 12 lead ECG: CHEST PAIN Copies to: Test Reason : Blood Pressure : 120/84 mmHG Vent. Rate : 84 BPM Atrial Rate : 84 BPM P-R Int : 128 ms QRS Dur : 74 ms QT Int : 358 ms P-R-T Axes : 27 55 33 degrees QTcB Int : 423 ms Normal sinus rhythm Nonspecific T wave abnormality Abnormal ECG When compared with ECG of 01-Jun-2024 17:49, No significant change was found Confirmed by TEX HIDALGO MD ([id number]) on 09/22/2024 6:16:36 AM Referred By: Electronically Signed By: TEX HIDALGO MD Transcribed By: MUS Signed By Tex Hidalgo Jr, MD 0616 Normal [facility] Eosinophils Auto (Bld) [#/Vo l]Ordered By: Tex Hidalgo on 09-21-2024 Eosinophils (Bld) [#/Vol] Automated eosinophil count 0.0-0.45 [facility] Eosinophils/100 WBC Auto (Bl d)Ordered By: Tex Hidalgo on 09-21-2024 Eosinophils/100 WBC (Bld) Automated eosinophil % . [facility] Erythrocyte distribution wid th Auto (RBC) [Ratio]Ordered By: Tex Hidlago on 09-21-2024 Erythrocyte distribution width (RBC) [Ratio] Erythrocyte distribution width [Ratio] by Automated count 11.9-15.3 [facility] Globulin Calc (S) [Mass/Vol] Ordered By: Tex Hidalgo on 09-21-2024 Globulin (S) [Mass/Vol] Serum globulin measurement by calculation (mass/volume) [facility] Glucose [Mass/volume] in Ser um or PlasmaOrdered By: Tex Hidalgo on 09-21-2024 Glucose [Mass/Vol] Glucose [Mass/volume ] in Serum or Plasma High 70-100 [facility] Comment on above: ADA recommended refe rence rangeRandom Glucose Reference Range is dependent on time and content of last meal. Glucose of more than 200 mg/dL in a nonstressed, ambulatory subject supports the diagnosis of Diabetes Mellitus. Hematocrit Auto (Bld) [Volum e fraction]Ordered By: Tex Hidalgo on 09-21-2024 Hematocrit (Bld) [Volume fraction] Hematocrit [Volume Fraction] of Blood by Automated count 34.0-46.4 [facility] Hemoglobin [Mass/volume] in BloodOrdered By: Tex Hidalgo 09-21-2024 Hemoglobin (Bld) [Mass/Vol] Hemoglobin [Mass/volume] in Blood 11.8-15.4 [facility] INR in Platelet poor plasma by Coagulation assayOrdered By: Tex Hidalgo 09-21-2024 INR Coag (PPP) [Relative time] INR in Platelet poor plasma by Coagulation assay [facility] Comment on above: INR Therapeutic Rang e A) Pre- and Peroperative OAT started two weeks before surgery. NOT HIP SURGERY: 1.5 - 2.5 HIP SURGERY: 2 - 3B) Primary and secondary prevention of venous THROMBOSIS: 2 - 3C) Active venous thrombosis, pulmonary embolismand prevention of recurrent venous thrombosis: 2 - 3D) Prevention of arterial thromboembolismincluding patients with mechanical heart valves: 3 - 4.5 Leukocytes [#/volume] correc nata for nucleated erythrocytes in Blood by Automated counOrdered By: Tex Hidalgo on 09-21-2024 WBC corrected for nucl RBC Auto (Bld) [#/Vol] Leukocytes [#/volume] corrected for nucleated erythrocytes in Blood by Automated coun High 3.8-11.6 [facility] Lymphocytes Auto (Bld) [#/Vo l]Ordered By: Tex Hidalgo on 09-21-2024 Lymphocytes (Bld) [#/Vol] Lymphocytes [#/volume] in Blood by Automated count High 1.00-4.8 [facility] Lymphocytes/100 WBC Auto (Bl d)Ordered By: Tex Hidalgo on 09-21-2024 Lymphocytes/100 WBC (Bld) Lymphocytes/100 leukocytes in Blood by Automated count . [facility] MCH Auto (RBC) [Entitic mass ]Ordered By: Tex Hidalgo on 09-21-2024 MCH (RBC) [Entitic mass] MCH [Entitic mass] by Automated count 24.7-34.3 [facility] MCHC Auto (RBC) [Mass/Vol]Or dered By: Tex Hidalgo on 09-21-2024 MCHC (RBC) [Mass/Vol] MCHC [Mass/volume] by Automated count 32.0-35.0 [facility] MCV Auto (RBC) [Entitic vol] Ordered By: Tex Hidalgo on 09-21-2024 MCV (RBC) [Entitic vol] MCV [Entitic volume] by Automated count 80-100 [facility] Magnesiumon 09-21-2024 Magnesium [Mass/Vol] 2.0 mg/dL Normal 1.9-2.7 [facility] Comment on above: Result Comment: PERF ORMED BY: [facility] [address] [place] [address] PATHOLOGIST [employer] DHIRAJ ARIAS M.D. Performed By: #### S HELLFISH #### [facility] , Magnesium [Mass/volume] in S madelin or PlasmaOrdered By: Tex Hidalgo on 09-21-2024 Magnesium [Mass/Vol] Magnesium [Mass/vol ume] in Serum or Plasma 1.9-2.7 [facility] Monocyte distribution width [Entitic volume] in Blood by AutomatedOrdered By: Tex Hidalgo on 09-21-2024 Monocyte distribution width Auto (Bld) [Entitic vol] Monocyte distribution width [Entitic volume] in Blood by Automated 0.00-20.00 [facility] Monocytes Auto (Bld) [#/Vol] Ordered By: Tex Hidalgo on 09-21-2024 Monocytes (Bld) [#/Vol] Automated blood monocyte count High 0.0-0.8 [facility] Monocytes/100 WBC Auto (Bld) Ordered By: Tex Hidalgo on 09-21-2024 Monocytes/100 WBC (Bld) Automated monocyte % . [facility] Natriuretic peptide B [Mass/ Vol]Ordered By: Tex Hidalgo on 09-21-2024 Natriuretic peptide B (Bld) [Mass/Vol] BNP ser/plas Low 5-100 [facility] Neutrophils Auto (Bld) [#/Vo l]Ordered By: Tex Hidalgo on 09-21-2024 Neutrophils (Bld) [#/Vol] Neutrophils [#/volume] in Blood by Automated count High 1.8-7.7 [facility] Neutrophils/100 WBC Auto (Bl d)Ordered By: Tex Hidalgo on 09-21-2024 Neutrophils/100 WBC (Bld) Automated neutrophil % . [facility] No Panel InformationOrdered By: Tex Hidalgo on 09-21-2024 Estimated GFR (CKD-EPI) > 60.0 mL/Min [facility] Pharmacy Creatinine Clearance (Chem 100.92 [facility] Nucleated erythrocytes [Pres ence] in Blood by Automated countOrdered By: Tex Hidalgo on 09-21-2024 Nucleated RBC Auto Ql (Bld) Nucleated erythrocytes [Presence] in Blood by Automated count 0-0.5 [facility] Platelet mean volume Auto (B ld) [Entitic vol]Ordered By: Tex Hidalgo on 09-21-2024 Platelet mean volume (Bld) [Entitic vol] Platelet mean volume [Entitic volume] in Blood by Automated count 6.3-10.7 [facility] Platelets Auto (Bld) [#/Vol] Ordered By: Tex Hidalgo on 09-21-2024 Platelets (Bld) [#/Vol] Platelets [#/volume] in Blood by Automated count High 150-450 [facility] Potassium [Moles/volume] in Serum or PlasmaOrdered By: Tex Hidalgo on 09-21-2024 Potassium [Moles/Vol] Potassium [Moles/v olume] in Serum or Plasma 3.5-5.1 [facility] Protein [Mass/volume] in Ser um or PlasmaOrdered By: Tex Hidalgo on 09-21-2024 Protein [Mass/Vol] Protein [Mass/volume ] in Serum or Plasma 6.4-8.9 [facility] Prothrombin Time INRon 09-21 INR Coag (PPP) [Relative time] 1.0 {INR} Normal [facility] Comment on above: Result Comment: INR Therapeutic Range A) Pre- and Peroperative OAT started two weeks before surgery. NOT HIP SURGERY: 1.5 - 2.5 HIP SURGERY: 2 - 3 B) Primary and secondary prevention of venous THROMBOSIS: 2 - 3 C) Active venous thrombosis, pulmonary embolism and prevention of recurrent venous thrombosis: 2 - 3 D) Prevention of arterial thromboembolism including patients with mechanical heart valves: 3 - 4.5 PERFORMED BY: [address] [place] [address] PATHOLOGIST [employer] DHIRAJ ARIAS M.D. Performed By: #### S HELLFISH #### [facility] , PT Coag (PPP) [Time] 11.8 s Normal 9.0-12.9 [facility] Comment on above: Result Comment: A he matocrit value greater than 55% may lead to inaccurate results in coagulation testing. Patients having hematocrit values >55% require a special collection tube for coagulation studies. Please contact the laboratory at [phone] for redraw instructions. Performed By: #### S HELLFISH #### [facility] , Prothrombin time (PT)Ordered By: Tex Hidalgo on 09-21-2024 PT Coag (PPP) [Time] Prothrombin time (PT) 9.0- 12.9 [facility] Comment on above: A hematocrit value g reater than 55% may lead to inaccurate results in coagulation testing. Patients having hematocrit values >55% require a special collection tube for coagulation studies. Please contact the laboratory at [phone] for redraw instructions. RBC Auto (Bld) [#/Vol]Ordere d By: Tex Hidalgo on 09-21-2024 RBC (Bld) [#/Vol] Erythrocytes [#/volu me] in Blood by Automated count 3.60-5.00 [facility] Serum or plasma albumin/glob ulin mass ratioOrdered By: Tex Hidalgo on 09-21-2024 Albumin/Globulin [Mass ratio] Serum or plasma albumin/globulin mass ratio [facility] Serum or plasma anion gap de terminationOrdered By: Tex Hidalgo on 09-21-2024 Anion gap [Moles/Vol] Serum or plasma an ion gap determination 6.0-15.0 [facility] Sodium [Moles/volume] in Ser um or PlasmaOrdered By: Tex Hidalgo on 09-21-2024 Sodium [Moles/Vol] Sodium [Moles/volume ] in Serum or Plasma 136-145 [facility] Troponin I High Sensitivityo n 09-21-2024 Troponin I High Sensitivity <3 Normal 0-15 [facility] Comment on above: Result Comment: The Troponin units of report have been changed to meet the Chest Pain Accreditation requirement, element EC5.M1l2. Troponin units are changed from pg/ml to ng/L. Also, the decimal is removed and results are in whole numbers. PERFORMED BY: [place] [address] PATHOLOGIST [employer] DHIRAJ ARIAS M.D. Performed By: #### H S TROP #### [address] Troponin I High Sensitivity <3 Normal 0-15 [facility] Comment on above: Result Comment: The Troponin units of report have been changed to meet the Chest Pain Accreditation requirement, element EC5.M1l2. Troponin units are changed from pg/ml to ng/L. Also, the decimal is removed and results are in whole numbers. PERFORMED BY: [place] [address] PATH[employer]IST [employer] DHIRAJ ARIAS M.D. Performed By: #### S HELAyazFISH #### [facility] , Troponin I.cardiac [Mass/vol ume] in Serum or Plasma by Detection limit <= 0.01 ng/Ordered By: Tex Hidalgo on 09-21-2024 Troponin I.cardiac DL <= 0.01 ng/mL [Mass/Vol] Troponin I.cardiac [Mass/volume] in Serum or Plasma by Detection limit <= 0.01 ng/ 0-15 [facility] Comment on above: The Troponin units o f report have been changed to meet the Chest Pain Accreditation requirement, element EC5.M1l2. Troponin units are changed from pg/ml to ng/L. Also, the decimal is removed and results are in whole numbers. Urea nitrogen [Mass/volume] in Serum or PlasmaOrdered By: Tex Hidalgo on 09-21-2024 Urea nitrogen [Mass/Vol] Urea nitrogen [Mass/volume] in Serum or Plasma 12-22 [facility] WBC Auto (Bld) [#/Vol]Ordere d By: Tex Hidalgo on 09-21-2024 WBC (Bld) [#/Vol] Leukocytes [#/volume ] in Blood by Automated count High 3.8-11.6 [facility] X-ray reportOrdered By: Ihsan Xiao on 09-21-2024 Study report [place] [address] XRay Report Signed Patient: Kathy Lema MR#: [id number] : 1990 Acct:[id number] Age/Sex: 34 / F ADM Date: Loc: ER Room: Type: [facility] ER Attending Dr: Copies to: Tex Hidalgo Jr, MD~ Ordering Provider: Tex Hidalgo Jr, MD Date of Service: 09/21/24 XR/XR chest 1V portable: CHEST PAIN SINGLE VIEW CHEST CLINICAL HISTORY: Left arm numbness high heart rate COMPARISON: Chest 06/01/2024 FINDINGS: Heart normal size. Lungs are clear. No free air. XR/XR chest 1V portable IMPRESSION: NO ACUTE FINDINGS Impression dictated by: Bhavin Xiao Jr., D.O.09/21/2024 8:22 AM Dictation Location: RADIO-PC-22 Transcribed By: BEATRIZ 09/21/24821 Dictated By: Bhavin Xiao Jr, DO 09/21/24820 Signed By: 09/21/24821 [facility] XR chest 1V portableon 09-21 XR chest 1V portable [facility] Main [place] [id number] XRay Report Signed Patient: Kathy Lema MR#: [id number] : 1990 Acct:[id number] Age/Sex: 34 / F ADM Date: 09/21/24 Loc: ER Room: Type: [facility] ER Attending Dr: Copies to: Tex Hidalgo Jr, MD Ordering Provider: Tex Hidalgo Jr, MD Date of Service: 09/21/24 XR/XR chest 1V portable: CHEST PAIN SINGLE VIEW CHEST CLINICAL HISTORY: Left arm numbness high heart rate COMPARISON: Chest 06/01/2024 FINDINGS: Heart normal size. Lungs are clear. No free air. XR/XR chest 1V portable IMPRESSION: NO ACUTE FINDINGS Impression dictated by: Bhavin Xiao Jr., D.O.09/21/2024 8:22 AM Dictation Location: RADIO-PC-22 Transcribed By: BEATRIZ 09/21/24821 Dictated By: Bhavin Xiao Jr, DO 09/21/24820 Signed By: 09/21/24821 Normal [facility] CA holter monitor recordingo n 06-07-2024 CA holter monitor recording [facility] Main [address] [address] Holter Monitor Report Signed Patient: Kathy Lema MR#: [id number] : 1990 Acct:[id number] Age/Sex: 34 / F ADM Date: 06/04/24 Loc: EL Room: Type: [facility] CLI Attending Dr: Tex Hidalgo Jr, MD Copies to: MD Tex Richardson Jr, MD Ordering Provider: Tex Hidalgo Jr, MD Date of Service: 06/04/24 CA/CA holter monitor recording: SVT REFERRING PHYSICIAN: Tex Hidalgo MD REASON FOR THE STUDY: Palpitation. PROCEDURE: The patient underwent a 48-hour Holter monitor. Baseline rhythm is sinus with average heart rate of 89 beats per minute, ranging from 61-140 beats per minute. There was no ventricular or supraventricular arrhythmia. There was no bradycardic episode. The patient reported symptoms of palpitation, shortness of breath, arm pain on several occasions, the rhythm during which was mild sinus tachycardia. CONCLUSION: 1. Normal sinus rhythm. 2. No significant tachyarrhythmia or bradyarrhythmia. 3. Variety of symptoms including shortness of breath, chest pain, palpitation did not appear to correlate with any specific rhythm disturbance and occurred during mild sinus tachycardia. Transcribed By: FARHANA 06/08/24 1518 Dictated By: Suzanne Paz MD 06/07/24 1546 Signed By: 06/09/24 1231 Normal [facility] Alanine aminotransferase [En zymatic activity/volume] in Serum or PlasmaOrdered By: Laurie Galindo on 06-01-2024 ALT [Catalytic activity/Vol] Alanine aminotransferase [Enzymatic activity/volume] in Serum or Plasma High 7-52 [facility] Albumin [Mass/volume] in Ser um or Plasma by Bromocresol green (BCG) dye binding methoOrdered By: Laurie Galindo on 06-01-2024 Albumin BCG dye [Mass/Vol] Albumin [Mass/volume] in Serum or Plasma by Bromocresol green (BCG) dye binding metho 3.5-5.7 [facility] Alkaline phosphatase [Enzyma tic activity/volume] in Serum or PlasmaOrdered By: Laurie Galindo on 06-01-2024 ALP [Catalytic activity/Vol] Alkaline phosphatase [Enzymatic activity/volume] in Serum or Plasma High 34-104 [facility] Aspartate aminotransferase [ Enzymatic activity/volume] in Serum or PlasmaOrdered By: Laurie Galindo on 06-01-2024 AST [Catalytic activity/Vol] Aspartate aminotransferase [Enzymatic activity/volume] in Serum or Plasma High 13-39 [facility] B-Type Natriuretic Peptideon 06-01-2024 Natriuretic peptide B (Bld) [Mass/Vol] 22.0 pg/mL Normal 5-100 [facility] Comment on above: Result Comment: PERF ORMED BY: [facility] [address] [place] [address] PATHOLOGIST [employer] DHIRAJ ARIAS M.D. Performed By: #### Leroy ABAD #### [facility] , Basophils Auto (Bld) [#/Vol] Ordered By: Laurie Galindo on 06-01-2024 Basophils (Bld) [#/Vol] Automated basophil count 0.0-0.2 [facility] Basophils/100 WBC Auto (Bld) Ordered By: Laurie Galindo on 06-01-2024 Basophils/100 WBC (Bld) Automated basophil % . [facility] Bilirubin.total [Mass/volume ] in Serum or PlasmaOrdered By: Laurie Galindo on 06-01-2024 Bilirubin [Mass/Vol] Bilirubin.total [Mass/volume] in Serum or Plasma 0.3-1.0 [facility] Calcium [Mass/volume] in Ser um or PlasmaOrdered By: Laurie Galindo on 06-01-2024 Calcium [Mass/Vol] Calcium [Mass/volume ] in Serum or Plasma Low 8.6-10.3 [facility] Carbon dioxide, total [Moles /volume] in Serum or PlasmaOrdered By: Laurie Galindo on 06-01-2024 CO2 [Moles/Vol] Carbon dioxide, tota l [Moles/volume] in Serum or Plasma 21.0-31.0 [facility] Chloride [Moles/volume] in S madelin or PlasmaOrdered By: Laurie Galindo on 06-01-2024 Chloride [Moles/Vol] Chloride [Moles/vol ume] in Serum or Plasma 98-107 [facility] Complete Blood Count Auto Di ffon 06-01-2024 Basophils (Bld) [#/Vol] 0.1 10*3/uL Normal 0.0-0.2 [facility] Comment on above: Result Comment: PERF ORMED BY: [facility] [address] [place] [address] PATHOLOGIST [employer] DHIRAJ ARIAS M.D. Performed By: #### Leroy ABAD #### [facility] , Basophils/100 WBC (Bld) 1.1 % Normal . [facility] Comment on above: Performed By: #### Leroy ABAD #### [facility] , Eosinophils (Bld) [#/Vol] 0.3 10*3/uL Normal 0.0-0.45 [facility] Comment on above: Performed By: #### Leroy ABAD #### [facility] , Eosinophils/100 WBC (Bld) 2.8 % Normal . [facility] Comment on above: Performed By: #### Leroy ABAD #### [facility] , Erythrocyte distribution width (RBC) [Ratio] 13.4 % Normal 11.9-15.3 [facility] Comment on above: Performed By: #### Leroy ABAD #### [facility] , Hematocrit (Bld) [Volume fraction] 34.2 % Normal 34.0-46.4 [facility] Comment on above: Performed By: #### Leroy ABAD #### [facility] , Hemoglobin (Bld) [Mass/Vol] 11.6 g/dL Low 11.8-15.4 [facility] Comment on above: Performed By: #### Leroy ABAD #### [facility] , Lymphocytes (Bld) [#/Vol] 3.7 10*3/uL Normal 1.00-4.8 [facility] Comment on above: Performed By: #### Leroy ABAD #### [facility] , Lymphocytes/100 WBC (Bld) 36.4 % Normal . [facility] Comment on above: Performed By: #### Leroy ABAD #### [facility] , MCH (RBC) [Entitic mass] 28.5 pg Normal 24.7-34.3 [facility] Comment on above: Performed By: #### Leroy ABAD #### [facility] , MCV (RBC) [Entitic vol] 84.2 fL Normal 80-100 [facility] Comment on above: Performed By: #### Leroy ABAD #### [facility] , Mean Corpuscular HGB Conc 33.8 g/dL Normal 32.0-35.0 [facility] Comment on above: Performed By: #### Leroy ABAD #### [facility] , Monocytes (Bld) [#/Vol] 0.7 10*3/uL Normal 0.0-0.8 [facility] Comment on above: Performed By: #### Leroy ABAD #### [facility] , Monocytes/100 WBC (Bld) 19.46 % Normal 0.00-20.00 [facility] Comment on above: Performed By: #### Lreoy ABAD #### [facility] , Monocytes/100 WBC (Bld) 7.3 % Normal . [facility] Comment on above: Performed By: #### Leroy ABAD #### [facility] , Neutrophils (Bld) [#/Vol] 5.3 10*3/uL Normal 1.8-7.7 [facility] Comment on above: Performed By: #### Leroy ABAD #### [facility] , Neutrophils/100 WBC (Bld) 52.4 % Normal . [facility] Comment on above: Performed By: #### Leroy ABAD #### [facility] , NRBC% 0.1 /100{WBC} Normal 0-0.5 [facility] Comment on above: Performed By: #### Leroy ABAD #### [facility] , Platelet mean volume (Bld) [Entitic vol] 7.5 fL Normal 6.3-10.7 [facility] Comment on above: Performed By: #### D PTERONY, D FARINAE #### [facility] , Platelets (Bld) [#/Vol] 448 10*3/uL Normal 150-450 [facility] Comment on above: Performed By: #### D PTERONY, D FARINAE #### [facility] , RBC (Bld) [#/Vol] 4.07 10*6/uL Normal 3.60-5.00 [facility] Comment on above: Performed By: #### D PTERONY, D FARINAE #### [facility] , WBC (Bld) [#/Vol] 10.1 10*3/uL Normal 3.8-11.6 [facility] Comment on above: Performed By: #### Leroy PTERONY, D FARINAE #### [facility] , Comprehensive Metabolic Pane ariane 06-01-2024 Albumin [Mass/Vol] 3.7 g/dL Normal 3.5-5.7 [facility] Comment on above: Performed By: #### D PTERONY, D FARINAE #### [facility] , Albumin/Globulin [Mass ratio] 1.1 {ratio} Normal [facility] Comment on above: Performed By: #### D PTERONY, D FARINAE #### [facility] , ALP [Catalytic activity/Vol] 115 U/L High 34-104 [facility] Comment on above: Performed By: #### D PTERONY, D FARINAE #### [facility] , ALT [Catalytic activity/Vol] 80 U/L High 7-52 [facility] Comment on above: Performed By: #### D PTERONY, D FARINAE #### [facility] , Anion gap [Moles/Vol] 10.9 mmol/L Normal 6.0-15.0 [facility] Comment on above: Performed By: #### D PTERONY, D FARINAE #### [facility] , AST [Catalytic activity/Vol] 44 U/L High 13-39 [facility] Comment on above: Performed By: #### Leroy ABAD #### [facility] , Bilirubin [Mass/Vol] 0.3 mg/dL Normal 0.3-1.0 [facility] Comment on above: Performed By: #### Leroy ABAD #### [facility] , Calcium [Mass/Vol] 8.2 mg/dL Low 8.6-10.3 [facility] Comment on above: Performed By: #### Leroy ABAD #### [facility] , Chloride [Moles/Vol] 105 mmol/L Normal 98-107 [facility] Comment on above: Performed By: #### Leroy ABAD #### [facility] , CO2 [Moles/Vol] 25.7 mmol/L Normal 21.0-31.0 [facility] Comment on above: Performed By: #### Leroy ABAD #### [facility] , Creatinine [Mass/Vol] 0.71 mg/dL Normal 0.60-1.20 [facility] Comment on above: Performed By: #### Leroy ABAD #### [facility] , Creatinine Clr Calc Pharmacy 105.57 Normal [facility] Comment on above: Result Comment: PERF ORMED BY: [facility] [place] [address] PATHOLOGIST [employer] DHIRAJ ARIAS M.D. Performed By: #### Leroy ABAD #### [facility] , GFR/1.73 sq M.predicted MDRD (S/P/Bld) [Vol rate/Area] mL/min/{1.73_m2} Normal [facility] Comment on above: Performed By: #### Leroy ABAD #### [facility] , Globulin (S) [Mass/Vol] 3.3 g/dL Normal [facility] Comment on above: Performed By: #### Leroy ABAD #### [facility] , Glucose [Mass/Vol] 106 mg/dL High 70-100 [facility] Comment on above: Result Comment: [place] Glucose Reference Range is dependent on time and content of last meal. Glucose of more than 200 mg/dL in a nonstressed, ambulatory subject supports the diagnosis of Diabetes Mellitus. ADA recommended reference range Performed By: #### Leroy ABAD #### [facility] , Potassium [Moles/Vol] 3.6 mmol/L Normal 3.5-5.1 [facility] Comment on above: Performed By: #### Leroy ABAD #### [facility] , Protein [Mass/Vol] 7.0 g/dL Normal 6.4-8.9 [facility] Comment on above: Performed By: #### Leroy ABAD #### [facility] , Sodium [Moles/Vol] 138 mmol/L Normal 136-145 [facility] Comment on above: Performed By: #### Leroy ABAD #### [facility] , Urea nitrogen [Mass/Vol] 12 mg/dL Normal 7-25 [facility] Comment on above: Performed By: #### Leroy ABAD #### [facility] , Creatine Kinaseon 06-01-2024 CK [Catalytic activity/Vol] 102 U/L Normal 30-223 [facility] Comment on above: Performed By: #### Leroy ABAD #### [facility] , Creatine kinase [Enzymatic a ctivity/volume] in Serum or PlasmaOrdered By: Laurie Galindo on 06-01-2024 CK [Catalytic activity/Vol] Creatine kinase [Enzymatic activity/volume] in Serum or Plasma 30-223 [facility] Creatinine [Mass/volume] in Serum or PlasmaOrdered By: Laurie Galindo on 06-01-2024 Creatinine [Mass/Vol] Creatinine [Mass/v olume] in Serum or Plasma 0.60-1.20 [facility] D-Dimer High Sensitivityon 0 06-01-2024 D-Dimer High Sensitivity 306 ng/mL High 0-243 [facility] Comment on above: Result Comment: The reference range for D-dimer is <243 ng/mL D-dimer units. D-dimer results must be used in conjunction with a clinical pretest probability (PTP) assessment model for deep vein thrombosis (DVT) and pulmonary embolism (PE). Results <230 ng/mL d-dimer units can be used as a negative predictor in patients with low or moderate probability for DVT/PE. Results above the exclusion threshold of 230 ng/ml D-dimer units for DVT/PE may indicate the need for further diagnostic testing. D-Dimer can be increased in hospitalized patients due to co-morbid conditions. A hematocrit value greater than 55% may lead to inaccurate results in coagulation testing. Patients having hematocrit values >55% require a special collection tube for coagulation studies. Please contact the laboratory at [phone] for redraw instructions. PERFORMED BY: [place] [address] PATHOLOGIST [employer] DHIRAJ ARIAS M.D. Performed By: #### Leroy ABAD #### [facility] , ECG 12 lead ECGon 06-01-2024 ECG 12 lead ECG [place] [address] Electrocardiograph Report Signed Patient: Kathy Lema MR#: [id number] : 1990 Acct:[id number] Age/Sex: 34 / F ADM Date: 06/01/24 Loc: ER Room: Type: [facility] ER Attending Dr: Ordering Provider: Laurie Galindo MD Date of Service: 06/01/2407/25/1728 ECG/ECG 12 lead ECG: CHEST PAIN Copies to: Test Reason : Blood Pressure : 132/73 mmHG Vent. Rate : 80 BPM Atrial Rate : 80 BPM P-R Int : 126 ms QRS Dur : 74 ms QT Int : 374 ms P-R-T Axes : 42 77 51 degrees QTcB Int : 431 ms Normal sinus rhythm with sinus arrhythmia Nonspecific T wave abnormality Abnormal ECG When compared with ECG of 30-Mar-2024 12:09, No significant change was found Confirmed by LAURIE GALINDO MD ([id number]) on 06/01/2024 7:42:42 PM Referred By: Electronically Signed By: LAURIE GALINDO MD Transcribed By: MUS Signed By Laurie Galindo MD 06/01/241941 Normal [facility] Eosinophils Auto (Bld) [#/Vo l]Ordered By: Laurie Galindo on 06-01-2024 Eosinophils (Bld) [#/Vol] Automated eosinophil count 0.0-0.45 [facility] Eosinophils/100 WBC Auto (Bl d)Ordered By: Laurie Galindo on 06-01-2024 Eosinophils/100 WBC (Bld) Automated eosinophil % . [facility] Erythrocyte distribution wid th Auto (RBC) [Ratio]Ordered By: Laurie Galindo on 06-01-2024 Erythrocyte distribution width (RBC) [Ratio] Erythrocyte distribution width [Ratio] by Automated count 11.9-15.3 [facility] Fibrin D-dimer [Presence] in Platelet poor plasma by Latex agglutinationOrdered By: Laurie Galindo on 06-01-2024 Fibrin D-dimer LA Ql (PPP) Fibrin D-dimer [Presence] in Platelet poor plasma by Latex agglutination High 0-243 [facility] Comment on above: The reference range for D-dimer is <243 ng/mL D-dimer units.D-dimer results must be used in conjunction with a clinicalpretest probability (PTP) assessment model for deep veinthrombosis (DVT) and pulmonary embolism (PE). Results <230ng/mL d-dimer units can be used as a negative predictor inpatients with low or moderate probability for DVT/PE.Results above the exclusion threshold of 230 ng/ml D-dimerunits for DVT/PE may indicate the need for furtherdiagnostic testing.D-Dimer can be increased in hospitalized patients due toco-morbid conditions.A hematocrit value greater than 55% may lead to inaccurate results in coagulation testing. Patients having hematocrit values >55% require a special collection tube for coagulation studies. Please contact the laboratory at [phone] for redraw instructions. Globulin Calc (S) [Mass/Vol] Ordered By: Laurie Galindo on 06-01-2024 Globulin (S) [Mass/Vol] Serum globulin measurement by calculation (mass/volume) [facility] Glucose [Mass/volume] in Ser um or PlasmaOrdered By: Laurie Galindo on 06-01-2024 Glucose [Mass/Vol] Glucose [Mass/volume ] in Serum or Plasma High 70-100 [facility] Comment on above: ADA recommended refe rence rangeRandom Glucose Reference Range is dependent on time and content of last meal. Glucose of more than 200 mg/dL in a nonstressed, ambulatory subject supports the diagnosis of Diabetes Mellitus. Hematocrit Auto (Bld) [Volum e fraction]Ordered By: Laurie Galindo on 06-01-2024 Hematocrit (Bld) [Volume fraction] Hematocrit [Volume Fraction] of Blood by Automated count 34.0-46.4 [facility] Hemoglobin [Mass/volume] in BloodOrdered By: Laurie Galindo on 06-01-2024 Hemoglobin (Bld) [Mass/Vol] Hemoglobin [Mass/volume] in Blood Low 11.8-15.4 [facility] INR in Platelet poor plasma by Coagulation assayOrdered By: Laurie Galindo on 06-01-2024 INR Coag (PPP) [Relative time] INR in Platelet poor plasma by Coagulation assay [facility] Comment on above: INR Therapeutic Rang e A) Pre- and Peroperative OAT started two weeks before surgery. NOT HIP SURGERY: 1.5 - 2.5 HIP SURGERY: 2 - 3B) Primary and secondary prevention of venous THROMBOSIS: 2 - 3C) Active venous thrombosis, pulmonary embolismand prevention of recurrent venous thrombosis: 2 - 3D) Prevention of arterial thromboembolismincluding patients with mechanical heart valves: 3 - 4.5 Leukocytes [#/volume] correc nata for nucleated erythrocytes in Blood by Automated counOrdered By: Laurie Galindo on 06-01-2024 WBC corrected for nucl RBC Auto (Bld) [#/Vol] Leukocytes [#/volume] corrected for nucleated erythrocytes in Blood by Automated coun 3.8-11.6 [facility] Lymphocytes Auto (Bld) [#/Vo l]Ordered By: Laurie Galindo on 06-01-2024 Lymphocytes (Bld) [#/Vol] Lymphocytes [#/volume] in Blood by Automated count 1.00-4.8 [facility] Lymphocytes/100 WBC Auto (Bl d)Ordered By: Laurie Galindo on 06-01-2024 Lymphocytes/100 WBC (Bld) Lymphocytes/100 leukocytes in Blood by Automated count . [facility] MCH Auto (RBC) [Entitic mass ]Ordered By: Laurie Galindo on 06-01-2024 MCH (RBC) [Entitic mass] MCH [Entitic mass] by Automated count 24.7-34.3 [facility] MCHC Auto (RBC) [Mass/Vol]Or dered By: Laurie Galindo on 06-01-2024 MCHC (RBC) [Mass/Vol] MCHC [Mass/volume] by Automated count 32.0-35.0 [facility] MCV Auto (RBC) [Entitic vol] Ordered By: Laurie Galindo on 06-01-2024 MCV (RBC) [Entitic vol] MCV [Entitic volume] by Automated count 80-100 [facility] Monocyte distribution width [Entitic volume] in Blood by AutomatedOrdered By: Laurie Galindo on 06-01-2024 Monocyte distribution width Auto (Bld) [Entitic vol] Monocyte distribution width [Entitic volume] in Blood by Automated 0.00-20.00 [facility] Monocytes Auto (Bld) [#/Vol] Ordered By: Laurie Galindo on 06-01-2024 Monocytes (Bld) [#/Vol] Automated blood monocyte count 0.0-0.8 [facility] Monocytes/100 WBC Auto (Bld) Ordered By: Laurie Galindo on 06-01-2024 Monocytes/100 WBC (Bld) Automated monocyte % . [facility] Natriuretic peptide B [Mass/ Vol]Ordered By: Laurie Galindo on 06-01-2024 Natriuretic peptide B (Bld) [Mass/Vol] BNP ser/plas 5-100 [facility] Neutrophils Auto (Bld) [#/Vo l]Ordered By: Laurie Galindo on 06-01-2024 Neutrophils (Bld) [#/Vol] Neutrophils [#/volume] in Blood by Automated count 1.8-7.7 [facility] Neutrophils/100 WBC Auto (Bl d)Ordered By: Laurie Galindo on 06-01-2024 Neutrophils/100 WBC (Bld) Automated neutrophil % . [facility] No Panel InformationOrdered By: Laurie Galindo on 06-01-2024 Estimated GFR (CKD-EPI) > 60.0 mL/Min [facility] Pharmacy Creatinine Clearance (Chem 105.57 [facility] Nucleated erythrocytes [Pres ence] in Blood by Automated countOrdered By: Laurie Galindo on 06-01-2024 Nucleated RBC Auto Ql (Bld) Nucleated erythrocytes [Presence] in Blood by Automated count 0-0.5 [facility] Platelet mean volume Auto (B ld) [Entitic vol]Ordered By: Laurie Galindo on 06-01-2024 Platelet mean volume (Bld) [Entitic vol] Platelet mean volume [Entitic volume] in Blood by Automated count 6.3-10.7 [facility] Platelets Auto (Bld) [#/Vol] Ordered By: Laurie Galindo on 06-01-2024 Platelets (Bld) [#/Vol] Platelets [#/volume] in Blood by Automated count 150-450 [facility] Potassium [Moles/volume] in Serum or PlasmaOrdered By: Laurie Galindo on 06-01-2024 Potassium [Moles/Vol] Potassium [Moles/v olume] in Serum or Plasma 3.5-5.1 [facility] Protein [Mass/volume] in Ser um or PlasmaOrdered By: Laurie Galindo on 06-01-2024 Protein [Mass/Vol] Protein [Mass/volume ] in Serum or Plasma 6.4-8.9 [facility] Prothrombin Time INRon 06-01 INR Coag (PPP) [Relative time] 0.9 {INR} Normal [facility] Comment on above: Result Comment: INR Therapeutic Range A) Pre- and Peroperative OAT started two weeks before surgery. NOT HIP SURGERY: 1.5 - 2.5 HIP SURGERY: 2 - 3 B) Primary and secondary prevention of venous THROMBOSIS: 2 - 3 C) Active venous thrombosis, pulmonary embolism and prevention of recurrent venous thrombosis: 2 - 3 D) Prevention of arterial thromboembolism including patients with mechanical heart valves: 3 - 4.5 Performed By: #### Leroy ABAD #### [facility] , PT Coag (PPP) [Time] 10.3 s Normal 9.0-12.9 [facility] Comment on above: Result Comment: A he matocrit value greater than 55% may lead to inaccurate results in coagulation testing. Patients having hematocrit values >55% require a special collection tube for coagulation studies. Please contact the laboratory at [phone] for redraw instructions. Performed By: #### D Leroy GARIBAY #### [facility] , Prothrombin time (PT)Ordered By: Laurie Galindo on 06-01-2024 PT Coag (PPP) [Time] Prothrombin time (PT) 9.0- 12.9 [facility] Comment on above: A hematocrit value g reater than 55% may lead to inaccurate results in coagulation testing. Patients having hematocrit values >55% require a special collection tube for coagulation studies. Please contact the laboratory at [phone] for redraw instructions. RBC Auto (Bld) [#/Vol]Ordere d By: Laurie Galindo on 06-01-2024 RBC (Bld) [#/Vol] Erythrocytes [#/volu me] in Blood by Automated count 3.60-5.00 [facility] Serum or plasma albumin/glob ulin mass ratioOrdered By: Laurie Galindo on 06-01-2024 Albumin/Globulin [Mass ratio] Serum or plasma albumin/globulin mass ratio [facility] Serum or plasma anion gap de terminationOrdered By: Laurie Galindo on 06-01-2024 Anion gap [Moles/Vol] Serum or plasma an ion gap determination 6.0-15.0 [facility] Sodium [Moles/volume] in Ser um or PlasmaOrdered By: Laurie Galindo on 06-01-2024 Sodium [Moles/Vol] Sodium [Moles/volume ] in Serum or Plasma 136-145 [facility] Troponin I High Sensitivityo n 06-01-2024 Troponin I High Sensitivity 2.5 pg/mL Normal 0.0-15.0 [facility] Comment on above: Result Comment: PERF ORMED BY: [facility] [address] [place] [address] PATHOLOGIST [employer] DHIRAJ ARIAS M.D. Performed By: #### S HELLFISH #### [facility] , Troponin I High Sensitivity 2.4 pg/mL Normal 0.0-15.0 [facility] Comment on above: Result Comment: PERF ORMED BY: [place] [id number] PATHOLOGIST [employer] DHIRAJ ARIAS M.D. Performed By: #### Leroy ABAD #### [facility] , Troponin I.cardiac [Mass/vol ume] in Serum or Plasma by Detection limit <= 0.01 ng/Ordered By: Tex Hidalgo on 06-01-2024 Troponin I.cardiac DL <= 0.01 ng/mL [Mass/Vol] Troponin I.cardiac [Mass/volume] in Serum or Plasma by Detection limit <= 0.01 ng/ 0.0-15.0 [facility] Urea nitrogen [Mass/volume] in Serum or PlasmaOrdered By: Laurie Galindo on 06-01-2024 Urea nitrogen [Mass/Vol] Urea nitrogen [Mass/volume] in Serum or Plasma 12-22 [facility] WBC Auto (Bld) [#/Vol]Ordere d By: Laurie Galindo on 06-01-2024 WBC (Bld) [#/Vol] Leukocytes [#/volume ] in Blood by Automated count 3.8-11.6 [facility] X-ray reportOrdered By: Bony Levy on 06-01-2024 Study report [facility] [address] [address] XRay Report Signed Patient: Kathy Lema MR#: [id number] : 1990 Acct:[id number] Age/Sex: 34 / F ADM Date: 5 Loc: ER Room: Type: [facility] ER Attending Dr: Copies to: Laurie Galindo MD~ Ordering Provider: Laurie Galindo MD Date of Service: 06/01/24 XR/XR chest 1V portable: CHEST PAIN XR chest 1V portable 06/01/2024 5:33 PM SIGNS AND SYMPTOMS: Chest and left arm pain PROTOCOL: Frontal radiograph of the chest COMPARISON: None FINDINGS: The trachea is midline. The heart and mediastinal structures are within normal limits. The lung parenchyma is clear. The bony thorax is intact. XR/XR chest 1V portable IMPRESSION: No acute cardiopulmonary pathology. Impression dictated by: Bony Levy M.D.06/01/2024 6:04 PM Dictation Location: RADIO-PC-17 Transcribed By: BEATRIZ 06/01/241803 Dictated By: Bony Levy II, MD 06/01/241802 Signed By: 06/01/241803 [facility] Work Phone: XR chest 1V portableon 06-01 XR chest 1V portable [facility] Main [place] [address] [place] [address] XRay Report Signed Patient: Kathy Lema MR#: [id number] : 1990 Acct:[id number] Age/Sex: 34 / F ADM Date: 06/01/24 Loc: ER Room: Type: [facility] ER Attending Dr: Copies to: Laurie Galindo MD Ordering Provider: Laurie Galindo MD Date of Service: 06/01/24 XR/XR chest 1V portable: CHEST PAIN XR chest 1V portable 06/01/2024 5:33 PM SIGNS AND SYMPTOMS: Chest and left arm pain PROTOCOL: Frontal radiograph of the chest COMPARISON: None FINDINGS: The trachea is midline. The heart and mediastinal structures are within normal limits. The lung parenchyma is clear. The bony thorax is intact. XR/XR chest 1V portable IMPRESSION: No acute cardiopulmonary pathology. Impression dictated by: Bony Levy M.D.06/01/2024 6:04 PM Dictation Location: RADIO-PC-17 Transcribed By: BEATRIZ 06/01/241803 Dictated By: Bony Levy II, MD 06/01/241802 Signed By: 06/01/241803 Normal [facility] Alanine aminotransferase [En zymatic activity/volume] in Serum or PlasmaOrdered By: Rosy Kaye on 03-30-2024 ALT [Catalytic activity/Vol] 33 U/L Normal 7-52 [facility] Comment on above: Performed By: #### C BC, LIPASE, MG, CMP #### [facility] [address] [place] [address] [place] ALT [Catalytic activity/Vol] Alanine aminotransferase [Enzymatic activity/volume] in Serum or Plasma [facility] Albumin [Mass/volume] in Ser um or Plasma by Bromocresol green (BCG) dye binding methoOrdered By: Rosy Kaye on 03-30-2024 Albumin BCG dye [Mass/Vol] 4.8 g/dL 3.5-5.7 [facility] Albumin BCG dye [Mass/Vol] Albumin [Mass/volume] in Serum or Plasma by Bromocresol green (BCG) dye binding metho 3.5-5.7 [facility] Alkaline phosphatase [Enzyma tic activity/volume] in Serum or PlasmaOrdered By: Rosy Kaye on 03-30-2024 ALP [Catalytic activity/Vol] 112 U/L High [address] Comment on above: Performed By: #### C BC, LIPASE, MG, CMP #### [facility] [address] [place] [address] [place] ALP [Catalytic activity/Vol] Alkaline phosphatase [Enzymatic activity/volume] in Serum or Plasma High [address] [place] [address] Appearance of UrineOrdered B y: Rosy Kaye on 03-30-2024 Appearance (U) Urine appearance Clear [facility] Aspartate aminotransferase [ Enzymatic activity/volume] in Serum or PlasmaOrdered By: Rosy Kaye on 03-30-2024 AST [Catalytic activity/Vol] 21 U/L Normal [facility] Comment on above: Performed By: #### C BC, LIPASE, MG, CMP #### [facility] [address] [place] [address] [place] AST [Catalytic activity/Vol] Aspartate aminotransferase [Enzymatic activity/volume] in Serum or Plasma [facility] Automated basophil %Ordered By: PROVIDER TEMP on 03-30-2024 Basophils/100 WBC (Bld) 0.5 % Normal . [facility] Comment on above: Performed By: #### C BC, LIPASE, MG, CMP #### [address] [address] Automated basophil countOrde red By: PROVIDER TEMP on 03-30-2024 Basophils (Bld) [#/Vol] 0.1 10*3/uL Normal 0.0-0.2 [facility] Comment on above: Result Comment: PERF ORMED BY: [place] [address] PATHOLOGIST [employer] AMBROSIO GARCÍA M.D. Performed By: #### C BC, LIPASE, MG, CMP #### [address] Automated blood monocyte cou ntOrdered By: PROVIDER TEMP on 03-30-2024 Monocytes (Bld) [#/Vol] 0.6 10*3/uL Normal 0.0-0.8 [facility] Comment on above: Performed By: #### C BC, LIPASE, MG, CMP #### [address] Automated eosinophil %Ordere d By: PROVIDER TEMP on 03-30-2024 Eosinophils/100 WBC (Bld) 0.8 % Normal . [facility] Comment on above: Performed By: #### C BC, LIPASE, MG, CMP #### [address] Automated eosinophil countOr dered By: PROVIDER TEMP on 03-30-2024 Eosinophils (Bld) [#/Vol] 0.1 10*3/uL Normal 0.0-0.45 [facility] Comment on above: Performed By: #### C BC, LIPASE, MG, CMP #### [address] Automated monocyte %Ordered By: PROVIDER TEMP on 03-30-2024 Monocytes/100 WBC (Bld) 4.5 % Normal . [facility] Comment on above: Performed By: #### C BC, LIPASE, MG, CMP #### [address] Automated neutrophil %Ordere d By: PROVIDER TEMP on 03-30-2024 Neutrophils/100 WBC (Bld) 63.9 % Normal . [facility] Comment on above: Performed By: #### C BC, LIPASE, MG, CMP #### [facility] [address] Bacteria [Presence] in Urine by AutomatedOrdered By: Rosy Kaye on 03-30-2024 Bacteria Auto Ql (U) Rare [HPF] None Seen [facility] Bacteria Auto Ql (U) Bacteria [Presence] in Urine by Automated None Seen [facility] Basophils Auto (Bld) [#/Vol] Ordered By: PROVIDER TEMP on 03-30-2024 Basophils (Bld) [#/Vol] Automated basophil count 0.0-0.2 [facility] Basophils/100 WBC Auto (Bld) Ordered By: PROVIDER TEMP on 03-30-2024 Basophils/100 WBC (Bld) Automated basophil % . [facility] Bilirubin Test strip Ql (U)O rdered By: Rosy Kaye on 03-30-2024 Bilirubin Ql (U) Negative Negative [facility] Bilirubin Ql (U) Bilirubin.total [Pre sence] in Urine by Test strip Negative [facility] Bilirubin.total [Mass/volume ] in Serum or PlasmaOrdered By: Rosy Kaye on 03-30-2024 Bilirubin [Mass/Vol] 0.3 mg/dL Normal 0.3-1.0 [facility] Comment on above: Performed By: #### C BC, LIPASE, MG, CMP #### [facility] [address] Bilirubin [Mass/Vol] Bilirubin.total [Mass/volume] in Serum or Plasma 0.3-1.0 [facility] BioFire Not Detectedon 03-30 BioFire Not Detected Not detected Normal Not Detecte [facility] Comment on above: Result Comment: This is a duplicate RP2.1 COVID (PCR) result to be used for statistical tracking purpose only. PERFORMED BY: [facility] [address] [place] [address] PATHOLOGIST [employer] AMBROSIO GARCÍA M.D. Performed By: #### B IOFIRECOVNOTDE, RESP PANEL UPP. #### [facility] [address] [place] [id number] [facility] COVID-19 Detected/Not Detect edOrdered By: Roys Kaye on 03-30-2024 SARS-CoV-2 (COVID-19) RNA DIMAS+non-probe Ql (Nph) Not detected Not Detecte [facility] Comment on above: This is a duplicate RP2.1 COVID (PCR) result to be used for statistical tracking purpose only. CT head/brain wo conon 03-30 CT head/brain wo con [facility] [address] [place] [address] [place] [address] CT Scan Report Signed Patient: Kathy Lema MR#: [id number] : 1990 Acct:[id number] Age/Sex: 33 / F ADM Date: 03/30/24 Loc: ER Room: Type: PRE ER Attending Dr: Copies to: Rosy Kaye APRN Ordering Provider: Rosy Kaye APRN Date of Service: 03/30/24 CT/CT head/brain wo con: dizziness/ confused CT BRAIN WITHOUT CONTRAST: CLINICAL HISTORY: Dizziness confusion nausea vomiting COMPARISON: None TECHNIQUE: Contiguous axial unenhanced images were obtained through the brain. This CT exam was performed using one or more following dose reduction techniques: Automated exposure control, adjustment of the mA and/or kV according to patient size, or use of iterative reconstruction technique. FINDINGS: There is no evidence of midline shift, intra or extra-axial fluid collection, hemorrhage or CT evidence of stroke. Posterior fossa appears unremarkable. Visualized intraorbital contents demonstrate no acute findings. Visualized paranasal sinuses are clear. The surrounding soft tissues are normal. CT/CT head/brain wo con IMPRESSION: NO ACUTE INTRACRANIAL ABNORMALITY. Impression dictated by: Bhavin Xiao Jr., D.OBrea03/30/2024 2:57 PM Dictation Location: [place] [address] Transcribed By: [facility] 03/30/24 1456 Dictated By: Bhavin Xiao Jr, DO 03/30/24 1458 Signed By: 03/30/24 1451 Normal [facility] Calcium [Mass/volume] in Ser um or PlasmaOrdered By: Rosy Kaye on 03-30-2024 Calcium [Mass/Vol] 9.7 mg/dL Normal 8.6-10.3 [facility] Comment on above: Performed By: #### C BC, LIPASE, MG, CMP #### [facility] [address] Calcium [Mass/Vol] Calcium [Mass/volume ] in Serum or Plasma 8.6-10.3 [facility] Carbon dioxide, total [Moles /volume] in Serum or PlasmaOrdered By: Rosy Kaye on 03-30-2024 CO2 [Moles/Vol] 27.8 mmol/L Normal 21.0-31.0 [facility] Comment on above: Performed By: #### C BC, LIPASE, MG, CMP #### [address] CO2 [Moles/Vol] Carbon dioxide, tota l [Moles/volume] in Serum or Plasma 21.0-31.0 [facility] Chloride [Moles/volume] in S madelin or PlasmaOrdered By: Rosy Kaye on 03-30-2024 Chloride [Moles/Vol] 103 mmol/L Normal 98-107 [facility] Comment on above: Performed By: #### C BC, LIPASE, MG, CMP #### [place] [id number] [place] Chloride [Moles/Vol] Chloride [Moles/vol ume] in Serum or Plasma 98-107 [facility] Color Auto (U)Ordered By: Loren Kaye on 03-30-2024 Color (U) Color of Urine by Auto Yellow [facility] Color of Urine by AutoOrdere d By: Rosy Kaye on 03-30-2024 Color (U) Yellow Normal Yellow [facility] Comment on above: Order Comment: Name Collection Type:: Clean-Voided Midstream Performed By: #### A DDONUAPLUS #### [address] Complete Blood Count Auto Di ffon 10-31-2024 Mean Corpuscular HGB Conc 33.2 g/dL Normal 32.0-35.0 [facility] Comment on above: Performed By: #### C BC, LIPASE, MG, CMP #### [address] Monocytes/100 WBC (Bld) 16.14 % Normal 0.00-20.00 [facility] Comment on above: Performed By: #### C BC, LIPASE, MG, CMP #### [address] NRBC% 0.0 /100{WBC} Normal 0-0.5 [facility] Comment on above: Performed By: #### C BC, LIPASE, MG, CMP #### [address] Comprehensive Metabolic Pane ariane 03-30-2024 Albumin [Mass/Vol] 4.8 g/dL Normal 3.5-5.7 [facility] Comment on above: Performed By: #### C BC, LIPASE, MG, CMP #### [address] Creatinine Clr Calc Pharmacy 89.03 Normal [facility] Comment on above: Result Comment: PERF ORMED BY: [place] [address] PATHOLOGIST [employer] AMBROSIO GARCÍA M.D. Performed By: #### C BC, LIPASE, MG, CMP #### [address] GFR/1.73 sq M.predicted MDRD (S/P/Bld) [Vol rate/Area] mL/min/{1.73_m2} Normal [facility] Comment on above: Performed By: #### C BC, LIPASE, MG, CMP #### [address] Creatinine [Mass/volume] in Serum or PlasmaOrdered By: Rosy Kaye on 03-30-2024 Creatinine [Mass/Vol] 0.83 mg/dL Normal 0.60-1.20 [facility] Comment on above: Performed By: #### C BC, LIPASE, MG, CMP #### [facility] [address] Creatinine [Mass/Vol] Creatinine [Mass/v olume] in Serum or Plasma 0.60-1.20 [facility] Crystals [Presence] in Urine by AutomatedOrdered By: Rosy Kaye on 03-30-2024 Crystals Auto Ql (U) Rare [HPF] [facility] Crystals Auto Ql (U) Crystals [Presence] in Urine by Automated [facility] Dipstick and Microscopicon 1 Bacteria,Urine Rare Normal None Seen [facility] Comment on above: Order Comment: Name Collection Type:: Clean-Voided Midstream Performed By: #### A DDONUAPLUS #### [address] Bilirubin,Urine Negative Normal Negative [facility] Comment on above: Order Comment: Name Collection Type:: Clean-Voided Midstream Performed By: #### A DDONUAPLUS #### [address] Glucose Ql (U) Normal Normal Normal [facility] Comment on above: Order Comment: Name Collection Type:: Clean-Voided Midstream Performed By: #### A DDONUAPLUS #### [facility] [address] [place] [address] Hyaline Casts,Urine None Normal 0-8 [facility] Comment on above: Order Comment: Name Collection Type:: Clean-Voided Midstream Performed By: #### A DDONUAPLUS #### [facility] [address] [place] [address] [place] Mucus,Urine 4+ Critically abnormal [facility] Comment on above: Order Comment: Name Collection Type:: Clean-Voided Midstream Result Comment: PERF ORMED BY: [place] [address] PATHOLOGIST [employer] AMBROSIO GARCÍA M.D. Performed By: #### A DDONUAPLUS #### [place] [address] [place] Nitrite,Urine Negative Normal Negative [facility] Comment on above: Order Comment: Name Collection Type:: Clean-Voided Midstream Performed By: #### A DDONUAPLUS #### [address] Occult Blood,Urine Negative Normal Negative [facility] Comment on above: Order Comment: Name Collection Type:: Clean-Voided Midstream Result Comment: PERF ORMED BY: [place] [address] PATHOLOGIST [employer] AMBROSIO GARCÍA M.D. Performed By: #### A DDONUAPLUS #### [address] Othe Crystals,Urine Rare Normal [facility] Comment on above: Order Comment: Name Collection Type:: Clean-Voided Midstream Performed By: #### A DDONUAPLUS #### [address] RBC,Urine 1-2 Normal 0-4 [facility] Comment on above: Order Comment: Name Collection Type:: Clean-Voided Midstream Performed By: #### A DDONUAPLUS #### [address] Specificy [place],Urine 1.030 Normal 1.001-1.[address] [facility] Comment on above: Order Comment: Name Collection Type:: Clean-Voided Midstream Performed By: #### A DDONUAPLUS #### [place] [address] [place] Squamous Epithelial Cell,Urine 1-2 Normal 0-2 [facility] Comment on above: Order Comment: Name Collection Type:: Clean-Voided Midstream Performed By: #### A DDONUAPLUS #### [address] Urobilinogen,Urine Normal Normal Normal [facility] Comment on above: Order Comment: Name Collection Type:: Clean-Voided Midstream Performed By: #### A DDONUAPLUS #### [facility] [address] WBC CLUMP, Urine Occasional High None Seen [facility] Comment on above: Order Comment: Name Collection Type:: Clean-Voided Midstream Performed By: #### A DDONUAPLUS #### [facility] [address] WBC,Urine 3-4 Normal 0-4 [facility] Comment on above: Order Comment: Name Collection Type:: Clean-Voided Midstream Performed By: #### A DDONUAPLUS #### [facility] [address] [place] [address] ECG 12 lead ECGon 03-30-2024 ECG 12 lead ECG [facility] Main [place] [address] [place] [address] Electrocardiograph Report Signed Patient: Kathy Lema MR#: [id number] : 1990 Acct:[id number] Age/Sex: 33 / F ADM Date: 03/30/24 Loc: ER Room: Type: [facility] ER Attending Dr: Ordering Provider: Rosy Kaye APRN Date of Service: 03/30/24 ECG/ECG 12 lead ECG: Nausea/Vomiting/Diarrhea Copies to: Test Reason : Blood Pressure : 109/64 mmHG Vent. Rate : 82 BPM Atrial Rate : 82 BPM P-R Int : 134 ms QRS Dur : 72 ms QT Int : 342 ms P-R-T Axes : 47 79 47 degrees QTcB Int : 399 ms Normal sinus rhythm Low voltage QRS Borderline ECG When compared with ECG of 28-Jan-2015 15:35, No significant change was found Confirmed by DONNIE SHAFFER DO ([id number]) on 03/30/2024 4:17:16 PM Referred By: Electronically Signed By: DONNIE SHAFFER DO Transcribed By: MUS Signed By Donnie Shaffer DO 1617 Normal [facility] Eosinophils Auto (Bld) [#/Vo l]Ordered By: PROVIDER CONRAD on 03-30-2024 Eosinophils (Bld) [#/Vol] Automated eosinophil count 0.0-0.45 [facility] Eosinophils/100 WBC Auto (Bl d)Ordered By: PROVIDER TEMP on 03-30-2024 Eosinophils/100 WBC (Bld) Automated eosinophil % . [facility] Epithelial cells.squamous [# /area] in Urine sediment by Automated countOrdered By: Rosy Kaye on 03-30-2024 Epithelial cells.squamous Auto (Urine sed) [#/Area] 1-2 [HPF] 0-2 [facility] Epithelial cells.squamous Auto (Urine sed) [#/Area] Epithelial cells.squamous [#/area] in Urine sediment by Automated count 0-2 [facility] Erythrocyte distribution wid th Auto (RBC) [Ratio]Ordered By: PROVIDER TEMP on 03-30-2024 Erythrocyte distribution width (RBC) [Ratio] Erythrocyte distribution width [Ratio] by Automated count 11.9-15.3 [facility] Erythrocyte distribution wid th [Ratio] by Automated countOrdered By: PROVIDER TEMP on 03-30-2024 Erythrocyte distribution width (RBC) [Ratio] 12.8 % Normal 11.9-15.3 [facility] Comment on above: Performed By: #### C BC, LIPASE, MG, CMP #### [facility] [address] [place] [address] Erythrocytes [#/area] in Uri ne sediment by Automated countOrdered By: Rosy Kaye on 03-30-2024 RBC Auto (Urine sed) [#/Area] 1-2 [HPF] 0-4 [facility] RBC Auto (Urine sed) [#/Area] Erythrocytes [#/area] in Urine sediment by Automated count 0-4 [facility] Erythrocytes [#/volume] in B lood by Automated countOrdered By: PROVIDER TEMP on 03-30-2024 RBC (Bld) [#/Vol] 5.02 10*6/uL High 3.60-5.00 [facility] Comment on above: Performed By: #### C BC, LIPASE, MG, CMP #### [facility] [address] [place] [address] [place] Globulin Calc (S) [Mass/Vol] Ordered By: Rosy Kaye on 03-30-2024 Globulin (S) [Mass/Vol] Serum globulin measurement by calculation (mass/volume) [facility] Glucose [Mass/volume] in Ser um or PlasmaOrdered By: Rosy Kaye on 03-30-2024 Glucose [Mass/Vol] 90 mg/dL Normal 70-100 [facility] Comment on above: ADA recommended refe rence rangeRandom Glucose Reference Range is dependent on time and content of last meal. Glucose of more than 200 mg/dL in a nonstressed, ambulatory subject supports the diagnosis of Diabetes Mellitus. Result Comment: [place] om Glucose Reference Range is dependent on time and content of last meal. Glucose of more than 200 mg/dL in a nonstressed, ambulatory subject supports the diagnosis of Diabetes Mellitus. ADA recommended reference range Performed By: #### C BC, LIPASE, MG, CMP #### [facility] [address] [place] [address] Glucose [Mass/Vol] Glucose [Mass/volume ] in Serum or Plasma 70-100 [facility] Comment on above: ADA recommended refe rence rangeRandom Glucose Reference Range is dependent on time and content of last meal. Glucose of more than 200 mg/dL in a nonstressed, ambulatory subject supports the diagnosis of Diabetes Mellitus. Glucose [Mass/volume] in Uri ne by Test stripOrdered By: Rosy Kaye on 03-30-2024 Glucose Test strip (U) [Mass/Vol] Normal mg/dL Normal [facility] Glucose Test strip (U) [Mass/Vol] Glucose [Mass/volume] in Urine by Test strip Normal [facility] Hematocrit Auto (Bld) [Volum e fraction]Ordered By: PROVIDER TEMP on 03-30-2024 Hematocrit (Bld) [Volume fraction] Hematocrit [Volume Fraction] of Blood by Automated count 34.0-46.4 [facility] Hematocrit [Volume Fraction] of Blood by Automated countOrdered By: PROVIDER TEMP on 03-30-2024 Hematocrit (Bld) [Volume fraction] 42.4 % Normal 34.0-46.4 [facility] Comment on above: Performed By: #### C BC, LIPASE, MG, CMP #### [facility] [address] Hemoglobin Test strip Ql (U) Ordered By: Rosy Kaye on 03-30-2024 Hemoglobin Ql (U) Negative Negative [facility] Hemoglobin Ql (U) Hemoglobin [Presence ] in Urine by Test strip Negative [facility] Hemoglobin [Mass/volume] in BloodOrdered By: PROVIDER TEMTanvi on 03-30-2024 Hemoglobin (Bld) [Mass/Vol] 14.1 g/dL Normal 11.8-15.4 [facility] Comment on above: Performed By: #### C BC, LIPASE, MG, CMP #### [facility] [address] Hemoglobin (Bld) [Mass/Vol] Hemoglobin [Mass/volume] in Blood 11.8-15.4 [facility] Hyaline casts [#/area] in Ur ine sediment by Automated countOrdered By: Rosy Kaye on 03-30-2024 Hyaline casts Auto (Urine sed) [#/Area] None [LPF] 0-8 [facility] Hyaline casts Auto (Urine sed) [#/Area] Hyaline casts [#/area] in Urine sediment by Automated count 0-8 [facility] Ketones Test strip Ql (U)Ord ered By: Rosy Kaye on 03-30-2024 Ketones Ql (U) Ketones [Presence] i n Urine by Test strip Negative [facility] Ketones [Presence] in Urine by Test stripOrdered By: Rosy Kaye on 03-30-2024 Ketones Ql (U) Negative Normal Negative [facility] Comment on above: Order Comment: Name Collection Type:: Clean-Voided Midstream Performed By: #### A DDONUAPLUS #### [facility] [address] Leukocyte clumps [Presence] in Urine by AutomatedOrdered By: Rosy Kaye on 03-30-2024 Leukocyte clumps Auto Ql (U) Occasional [LPF] High None Seen [facility] Leukocyte clumps Auto Ql (U) Leukocyte clumps [Presence] in Urine by Automated High None Seen [facility] Leukocyte esterase [Presence ] in Urine by Test stripOrdered By: Rosy Kaye on 10-31-2024 Leukocyte esterase Test strip Ql (U) Negative Normal Negative [facility] Comment on above: Order Comment: Name Collection Type:: Clean-Voided Midstream Performed By: #### A DDONUAPLUS #### [facility] [address] Leukocyte esterase Test strip Ql (U) Leukocyte esterase [Presence] in Urine by Test strip Negative [facility] Leukocytes [#/area] in Urine sediment by Automated countOrdered By: Rosy Kaye on 03-30-2024 WBC Auto (Urine sed) [#/Area] 3-4 [HPF] 0-4 [facility] WBC Auto (Urine sed) [#/Area] Leukocytes [#/area] in Urine sediment by Automated count 0-4 [facility] Leukocytes [#/volume] correc nata for nucleated erythrocytes in Blood by Automated counOrdered By: PROVIDER TEMP on 03-30-2024 WBC corrected for nucl RBC Auto (Bld) [#/Vol] 14.4 10*3/uL High 3.8-11.6 [facility] WBC corrected for nucl RBC Auto (Bld) [#/Vol] Leukocytes [#/volume] corrected for nucleated erythrocytes in Blood by Automated coun High 3.8-11.6 [facility] Leukocytes [#/volume] in Blo od by Automated countOrdered By: PROVIDER TEMP on 03-30-2024 WBC (Bld) [#/Vol] 14.4 10*3/uL High 3.8-11.6 [facility] Comment on above: Performed By: #### C BC, LIPASE, MG, CMP #### [facility] [address] [place] [address] Lipase [Enzymatic activity/v olume] in Serum or PlasmaOrdered By: Rosy Kaye on 03-30-2024 Lipase [Catalytic activity/Vol] 22.0 U/L Normal 11.0-82.0 [facility] Comment on above: Result Comment: PERF ORMED BY: [place] [address] PATHOLOGIST [employer] AMBROSIO GARCÍA M.D. Performed By: #### S HELLFISH #### [facility] , Lipase [Catalytic activity/Vol] Lipase [Enzymatic activity/volume] in Serum or Plasma 11.0-82.0 [facility] Lymphocytes Auto (Bld) [#/Vo l]Ordered By: PROVIDER TEMP on 03-30-2024 Lymphocytes (Bld) [#/Vol] Lymphocytes [#/volume] in Blood by Automated count 1.00-4.8 [facility] Lymphocytes [#/volume] in Bl ood by Automated countOrdered By: PROVIDER TEMP on 03-30-2024 Lymphocytes (Bld) [#/Vol] 4.4 10*3/uL Normal 1.00-4.8 [facility] Comment on above: Performed By: #### C BC, LIPASE, MG, CMP #### [facility] [address] [place] [address] Lymphocytes/100 WBC Auto (Bl d)Ordered By: PROVIDER TEMP on 03-30-2024 Lymphocytes/100 WBC (Bld) Lymphocytes/100 leukocytes in Blood by Automated count . [facility] Lymphocytes/100 leukocytes i n Blood by Automated countOrdered By: PROVIDER TEMP on 03-30-2024 Lymphocytes/100 WBC (Bld) 30.3 % Normal . [facility] Comment on above: Performed By: #### C BC, LIPASE, MG, CMP #### [facility] [address] [place] [address] MCH Auto (RBC) [Entitic mass ]Ordered By: PROVIDER TEMP on 03-30-2024 MCH (RBC) [Entitic mass] MCH [Entitic mass] by Automated count 24.7-34.3 [facility] MCH [Entitic mass] by Automa nata countOrdered By: PROVIDER TEMP on 03-30-2024 MCH (RBC) [Entitic mass] 28.1 pg Normal 24.7-34.3 [facility] Comment on above: Performed By: #### C BC, LIPASE, MG, CMP #### [facility] [address] [place] [address] MCHC Auto (RBC) [Mass/Vol]Or dered By: PROVIDER TEMP on 03-30-2024 MCHC (RBC) [Mass/Vol] 33.2 g/dL 32.0-35.0 [facility] MCHC (RBC) [Mass/Vol] MCHC [Mass/volume] by Automated count 32.0-35.0 [facility] MCV Auto (RBC) [Entitic vol] Ordered By: PROVIDER TEMP on 03-30-2024 MCV (RBC) [Entitic vol] MCV [Entitic volume] by Automated count 80-100 [facility] MCV [Entitic volume] by Auto mated countOrdered By: PROVIDER TEMP on 03-30-2024 MCV (RBC) [Entitic vol] 84.6 fL Normal 80-100 [facility] Comment on above: Performed By: #### C BC, LIPASE, MG, CMP #### [facility] [address] Magnesium [Mass/volume] in S madelin or PlasmaOrdered By: Rosy Kaye on 03-30-2024 Magnesium [Mass/Vol] 1.9 mg/dL Normal 1.9-2.7 [facility] Comment on above: Performed By: #### C BC, LIPASE, MG, CMP #### [facility] [address] [place] [address] [place] Magnesium [Mass/Vol] Magnesium [Mass/vol ume] in Serum or Plasma 1.9-2.7 [facility] Monocyte distribution width [Entitic volume] in Blood by AutomatedOrdered By: PROVIDER TEMP on 03-30-2024 Monocyte distribution width Auto (Bld) [Entitic vol] 16.14 % 0.00-20.00 [facility] Monocyte distribution width Auto (Bld) [Entitic vol] Monocyte distribution width [Entitic volume] in Blood by Automated 0.00-20.00 [facility] Monocytes Auto (Bld) [#/Vol] Ordered By: PROVIDER TEMP on 03-30-2024 Monocytes (Bld) [#/Vol] Automated blood monocyte count 0.0-0.8 [facility] Monocytes/100 WBC Auto (Bld) Ordered By: PROVIDER TEMP on 03-30-2024 Monocytes/100 WBC (Bld) Automated monocyte % . [facility] Mucus [Presence] in Urine by AutomatedOrdered By: Rosy Kaye on 03-30-2024 Mucus Auto Ql (U) 4+ [LPF] Abnormal [facility] [facility] Mucus Auto Ql (U) Mucus [Presence] in Urine by Automated Abnormal [facility] Neutrophils Auto (Bld) [#/Vo l]Ordered By: PROVIDER TEMP on 03-30-2024 Neutrophils (Bld) [#/Vol] Neutrophils [#/volume] in Blood by Automated count High 1.8-7.7 [facility] Neutrophils [#/volume] in Bl ood by Automated countOrdered By: PROVIDER TEMP on 03-30-2024 Neutrophils (Bld) [#/Vol] 9.2 10*3/uL High 1.8-7.7 [facility] Comment on above: Performed By: #### C BC, LIPASE, MG, CMP #### [address] Neutrophils/100 WBC Auto (Bl d)Ordered By: PROVIDER TEMP on 03-30-2024 Neutrophils/100 WBC (Bld) Automated neutrophil % . [facility] Nitrite Test strip Ql (U)Ord ered By: Rosy Kaye on 03-30-2024 Nitrite Ql (U) Negative Negative [facility] Nitrite Ql (U) Nitrite [Presence] i n Urine by Test strip Negative [facility] No Panel InformationOrdered By: Rosy Kaye on 03-30-2024 Estimated GFR (CKD-EPI) > 60.0 mL/Min [facility]acy Creatinine Clearance (Chem 89.03 [facility] Nucleated erythrocytes [Pres ence] in Blood by Automated countOrdered By: PROVIDER TEMP on 03-30-2024 Nucleated RBC Auto Ql (Bld) 0.0 /100{WBC} 0-0.5 [facility] Nucleated RBC Auto Ql (Bld) Nucleated erythrocytes [Presence] in Blood by Automated count 0-0.5 [facility] Platelet mean volume Auto (B ld) [Entitic vol]Ordered By: PROVIDER TEMP on 03-30-2024 Platelet mean volume (Bld) [Entitic vol] Platelet mean volume [Entitic volume] in Blood by Automated count 6.3-10.7 [facility] Platelet mean volume [Entiti c volume] in Blood by Automated countOrdered By: PROVIDER TEMP on 03-30-2024 Platelet mean volume (Bld) [Entitic vol] 7.6 fL Normal 6.3-10.7 [facility] Comment on above: Performed By: #### C BC, LIPASE, MG, CMP #### [facility] [address] [place] [address] [place] Platelets Auto (Bld) [#/Vol] Ordered By: PROVIDER TEMP on 03-30-2024 Platelets (Bld) [#/Vol] Platelets [#/volume] in Blood by Automated count High 150-450 [facility] Platelets [#/volume] in Bloo d by Automated countOrdered By: PROVIDER TEMP on 03-30-2024 Platelets (Bld) [#/Vol] 519 10*3/uL High 150-450 [facility] Comment on above: Performed By: #### C BC, LIPASE, MG, CMP #### [facility] [address] [place] [address] [place] Potassium [Moles/volume] in Serum or PlasmaOrdered By: Rosy Kaey on 03-30-2024 Potassium [Moles/Vol] 3.9 mmol/L Normal 3.5-5.1 [facility] Comment on above: Performed By: #### C BC, LIPASE, MG, CMP #### [facility] [address] [place] [address] Potassium [Moles/Vol] Potassium [Moles/v olume] in Serum or Plasma 3.5-5.1 [facility] Protein Test strip (U) [Mass /Vol]Ordered By: Rosy Kaye on 03-30-2024 Protein (U) [Mass/Vol] Protein [Mass/volume] in Urine by Test strip High Negative [facility] Protein [Mass/volume] in Ser um or PlasmaOrdered By: Rosy Kaye on 03-30-2024 Protein [Mass/Vol] 8.4 g/dL Normal 6.4-8.9 [facility] Comment on above: Performed By: #### C BC, LIPASE, MG, CMP #### [facility] [address] [place] [id number] [facility] Protein [Mass/Vol] Protein [Mass/volume ] in Serum or Plasma 6.4-8.9 [facility] Protein [Mass/volume] in Uri ne by Test stripOrdered By: Rosy Kaye on 03-30-2024 Protein (U) [Mass/Vol] 20 mg/dL High Negative [facility] Comment on above: Order Comment: Name Collection Type:: Clean-Voided Midstream Performed By: #### A DDONUAPLUS #### [facility] [address] [place] [id number] [facility] RBC Auto (Bld) [#/Vol]Ordere d By: PROVIDER TEMP on 03-30-2024 RBC (Bld) [#/Vol] Erythrocytes [#/volu me] in Blood by Automated count High 3.60-5.00 [facility] Respiratory (Upper) Panel, P CRon 03-30-2024 Respiratory (Upper) Panel, PCR Adenovirus Not detected Bordetella parapertussis Not detected Chlamydia pneumoniae Not detected Coronavirus 229E Not detected Coronavirus HKU1 Not detected Coronavirus NL63 Not detected Coronavirus OC43 Not detected Influenza A Not detected Influenza B Not detected Human Metapneumovirus Not detected Mycoplasma pneumoniae Not detected Parainfluenza Virus 1 Not detected Parainfluenza Virus 2 Not detected Parainfluenza Virus 3 Not detected Parainfluenza Virus 4 Not detected Bordetella pertussis-ptxP Not detected Human Rhino/Enterovirus Not detected Resp. Syncytial Virus Not detected COVID-19 Detected/Not Detected Not detected Blank Space -- FLUA TEST INCLUDES Influenza A tests for the following clinically FLUA TEST INCLUDES significant subtypes: FLUA TEST INCLUDES - Influenza A FLUA TEST INCLUDES - Influenza A H1 FLUA TEST INCLUDES - Influenza A H1 2009 FLUA TEST INCLUDES - Influenza A H3 Blank Space -- PERFORMED BY: [place] [address] PATHOLOGIST [employer] DEMON[employer]ATOR AMBROSIO GARCÍA M.D. Normal [facility] Comment on above: Performed By: #### B IOFIRECOVNOTDE, RESP PANEL UPP. #### [address] Respiratory pathogens DNA an d RNA panel - Nasopharynx by DIMAS with non-probe detectionOrdered By: Rosy Kaye on 03-30-2024 Respiratory pathogens DNA and RNA panel DIMAS+non-probe (Nph) Respiratory pathogens DNA and RNA panel - Nasopharynx by DIMAS with non-probe detection [facility] Respiratory pathogens DNA and RNA panel DIMAS+non-probe (Nph) [facility] Serum globulin measurement b y calculation (mass/volume)Ordered By: Rosy Kaye on 03-30-2024 Globulin (S) [Mass/Vol] 3.6 g/dL Normal [facility] Comment on above: Performed By: #### C BC, LIPASE, MG, CMP #### [address] Serum or plasma albumin/glob ulin mass ratioOrdered By: Rosy Kaye on 03-30-2024 Albumin/Globulin [Mass ratio] 1.3 {ratio} [facility] Comment on above: Performed By: #### C BC, LIPASE, MG, CMP #### [address] Albumin/Globulin [Mass ratio] Serum or plasma albumin/globulin mass ratio [facility] Serum or plasma anion gap de terminationOrdered By: Rosy Kaye on 03-30-2024 Anion gap [Moles/Vol] 11.1 mmol/L Normal 6.0-15.0 [facility] Comment on above: Performed By: #### C BC, LIPASE, MG, CMP #### [address] Anion gap [Moles/Vol] Serum or plasma an ion gap determination 6.0-15.0 [facility] Sodium [Moles/volume] in Ser um or PlasmaOrdered By: Rosy Kaye on 03-30-2024 Sodium [Moles/Vol] 138 mmol/L Normal 136-145 [facility] Comment on above: Performed By: #### C BC, LIPASE, MG, CMP #### [facility] [address] Sodium [Moles/Vol] Sodium [Moles/volume ] in Serum or Plasma 136-145 [facility] Specific gravity Test strip (U) [Rel density]Ordered By: Rosy Kaye on 03-30-2024 Specific gravity (U) [Rel density] 1.030 1.001-1.03 0 [facility] Specific gravity (U) [Rel density] Specific gravity of Urine by Test strip 1.001-1.03 0 [facility] Troponin I High Sensitivityo n 03-30-2024 Troponin I High Sensitivity 3.7 pg/mL Normal 0.0-15.0 [facility] Comment on above: Result Comment: PERF ORMED BY: [facility] [address] [place] [address] PATHOLOGIST [employer]ATOR AMBROSIO GARCÍA M.D. Performed By: #### Leroy ABAD #### [facility] , Troponin I.cardiac [Mass/vol ume] in Serum or Plasma by Detection limit <= 0.01 ng/Ordered By: Rosy Kaye on 03-30-2024 Troponin I.cardiac DL <= 0.01 ng/mL [Mass/Vol] 3.7 pg/mL 0.0-15.0 [facility] Troponin I.cardiac DL <= 0.01 ng/mL [Mass/Vol] Troponin I.cardiac [Mass/volume] in Serum or Plasma by Detection limit <= 0.01 ng/ 0.0-15.0 [facility] Urea nitrogen [Mass/volume] in Serum or PlasmaOrdered By: Rosy Kaye on 03-30-2024 Urea nitrogen [Mass/Vol] 14 mg/dL Normal 7-25 [facility] Comment on above: Performed By: #### C BC, LIPASE, MG, CMP #### [facility] [address] [place] [address] [place] Urea nitrogen [Mass/Vol] Urea nitrogen [Mass/volume] in Serum or Plasma 12-22 [facility] Urine appearanceOrdered By: Rosy Kaye on 03-30-2024 Appearance (U) Clear Normal Clear [facility] Comment on above: Order Comment: Name Collection Type:: Clean-Voided Midstream Performed By: #### A DDONUAPLUS #### [facility] [address] Urobilinogen Test strip (U) [Mass/Vol]Ordered By: Rosy Kaye on 03-30-2024 Urobilinogen (U) [Mass/Vol] Normal mg/dL Normal [facility] Urobilinogen (U) [Mass/Vol] Urobilinogen [Mass/volume] in Urine by Test strip Normal [facility] WBC Auto (Bld) [#/Vol]Ordere d By: PROVIDER TEMP on 03-30-2024 WBC (Bld) [#/Vol] Leukocytes [#/volume ] in Blood by Automated count High 3.8-11.6 [facility] pH Test strip (U)Ordered By: Rosy Kaye on 03-30-2024 pH (U) pH of Urine by Test strip 5.0-9.0 [facility] pH of Urine by Test stripOrd ered By: Rosy Kaye on 03-30-2024 pH (U) 5.5 [pH] Normal 5.0-9.0 [facility] Comment on above: Order Comment: Name Collection Type:: Clean-Voided Midstream Performed By: #### A DDONUAPLUS #### [facility] [address] [place] [address] Influenza virus B Ag [Presen ce] in Upper respiratory specimen by Rapid immunoassayon 03-28-2024 FLUBV Ag IA.rapid Ql (Nph) Influenza virus B Ag [Presence] in Upper respiratory specimen by Rapid immunoassay [facility] No Panel Informationon 03-28 Influenza Type A (Rapid) Negative [facility] POC SARS CoV-2 Antigen Negative [facility] Urinalysis macro (dipstick) panel (U)on 02-08-2024 Bilirubin, UA Negative Negative - 4(70) +++ mg/dL [facility] Blood, UA Negative Negative - 50 Adam/mcL [facility] Clarity, UA Clear [facility] Color, UA Yellow [facility] Glucose, UA Negative Negative - 1999(110) ++++ mg/dL [facility] Interpretation and review of laboratory results Normal [facility] Ketones, UA Negative Negative - 160(16) ++++ mg/dL [facility] Leukocytes, UA Negative Negative - 500+++ Wero/mcL [facility] Nitrite, UA Negative Negative - Positive [facility] pH, UA 6.1 5 - 9 [facility] Protein, UA Negative Negative - 1999(20) ++++ mg/dL [facility] Spec Grav, UA 1.010 1 - 1.03 [facility] Urobilinogen, UA 0.2 0.2 - 12 mg/dL [facility] HbA1c HPLC (Bld) [Mass fract ion]on 01-06-2024 HbA1c (Bld) [Mass fraction] 5.6 % [facility] Kuwaiti house dust mite IgE Ab [Units/volume] in SerumOrdered By: Odessa Hess on 12-08-2023 Kuwaiti house dust mite IgE Qn (S) <0.10 kU/L Class 0 [facility] Comment on above: Performed at: [facility] - [address] [id number] Director: Arun Moser MD, Phone: [phone] Clam IgE Ab [Units/volume] i n SerumOrdered By: Odessa Hess on 12-08-2023 Clam IgE Qn (S) <0.10 kU/L Class 0 [facility] Crab IgE Ab [Units/volume] i n SerumOrdered By: Odessa Hess on 12-08-2023 Crab IgE Qn (S) <0.10 kU/L Class 0 [facility] D Farinae Mite Allergenon D Farinae Mite Allergen <0.10 Normal Class 0 [facility] Comment on above: Result Comment: Perf ormed at: BN - [facility] [place] [address] [place], [place] [id number] Cellars Supervisor: Arun Moser MD, Phone: [phone] Performed By: #### Leroy ABAD #### [facility] , D Pteronyssinus Allergenon 0 12-08-2023 D Pteronyssinus Allergen <0.10 Normal Class 0 [facility] Comment on above: Result Comment: JorgeL ls of Specific IgE Class Description of Class ----- < 0.10 0 Negative 0.10 - 0.31 0/I Equivocal/Low 0.32 - 0.55 I Low 0.56 - 1.40 II Moderate 1.41 - 3.90 III High 3.91 - 19.00 IV Very High 19.01 - 100.00 V Very High >100.00 Very High PERFORMED BY: [place] [address] [place] [address] PATHOLOGIST [employer] AMBROSIO GARCÍA M.D. Performed By: #### Leroy GARIBAY, Leroy ALBARADO #### [facility] , house dust mite IgE Ab [Units/volume] in SerumOrdered By: Odessa Hess on 12-08-2023 house dust mite IgE Qn (S) <0.10 kU/L Class 0 [facility] Comment on above: Levels of Specific I [...] IgE Qn (S) <0.10 kU/L Class 0 [facility] Comment on above: Performed at: [address] [id number] Director: Arun Moser MD, Phone: [phone] No Panel InformationOrdered By: Odessa Hess on 12-08-2023 Allergen Note See comment . [facility] Comment on above: Levels of Specific I [...] IgE Qn (S) <0.10 kU/L Class 0 [facility] Scallop specific IgE antibod y assayOrdered By: Odessa Hess on 12-08-2023 Scallop IgE Qn (S) <0.10 kU/L Class 0 [facility] Shellfish Allergen (6)on Clam Allergen <0.10 Normal Class 0 [facility] Comment on above: Performed By: #### S HELLFISH #### [facility] , CLASS DESCRIPTION Normal . [facility] Comment on above: Result Comment: [...] Crab Allergen <0.10 Normal Class 0 [facility] Comment on above: Performed By: #### S HELLFISH #### [facility] , Lobster Allergen <0.10 Normal Class 0 [facility] Comment on above: Result Comment: Perf ormed at: [facility] [address] [id number] [place] Supervisor: Arun Moser MD, Phone: [phone] Performed By: #### S HELLFISH #### [facility] , Oyster Allergen <0.10 Normal Class 0 [facility] Comment on above: Result Comment: PERF ORMED BY: [place] [address] PATHOLOGIST [employer] DEMON[employer]ATOR AMBROSIO GARCÍA M.D. Performed By: #### S HELLFISH #### [facility] , Scallop Allergen <0.10 Normal Class 0 [facility] Comment on above: Performed By: #### S HELLFISH #### [facility] , Shrimp Allergen <0.10 Normal Class 0 [facility] Comment on above: Performed By: #### S HELLFISH #### [facility] , Shrimp specific IgE antibody assayOrdered By: Odessa Hess on 12-08-2023 Shrimp IgE Qn (S) <0.10 kU/L Class 0 [facility] CT knee RT wo grettaon 11-17-19 CT knee RT wo con [facility] [address] [address] [address] Scan Report Signed Patient: Kathy Lema MR#: [id number] : 1990 Acct:[id number] Age/Sex: 33 / F ADM Date: 11/17/23 Loc: ER Room: Type: [facility] ER Attending Dr: Copies to: Noa Yadav [...] Xiao Jr., D.O.11/17/2023 12:11 PM Dictation Location: [place] [address] Transcribed By: [facility] 11/17/23 1211 Dictated By: Bhavin Xiao Jr, DO 11/17/23 1207 Signed By: 11/17/23 1211 Normal [facility] XR knee RT 4V*on 11-17-2023 XR knee RT 4V* [place] [address] XRay Report Signed Patient: Kathy Lema MR#: [id number] : 1990 Acct:[id number] Age/Sex: 33 / F ADM Date: 11/17/23 Loc: ER Room: Type: [facility] ER Attending Dr: Copies to: Noa Yadav APRN Ordering Provider: Noa Yadva APRN Date of Service: 11/17/23 XR/XR knee [...] Alise Lynne M.D.11/17/2023 10:59 AM Dictation Location: [place] [address] Transcribed By: [facility] 11/17/23 1059 Dictated By: Alise Lynne MD 11/17/23 1058 Signed By: 11/17/23 1059 Normal [facility] Cytology Cervical or vaginal smear or scraping studyon 11-04-2023 [facility] Human papilloma virus 16+18+ 31+33+35+39+45+51+52+56+58+59+66+68 DNA [Presence] in [place] 11-04-2023 HPV 16+18+31+33+35+39+45+ 51+52+56+58+59+66+68 DNA Probe+sig amp Ql (Cvx) Negative Negative [facility] Comment on above: This nucleic acid am plification test detects fourteen high- risk HPV types (16,18,31,33,35,39,45,51,52,56,58,59,66,68)without differentiation.Performed at: =G - [facility] [address] [id number] Director: Agnes Lou MD, Phone: [phone] at: - [facility] [id number] Director: Agnes Lou MD, Phone: [phone] No Panel Informationon 11-03 HPV High Risk Other Comment Note . [facility] Comment on above: TESTS RESULT FLAG UN ITS REF RANGE LAB D IAGNOSIS: 02 NEGATIVE FOR INTRAEPITHELIAL LESION OR MALIGNANCY.Specimen adequacy: 02 Satisfactory for evaluation. No endocervical component is identified.Performed by: 02 Karen Bradley, Tipple Worker ([facility]). 02Note: Note 02 The Pap smear is [...] Criteria not met, HPV Genotype not performed. ------ FLAG LEGEND: L-Low Normal,H-High Normal,LL-Alert Low,HH-Alert High <-Panic Low,>-Panic High,A-Abnormal,AA-Critical Abnormal ----Performed at:[address] [id number] Agnes Lou MD, Reference Lab Test Patient Age Note . [facility] Comment on above: TESTS RESULT FLAG UN ITS REF RANGE LAB Clinician Provided Cytology Information Source.............Cervix No. of containers..01 ThinPrep VialAge Algo ACOG Sowmya... 30-65 FLAG LEGEND: L-Low Normal,H-High Normal,LL-Alert Low,HH-Alert High <-Panic Low,>-Panic High,A-Abnormal,AA-Critical Abnormal ----Performed at:01 =[address] [address] Agnes Lou MD, HbA1c HPLC (Bld) [Mass fract ion]on 10-05-2023 HbA1c (Bld) [Mass fraction] 7.2 % [facility] COVID/FLU/RSV RT-PCRon 05-07 SARS-CoV-2 (COVID-19) RNA DIMAS+probe Ql (Unsp spec) Positive [facility] Other COVID/FLU/RSV RT-PCR Negative [facility] Other Quick Strepon 05-07-2023 S. pyogenes Org specific cx Ql (Throat) Negative [facility] Other Quick Strep [facility] Other A1C HEMOGLOBINon 08-05-2022 HbA1c (Bld) [Mass fraction] 5.8 % [facility] Other HbA1c (Bld) [Mass fraction]o n 08-05-2022 A1C HEMOGLOBIN [facility] Other COVID + FLU Quick Testingon 04-28-2022 SARS-CoV-2 (COVID-19) RNA DIMAS+probe Ql (Unsp spec) Negative [facility] Other COVID + FLU Quick Testing Negative [employer] Other Coding Summaryon 02-17-2022 Coding Summary [employer] 64 AzktobyvDAj4jIx+PGhlYWQ+PE 5TWQPiM92oyZOuqB4OB6zPME6R ACEYFHBRBH2PPS1qlRK0CCfrB7 VybiAv MxzxmMDoSY64PIt8AOZ4mZhmUT fawW1reRYrK3x6UlPmJZ18wO69 WZxfSJHgTtF4FjYspaspmZGn W1ehSrUvgRXkCgy+PHRhYmxlIH maIWToWNaoNCLoFmGhvBrtXF3v Gr4mTUZtNLZfuDmffYFkSjPn i1piNZTkGVqyYU3ckGnaH7ZsgN P5NQMsm6g9Hm83iTH+PHRkIHN0 nEzzDMdif996IgUaw2qrFIK0 uFDxWVfaCGR4Q18sy2U4UQInWX LpFFJ9uDS3zW9euNcebugsB6Xg ySSwOsW5LEN9zHZyxC0ruCqx xuipyT7fRte+L07WQP3RDEVZFW 7NFmq0U9YwJswruKG+NJ92QLGk BG65jRNcrOImo8aoxMw9LrDt BITiLAV6mPayLVzwz8VmIJUyR9 1dvPYrt8V3XUHulWxwwBAuRqSt xRE1cL6tCWfxyzwka5aktmru Ipkvy7bmfb45kH86Y02gAPjiPG AzQGL0ZSLcDFToqNwqxz7teZ4o Ii8+QZkiy9deq8udnKk9TgGp BTNupnZvhPyiKOV1q0ChGf40Q4 GruUhan7QdKqq0um77xSZwg4L3 qFK0EIpfZXVzsL8iMEwcNuA6 KSRpCoLesB98oZSrFAxpOo2rtW swcGcpVO4gOXWhkbegNWVhbS5f BGFojXGxhAgcYQ6zJZGbvxla r388QiUeVED9EYVrmEGpT5JgfY 9tHrYzHVLdHKOvI7FugIRzZQqo C359ZZssSbI4DNVuqgUhY5Tv BDXyoRmzRkL2g2T0Ru7Ej6Ggmh kbATC5ENifAKU8GwCpUrGhCmE9 Q8EjHss7QUHcwGucGP3gZ2Rw WMPdduuetwjeeHF7HVZvEBZqgU 17pBPrTCtxBr1ts7N4p481CTMp CIUuhZ53Hm1fdBapKRUmqDSN qU9bdtmem7qcnzfbCgLtDIEkZO a2JXx3OOUqaFwoDlHzWXI8UbV7 CED4eTAptR3xjXnzfztloL3u Oyc+R92wvM2kCSY7ZRV4rgyxYJ DpsuPlMI89AZ31K2MsSiuwnFCc bGU+FASuvqZnwFmjFO1cTzKd y1sqg4XnFRfzB4JyBGZtIPbzSq z6LPQvNTE9jQG8rQ0gTQYdAHbc v6Q9zIB0W7StrkVodr1no5kw LEXzUYslF98fpNFcf9A6SYWnaK D5QZJwxBvjShHlrY36Ubh+PGNv oThuv3TfXedye4vbc8hlhWn1 CbVlLAPeadQnvAfgCIU5c6OkDt 87Q13lWKbmTACrBHFcIRPmFEPv yTzcbz9ciO8dVw3+PGNvbCB3 aWL1dB7vUVXdRhG8BPvrS799Ih OflIEoQcbch2wfw3mxqRz2DbAa DKDnidBtqCytDGE0g7LmKd41 T43zEMsbCOFsWBNuCMVsBNLffK vjwg1mpV3yEi1+ZF9er8zvsx84 rX21iLK+GEZtIQL6aDtoQHhv ZVSfzE0eKKhrIoL1WCRaKzPbbH 30vNJrSZhqJw3loUgubCiyZF0h PHIyhkafw207FwRex2lkUDAs oNJvUYskEOA0K05yk2M0RAGjSV DwUMZ9hXN4dS8srVdrguovmBEg vGgoheImlClwBQggRBqzC847 IHRvcDsnPlBhdGllbnQgTmFtZT o0S0ZvQug6SMSdnLxxFQ0jzXAn UBgvXj8mwIttoXkwPK6wVRRt triys904NcQyo1rdLULhgWFsRP biGRJ2M50dj5A8GNXmITYyGPS9 rJU9gS4khMyxccdxwVNdiPea mbEnjEmcGNmmMPhiP467VOEhfL fiVeUjlkZvJUKhcEG1WE49AX20 vRZcg6O3iYC4F7ErYZDheyai yyczpGA4IKJaIZHkaA05Tv9zfB ioJf6nSMNgMUN1AHSdfOSoF6Jv pZ9kJsWbHFUgRCIuH8EheMKm YDtaB932BKctOsA8NHJfwuVpC0 AfYPLpaQpvCfE5w7H0Ec8BF3F6 IP42WU67gCRio8Y1zOE2I5Ju QQVfopbnopasnQR8HOHbCPWrfR 30Nq7jpXzwSl6kWDGtXOA1ZFXk aPSpG6AygM2aGkOjBLVqNHZh B5FzqGZpQQzfQ552ZMcqBmF6JB GthtOtM2KmGYLlrFdaVaE9h4W0 Ff5MMZt7FF42RG15uUGbt8J1 oYA1W1UeESUaqbylvpcczPR3FD ExZQFjvT61Ax5jwHucBb4vMYFl QEH7PDAuqRPkF7VjsM6gNwIx UQTpMYHuL8BrtMBvAYatR833DD ywAcP7GKGyvwSoG9KrDZMxuKog FzF2g6J1Tq7TFHWiBG87XFD3 bSG7TM51AM53T9RfOeofbWIfkD U+PHRhYmxlIHdpZHRoPScxMDAl IxHfwTkoLZ0bBr9oHADoMUBu eMlnePBxPfEuc1hzAMZqJLquLP 0pvAxiA5UmhCK7RFMay3j0Pp80 E13sY0CyaCA+XNMnrKY7wKM3 iJ1oUdIcZoG8PYyiC364ZcSfhO IuLgqdn4yho8llbDn0GzL7QWZx axDrvDckZEN7u0DhFr47A21f IHdpZHRoPSIxNSUiIHZhbGlnbj 0yiE9bMk5+OBJacDB8yAI3iO6x FmZzXsH4SNxtR633PfViqGSf Dnsly9qmb9dwdPx2QfMdYLTvap KuoIglFTO1s2HkJw32M7GbxOsm a9FpZek4lx31wDSnv4Z0wKA6 E3EoHLYzkxdubTUqoBibNK0uEV IpjdabFRGboB9rYJRfW5h4MeFs AkT7BYlqU8ArxuL8TPBugWVh OSkaJOT8U07yy8T9EVBgIMNfUG C6jDX9eO7yaBusqbtktQBwjTzd bqWlbXbpDZzvTSroG937RUMs lOfhSTXnkO8rUDDuuHDyoYuwKW 7lJJAxufjvXqlXLeQMKSEYRA3T CfFCGCHKTWJVDPC0D7UoToo1 XKQytWtxUA6ocNHeGTesFg6btP qvpTyyTK3oQEDibpxaWHSimL3c SORxwMJloDdbIX3nTQNvcolm f485RjGgIRF4NPQpjYHlZ8RaqK 9jKkSqZSFuGEAvW6StqTIzBPoo R985YYbpXeQ8ZAZjuwHwV1Se FBTfgZmnOqQ5b9H2Gs7eWq3eWS 4mDBujHW82TA19kYVlv3T8bKE0 R3TbFKDphkrqvdunzLT3UZOm OQUeaX68rCUtDGxjCm6xi9W9s3 08RKTcPAYynR39Yb9gdLifUTVt aUHEeZ2wuegua7awybrzHwUo KKReSOe9CLa3VAPmoKqvFeBfVL Y5LbX1EDT1yVQiyX5fuBtqzwuv wI5zDeb+ZwYyIQMdziT7B5Zm Dgv1IINfdAliOH0kfDEoALovLm 8zoAvlgWtmHU3lVIYxypbrHFIw aL7pANHliLSwnFhgNL0sJNGb fwrek192UtZzWSO6AJInoHBcQ2 JydS8pVmIpSXSmCPClL2SclJRh WKruS055VGqgRiP6STFkizLg Y4YuKYCnhFdaBxN9c4O0Ge9PCI 3WDAT0H1StHky2VEXsrYdqKE0w nAYxIXnsLy3xfNlyfSmfYB0p HCSywfsvBDOhjH3tQTNchAEquB glMX8tIVTaxdgks949ItSeVKP0 UJHkgISvR5GtbH6iSzXuBYRq QQIpV0KdgCOiAUurY440FDieCw E9YLGgqgYnR0OvPKAufYpuUcM5 y8M1Go7BDEsqnFZ+MU35gz19 I7LhNjqzQlc4SBFdOPL0gFB8dE 5qTRNiCDzdq0M0qQI7N7IsbuJl te1vm1fjWVRjGHdoX21ycROf h2I4PVSgvWZ3YFGicZblTzPpjN 93Oyc+MHEinKqba7HlQknih6ht k1atpMr2SfKhFYOggqSqnRxm NLJ8s6IcWt28N75wMNlpZIOoWO BgLDXbWIYkgDqthv7sgO6bTj1+ UYAimXU5wPT9gT6uEcFxIpS7 PKrkF097JdOmvIGrHsgdr1mhz7 zgcVu5YtArPMUoadIlySboJQL3 x0JjSr99L6JsiBczl7VdRbq8 uu27aHJiw6J7xIG2X7LyMZCrvk wdeIWkoRgaYB2vPGSqtydjDCBn yL7wSFWcM1w1FbGcWtL6HAhx A0LhtbD5IKQsyVBrVWAygGPRmB 8uhrizw3gyhynzGeBkIXUfXCr3 IOt2IQImyHmdIcPmBJG3XrQ8 KHA6aYJroJ9knXdviruslT9iOq c+SXl9h2yfmZTcMR7azXB9MK86 XU87wJLtg3W8uMM6C3NjDMWz ljjxrikynKE5EHTkHUNoyM77Ky 0jlFwgLv4tOQUiZNZ1YNBznJUv O6YaxE1xGbJyEARbCWQhP7Nj gSXxVHcnB410FKlsWhE6ZOJdee UhX5AiNFZnzYcmXaS0w3Q2Lk6V AE83IB89KM47wFIzw0H6mUJ7 Y2SaWSXitjyyhyzacGL0LPDhYM TifJ85Yt2kqUvxSk8eZUTkDYG1 DGKrqOSyD5ZadU8sRsFpCLGy TTBrK2PagHIhPFtbJ416PTiyTu D0IQDzgnJcZ2YrMWZdnRniPwK0 l1K4Ip3VPe09UO81KU92mJLe r7H9yQZ8P0JlTPJovsvwqlkrnH E7SVWqPSLakX15Ri3pyFllQo6g IJMuBFV2NPAizEBvM2KcoB3o DoCgREDdGJAtU0AoeQJpRDuxU6 04KZkrVyQ4KVUczqElC3AnKMGb xRmwEmU0x7R6Hx9XRIuryev9 D5VqWypdlRE+VY13WEQnZM88kM TfvIOrk6gvhFp1TqNbAEVcTSQ4 rKrdFJouq0MkYTMhK89nkOJt c2U (more content not included)... [facility] Coding Summary HTMLBase 64 RkyibfhjQWl9fVn+PGhlYWQ+PE 9GRBNfI56qoKWrcG6NN3qPIE3O HGKCBIMQQM5XBX6buHP8FKdzY1 VybiAv PdnbdDEyHO56YQt0RYW0sTfpBP ndzB2syTCzT3s9AuPiGG74cI54 ODcpYBMyDzU8RfZbtsultTLr Y4bdAdElbWDkJjx+PHRhYmxlIH qyTRMdVHxeAZXaOmBewLtdJR7q Ac6qSTXoKSIxqJwxyBOwPqBr w6hoERQfKTpwAP4dnGncJ4PxtX F3XBInj0h4Fj33dDW+PHRkIHN0 dSvbTQmyn079XsSnx0ogDCK0 uZTzNEefPCH1E30ij7F6IBXuIH IjKTM1qVI9xC9eeKkokgtyR4We zGOzKuG5KDT0cKYghD1oyBbw guvasA4hCbl+O69IDU2RTQPIEL 7ISqc7J1VpPzkelMC+FN43PUJc DV50bYAwuQBco9xkiBi2BlGa DPChGWH5bEflXXtfi1KqHDKiE2 8luZHxo4B1KIPwsRptlLEiAqRx gMF7hU4kTRqblrnqd3acoksr Rrgja4eaic22zT26I05cJKscNR YqJBG2FFHkHZVrnLsbug6vyC9x Ii8+LJdqh2zjt0djnXz6FoNo UJLegdFpoOhgGCP8k0PzGg03E6 PskZjuf8UxJit1wf68vABua7X2 eJO6GOojVGAanX8oKDsyHpX2 FBRbVaVizQ56xCQhFZelDy8yyS zyyKuaYF2lYHQveofnHYGdnP1y DMQbyMSnsPeyZX0vYKKvhhsv x490ZjRjOPP4SHFiaUItD5WhwC 0lScKcANCeGOTgD2RbaSIlDDsi R487LUwwGtC7HYZzfaRhU0Zp AAQxtGjjWxG9f7V2Ae3Km0Ypws lkEZZ0THgaTSO0YiNcEfHdZhM7 R8GqNmv4PCRriPpeRC5fV1Xk ISTrhiqfxbomjNA0NYFkKGVaiA 12sMEfKIzhWo5ui7T6x071UQXe HILbyT58Sj2zwJqhJGUzqILL gU2upzqfg0dgwjleGkXxYHJpXY t3ALb8KLWhdEtnEzNiBNA5BjH8 GSW1eNVrjW0elVfyqzjglH3c Oyc+M46uxR5lTKX9QKG9ojzdDZ IqbsKkRE02IT03Q4DpOplysEEa bGU+NZSwosRpxKemJQ1vUlSt f8oyg3AtMIxsB7OjPVLsGQurNn a1RQOwDUW1pKO0pL2rBQXqUTje y3E2iMY2A7TwteRfja8fg7ny RFIaQNjuU59ibKWfu8J1AOBuiO R4DNVebNhvUiTviY05Qrk+PGNv fGzxm4TdDgdvz8ymp4pcjLp5 PpYhTFBmubYxnLrdAVP4w2OeVz 64F06tVUnoADDqXLNdZJRqNSTk tXyoio6bbA5rRo2+PGNvbCB3 bDW1nM6jWUGpWrQ8FAzvE248Qc KoiPOzMlsby1eps2hyqJs8OnLv QVLexrHbfXcaZMH1z3JjZc15 E29oGSbbZUCjSAHgWTPhJGWvqS lsjc3yhO7lBr1+NQ5qv3lzkq15 sP87bIU+SKKmBPW6mLadUYuk ZNEsuG1oONhjCiB7IYNpMfAarL 25mJBlGPugBe3bsDlftPvgLD2n VSAuhwess372WqLut0rkGOCk nCOjHQmaJJZ4W91up1D8NEHnDD YcJYS0yZX6iK6wlXieairzaEKu tQhmdcZrfUfrBApaEIxwT196 IHRvcDsnPlBhdGllbnQgTmFtZT t0T3SwOtg5EIFcqPprOH3swMFy FWkyDh8yyVtisToiWK7gWFAz jmqib171HkEpm4eiJSIyvUKeTM caBMK5M80zm3I9LGRlNTSdNAH3 lTZ5oT4dlAntqtxtpRAldGrl vvKgrNzrFMseRBxqN825EEGnsT nlOrHezqQeOZXsbFX5KB03UD49 nEObu3V2rFZ5Q3HcNGEwmvsw jbgdpKO1WQPaCBHfkG31Ok6pcQ leLq7kROYsIXM9KURdyVLbZ6Cl pC6pTcUpEWJrSVJzL7QxaLOi NJwmS464JGftCmC3HYSyvtZkG6 IrCAKggFxlIvM3h2W8Zk0QJ0I9 OO31CG58fGVvz2L0iST8N3Ps WCPrxitiwsekmPH1OEBhZQBczA 15Fv2ijIfeZc3lVOUlDWC7TFIk qAKeN3XzrO5nErNiYKVaESDs B4HhsMEdALyaF963RPrhBxM7IG CaysFrT6YwTPWhqJvrMmT3e0H2 Ah7PAJh7ZN48WT96hQAwv3U2 nJE6T9IuDLWprqqxcjrjrWD3ZF PsNKBsdA19Uh1spQfxEj9fRSGl PSL1CQIhaGKvY6TbfF0eDhBf WMGjXWVwY9ExaNNwCYuqQ736HU kiAwG8NUKatpTwS6YzWIFotUyg XmT0r3Y8Mf1EKWMwJJ24MXH0 fOZ3KY03KC52W2RpVinzsCAwfE U+PHRhYmxlIHdpZHRoPScxMDAl PhOhwVckRN4lEf3oOAKoDMTg wJezoWAuBvTje6izTNPwSUziDH 1zcQfkU5BvjSK7LHJoo1j0Tv83 T26gB1CytNU+YLTdjXM7iLQ2 dH5lOuIjLqS4KMadB037QlXasF DjMoofw1mkm3aqwGd6ViK8JQPx gtIaiRdsVYL9b4ZjBy17U23o IHdpZHRoPSIxNSUiIHZhbGlnbj 2rgJ6uNp6+HCZjqXW8mNW1eY4n AcTiLpQ8QBniH245KnSxuBFk Pkcgx4erh1mmbAg4VmPdYCYhtr AbjTytXYK7a7ZfDz14U3XmbEjv j1OmQzy9ha78wRBus8M9dIC5 F7XaEWRwwjtzqNTegPlhJV1jVJ XtzqplUGQzwK0dXRBkD9w6LzFo MpI6UQlhE4TarlT4ZGBuqEUy PDzmQQE7A58vb4L1XFZeXZKaDF Y2qZB1eE7pzNbgkocpuLDpaLwi uuCkwHtcJPozEGksR842PMGb bWtmNCOquZ3rLUIkiWVtvRzaXI 4yYSOnohpvZalBWeGPIXLWZF2Y GnVPXFEYKNWCWHO9C1TaXqc4 ZEXsbWfvBQ0mbDEsHDslZx7muD gmfYipQP1rKEHthxcnZXVfgJ1f GPVmcRKqyZdyYB4iMYHqduxu h721AyYtKYN4NYSyqAWnV8KnsP 8dGcCuPKIgWYDqP5SzgHNiSNlx W699SBqjOfB5NUCmszRgY9Ea HBLejVdlWnC8g7E6Zi5rNg8fFG 1pCYvpMV00GC00cCSne5J9vGC4 L8MzOQUucjuqgxedsCE4DPBe RWRppN05eNXsLMmvIa8os9S4i9 34HQSwBRLuwY51Ji0ncJfqSBOu kVROlY7puwobp9hycxqiDyHx YDQoEUp9XLf7ABZraPkdVyFyCU D0QkP6ROD6pCWqtG8avPmswmoq cC1fMyi+GbJfGMWgllE8S3Cu Kay7QRWgxPafZN9joAXiXSemTj 1jfTabfWbsBQ5gBAVqqrxoYSRs iV9dTLVglGHfvFffOT1uACHm lqrpo530KpAxVEP6WDScnMWlH4 CzjP3hGjQzAZXyVVLqS9SmbFZr JAndR216KMdwHiK5MELrgnRx T9BsMLVtuJuqSfW4i5R6Ux3BIT 2XKFW1D3XsHtf2ISSmkXerAB7c kPMhTAbvIu5huIkaeGvjHP9c UDDxzohgBGHvoI9lZRQmtBXckK akPA0sPMAygoveh686VtZsPXM9 ALZjnVKnC8RroP0pUcEeHSJw XQNzJ8OafQDcLDzpX874YPirEe O7TOEbisRwW6HiMMWurUshRnX1 p7R2Vp9GEZcaiKU+UJ29lu30 Y3TbZflkPjz6IPVtQRH2vRS1wK 3lNNVcLUvzo6Y9bWR7Q9VctaPr vn0iy5egWUAuMUvqS96yyFMl v0W2GPGmeZG0PSFjiNqmSsMpdX 93Oyc+QDMsjIerx6OzVefwr2em q8kjoWf0UqShMSGpoiHhmLcz TVY2k4NwVc82W95wEVwdGTTcCT RjRCSsHXThkSbanq7irJ3dEl5+ VGDldNE9lIH1qP9nFsRcBvZ5 FNnwP886KdLyrPQiEeheu3bie5 vklFv2XuXmSKUacwBzbWhcRSZ0 v7MeOm38T6ScbAmrm4KqTcw1 hb81cEJpt5S0jAL4Y1TzUFHnfr kpzGQooSxjVY8qGGYaunmjXLMn nI9oNPJaM8u6KpByLtZ5GIsg F1AvgwX7AKAipTQdMWMdqNXOrS 3pssxkb1jpgiwiReRqWFVnCNf9 GWr5EIXlpEtmZmEsPOI4XqV8 PYM2aELnrH6ymXqzfumqmG9eLu c+GSe5e0eokIVdCR4kfJQ9TD71 FL05rLPal3N5nNJ0S7AlNBEt znfiqscckWF2PEAhIOYnbT19Jt 4luDcxNz8rLQKgWAY2YTItaZYg O6LewO8vRrQcGKLuEEUoH2Ak rRUxZHadE032TKpeDeY6PWFrxy GkD9SzQJUuyDkoUcO4o8L6Ky5Q YR39WI12XY27bRKvy5Y2hWW8 B0KpLLAcqudluhelfJE7TNXaGW KraA79Xx7ubUriGy5uDQHkUHL6 YHWksQMzF5JuvT7nZjPnLUXk PWGvX8ZyuUZoNCdzY884PUedWq Z6DKQrkfAvC5IdRKVwzTmqXlS0 g1U0Wz7XEc57QL02IY79yDEu c8I0eYV9A5YaOYMtrxfebetfbJ G8MFKxNVCbkB12Kg9kxPdvJp9k ONMwSKV2POIuhIQoT6IoiY4z LdBnGFCtHGEoJ7YbrRIjUHkvB0 63KZzdSsX6YLNhyzDhZ9RrBWVc vVjgNkV3m8X7Eg8YOIlooil2 M7GkVhtpmGC+TA98ZSSyZC27zV PjwJJia2qxhKc9LbJfZJQsKAR9 qUycLJhuk5NxHRMrZ62lfGBj c2U (more content not included)... [facility] Consent Formson 02-03-2022 Consent Forms [id number] [facility] ED Clinical Summaryon 2021 ED Clinical Summary [facility] ? Urgent Care [address] [place] [id number] Clinical Summary PERSON INFORMATION Name: KATHY LEMA Age: 31 Years Sex: FEMALE : 1990 MRN: Acct#: Visit Reason: UC - Eye Discharge; Eye drainage; R EYE IRRITATION Arrival: 01/30/2022 11:59:11 Discharge: 01/30/2022 13:35:00 LOS: 000 01:36 Check In: 01/30/2022 11:59:11 Checkout: 01/30/2022 13:35:00 Address: [facility] [place] [address] PCP: Gayle Alanis CNP PROVIDER INFORMATION Provider [...] PATIENT EDUCATION INFORMATION Instructions: Bacterial Conjunctivitis, Adult, Rtps-wo-Vkjf Follow-Up: With: Address: When: Gayle Alanis [address] [place] [address] Business (1) Comments: You have been diagnosed [...] verbalizes understanding of instructions given Comment: Normal [facility] ED Clinical Summary [facility] ? Urgent Care [address] [place] [id number] Clinical Summary PERSON INFORMATION Name: KATHY LEMA Age: 31 Years Sex: FEMALE : 1990 MRN: Acct#: Visit Reason: Medical screening exam; WORK PHYSICAL Arrival: 01/30/2022 11:56:19 Discharge: 01/30/2022 13:35:00 LOS: 000 01:39 Check In: 01/30/2022 11:56:19 Checkout: 01/30/2022 13:35:00 [facility] [place] [address] PCP: Gayle Alanis CNP PROVIDER INFORMATION Provider [...] CDC (01/03/2021) Follow-Up: With: Address: When: Gayle Zeke [address] [place] [address] Business (1) Comments: Work physical completed today. [...] verbalizes understanding of instructions given Comment: Normal [facility] ED Patient Summaryon 022 ED Patient Summary [facility] ? Urgent Care [address] [place] [address] PATIENT DISCHARGE INSTRUCTIONS Patient Information Name: KATHY LEMA Age: 31 Years Date of : 1990 Reason For Visit: UC - Eye Discharge; Eye drainage; R EYE IRRITATION Arrival Time: 01/30/2022 11:59:11 Primary Care Physician: Gayle Alanis CNP Attending Physician: Alon Snowden Comment: Patient Education With: Address: When: Gayle Alanis [address] [place] [address] [employer] (1) Comments: You have been diagnosed with [...] to feel better. ? Take or apply quza-qez-xaykczg and prescription medicines only as told by [...] provider. Document Revised: 08/27/2021 Document Reviewed: 08/27/2021 [employer] Patient Education ? 2021 [employer]. Medication Information: The exam and treatment you received today in the [facility] Emergency Department were for an urgent problem and are not intended as complete care. It is important for you to follow up with a doctor, nurse practitioner, or physician?s assistant branch operations manager for ongoing care. If your symptoms b (more content not included)... Normal [facility] ED Patient Summary [facility] ? Urgent Care [address] [place] [address] [id number] PATIENT DISCHARGE INSTRUCTIONS Patient Information Name: KATHY LEMA Age: 31 Years Date of : 1990 Reason For Visit: Medical screening exam; WORK PHYSICAL Arrival Time: 01/30/2022 11:56:19 Primary Care Physician: Gayle Alanis CNP Attending Physician: Alon Snowden Comment: Patient Education With: Address: When: Gayle Alanis [address] [place] [id number] Business (1) Comments: Work physical completed [...] the VAERS website at www.vaers.hhs.gov or call 4-388-813- (more content not included)... [facility] Urgent Care Note- Provideron 01-30-2022 Urgent Care [...] Family/ Social History Medical history: Resolved Bronchitis (12645770): Resolved.. Surgical history: LEEP (35479157) in the month of 10/2017 at 27 Years. section (53734174). Loop cone biopsy (290244231). Hysterectomy (913453622).. Family history: No family history items have [...] Plan Diagnosis Acute conjunctivitis of right eye (UQO80-CG H10.31, Discharge, Medical) Plan Condition: Stable. Disposition: Discharged: Time 01/30/2022 13:15:00, to home. Prescriptions: Launch prescriptions Pharmacy: tobramycin 0.3% ophthalmic solution (Prescribe): See Instructions, 2 gtts ev (more content not included)... Normal [facility] Urgent Care Note- Provider Patient: KATHY [...] Family/ Social History Medical history: Resolved Bronchitis (59014833): Resolved. . Surgical history: LEEP (13165642) in the month of 10/2017 at 27 Years. section (27151504). Loop cone biopsy ([id number]). Hysterectomy (396473770). . Family history: No family history items have been selected or recorded. . Social history: Social & Psychosocial Habits Alcohol 10/21/2021 Alcohol Use: Never Substance Abuse Comment: Denies [...] and Plan Diagnosis Physical examination of employee (QJH50-ZC Z02.89, Discharge, Medical) Need for Tdap vaccination (BCA76-XR Z23, Discharge, Medical) Plan Condition: Stable. Disposition: [...] [Verified on: 01/30/2022 13:11 EDT] Alon Snowden [facility] Recordon 022 Urgent Care Record [facility] ? Urgent Care [address] [place] [address] PATIENT DISCHARGE INSTRUCTIONS Patient Information Name: KATHY LEMA Age: 31 Years Date of : 1990 Reason For Visit: Medical screening exam; WORK PHYSICAL Arrival Time: 01/30/2022 11:56:19 Primary Care Physician: Gayle Alanis CNP Attending Physician: Alon Snowden Comment: Visit Diagnosis: Diagnoses This Visit Decreased visual acuity (H54.7) Medical screening exam ([id number]) Need for Tdap vaccination (Z23) Physical examination [...] documents With: Address: When: Gayle Juan Jeve [address] [place] [address] Business (1) Comments: Work physical completed today. [...] and treatment you received today in the [facility] were for an urgent problem and are not intended as complete care. It is important for you to follow up with a doctor, nurse practitioner, or physician?s assistant branch operations manager for ongoing care. If your symptoms become [...] so we can reach you if necessary. [facility] has provided you with a complete list of medications post discharge. Please inform your primary care nurse practitioner/provider of your visit and for further instruction [...] to diff (more content not included)... Normal [facility] Urgent Care Record [facility] ? Urgent Care [address] [place], [place] [id number] PATIENT DISCHARGE INSTRUCTIONS Patient Information Name: KATHY LEMA Age: 31 Years Date of : 1990 Reason For Visit: UC - Eye Discharge; Eye drainage; R EYE IRRITATION Arrival Time: 01/30/2022 11:59:11 Primary Care Physician: Gayle Alanis CNP Attending Physician: Alon Snowden Comment: Visit Diagnosis: Diagnoses This Visit Acute conjunctivitis of right eye (H10.31) Eye drainage ([id number]) UC - Eye Discharge ([id number]) If you received any narcotics, sedation, or [...] legal documents With: Address: When: Gayle Alanis [address] [place] [address] Business (1) Comments: You have been diagnosed [...] and treatment you received today in the [facility] were for an urgent problem and are not intended as complete care. It is important for you to follow up with a doctor, nurse practitioner, or physician?s assistant branch operations manager for ongoing care. If your symptoms become [...] so we can reach you if necessary. [facility] has provided you with a complete list of medications post discharge. Please inform your primary care nurse practitioner/provider of your visit and for further instruction on these medications. Any specific questions regarding your chronic medications and dosages should be discussed with your primary care physician(s) and/or pharmacist. New Medications [facility], [address] [place], [place] [id number], [phone] tobramycin ophthalmic (tobramycin 0.3% ophthalmic solution) 2 [...] a recent eye (more content not included)... [facility] Coding Summaryon 10-31-2021 Coding Summary HTMLBase 64 OyojqbtwOUb5yZb+PGhlYWQ+PE 0LWIRqK37faJYubW6ZS4nVKS6B HTNEHUODWJ4OHV7jsAK2VPtfG9 VybiAv KvwowWToAC85XSs3RCE8cSxpQE jlaN8peWEoM0j3YqFvHT98gF96 RYllWZZjPoR6RyRzboolgWDl Z5gzBpJinRUeDli+PHRhYmxlIH fmJBVpMMfuJLLiZxGauMcwNO6n Vj1xSXTaQEMrdXnitPDcYrCk u0lrRFCgXVeqJI2afWmuX0XxxP A8AKEmy0j5Ek55mYW+PHRkIHN0 hZnyZEqsk360IlYvs6glETZ4 tUNiOLqfWXM5C96wb5J6ASHnLS OdRXQ4wHK8hO4kkMvjxccyO8Pc hBTdLwD0UPZ6kPUlmR3hsTig dqrtoE2hXwm+Y46HKL9OSPWXNS 8XMgt7F6MxDlufwWA+ZU31ZWNq QW73nTLqbQDfz3fcnDi2XzLf RHYdIFW5rQvwCUuoz6DgTQDpH0 3nzALmq8W0ABCttWqpxLPmPuSo fUH7mA5jVKajmbgwt5ayojwj Nedaa8xpwg90oR19P80iZByoHT XxADW6SBDaQFJqhPdtrv2ngW9h Ii8+SKjyp5drz8mnbAg3WeOk UWZegnAhtSprPCQ7j0VwUz31S3 WfiYkdm3CxYus5es39zEAmq4P4 eCN8ZOnqHDYfxU1aMLybAkP4 VXJcYiAglJ77zISkKBxnNe6amT wdjKrvCY3rPJNxqxuzPGZcaF6d SMYkzIAspLfsFR3cJHKjntdn p051RoXxRRB6JQLouSCnA5QejY 1aMmLgFANrBURuG3RlpDFfXTxu W863OFbiWzB5OLAbmzHnZ1Ho SKExqQavAzJ4t7D8Hr6Jq2Zjkm stODE9HYcsYMI9YlUmLoAcDxR0 W1ImFqq8HPPfcTiwXO2pL8Xh BVPudmpbrsxghGI3CGEpEDLfyG 68wQSxLLpfTp4wa6A7k943EAHv WSYvdF90Wd9qfHeuGEZeuARP zB6lzjfxi0lkcsotApWaQHSzEU a9XHy0JFOuoGgjLtNnIGJ2TnY5 TBR0aLOmgE6ffCangqlffV5y Oyc+O91jjG3zWSJ3AZP5ujqrYF RispQeLJ95KK34D4JeTkhhiRCj bGU+OTGxzuSffNgmCU3nHyHc r5zzp6IuPYhxR7OwGORqGZiaLs z5DHVsMKC1vAI9tJ2yZKCzQNqt z9T4oJY5R3IvthOauf4jg6su MFMdWHigN26fhMLcg1H7VYPhrH S5IAHifNouKgNrbF17Cak+PGNv gFgzr1SlKxnxy5ayo6jpmRj1 NgGvBBUwzdKokKqdNOV7r1LrUc 83G64eZSyvQGOxHVZkOYCxHHTx uJiykv6oxO0eLx7+PGNvbCB3 jJV5bL4vMFNwDyY8INwsU665Zr XfxIWqKzyfb9nzc7owxUl3MuHg JTWghmWdrWsoIZM1v4RyDs58 M75jVQaoNTPtMYVmYNChIIIiiL tcfb3lgP6yJg1+RH3bq5jhvo34 xQ18qEJ+EDSnUSX9aCuySFql XDIzjA6pUFklUdJ3HQZmQaRwwV 14jETqSLwbEm7wqAionPnhAB6q DOPkrlslv177CqFuz0roURCc wENpSDfsBQX0Y22ip7W4PSCgAS AjAHY4yIR2xL0zeYqbomrfuTIp nQtqxtQhiIdcDBxsENjoT905 IHRvcDsnPlBhdGllbnQgTmFtZT d1R8UtIwb3GNRohYioSG0rdLXt LObhCg3jdUyxkGvuPP6uKEQe uozhz105RrVnx1sgVONlzHIhQJ dwVWP8B27if4L1IRFwIAAtNBY5 vGE0eG9ffDjjehwlsUHqnGzu djJrzVrbEAagLMudW774BYZxoJ jhDfXrjyWoWIJbwGK5XJ28DR97 tDKte6U1bZI0M1TnSSIjozhf efcvjFJ7BQNlRQOobM60Co7yrZ cvDi2hKYYyXFO9UUKhyIJqS2Ob bH7jNlRzHAJgQFGrG4KluJHh DZrpF327ERiuYxY1BSVvkwGsO1 XeFHPapEdpXxV1t1O9Yu7SI2G5 MH25CP60wLYua8A7nJK9R1Tj TGRekqxfocnmcBH0AOHiXJIdnW 01Qo2thYnbWj4iLSLnWYO6EOSz rLWwR0JzyI0qXtYpDKRaPJDj U9ReeMBdYLphY445IIveOmT5DS EtjqBmW8WdBNBoiOruOlP0f4H0 Ay8CRHq1LV89WN36sXVhi5K0 yXB3Q8SgMXCyeobmomamoCW6XX ZkOBOphU32Zf3boSjwKs1sYTDb XLJ9ZSLflZYyY6DwcD0gOdVa FKXoPULxL0FcpIPnEKieW947JX ayYoD8PSMltkNpJ7HjWQKqrRam ZvB6u1E3Ju8QPCVvZP28OLV8 nRH3VL01KF95E3RlDhodwSVwcX U+PHRhYmxlIHdpZHRoPScxMDAl SbCwgKheCG1nOo0iNPQqIPHl zMpxqQRiNuEfj8tgVWHoCMjbEH 1qsQifO7NpoVL8SQNie2i4Oj68 U92tU3MwmTT+XMSoxRM0eZK0 gQ4dZxLkZtH5TYbeQ041BmEbgH WaDtims7xvo3dkhNx2WdM6XVHg iyYtzFliBFG8x7HqOj23X98q IHdpZHRoPSIxNSUiIHZhbGlnbj 9jqV4gOp3+KBYwzKO0uZN9kD6h GoZtLiL1MDtjP624MxImhLSw Cenmb6zab6gvmEd7AtFfRICjgo TnjPblCTJ8z6CzAo57J4VhoTnl z6XzEnk3xq82rERlj1G3tSZ2 E8EmUGGlnkcxhZVgaGjiCR6rUB IpqwnoFBWanQ4oRWDpR2t6XmGc AdG9UQylI0WadjY6HTOuaMJb DCfqBHK3S21bo6I3BYPqTNKvJB A5iIU7lN3flEplcwpifNIdtGgu fwGnwEjeCOocZHdeX818PQKt qPcoITVtbY1wVLYubMChwMqrVL 8aTTVbedafTavAFiYGIJYYGZ0G YfEEMRZEYQUHFYR9U5LaMmh9 YXDqqYlsCV4bhCRuGJdsYo9bcL naoAiwBL5yPDAyritbYGUckN1q SYNmkQVmcJccWR4dMMVlujkb a008SuVlWGL2OGUzmOPsK7GjgJ 4dXvTyXIIdOXAkF4BgvWYfSNza V836FYdkCdE8HDQytmYcX0Zy FPZpvNlgCmE9h1O3Xc4cJr0bKQ 1bFIetBR12GQ25sRPds5Z1rWE0 N7UiYJNxhlkuwzjaoWE2YRCe DZPgyL19tXOoQVbwRc0so7H6e4 41XSKmXLIyiF40Yk5erLrpROGd zZXXfO9lmnqrp8phvqtrEqSr UXCuDKt0ZUo7LBXzzTujOiBpYU P6FdJ6LOW5bVGsdB8zyZdvhvkb dL3rAhb+TvNuYKAwyfE9N2Am Htc4KSGpyUjxGQ8izSHxFYphZn 8msVoviDyoRL1bFQFtvspqLSLn aM0mTBMsaQEwoEunTR7aYQAc hbktm461ItPfOCJ2DWAphEBhH8 LmfU4eGeYfJEZvPDDvR1WfiCDt UCojJ689QVqlIiI9ARYdygJw Y6YlGUWikJsuBfD8v8O8Jz2VDQ 6BJXG6O8NnVwn3XYIqqWhyRS3p dVBeEOkmZh1gyPdnkWkuRC7n ORXnhkthISOiuI8eQCIusTOibB fzEH3fWLZqwsstt595ZyKoCFW4 FSPskMNtD3OzrA4pSwAkSCBd UVEvI3UhrHLwWMhtC843ZWbhUl G2WXHddrPtZ8WaAMLedPqrDfC7 h0S9Ij8IKKfnvIC+VY99au11 J9PsQftpQow5GVTvZQW3hYK3oP 9oTOUsWAvou0B3zAV1H7GuibHc nw0au6zdYPDfTUovA34gqRZs g8K4DTZxoEE4WIYhkPdiAvKdkN 93Oyc+HZLirMhgz4XcQxpmz1wc q0uxzOv6OxNyHPMwkqFmsAcg SKM3h1YzCu16E97yLTplPKIdJJ GnOIMqTZMbsEwuhk0wtX4jNw3+ ONIwpAQ7eAN3eT7wIuTiEtR7 GSshV848TyYckWIsWtbxd1xkw3 akwSg1MuQsMOMriaQuzDxqPHQ9 t4PiUm76G5EjjCzao2EuDyk4 hp98dKOfg7I3yKT1B2FgZKPnwc bwdTFhoUorQX9vMEYzugdzXGUo sZ9uUTSfE8d1IzKaHsM6NMhw E1UumrY9JGQutLIyUKJpqVOGqZ 7jpzvnm1kqducqIaRaILDdOMj0 VYb8RICgdHosSuVxEIE7LfR0 HSC6gWSdtQ4cjStayhnahC2eMa c+LHv5k5ypfQFgVV1vsHL8GK37 UZ35mVVvc0O9yMI2T7MzNEMw eclldiwefBK8BTFqJXYevJ85Bk 0ioFhyHe3aPLAsZKI2PVFilCRb D3MefQ6kRcBkUAQsCEHcM4Mr sGLvAEavB904PQmpRpN3XVWpgp JzC3MfQTGisNxpWeC7f3O0Ll0X YT56IN35SD57nMTbq7I7eBC7 N5MoFULenrwpalsayJE5RLIpKJ UalZ75Tf1uwGyrOa3nZIOyCSF3 PEIqjOBaJ3RbyY0nWiSvEHFh RRPfP7JjvVKmQQdvL009PAjkFh G8OZKbjyFdF4MmHOLpjGsvIlS7 i7C6Xx2AMh98MA77AJ03xDDr p5G7hSW6G0CzHBSvvwsokeuxjB J2WPJvRTIxsL02Di7szOefYn6r WSAiETD9XOQwzZJlP8ZpaT4k OsKgRFVyGTTlF2FnvJVnCOisF7 29ZQoyJaW8GBMtffHzZ3DgXDXj oUfsAtU6m3N2Kb1KEKlqmml8 D8HfFbipgCN+NJ00LIYdWX74jN PcvAHxx0cukHx5VqDnJKPoBKV5 qBoeWIwsq0QnLJGmZ84ydWDu c2U (more content not included)... [facility] Coding Summary HTMLBase 64 OcrjycqsPRw6iJf+PGhlYWQ+PE 4BYSQbD49slRFlsR4WT0xZCO4N WSYIHXNOQS0WZA8giEH2ISgsD1 VybiAv EwjvxZHsTE71YCl2KLF4eOwtUE royX9wiECxA7w9DtGoCF42sX22 FYwqJEVoJdE2DmAllxftcZVx V9unAoUdsHEkBhb+PHRhYmxlIH aoJVXpVZyrFIDlXpCsoXpuUL4i Oj6iICAzOSZgfKsraTHjBjDv h3mmBBNvUEibEQ6kwItvA6IgzM Z4RSSgi1b0Rt00zGD+PHRkIHN0 uAngZVqhj754BgRkb9psGYT5 cYPnOVufPAI7C59ar6S2VDGzWO BqUSL8zZZ6iZ2iwCwbjjyrK7Tx xWVlLiM1FHB8vDVcqD2itXne hsrwqD4dZbn+G24RMD0FXRRYKA 6OGrw1K0GwOegzxMA+MQ18LEVy RD90rCSdmKAtl8tuhRm6AsGt TKAcEFU1yBdnSAtut4YzYXChM7 6nhDXvl0V0CVEquOapnRRaElCv rUP2fR0uEGgytkgqh9emzmyo Ktuim9uwzq48iM36K30kKPulAZ RiZBI1WWZjPRSqeWoedd9baB4o Ii8+XBxvv4crg4sapUn6ClKz YZXpvfUjzKanXZF2g7RtSr30C9 TdlBkou0AxMjn4pm90gLIqo0S5 yVL1FXatOTOsuI7dPDpnTwY2 WKNwHzAwsQ19hCFyIAwzXj8fvQ zdiFroBI8kVYMwgaqzHWKxxK2f JDZkyWXvlQuoUX2gLMSmhule j932WdOtOEL4ZSIzoMPxP1YepL 0cCiUwTNTdNOJrK5KibNQnLWwm A958SHmcYbY9AUGqjjGdS8Gj VAOszKluQiR5s4B2Bj6Gy7Eede ojNCD3MUarKEG9YqHnWxMoFpG5 A6WmYxy1JNKemZvmKD5nD1Ke AUYbfdaymbbbgQP4GCTtKZZrwB 09cTBnHSekHd7fc8U1t931QAMb SKGcdK73Ty2plYnfFHNisXCH vZ2qictip9ecvnxfQpBqSYKnRF w2CLv1PUIltErsTjAhSMC8KbN2 NJA6xUQnzA8vuGuqhflufV2v Oyc+U68xzZ1yVRA8DWP7utmwFT XdcpMbLJ43LR07M0UyAflmcOKg bGU+KOJhkoJxbTslDY6nBcFz b7gtc0UtLMceZ9PjRCRsMNljEs g1JHYeDQM5jIV6tL0pAEPtCBzi v8Q5xZW9R6FwdtJsra0il0qa ZKGiOShlT23agNMwr3E7YXRaxV M1YJGwvFmnIbPwfS01Odh+PGNv hBwbq7KbZhmna7hlh5yjjRw8 MgEePDOfbvBiuHkaMKU7g0CzUj 19P83fBYxeAQFnUPIiNATgBSEf zAvyij0moV9qQw2+PGNvbCB3 wDD6hO6fJTXwLpF0YUotO869Sy EivAOnShkxy7zge6vjxPj3FsEj MRPulrFriNboIXT9n6YsHw84 I63gXXnpLIKmSEOmCVGhXMTjqT nfpe8hoT2hNm5+KQ9lv5olmx97 nI99qGG+TYSnVRC6oFqfPUor XKEckR7mOLgcPaL1FCTzLcUhcT 03zYPvYOfaJa1mnUrxxZvvUW4n WFVpojcmp282ZgVpb3bjYRGg jSYyECmeRJR5S30hh2J0VMUdUX ScYVE0rUV0pN3oyCntsrdgjLSt lSbqpzKteUulCSgePUzgU468 IHRvcDsnPlBhdGllbnQgTmFtZT p5M5TjGmx3YTBcqAhmBD7qwYNe NTopMb7hwIimwNfeRV9gLNPj sypza640UeRog0mwQWFwjXReGU zkBGG2T61lp5P7YRTrNSCnQUG3 pPP7wF9bsVsysjmfwXVchKhk cbWbfDgqDZnvLXpkK115KTTixS ueBvVxsqYzPCAdlJI7GC46ER31 aUTar3Y8vUT1C0QdHVNralkc zhxdfRA6EGJyIPVjnK67Kn1mqH ylWv2jJMPcWTE2TXBcuTAvE8Pd dT6tAvUyJOCgDIDrJ4CwkPSd GCypJ729LCwiJaA2MFIicnQnO1 SwEREyzOvgIdE9i2E0Na4KC4V1 OR30JL39uBRqk0Y1bHU1A7Ts NCMwwhhtxrpqrLS2KCFeJAFdjV 12In1hhGegAf2mGLCoGOM1VCNa gNQsP6XyoE7vQrPwIOJpNTFm M1PyfOAcQHpaZ361TWjzYmN3XQ AumgCoQ8SzYAWinMkbEkH5n0C7 Sn9SDLl6NY59ZA93wJFrl4W4 aEC9P1HaYPQtgisggpizgIL3BA YsREByyX38Nb3dzFuyMp5zIPMs THG6JYZaxVSoI5SwkS7gGzEp EBBeGDIwO7XprIRaKKfnO644SP vtPkF4AILnkbTrP5DtUANkjJqc StT8z7V5Gf4VQYNlNG17LCG3 uXC3ME81QL13A8BgRjtepAQzpM U+PHRhYmxlIHdpZHRoPScxMDAl IzKlmHkwPU3hGq3qWEVdTTQt aOzfsWSiLhSqv0hjZSPpCIttXT 7clYqcD3HvuNY4QMOue1c1Gj31 T54tJ6HswAO+EQAwiLU5qFC6 qA3aVuYpLbW7LKagB653FvCqfT YgDzood2juc1amhRb8SnT5EXNg gdAyuMcjFPT2p1IxHc55O28w IHdpZHRoPSIxNSUiIHZhbGlnbj 1qdA9eNj1+TERbeOV7vMW8zG5j YdIfSeS9SRmdX139HrThqIVl Rsjbi9byp7fvbGy0QcJzZJJrye GzgEgoQKL2h0HfDp21E9RgeKoa m6OgVdn5jn88jPSgb8X7gFA5 U0WrEYKdwmybaGQimJmvKW5pZI YyltdyKOFduL4xBDCrA0a1RsNt RiR3UWqhK8WbrgG9MGFbaNRl UVxxXOD4J03mu6W1QWAjYQZrJS C9pTY4xG9hoCiaumzptWTzuDim qaPcsSkwPZatJKjaY316DHQq wVvkULKyjK3dDQEhwPKfrIpoOM 3rFTSbpzinZlaPRcJBGYXNNR6T ThKJHDWFGURPEDK5E4XsGnb4 SQPmuTvhFD2cxZUqMBvdZn0ffE vcoQjoYW9nXSXsnoxgETLxuL5p PSWzyPDhhBrbOG8dGFIfkvlr t217OhXcSEN2MANumYMrK4KppF 8nIjJsTXLpKLXyN2DgiXEmXGpo I772NAnxKeD3TKZygyMiZ0Hv VHKcySkjLxM9f9D7Ph4dFk0mYG 0sMBngLE13IR72gJCjw2W2mTB4 X1TpYVAtbbuvqqocmFS3BXXc ZZCwbU28hRFwXPawMd4mz9Z1l7 42DLJlIKLflV22Vm8ueGvzDQXe hIHDsD9wekwpv3ezfbryOaYb UTTkRYn3UMg7JOQzlKsbYbFwHU E8YdB7OFI6oCCaoU5qbYyuqwzb yJ4jGhh+IeXdZJZnanL0U7Fg Ewq0TEZdkGalOT5etITzZYtcJm 6dcDzdzHyjGR5rQNWcgtboTQEj iW3sWPZehIWtqSunJY5uOMAe ljqum661NxUmTMX8UKNgrCJwJ3 NnkJ2oBhJbKIJoLTNbN7TumRUh WKyvL919BLzgFaB6AMLafeYu D4OvMDNwnSlkUpI4g1U0Yb1SGR 5VOAV7X3FzFhz8OEEqgGunPA8m tHUaMHqcTh8sfTgrxLdeQR4u QIKtxkrwFBMtvC7rLZDntHBfbX tzBE3lHIMjfhmtf703XpHmLOM2 IIPuzAOhD4BglJ0xHhEzOIDh TMJiK4QryUXzKTyjI460YBsnOb G6RGGwbsWdX3KaCTTtsJxkDhX3 y6R2El8FdZHyK1LoN0j2P1Ux PjwvdHI+VJ59SUEvJG34rFDyfN Bpz7qiaGz0LnZmPOTiRJZ9jVav HAzvc8KsXGIxC45amEKkr3D4 ULFhnOqyeMAzNmNmuBH5zE8bKA bawbouo7iovrubXwvia0vxzd34 oS76O01xIGtjXPCuBPNgCLVc OMAwjGkrld1ukH2qIz8+PGNvbC Q3aPJ9xI6oFwKgLkF5LJsrB280 RzOrsYRwKfvbr8xma8tpxDn6 NzItRMBlppFqvQroNUJ7a2IeNw 16E81bSCklJRTtXOOtGMLkPMNl sDcnop8jsT1fOu9+OA2ie4ed du31wH64gSC+SUAaWNA8kOkkIW urWZZhvT8rFTbdQsB3PSMoTfSe qX04mLVnZNgfVr1luSchgNgb HK4jMVZyarvoq329FmEgg6viWA KeoEPpVRmvUUE5W56fu8N6HVKu ODInCGT6pSH7dW8nnToijulm bGVmdDsgdmVydGljYWwtYWxpZ2 16FZNptMoaJrWdnUZrG5vrgqPB ES7tCepleOW+RHWgVRE3iZbt CCkyRFMioG9rCLWnZ4b4TkFtZj N3WTbfV8ZgtcS7OGDqkTJgJCTc tSLNqC1vsuwxy8dfdrsiPsXu VWKuEBx2SPj3IFFiwOntQsRbGB L1AdD7VMB6tKUaxL2aaBxrzzcd uV2iLiq+RklOOjwvdGQ+PHRk OJH5mVthXOerIFNxbM4jFITfG4 a1IfOdIiI9UJqoW6QqhwL2FWOg cNVdYFLxfNMPaT9scqxae4kk wequTnZsQJAcAXa0RLn5QALjzR kuJgHvXHA0WzY9LDC5xNUjnL3v rEcbgziteQ9pGul+TVJOOjwv dGQ+GITdCMG5sZkeXWmoRSEgxV 2dCOReA9j6BiYyGfN8LPmjN5Rd mzE5CYFrrOJkFGPwqHQNwC8z votqt1nkbjrcGzDyFQNhKMe3GE s3RUJzkEdlHxTbBOL1GhW1CIC2 xBFdeP6vmSkncxmlgK9aUrk+ LND4AEM4SS49BY41Q1WnCbxgkR FibGU+PHRhYmxlIHdpZHRoPScx QIGqDhWanGwnPD0hHb3cIRBt LWN (more content not included)... Normal [facility] ED Clinical Summaryon 2021 ED Clinical Summary [facility] - Emergency Department [address] [place], [place] [id number] ED Clinical Summary PERSON INFORMATION Name: KATHY LEMA Age: 31 Years Sex: FEMALE : 1990 MRN: Acct#: Visit Reason: Allergic reaction - minor; POSS ALLGERIC REACTION Arrival: 10/21/2021 20:11:57 Discharge: 10/21/2021 21:40:00 LOS: 000 01:29 Check In: 10/21/2021 20:11:57 Checkout:10/21/2021 21:40:00 Address: [address] [place] [id number] PCP: Gayle Alanis CNP PROVIDER INFORMATION Provider Role Assigned Unassigned Brenda Cee ED PA 10/21/2021 20:16:33 Elizabeth Marin ULTRA SOUND TECHNICIAN Nurse 10/21/2021 20:29:17 Mojgan Noonan ULTRA SOUND TECHNICIAN Nurse 10/21/2021 20:29:35 VITALS INFORMATION Vital Sign [...] With: Address: When: Gayle Alanis CNP [address] [place], [place] [id number] Within 3 to 5 days DIAGNOSIS: 1:Anxiety state Patient Understands: Yes - Patient/family/caregiver verbalizes understanding of instructions given Comment: [facility] ED Note-Nursingon 10-21-2021 ED Note-Nursing Pt presents [...] A&O x4. Lungs clear. PA at bedside. [facility] ED Patient Summaryon 022 ED Patient Summary [facility] - Emergency Department [address] [place] [id number] PATIENT DISCHARGE INSTRUCTIONS Patient Information Name: KATHY LEMA Age: 31 Years Date of : 1990 Reason For Visit: Allergic reaction - minor; POSS ALLGERIC REACTION Arrival Time: 10/21/2021 20:11:57 Primary Care Physician: Gayle Alanis CNP Attending Physician: Frank Rubalcava DO Comment: Visit Diagnosis: Diagnoses This Visit Allergic reaction - minor ([id number]) Anxiety state (F41.1) Prescription Information: If you have been given a prescription for narcotics, seek immediate medical attention if you have any difficulty breathing or any sudden status changes such as confusion and sleepiness. If you or anyone you know is experiencing suicidal thoughts, mental health, alcohol and/or drug addiction problems; contact the [facility] 21/12 Crisis Hotline -Text 4HZYC xk [phone]. If you received any narcotics, sedation, or [...] With: Address: When: Zeke GUZMANGayle [address] [phone] Within 3 to 5 days Medication Information: The exam and treatment you received today in the [facility] Emergency Department were for an urgent problem and are not intended as complete care. It is important for you to follow up with a doctor, nurse practitioner, or physician?s assistant branch operations manager for ongoing care. If your symptoms become [...] so we can reach you if necessary. [facility] Emergency Department has provided you with a complete list of medications post discharge. Please inform your primary care nurse practitioner/provider of your visit and for further instruction [...] ? Depression. (more content not included)... Normal [facility] A1C HEMOGLOBINon 10-01-2021 HbA1c (Bld) [Mass fraction] 5.7 % [facility] [employer] Other HbA1c (Bld) [Mass fraction]o n 10-01-2021 A1C HEMOGLOBIN [facility] [employer] Other Coding Summaryon 09-25-2021 Coding Summary HTMLBase 64 WzzdjvblSYw7eQl+PGhlYWQ+PE 9NQQUzO96lxHTihM9BU8pVJV4W NKKBTBYWIL8UQK3ngJJ3ZPeeM5 VybiAv GfkvuBRaJH04JQj5BIK0dFhbRX oprZ5clQJvN7s5FjAkTB90xH03 LBtxGGApGgQ5HzSkhkrpoBWu K2ftChRwyGCoXek+PHRhYmxlIH icYEKxIZskYDMiXkErrMhzKS2e Jd3vMSIlWXNkeDxfeVFbPvCf x9giMTCiFOyaTL3clMssD3GdtT O7CSNxe4g7Zh05yGT+PHRkIHN0 pKkaLZass273TvZja2uoRHB1 oQDuNCtkPGT3S91ue0X1IVGaEP HvSEY4nRD8uJ0ymZgcsubhO7Cs vIVuUcU7AEQ1bJOxeY9kkFlu wrzefS1rVpv+P01FEU9PTDHRHA 1FSjw7T7RjYfdheBV+OJ66EBUq JQ34dOMihAPme9islUv5NzJa YNKiKNM1hOknGTrkj2XeEQFmW7 6xzRIvv1S5CAYvaYdbvESwLzKj yWQ0rX7wRDgsfetgc3syrcnu Dmgro8rrog78pO94E01cJBygZN QyXAY4PIDoRIUrbUouox8srT3f Ii8+BGdry2mph8qlvPx1AvGk HSYmdsEwjHsnSMW4k9MnLm55G2 XzwSobf7DgLby8ss16wAOpo2D3 zLX1PXbqZMVtvS9cTMbsXcW6 OXGuPvEnaC06fSBfLCxdLg0guN jvtZuvPR8qBBDbzouiHQRutH8y TSUpzUUlyExvPV8rHIKmiipi t358ZtSqGBG4RWMvqKFmD2RdaN 1iMaQvXCUqOYNvV5QczPBdFEei L411SVxgXzW0YTAbbnMfU2Cl RVXzlLmmOoX0r3X9Sf0Ss1Qheq joJMG5JBazGTY5YlW3EvLxFbE5 D9BcMbs0QPQgyLlwEO8hE0Dz QVAyerzmexkeqSU2BMBsMLUyhS 12iOPmNEnrWb1qb9S0k025TAHp NQCrbU22Of0ttWgzWUMvhBBZ cW6olibyd0curxtlSgUaODKmDY o4VRv2WTNjxWqeWzLzQGC5RsO7 OUE2oUDuoV2urKkogtfctL0p Oyc+D28rrD6uHRL7NOI1yvrgRX KfoqBpCJ36KN84N8MeWwwtfWFn bGU+JIBcldSmyMrlGI7eHeIq a1iuw8EbEVezT9BdSJKxGRtrJy v2YPMtXXU7jLB1mO4tSYZxTSjy o8C0aOI2A1IxvuBpyq9jx7nk IAOsSNmaP65mrMJja4L2HIGliR U5HLGsnFgwNpWzdH22Fky+PGNv yMvgg9NwMbvwl9hko5jtbZc5 DrXoOJDufpVcvMugKPI1i8CjKg 41H68qGXixIGUvPXSzGKYySVBk tVwsnd7mnV7mAo1+PGNvbCB3 wEM1tG7lBTAdTnF7OQidK850Ax VmzOYsTuolm8uhm0zrxBy8LbQv FHFjymOejVzpMMX2r1ZgLk16 D07gPEogZFNbUTBxDMXkKVAhtZ axyu9rvE0qWh4+RP0mr1jygr91 pQ83tDB+AZZdZLP5aFaoOLki UZXojY3fVQvdPlU0EEVqCsQbxZ 22lKMjHGsnFf1rmYlblFntCB6k IXUuknskd413EpVtv6qjSWYh hEHwIBglIGR5Q79he9T5RJJkCL JiNFA2pUN7uZ2vfHesefqsmQDe yAqcocLekPliQUyfAAgeA972 IHRvcDsnPlBhdGllbnQgTmFtZT x8R8TbQsq5WWVvrLccDJ3azCHs NHuoAr2gvJzkzXgqDW5lISOe apafw080ZiQyi6vpLFBvdEQiOL ieNOE0M34aj3O4XBHlPNPxMGI8 nWT2kQ2ifUrnvyxfzLXuiTdm jkAubCtiOXwqKVamV453INOimW dnMkTcvjVlYVIrqMC4NQ20RY77 aCEfq4X3uXK5S8ZdJPXgclpa kkchaPD3IGReCIHqnL28Av8vqY qkOe9dSPAcWOL9PSGfqPZxP8Ge mF7sAkHbFEMcPKOgP4HxpWZf WHneX470NFifToS4WZBecfOzV7 TxAZRmcIhsYmQ3r2V1Hw3NZ8Z4 QW45XJ70bBBac6B3zCL6E8Ni ESTvdmnznawbgAW7UMYsQBAirO 94Xo9bbUwhFl6aQPHtNRN3DKUm pQNnH1StkO3dKaPaOEEvYGWm J9IzsSIvYHzeE898OTmnSwC4TC KhixSbF5ExPHKexMhhUlP5b7O1 Qj7GQMb9JA87KP77bSVtw9P0 oYY9R4FlYQGwavuprwubhTP8FB QeFDRnnP92Ft4coRwfPz3pLLLz XHS1VRGewRTkB7QvhE8iRqYn ENZbBGXjU7QeqOUoEKjsR152WO uwVgX0PRXtifPbJ4UdCLIidRsd QjP8c0X4Ct0TVTCvMI18TXO3 iRT2XQ41SJ45Y0ExRckyeUHavE U+PHRhYmxlIHdpZHRoPScxMDAl OyOgtSwzSY1tKw0lAWWdRXGx jYfamVNcRyPfv5rnMQZhDYfaYC 0waSbtJ0MsmWK7PFRlu8w8Zx22 W76fG7MvvYF+IPRhfOQ4xGR1 rY6mDlHpNfL5OQeaX442QeYwuN OlJvyeb6mlw6pevFv4BrP0GDZo whRhbKtsNRC7w4UqAr11V66f IHdpZHRoPSIxNSUiIHZhbGlnbj 7voL2pDy8+XVCqiJI5zSJ8tY2s MvJdNpN3PMapE990PtNhfOYw Irhpx0rzs0hfkMi0XcSeRHNycq VonAxrYZC4j9LuGg13W8DdsAtq c2WtPlz6yy51wZAwv6X3zRG8 N4MjKWLxxozzqHVbuYkaGH4iSN AakioqVIQwoV6mHCOtA6p4GaSn RxH8VSdfD9DjsuH0VPPldIDu HMdnGUY8I52fb5I4ADFcSSMmXK L6aTJ2xO0quOkuflonqPTnvXgd puLulKkoEGchJDciY709AAKl aYxfLRTpqF5vEFUubZLmzWbnYA 4uNYRbmztmLamCPpMHHLHMTN7C KvSVVKVDXXRQLTW1D0ByTbg1 MYOuaWhbBG6bxSQtJLmwXb4amT nbrQppSM7bWBFfcberNDGhzV1y GHYrlLMzcUqbHN8mBAGqacnq x533AlUxUXJ6CVWnbFBqB6MyfH 5sTxRaCXTxYOUuT7PxhPYqFAyp P225XFplJbI8RCKxdsDyN6Cn ATRxfVzwYdV7b5C6Vg6nKb6tJN 1sPNzvIS07IV62eBZnw9S5qFO8 L4LsSLXpofjfkxlusRW5DHDz QPDcnO68fHAjQMhaBk4tj4Y5o9 27CKBrELTmuJ92Sy6wbVppDAXl oGRVgB6fmnrgx6kzccduRqDa IFYuMHw5ZLb6CROnmMojFlHkTN L7ImQ7HMI6zDMwwB7szJqhwooj wN8dFri+MwTvLHTmftE5R2Af Uti3DOKsvGkkBQ0tmLGeBFvpDq 4enUcjkUuvZG1sPIUzhjkbUCYb pA8hUNWahYCgmUduSV5dRRVi jqhet285XoDrJHV4SCOyhYPoR4 YncE6qPlOzFQKnHDKyM9LpjLAu MXiqX418SUfcJhJ8EJSexoWd T5XyZQFalYuyEgL9z7K9Es6SMA 2TIEM2H6RdWmg4GYWriUxrFQ3g dKMpDPemUv5acDtxaIpuTS2q TRBkaitvPNBzoT3nDXSeaECgnW grER6iCIYatajur493ByVqKSN9 WCAckBAuF7PzsI5xQoLeNAEm HSCcP0SrcIQcGUudX758ILbfAa T9DEPqdxWsY8GbTHRaaFsrZsR4 j1A8Ls8UHGymvBX+NC33aj81 K3KqNaxrRpq3PQVsKKC3hAD5bL 9fXAYlZPumn1S5lYP8U1QvonYm gi1ba2yzWNAdPDglL60eiVYs o5V3BSRudHZ9CWUhiPquYpYikU 93Oyc+FLPfvDqce3ImZpmjb9fo v8jxlLn9VgJgVCCdjoBxrGfj UOJ4f3QsYg12I04rPEqoJFPwXM ZtFHGeVEDgoWdqke9nsH9bKp9+ XBGktUO2gOJ2uV0vIvTnArQ6 PZknH716MoYjjXWuZqmji8vki1 qujYu1ByFqGKDyhfBhqQxfWEH1 z7KdYi12G2AlyOjyj9FnUtu7 vq44xOMfk6Z4sGT5D3JyUZIpgq quuRPsaOvyWX8zUKBdubgpJQNk gF4wUOUfZ6v1OxRtQqD5XQgx L7VcsrN6MQUxbDXnLHDnmKWIqP 6sdgutf3kjiwaqYhPhEUJqQKt2 SYn6NIEliIkhDhYoRYC0GiG3 POO7cCIbvJ9mwJfptelpvD6vFx c+SCg6s9zltIEfNV8kbYW5PW69 FP75zHLgp9K1pYB9Y6TdPCEn thprezebhIC9TXBuMJVhpE70Fi 5cpMvrFf2hJPIcKZA6BQHwnZPg S5YmnZ8wWrUoYQWfGSYpE8Xh zYUfMNgaK605TPboShR8KQWfkt NwP5MuJNBkoWmtLpM9p2H4Ie5L VU54XG63BE33lPAck1J5vBK1 D4UiXWIaqdrbcsirnFT0SPThPA PhmD09Nv7ihQgxRd7uASDkZQR4 OPGjtZUuS9WolK0qVyDtUJIb IVWgY8TtrBYsJFrqQ448YCtyCu X4RMQdwdIgS0JdCKXmrXiwPwK5 s5Q4Pu6JJs12WH79VG59vDMz c1T5mDD2S0TwUJHdetddracyuT A4TJHtYARolI85Bo0prGonMr9o TSZoCGP3BYKjnUOiK5ZbmA1j GjStUNZrAEShX4TkgJRkAFeoP1 68XUelSjO0ITCqfiWuI5LqRKDp xTosPdD9k5B7Ig4PMPpnnzb8 B4CdUrhblWB+GP40AXRcZE05mQ RtvXXiq7beqAz3DzBqJTZkWZA8 rOitQEbzc4QnORZuR04fbSGn c2U (more content not included)... [facility] Discharge Instructionson Discharge Instructions [id number] [facility] ED Clinical Summaryon 2021 ED Clinical Summary [facility] ? Urgent Care [address] [place] [address] Clinical Summary PERSON INFORMATION Name: KATHY LEMA Age: 31 Years Sex: FEMALE : 1990 MRN: Acct#: Visit Reason: Medical screening exam; [facility] F/U- LEFT PINKY FINGER Arrival: 09/23/2021 09:29:53 Discharge: 09/23/2021 09:57:00 LOS: 000 00:28 Check In: 09/23/2021 09:29:53 Checkout: 09/23/2021 09:57:00 Address: [address] [place] [address] PCP: Gayle Alanis CNP PROVIDER INFORMATION Provider [...] Patient/family/caregiver verbalizes understanding of instructions given Comment: [facility] ED Patient Summaryon 022 ED Patient Summary [facility] ? Urgent Care [address] [place] [address] PATIENT DISCHARGE INSTRUCTIONS Patient Information Name: KATHY [...] and treatment you received today in the [facility] Emergency Department were for an urgent problem and are not intended as complete care. It is important for you to follow up with a doctor, nurse practitioner, or physician?s assistant branch operations manager for ongoing care. If your symptoms become [...] so we can reach you if necessary. [facility] Emergency Department has provided you with a complete list of medications post discharge. Please inform your primary care nurse practitioner/provider of your visit and for further instruction [...] This Visit Contusion of left little finger (S60.572H) Medical screening exam ([id number]) Sprain of left little finger (S63.144G) If you received any narcotics, sedation, or [...] sign any legal documents Reason for Visit: [facility], here for evaluation on left [...] for Disease Control and Prevention January 2014 [facility] Urgent Care Note- Provideron 09-23-2021 Urgent Care Note- Provider Patient: KATHY LEMA Age: 31 years Sex: FEMALE : 1990 Associated Diagnoses: Sprain of left little finger; Contusion of left little finger Author: Rolando Huang PA-C Basic Information Additional information: Chief Complaint from Nursing Triage Note : Chief Complaint 09/23/2021 9:41 EDT Chief Complaint [facility], here for evaluation on left 5th finger crush injury . 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 Surgical history: LEEP (25166145) in the month of 10/2017 at 27 Years. section (62275069). Loop cone biopsy (336117362). Hysterectomy (867009265).. Family history: No family history items have been selected or recorded.. Social history: Social & Psychosocial Habits Alcohol 03/20/2019 Alcohol Use: Never Substance Abuse Comment: Denies - 12/12/2018 09:36 - Akil RN, Kelsey German Tobacco 09/23/2021 Smoking tobacco use: Former tobacco [...] Plan Diagnosis Sprain of left little finger (XZE94-PM S63.617A, Discharge, Medical) Contusion of left little finger (NPP33-DR S60.052A, Discharge, Medical) Plan Condition: Stable. Disposition: Discharged: Time 09/23/2021 09:51:00, to home. Follow up with: ; Return to this practice , only if needed. Counseled: Patient, Regarding diagnosis, Regarding treatment plan, Patient indicated understanding of instructions. [Electronically Signed on: 09/23/2021 11:22 EDT] Rolando Huang PA-C [Verified on: 09/23/2021 11:22 EDT] Rolando Huang (more content not included)... Normal [facility] Ur[facility] Care Recordon 022 Urgent Care Record [facility] ? Urgent Care [address] [id number] PATIENT DISCHARGE INSTRUCTIONS Patient Information Name: KATHY LEMA Age: 31 Years Date of : 1990 Reason For Visit: Medical screening exam; [facility] F/U- LEFT PINKY FINGER Arrival Time: 09/23/2021 09:29:53 Primary Care Physician: Gayle Alanis CNP Attending Physician: Rolando Huang PA-C Comment: Visit Diagnosis: Diagnoses This Visit Contusion of left little finger (S60.052A) Medical screening exam ([id number]) Sprain of left little finger (S63.613X) If you received any narcotics, sedation, or [...] and treatment you received today in the [facility] were for an urgent problem and are not intended as complete care. It is important for you to follow up with a doctor, nurse practitioner, or physician?s assistant branch operations manager for ongoing care. If your symptoms become [...] so we can reach you if necessary. [facility] has provided you with a complete list of medications post discharge. Please inform your primary care nurse practitioner/provider of your visit and for further instruction [...] Disease Control and Prevention January 2014 Normal [facility] Coding Summaryon 09-18-2021 Coding Summary HTMLBase 64 RhyugygwEIt7wSt+PGhlYWQ+PE 1RSNPnV95qdLHujN8FW1uBYR5O XOEYEXZYHE9XSM3rwJL3HRxzQ5 VybiAv TqotrYNkFE19BOn8ZBH3rPwoJI ozbA1nhTPaD0y7PwQrFB07aD24 LJocNWCfPtT4JiSsybqxtYHc I6pyGuGfoPBbUpo+PHRhYmxlIH dxBGVoKJlfIYKkLoIotNdzAM5n Xy9gGHAmBGLuuYeqsKKyNdJy t3etGNQqDJrtJS1axVzsH6DmeW C6BYBfy3a2Ze46vWM+PHRkIHN0 uLejCHbbf339SqPdb3gwMVG4 lNFaBOsrYWK3J32vr8C6ZQAgHZ KmUJX7kWW7qC7qrKzaaeksK2Px pFUtVkA8VZU6qJBzkG3lpZux ihkziE9nBwz+V38KLH8VZHJVQJ 0JHyj2E1WzKgdtvXG+AE47ESXb CW32oUQnzMOlo8btcCt8EmPo ZYAkUVD2yCziCGfcu8LmXHSaI9 1xsYNop6J6VDYwcXmsmZVmQuEd sXA5xB5jEVwvvvzxp7lnyfwi Bkauk5htuj57tR17D69zRTatRO BdWOT6XQZpHZOirCsprf8wmB1n Ii8+LUjah5yaj2fziVg1OeGp CKPjrdXsiQzbDNZ2w2HmBw45W1 KieVoxv2JtFhi2az71aZMdo3R2 vRL4QWxjNRUetC5mXQryUmM8 SIKkKqJnrA32iTAfJHejLj1iuZ sszWopHQ2gCKPalkxvVXOukA4r PLHvrOMvdGbkYQ6zTJZofdzo w968ClXaAYU3VRYkrXFqS2UdrV 7rCaTyEVApWTDiB7LgpTSxEKnq P827KYqbTuU9MIXwjjDjR7Nk KNLnrWmlPxP8i4Y1Wf3Vw5Aukb joTYH7RRrdICH7HrAgPcJkDhM1 Z8QzOkt6PXTmdUmeAK3eB4Nv TLQhortkxjdpjHB1OOSiLHDfiD 48qPRyNWdeIg3cf7Z6r267NEZj ZGNcqR70Bm2nuWvoLICebEES uS2oppizu3xgygdpKbXsYJWhWE y7XHo5WNWncIsfJgPxCIU8QjN1 UMF8oDFkiZ8bbIvgckbroE0b Oyc+E94liD7mORT0CDI5rwbgCM UqlhJoDC06SC65X8LgPotmkBGu bGU+MUXevqUngOohPY4kXvHy n2esk2NbLHmkM1VlNPXiRNiaPq s3ZQOyFIQ9mHL4fN9fTKRzHQep h1B1pPP5G6PxdlPeir8mi7ma SQOpPIteY04rvVRfm3B8RXEjdM J3VGGpuMjnSdAmxU16Jym+PGNv pXmji4JaJmasq9lct7cwqIq5 SyTyZYBkhpJprIxlGXS4h8UdFp 85K10rKNtcFQLsTLHdOGQvLOQo bAqmwr1gkM5tEy9+PGNvbCB3 tWF5eO8pEVDfJjE2RZquO186Tx FpaMTqGfdsa9egp1iswSp4FyPg XCHeerJdiQujFOV4m2HjXk31 C23bSFyuAJKhDPAeVPWlTYZrvD xiju2gkN6bKi4+NM7dx4rivh42 hO33iOZ+NBRlVFF7jXloFYlr FYHlwD6tEHogOmH4KMQqIdFoqW 22rMQjFQtnHg0gvUfgvToiZI1y OFWlcqhex418SrTsq8fqAJVc jDQbXJanFPD4G83pi6D8HHMtJH HkYQO5bRQ0jG9tlUcdtbtnmWYo fFbizyFdjGvhNAyjGAywY102 IHRvcDsnPlBhdGllbnQgTmFtZT r4T9RrLam9ZAKrzXqfZY1amSXn NFugYr6yhUciqOzaJF9xKHLx glbna194IdXaf6umEFCnlZZpHZ fnAKX3G32ic6S5VFKeOOPwQRQ3 kVD1kY8kmXrtpvdqkMDrjAxb eyUzaPouRLtjRCjcB045ICUixU yrDvQkvmUbUAXnjXO5ME09SG47 dSLwu1N2lTP1V7SgNGPursxp eoqdhPS1QPZiFOGinO05El1mdD mgHy5hSBTcKIT8FLVqpEBaK0Nv tI0cHrUhNQNpDQHxM2TtzALf YCinD078JOjoOtX8ARAeeeFxM0 HcRJSsgDuyKbH7v2B4Ug0YZ0W5 NA46JY66iFKue5F8zHR8N3Nw BTOdfkuhbfqtmWR9OKAeFQNnxS 68Wx8mqYguBv1dVDHmRGR6QEXo bCYkE1PfwE3vXvAaHMBwPUPk B9VfcNYkJQztC732ZGhwTyL2KS WkquSvJ7VaNLNceEnwOpJ4y2R3 Kb4IIUg1LH16AX98aITxh3P9 aNO7K8FxXCMvldkodlgsrFH0SS QmHXSggE36Tv3vtJceOk4cSPQf YRL7FHKvjWXnZ1FkiZ1hBkIz GYAbTBTnF5AsbRMjWRwkZ836RB xjHzE7NAWmddReN3UbDYHcvTuv VlG4t5A3Ct2KGZIyQY32VWS0 pAV4QK87NR51K7HlHdcbcFNwvW U+PHRhYmxlIHdpZHRoPScxMDAl JxFfmUtjNF3pKn6aZPCeARRk jUtneAAoRtSwq9ezNVCpFWjuFE 7csLkjJ1EjiHS0RZCzu1i6Fb49 D98hA2BypGL+WETpaEX9uFG6 yR3cQnJqKkO8IUiqC899BsYstM NlVasje4oin9lvaJh0OcV7ZVEx jdFgyPneCDU9y9BfDe86S47n IHdpZHRoPSIxNSUiIHZhbGlnbj 4gyR1fLd9+AFJqlOD1hAM5rN5p CsHiRwD5IJgkY611SdEjqPIs Myhkf2xlp6bstXu8DrDqURBlwq BbmKygOCE5x8WmEo35A2VshFyq x0HfEgz0sy87wHNgw5O5dFZ2 Q3XvQZCnkffdvSCqnSlqCK2jLA YrfkxyBHGkpK6fWJKjL1f5UiRh ZoS6QJjpT6HrfiY8LIYgzFWo QWxkLQW4I35jf4A9GRKnZVFuSG Q5bXN8bJ8mwPxrpsymvTEtoTqh hdZjwCztTUkqXAnfJ239HOBk kAraSXEghT1fVRUouMZmvIpqUT 3xEUDftmksBahLCyRKPDRNPN1J WvFXLKAYONOKHCN0Q3NbGtd0 VMDihFitXY6bzPGtHDanNg8bpL frcMfwGQ5mSWJiippcVTBggB0e YRTciMFedPdnNR5vAXNobtve q047ZeXkVRB4EKLebFYyS5WuxW 3cUzBjBHFsEEOkH2GgoAKtWOwf D056HCboPfP6HRNjslLpC2Rb BUJhcEosKnK4w4K7Qo1zNt5lQG 0bMSmsBR40SC68yHLpn0N6iRO0 E8XdIPKzsndwflpxpLN6EPJl YDCnrV63qXLiNAldNt2ag5W1k0 74SIDnSKKagL73Rp5hbUcbBQEh xIFJdD0yeixck4mlaflxBeUj GQGjUBm9UAy7ZFRdmIolWsFmGU W1AsA1VGA4tDAoeH3plSqsmtpu zU9fRbb+FyRdBURazeR1A9Mb Vgg9RFYccZqqWD6zoCPzUCxjIk 1gxOuveFxwPD8aXHXyyodgCFQs lR2aQFXmaJGwpBeqVX3gOSAr bqlpr939TfZlCKM6EJMyjPMqI1 BwxW0wDoEoCWVuBVYqZ2TkaDDw NVlkN156QIqyMsR5YSCvvkMk I6BlOJHyqIriFiD2p9J0Zr2IZH 8XIAF9T4WjDiy9VPOaiWkiUO8m aTWhZIaqRm3pjHxddHweJJ1q NBImxnryWSLqfI5lLZBpjYHxoE bjAC1yZYMiwwnfy552CuNgYSP0 YYAocSKmS2VehQ1eRdWcDHAy QYIuW3YcaYPpWTdeC990RIoiXs N9DYGaaaAkO6JoMNZitHkeSeV4 l1N9Vw6FRPvmjEM+QL26df70 X4SpPilaSzj9IAHjJLS4iMG8vA 1dLLKnAZpmu6U9sOG3V1QvhgOh ny4fe7pfNBZxPCodA16reIVu c3U0SIKlhVZ6KQKyuRejYcRhqX 93Oyc+CHPimJbwz9NkQsvqq4ed t2phzIl4RsTqPNBhtrDxrSrk EIB6o5IrFu45G74fUIltOBElGC JcKFPmIZApqNontr3beF6hQi0+ KWHnqMG5eLA5mD7oPwAvWdH5 OBhiD616SbXinHWxHakiw7hwa6 dioFl2WrPhKZElsjQdtThvQDC6 c5EdOd64U9KvdZjgo1OiFfm4 mi16ySWgf8B3hGE4Z2IkEEQuqv mpjFIeiNneYY7gFUIywosdXMFh nX0lQXCeO4c9ThAiMaE3LEym P0SdlpP0YTFswCWyNEEqsVUGcO 2wwqpjo4lcvntwPuWvOKMlNGn3 RDo4YGBfwJmaWdSiWYB4RgO5 UVK8wHJvvR3tfGpyhfeplL0rSx c+AQw7t5ntkUFwZH8siHU7ZU60 PQ37oOZkf2T8rCX5H0DbRRFu lnyddrumtHB7BIAbLFFsxM98Il 6xiZioYk5zZJIrZQW6SFDnlRCb L2LggS7kIsFoFYLoOYPwI7Yb dNUfHAkrR520XLhfUyG7FYTyou AhJ7MvGLGnhMslTqI5q0B2Lc5Q BK58TX11AG24xDXbe7W6yRN6 H3ZpPWZkieqacmhfwPN3CWDfOU HnxC75Ay3laHpbHo8vLRPyIRX4 AKQncXXrK9SfoS6oQwPgKALh RZCcY2LmaEBcALxhK667MTtiTz Y2NMFqmsZnP8FjRLNybTbjJpG9 p1P6Xv9VBj73QY92NY07pBCq d0B5hZF0Y1DzYSTasqbzkbznmA Y7JDAgTDNtxH10Bo2odWtsAp3j NLKuQLH2JXAldVZuA6CxbR6h MqUoLTNxLQVxQ3KukOWiMAtbT0 38RLpfLaK7YPCddhDmI5GeLHGj oBqfTaX8l3D5Kx9PMNooqov5 K4EgRjhudTW+TT88VMBvXK20aK KjbKUvl8rvsMy0StYiRWUhVKG4 bGecUAtyc2AuXGVeU79czYVw c2U (more content not included)... [facility] Discharge Instructionson Discharge Instructions [id number] [facility] Discharge Instructions [id number] [facility] ED Clinical Summaryon 2021 ED Clinical Summary [facility] ? Urgent Care [address] [place], [place] [id number] Clinical Summary PERSON INFORMATION Name: KATHY LEMA Age: 31 Years Sex: FEMALE : 1990 MRN: Acct#: Visit Reason: Medical screening exam; [facility] F/U- LEFT PINKY FINGER Arrival: 09/16/2021 09:43:16 Discharge: 09/16/2021 10:25:00 LOS: 000 00:42 Check In: 09/16/2021 09:43:16 Checkout: 09/16/2021 10:25:00 Address: [address] [place] [id number] PCP: Gayle Alanis CNP PROVIDER INFORMATION Provider Role Assigned Unassigned Rolando Huang PA-C ED PA 09/16/2021 09:45:45 Trev Sy ULTRA SOUND TECHNICIAN Nurse 09/16/2021 09:57:14 VITALS INFORMATION Vital Sign [...] verbalizes understanding of instructions given Comment: Normal [facility] ED Patient Summaryon 022 ED Patient Summary [facility] ? Urgent Care [address] [place], [place] [id number] PATIENT DISCHARGE INSTRUCTIONS Patient Information Name: KATHY [...] and treatment you received today in the [facility] Emergency Department were for an urgent problem and are not intended as complete care. It is important for you to follow up with a doctor, nurse practitioner, or physician?s assistant branch operations manager for ongoing care. If your symptoms become [...] so we can reach you if necessary. [facility] Emergency Department has provided you with a complete list of medications post discharge. Please inform your primary care nurse practitioner/provider of your visit and for further instruction [...] This Visit Contusion of left little finger (S60.422A) Medical screening exam ([id number]) Sprain of left little finger (S63.836R) If you received any narcotics, sedation, or [...] documents Reason for Visit: medical screening - [facility] followup Allergies: Substance Reaction Symptoms Type Comments [...] for Disease Control and Prevention January 2014 [facility] Urgent Care Note- Provideron 09-16-2021 Urgent Care Note- Provider Patient: KATHY LEMA Age: 31 years Sex: FEMALE : 1990 Associated Diagnoses: Sprain of left little finger; Contusion of left little finger Author: Rolando Huang PA-C History of Present Illness OCCUPATIONAL HEALTH FOLLOW-UP Date of injury: 09/10/21 Claim #: [id number] Employer: [employer] Mechanism of Injury: Smashed left fifth finger [...] is right handed. 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 No fevers, chills [...] Family/ Social History Medical history: Resolved Bronchitis (24649090): Resolved.. Surgical history: LEEP ([id number]) in the month of 10/2017 at 27 Years. section (04506794). Loop cone biopsy (048624432). Hysterectomy (232949896).. Family history: No family history items have been selected or recorded.. Social history: Social & Psychosocial Habits Alcohol 03/20/2019 Alcohol Use: Never Substance Abuse Comment: Liana - 12/12/2018 09:36 - Akil MILIAN, Kelsey German Tobacco 09/22/2020 Smoking tobacco use: Former smoker, [...] Plan Diagnosis Sprain of left little finger (LIC91-PC S63.617A, Discharge, Medical) Contusion of left little finger (QJL31-LX S60.052A, Discharge, Medical) Plan Condition: Stable. Disposition: Discharged: Time 09/16/2021 10:02:00, to home. Follow up with: ; Return to this practice WednesdaySeptember 23 at 9:30 a.m.. Counseled: Patient, Regarding diagnosis, Regarding treatment plan, Patient indicated understanding of instructions. [Electronically Signed on: 09/16/2021 11:49 EDT] Rolando Huang PA-C [Verified on: 09/16/2021 11:49 EDT] Rolando Huang PA-C [facility] Recordon 022 Urgent Care Record [facility] ? Urgent Care [address] [place] [address] PATIENT DISCHARGE INSTRUCTIONS Patient Information Name: KATHY LEMA Age: 31 Years Date of : 1990 Reason For Visit: Medical screening exam; [facility] F/U- LEFT PINKY FINGER Arrival Time: 09/16/2021 09:43:16 Primary Care Physician: Gayle Alanis CNP Attending Physician: Rolando Huang PA-C Comment: Visit Diagnosis: Diagnoses This Visit Contusion of left little finger (S60.052A) Medical screening exam ([id number]) Sprain of left little finger (S63.617A) If [...] and treatment you received today in the [facility] were for an urgent problem and are not intended as complete care. It is important for you to follow up with a doctor, nurse practitioner, or physician?s assistant branch operations manager for ongoing care. If your symptoms become [...] so we can reach you if necessary. [facility] has provided you with a complete list of medications post discharge. Please inform your primary care nurse practitioner/provider of your visit and for further instruction [...] for Disease Control and Prevention January 2014 [facility] Coding Summaryon 09-11-2021 Coding Summary HTMLBase 64 MjyxltcxKWh2uBe+PGhlYWQ+PE [id number] BVTMWGKZOR7FKC3uuZO3ZXsjC8 VybiAv YiwsyXYnBI83XSs3DWB3vWmbSA nkgB6upBEaG5g9YxMpHR86yI01 ZIlsNQCgCeA3CyZdxtnxyWMq K3roDfCjyQMqXpa+PHRhYmxlIH etKLPqZNteTOJcPtMtyUvwKL2a Jx1wUEJvXXFamPrylMJmCgPr v6imLEViAJmxPJ3ufQitS0LjlN D5JQCjb5d6Hf99mWU+PHRkIHN0 hSohZQlhx118SjRjb2vvJKX1 gEHxWFltPNC3Q08xv7U4JSUcUL IxZJJ8ePM3eL7xjLovcabcQ3Fs zOEpJwX8LPZ0oNEgwQ0heYal hzwonE5mOef+C47QBP1LMQPRWM 9TUcq4J9UzOoeezQS+PQ78XRTo WL39yLQctTAxj0jfrGr5DiDv IXJeQNI0wAdjCLlmo0RbYSMdH1 2xcQYkr9A9XFSiyGnblAMlEtVh kDO3rV9cSNneyqyjs9zwucwj Mxkba4vafh52zW90G81aFBnqNG QyGBC8QCQnHENzmOazyz8ubY6j Ii8+NXchh5cbu0zgeIs6OrGa IBMprhDroOuvIVG5j5LdJg00G4 QxyOuap4WbEpz4up81jRCht7F1 aJQ2CXdcIMHzvS3jORyjTsM6 CGFiMyKeiV46vHPuKPwnHn4aoO wdqWssWI8nHDNlmtviFKXtjT7g LVUuzDYtzRanXB8bITXnsius x678WhAkBJR7VZOaoQBkF5RixP 9kGoTrURXeZLApL8BdlSBhDEyk W980BLfqGgH2JPZnxjLyH0Vc IAFccTigWlL0l4Z0Km6Fk6Myga bmFEC8YVpfFVJ9QfI5TnIrNiC6 E6MbSeg3OIYtnMoeSA9bH2Mn SBGdtidcsqhrpJL3TTJuAMHenL 64mDQaTHbfAv4ux8Q7d124MYIr AVExkT97Vm9jrJsmMOPrrGEM uN2jvktld5nfygwlPuPoWUBbWT c9VYe5KURsuGxzZlOjKFO9RtK6 YSW0sULjcZ0puSmtpthikN7a Oyc+N87mkN0aAWW3OFF0iyueTB TeeaRaPD80SG24G6GeNrckkUAt bGU+KELuwpXslIzhJU6wJxIv x4pbo9WzEZaeP6DnQDQsMYdeFn t5PPSgZUD8uFN7sH5pVZWzLGfh j5O7zQN4E7RyuqCelf9re6pd TJPhJEgpU26qoZJss1S0EQCjwC E3SFTksXiqXmXniX39Ser+PGNv bKnrb3UdUuubr6ofo9ujyNh7 SxZrMRBcvcGumEntMPD1j1NfJw 08D06oMKuxJFCzJKXgQYReWYVw gTqkdt4hsA1eMg3+PGNvbCB3 kTN6nD4mGNDwOiY4KXbgK705Cr GqrNQoCuczq8hsd4bhaKt3HcNq MEXjfnDimIypKRG1i9ZmCa45 H66wGCzqKSCjZTGfNBOtXVEayG yztn8ixM7zMv0+IZ8db3lsrr00 iJ87gTW+BXWdEGX2cWwzGFby JZAqeH1zEXnyPmX2LHZiOsXflI 00jRZbJAgbFq6pdSsauHzqJM1b BRPsdrzgh031TsByz9zgHIOy hSKoERykSZO8X80hs3Y0WTTxPI WgXPU1xRH0rS2unAezqunpjKGd tWwgnnBycKtfRCfpAWizQ190 IHRvcDsnPlBhdGllbnQgTmFtZT x2T9BvGni3JVMgtCcdSA4zgVDp SRerFz2lnTptaDwpHW9rZHSe vqpre465MoUvi2ayJFYlvNShBG hjRGO9S70ys6G4RKCfDSNoLUY6 vGH5iN2pkKoygmkpaAYabUjj haTumEmzBGguXOjnK532TTJzdX rsCmHjzhGzESYnsIC4TK33MM66 fUBgh1O8qGN4U9PfCJNhjhds jxuwrHV7HJXjQZUtzM84Eq8rpT ilNm9qJZSaZRI7NLNgmGDpG2Yg oG2rMlUzGAAbFLJmC0TamSDg RYfvG226QZytMqY0VYWqqmPrA6 JqFGRopGcpWwX2l6F8Yc3ZF5W5 ZK73QU32dXWwa4F6mJS3U4Fv DTWtoetfqtqbuAZ5VNChNMWcwW 33Me3nlKdaDc0nPITzERW6VYDf pKYnK2PtrO1jCmNrRNCuPLUm M2NwaZTnPRyaU113HAabXbV7CJ LftwHwG0WfWVPmvRgoHfP0d1H9 Ox4QVIx7VN18OO81zIPan9R3 hKA0X1BnWBRkgrmwwyxvvNA0MU NlVIVtuI96Vy9ovPwfNi6iETHe ZXN9PDQclFGnT9VcnA6mVyIb VBTvPWOqZ5KwlJZzNZyfR965PD wiUsT2GREkszBjH9YuJFPfpBws BrH0v8H5Rg1XVITdGW18WXF2 fRI6CG48MT68P3SqFrpldFXmrY U+PHRhYmxlIHdpZHRoPScxMDAl TjSqnZckTA7fTv3fAVRbCXGa rBadkEKvThAre2qkPPVjHNxfGK 3tgBdsS1ZnyQL2NQWcz4g3Hu66 R67mL9RzcWY+TAFxgDY5mBU5 aQ6wUtJwCnF7GGrpA717BoVdvM CtZsckj7ovp2fmiEo6LkY2KEWp ccGtvXurNUE8j4PaFi20Y05i IHdpZHRoPSIxNSUiIHZhbGlnbj 6voK8pUw9+GXUftXG9jOM3mF2f ToHdDfP3IOiuX479BmPcqRCi Wqqbe1tld4yxxCw6SvUgNPHywx NisDtrJTW5s9LiJa46N3EheTay m9NrSyu7jr25dDGvh9C4iLZ1 D8UcWFHxtevdxYWaeWxxHQ3vEG RcnhtzPPQkmZ1qIXRjY6f0SiIv IqB0PIpzW6OwmsF0IXPikPTb PGhuCFO4X85yt9E8TENhOYXpBX M9xTI8oD2xyKdabftxzRDpeGrt bcNwhGztXOhfCEwcP127ZDKx lWbdTHVwkV8gZHFakBKswQviZZ 1mTETkchxtGqbTPtKYLFRAPM2G XtONINNKYIJBYLN8I7VuGhi0 RIKdhYodBK1obFLzWBgaUt1imP uaxGgkWR4bUKLxexajWFFshH9s FIAtyCXknDdsMI8fXTUiooex k590ShBgZDM7HCDpvQEbD6OssS 2dUtSnDTDcXXYfU3AunBRcOOgl G344GMkwHgU9AVWgjyUkX1Ti MTQcxUthTaR8z6U6Ni9nTi5vGM 1hARxxCJ78CB73mJPve0X7yFO9 Y5RzHUInozrshcwydGK0BGLq RYZheE74gLHyHGgjYz5ic5N7v7 75WCIcKWXfzC54Ge4smSauPWJg zNNMsS9mmtvqf5hzfloaEwCg HMBtLPu0MTl0MAOtcKesXmFmNR F4XrT1VZQ8fQXvzF6inAjdgevt lU0kDor+EbVzHIBzvkY9C2Gs Nnu0XBRnbTklZN7qbRJkGFntOm 6xoOdhaVeuOP6rVECrnyaeIMWh vV6bMPNpxPRhsBrgJR1sZTBb oyjqr647CxWxJWN3IZDxlQHlE7 GgcY7mAiFiLOCcORDuH9AipVOl CCuyT922RYqrDdG8MNMtcnEc L2BrQCGinAdlRkD0p6I5Vj4VVA 4BSSM4D6EaWfk5NWPdoKnpUO9y vVHbZOalDv0gkHvpvCvrCA3x VGUmclbnHHKxtA3xRRIrrGJqtA azIW8sNBKjlimkt882TwJuHCZ1 TQOodFKdA7WzyC7lPmWuAZXh FGTbS7LarUJrDWefF387WUhwEf V3RBOprbRlY5LhFAUbrJxbIzX3 u9G4Io7NBMmxaHN+JS08yp55 S6CgLrqrQei4FLEzUSC0uWH7zB 2yPBKiGSvcq3C1mUK3F5GpkqBk ju3nx1vuYMDcEDjgB35mrBGq x5T4YHDmoUJ7PWNkwPckBaTckO 93Oyc+TGSowBcli3NcNjusb4dz y3ohmZz7ByImZADgpaXnvIpe DMN0c5QwNb22P84hUBxxGNVoAO DrXDEaMHOpxOcjxh5cnP6aDn8+ EHEhnSS3dUA6jT1vFoYqElY6 NHxfN899BhDbvSJoJyetr8rpt8 ijaDo1MuOnELBaypLmxUppRMA2 s8YtQi04F6BohMdoy6VuZqy8 iw48oTIda6F2xBB4F9CnPURvdb wyyVIlvMrvAG5oVVRijieiYNNe aH4iOPVvY7d3ShBzHsH4XBom V0IixzS0WTDhsCLjUOCyiNQGmN 2uwvzho3kbusoxSuOwNHWfEBn8 AJt2VESfhMfqEfCtMVC2HyK8 OJN7xFNakQ9qkNklrklpmM0qEv c+MHg5y4mnrSIhSL3crKR0MR07 EL68aGVmk2D7cES1O1YgLTAl pxofbynrqUC8FSKyRWTelR67Je 0ymSctMs9qOFXmLRV9LSBruXWa R8BgvW9cCrFgCAVgXAXjN4Pl tTWuZUguF995GQzxNgC7MLAyqy ObX1FeWPAhuVrgArC2a8V7Fg4W YT28UD79CA22kYXvf8Z4qWY5 H9JjWTBhluvnobonhBB2JJZmLL YjxM20Vd3jvLayCp2zEWToHUH0 FNYhxYLrW7MyvF7nCrEuOARz WNQyS8QhaRNpMMcbL183KAmhIr T1IMIsocNjA1PsFNMzcNrgUsR6 a8S3Nh7XRf34QY09ND83xGGh h6X0nRL1R1UwVEWxvxoxhtohcJ B1GRWpXGNasW53Oo9aaWhiPf3a ADRbCKU6PHVgdJRgD8PekL2l DyZwVSOtPMBoA6QvsMPbQLguD2 04SPmjWoG7PWQacaSsH6DuWWYr eHgeWzY0m3P3Ni0AOHviosw8 E7IjCrogmQX+FC24HLNhEM04bX PqhQBnl6hsfHw9GyDuWBKtXUB2 pSbyNTpdp3HeJXQtW70ejRBc c2U (more content not included)... [facility] Discharge Instructionson Discharge Instructions [id number]-11-2021 Outside Records [id number]#1.00[facility] ED Clinical Summaryon 2021 ED Clinical Summary [facility] ? Urgent Care [address] [place], [place] [id number] Clinical Summary PERSON INFORMATION Name: KATHY LEMA Age: 31 Years Sex: FEMALE : 1990 MRN: Acct#: Visit Reason: UC - Wrist/Hand/Finger Pain or Swelling; LEFT HAND PAIN Arrival: 09/10/2021 13:42:28 Discharge: 09/10/2021 15:20:00 LOS: 000 01:38 Check In: 09/10/2021 13:42:28 Checkout: 09/10/2021 15:20:00 Address: [address] [place] [id number] PCP: Gayle Alanis CNP PROVIDER INFORMATION Provider Role Assigned Unassigned Rolando Huang PA-C ED PA 09/10/2021 13:49:02 Pamela Wilkerson RN ED Nurse 09/10/2021 14:21:59 VITALS INFORMATION Vital Sign Triage Latest Temperature Tympanic Temperature Temporal Artery Pulse Rate O2 Sat 96 % 96 % Respiratory Rate Blood Pressure /74 mmHg /74 mmHg MEDICAL INFORMATION Medications Given: Allergy Information: iodine; Tape; penicillin; cephalexin; amoxicillin PHYSICIAN DOCUMENTATION DISCHARGE INFORMATION: Discharge Disposition: Home Discharge Location: Home PATIENT EDUCATION INFORMATION Instructions: Contusion, Ikmg-yk-Wevu; Finger Sprain, Adult, Obbp-by-Kirk Follow-Up: With: Address: When: Return to this practice Comments: September 16 at 9:30 a.m. DIAGNOSIS: Contusion of finger of left hand; Sprain of finger of left hand Patient Understands: Yes - Patient/family/caregiver verbalizes understanding of instructions given Comment: Normal [facility] ED Patient Summaryon 022 ED Patient Summary [facility] ? Urgent Care [address] [place] [address] PATIENT DISCHARGE INSTRUCTIONS Patient Information Name: KATHY [...] or lying down. General instructions ? Take qims-xmk-zcfwmvl and prescription medicines only as told by [...] also called RICE. You may be given ladr-onc-ksddlok medicines for pain. ? Contact a doctor [...] provider. Document Revised: 01/06/2019 Document Reviewed: 01/06/2019 [employer] Patient Education ? 2020 [employer] Finger Sprain, Adult A finger sprain [...] sitting or lying down. Medicines ? Take mlfm-ruf-sjqdkww and prescription medicines only as told by your doctor. ? Do not drive or use heavy machinery while taking prescription pain medicine. General instructions ? Keep any bandages (dressings) dry until (more content not included)... Normal [facility] Urgent Care Note- Provideron 09-10-2021 Urgent [...] Date of injury: 09/10/21 Claim #: Employer: [employer] Mechanism of Injury: Smashed left fifth finger [...] been selected or recorded.. Surgical history: LEEP ([id number]) in the month of 10/2017 at 27 Years. section ([id number]). Loop cone biopsy ([id number]).. Family history: No family history items have been selected or recorded.. 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 She feels she will be able to work and do most of her expected tasks without too much difficulty. Return with new, or worsening symptoms, or symptoms failing to improve as expected and the patient voiced their understanding. Questions answered. Follow-up here for recheck on Wednesday. Impression and Plan Diagnosis Sprain of left little finger (CFQ60-ZW S63.617A, Discharge, Medical) Contusion of left little finger without damage to nail (GGG49-IB S60.052A, Discharge, Medical) Plan Condition: Stable. Dispositi (more content not included)... Normal [facility] Ur[facility] Care [place] 022 Urgent Care Record [facility] ? Urgent Care [address] [id number] PATIENT DISCHARGE INSTRUCTIONS Patient Information Name: KATHY [...] (S63.619A) UC - Wrist/Hand/Finger Pain or Swelling ([id number]) If you received any narcotics, sedation, or [...] and treatment you received today in the [facility] were for an urgent problem and are not intended as complete care. It is important for you to follow up with a doctor, nurse practitioner, or physician?s assistant branch operations manager for ongoing care. If your symptoms become [...] so we can reach you if necessary. [facility] has provided you with a complete list of medications post discharge. Please inform your primary care nurse practitioner/provider of your visit and for further instruction [...] or lying down. General instructions ? Take wwdx-jch-yfqidka and prescription medicines only as told by your doctor. ? Keep all follow-up visits as told by your doctor. This is important. Contact a doctor if: ? Your symptoms do not get (more content not included)... [facility] XR Hand Complete Lefton 08-29 XR Hand Complete Left EXAM: XR Hand Comp lete Left HISTORY: pain, smashed hand/5th finger in [...] MD 09/10/21 2:38 pm Technologist: KEV ALBA [facility] Coding Summaryon 06-09-2021 Coding Summary HTMLBase 64 SygbmltvTBk1tTm+PGhlYWQ+PE 0SLWWpU17kmFHomS7EB0gBJE1M XOCJQISSPT6NKJ5lsLV6OPggK9 VybiAv RpsaqXWjLM50YBz9ZCW2gJfyML wuqG5tkQCjY4k7GpPzJG51nZ87 GBdlPNXwQbI1UnMsfetuvMAr E9ekPxRovOYwNpy+PHRhYmxlIH agWIUeHScsQAGcUnXpnRyhLS0c Ni8xLZYzOASqaMmqtMKdWeUq e4lgPIYkVLieCV3ciUcyA2OvhS N8GCOxf3i6Wn81wQE+PHRkIHN0 rZpbQMird670BjRli7nlKKB3 gNUmNDwmSDN7U20jr9X9MQSnMP EoFYV1uNX2rL5woZehemrnM5Jt lWRaInB7BAW7dPOasF0ttAkb sjlryD6mDtf+X42PTE3VJKVTEJ 4FNpj8D9RkQeysxNP+FJ28PVQj WW54qTQtyUDbl2cmqOb1CdQo QNVtJGR0pSruTWomy0LiANNhI2 6vhMZsy7H3ZNTubCiojHOuUsAm mIA2gX4iYWsqudcxq2vbkslj Dvldo5xodw42pQ14J81fKUmaQD KeIQR2JHWuZRYonLtohn8cfT3h Ii8+HMgqs3sje8jhhOp9AiQx LDNijrRlkUyeAOK3f2BtGv28N7 TjeOkfl2JqZwp0vi16qTYtz8T6 vAP4TAdmCHUkfR6iOAmxNbY8 RAIqUfIslG03iWQjPEbaGt1xtJ ohpEwbKL7mIIEjyfqlREElrY6x UJZoqFOwbMsqLG3nYUQznsnu l070OpIaKCU0PRYxtDFwC9ZqyC 3uTyRmQHByDXIdF1JghMMxVLqd E204TOceZhN3ZLXsetGaF0Ag ZDNvqQfwEeO8r4Y1So0Kb2Figr ftVHV9YJxpWWNvKoWlCdAjYcA1 H4JnJii9AWWcgAspYM6qE8Cb AJRiqetmhxkcmMZ5YJHhSSMdpF 13rNPfBEkgCo7sg9Y1z971KHDj EGJtiK40Bw1dxFztBBNozKLI mS9rninnh0obcqjzFjXwWXYuVO e3JKh7QRFgbCvuTfMnPFU2XlP5 BOK9mBTuxR2wjCnoivqtqT3v Oyc+R60ibR6uMUO5VZS5inrrIQ PvhqPxJR37SM61N1QjUfvzmVEp bGU+EVBynqPevGxhSZ4sFjCd g2afz8MaVRzpP4JsCRKpKWltVt y6NIQhRIR8iCA2yS8sRHFdTSry f8C6bPW7M3EeegQzhb8in5js XDPgDMlcC17akBMal1G9FNJvtG P6DUTdaCruYjJnuM55Pyo+PGNv gLxeo1AsAhlvn0hud5qflVc9 KxUsYWBldkMjvPecRRF1u4NzBo 44L84sEEyxILOeJOLqDWVwDXQd dRuwcb7mbM3fXr0+PGNvbCB3 xQS6lJ0jFFJcQuC8GLtkW994Qn IdaDRjYlsfh9bxv2ylrQs6PcGz WEYzerQqqCauDVG3v8QrYn20 V54bFRuoVNGnVMNnHYJrLOVzzE wcmn5vfB6qPj4+AA8bp1mzds56 jA35aGO+ZZHeLLS1rLumUVyn WXOhdP6xUUqvArL7MBWwUrXonA 99mLRqRPotTh1wyBwbhOuzZZ3l JANyqlugl741UnKoc3dpXAPe bGZbURidUOU4B96qh5H8EYNlQG BrTHN1pPQ4oK7qaVokqlvtlPTc fTkpkkZwxQcwIQxlMKleM778 IHRvcDsnPlBhdGllbnQgTmFtZT v8L2DfDur6JKRfoTpxMT6zzLDq PChmBv1yvAaygSaeED4eHVVg fkiyj409KaQbp8zlNEYlbSHqGZ brKVR5B56qx7C4YPTuKDLyQVC2 iSD1pK1hjMnpqautgLIkuPhj sbMklFyhORdaHAazP483MQYybE rzHyGsyvFzPIKvfME8HV59ZG50 vYLiz1W6aQF5K8TgITOxczfj lyvpsFK5IOUpDIDrfO86Vc4hqQ qkFl0tXUDcOMH7KUMzmEDwO0Sx xV5tWsHaGDXrHZDfK9WrjGZb QBawL512XSxyBmC6FOWdldNsC6 GqQHRxwDjzSeY1y6K6Sv1SU8N3 OL65SY12fEQpx9S3jXD1D1Dd WCRbehymcfvybVN9JEVmSWJaqM 76Ey3ekJzjNp2zZYUxINX9CKBm mWMeS6XvhI1uIuWsJSCgFWAk W5VbxSGuWIoxG643EFcdBxV1QN RqyaHkH7MyYRCxwMabJyC6f8H8 Zw5ASOp7NW05MN40tUQas1J8 dBE0A2MqDTMysneebqavbPA5VC NrPSCapH01Ea4gyApcWp1uUGTp WCZ4QJVkbODeJ0XjeK6mWfPv VMKwXXTnG3FjkVHwEGbjH012XD svSkC8CJMjlhMyV6EmHZMpqAhx ItG4a5G9Qo5YVMOxAQ76XGO7 fAG1PZ29GY46X4RzChwztDJzcV U+PHRhYmxlIHdpZHRoPScxMDAl YfOdaFusEM1hRg9zOSMiHFMa pOsasWLeWnNfg6sfNWWnABgvNC 2srOwcU3OhdEB9SOJna9p0Qr13 Q27uO6RojWL+UCLbqJS6kLS2 cD0dGcHtRuX1KRzjE728FjAiuE ExVjuhj4uyg2nfdYt4RbI7TZXb gwJyvMecHIH5g5YrQr83W96c IHdpZHRoPSIxNSUiIHZhbGlnbj 7bzT4hRu5+TJKfvRV3kAY9vC8u WaVmCoV4XFlaB516LsDfmWVy Hzbyl9hyj3yikNo8LmJiTOArjj AklNbsKCK9n6YtZt07N3RznBhl n7IsSnz0xw40zGViq9K1zJS3 U0DvWDFgqalivSHsoSqvZV2fJT VpibkzCTUqeI5qLHImP5f1PtNl WuL6FMqtV2HlxyU7TETokHWe YQgiVFM4X94fg5S4XTAyOGXfBW T9wDP5wJ5udRmaepcyvNEsjXwl ftWfwOxwBKbjQCgwV214DDVt gOfyFZDonP3eJMPsrGGxpTjrFR 0bOAFmxhwcUgbESsDAAOUOGC2B RdDHTJEJZWPCWQH5K1XdPnh3 YRCxaUnkTG4tzVJzSWwnDw7qjE ehtDkaFD6kCZSxnvkcCNSjnG2x EXXurVFpmTamYV4sGCKitjey o262VdPcFDB4HPKedGKbY9JsmN 3hOpMfZXQuHRJgT8PoyOOsRCps Z766QWpaSjP6CUAmqrPzN2Fg WYLvmGjaPgW1x8Q4Ll4pOb6pBT 5zBOxdFH45ZG31xUDfj2V3aWA7 P2DcVOMqkofqppgtsMV2YZLa VFCcgJ96oOWcSTxgZg0iz5V4g1 04MPEtAYFqpB89Zi4qsPezLKIc qHXDhB5cswiaz9whjbiuUgZf ZJXsHPc6OEa2BEIbcNygRwViYS B9JiD0BRP8oFUvjO9krXvjzwib aD7iBnq+YaXxCABecrC0T8Si Nir1MVDsyDopAL4qqEOxMBvzIx 6lkAhmzOlyDP5tTRSddvqmHHSk pY0cPVDwcECvlBlnJI2pQQKu ybxxd878IyPmNES3IUOayIKwN7 GkqU7wHlAcRSInIGQwW0JpnLMz EXnlU881SBbmTsF2RQIazvJz K4GyDKPzlNpyWxM4v2Q6Ut9YSQ 3HKBI7J4QmIyg0VDIiuOpkCZ3i iUIvCLgtRq0vjZqeaLuuWO9f WNQsptfvPFTlaA2mHSSpyLMmyW weOU6dMCVeaqsto849GyPvWCK8 KNIpuRYfG2HkwJ1pEpWeJRQu YDIdN8AlfWBmLWxmS859FKtsOv P9FCQvbuSdP0JhAHYsnVrzRvV2 l1Q0Aq1DGHwkiGI+WR49ka53 C1BgPrwsJlo6GOQhPPN8dWX6rO 1gDLGhJZsti2B1aMZ3R4KnaqBh dr3cs1wcDBLtIGqcR29vyMZg p0O2NRVjbPU8NNPpgAfmQcPgiM 93Oyc+AXTdeHpsj5EeUjyyz3kl f8kkeNg9KsRpHMSozfEqzQue VES9t0KbHr46E76aMEtaSJTxSP VtKTWlQINqgUbpuh7ioI0pYs3+ WWPjaER1kEL6qK6fJlFiRtD3 PPcdX307RfTddNYfPrzus3riw2 jtxFh7FbRyRHHhrgKlnMukDZJ6 y6WnPd99X9QqyUhrx9ShFnr4 rl27yLNqm7R9jKH5B2IqWKNxcy wumCTnmFqhMF8oNBNmynqnEGMn wD8fDXJaQ4i9ZgUlWjJ4SKxp F3XbhqJ9OAPlhOTrNYZkuRKCxG 2nicijz1vsbwxoXrIkJTJzJGe3 JLn0YIAjuLvfZgUbHLG8AwJ7 ADF9vUTdnB7zhUnsjutwhC0hXg c+RYy5a9qepZYuNJ3haFX4MJ79 FS00sLIkl0T2bJC4I5YmNYKc yreoetzwxBE6BBBdDSIsdI01Zy 4znVijSx2aIPDrPON5PXQklIHb K3UzdR1sHvZrJHKaDBFgC6Rw aSXoRAwhC044AHavYgG6LXIuvt TiI8ZiRFYwzLqzSzG7d6O2We3I PA41FQ93HZ68oDOzh0Q7iSU7 R0CeCAJsyivpguaftJG6RITxPU MhaI80We2asCdyGo0vKHXiZUQ3 OSQfiNAaA9TnrD8jFcKoZPVr YKUbU3SejSReZSlxB116RHimAd O9ILKgtvVgV9JbTGKpqWlpTaP6 o3K3Ug7AIu01KS53XS69kGQp y4C3bOD7D7VgFMGlvrftifyyaW K3ZMMsUTMxkQ29Ci5czNyrSn3j DLBhLQK9DTIheKOaE9AqgU5o KiOsKJRqNBDkC8QtuYDlSTfzE8 95MPnrFmD7FYEgkgLtH4XkIFRk xJlkQyH8h1K2Km3CVIzbvgf7 M1WtWnkfdWN+NN03AMEsZS11wO QdjYLtf7zgvMs8VsZfHPTtGSB1 mPlpBSjqp3OzKUZaC67rkGXi c2U (more content not included)... [facility] Coding Summary HTMLBase 64 OaunleupKPe4yHd+PGhlYWQ+PE 2KEVLzK64qoYBoxQ8NB5mNIL1J LFFJHWULPO9SGX1weOM2VNiuB9 VybiAv PycsmMWnXW95OEh0SVZ2sRwqXR csiY0zkVAxJ2z0ElNpVY84aI19 EAkhTYHuCvC6IpYmxlxmyGWa B2awWkUxuEGgZyf+PHRhYmxlIH pcNAGsCDkyWEEoCnPqrSruNA0w Qf8tTTJfGKEzfDufkGEnXtSd a2jdUBDgQWicXH8ogPmjB2WmiL D1FBWzo0g7Fl69qHB+PHRkIHN0 qLavSNakb143EjXxq5ioKIV0 tUIiTDmeGDJ9C98as1X1HNAnPF PiYHE4jZB4aO9duIsngqmuL4My zYAnRtW6VKK6iFBkfY8fwBty heikqO8mEvt+N89SBJ2TTKQYPE 0KWhv3Q1ToAxgkeID+HY75GGAr HU13mLWbeLLyq5hbjIq9DaWx EBBfKST1yEurINxsn2YaPWOpM8 7evSGyx9Z2ITDjwGtmhAUmJeXl vZR1kZ0yPXrnudvgc5pbgmui Jkmdt1asgw59dA59V31qXKsuHZ EcSQD4EPHjWRIggYncnv8ivT5i Ii8+BPxjf7zap0hwrOx8CuBw ILEolyKoqKaiWCY9w7IrYx09I9 CagEswo6IjCqx0gj53rOUsi6Z8 bMV4PTzuWHEwsX4sKIhbBwP7 RWNcEmUapO44nIYyUSkpGm3nmD ivmIipEN1wUBEwtdoeRPGpxI6y AEHgaGLvhZreIT8tRVHtpbnb q500AgDyPKV0VKDsaKSqC4ZjeX 7dUlMeMIRtCCKaF9YdbQUvORwt F110SLybXmD9EXYzufHiN0Mb KIDpaIisNzT4u5I1Mr0Fr7Dhsz bbZHC4RUdsLTOvHzDbPgIjLfP2 L6RaDxo2TMAmqJyjNM3mJ5Ru GOTwndpbwvkqvZN8HRNxFMNtqP 62xNFfZDcwKq7rz9D1j802QEPn BNNjeG72Rz4ilDpfLRZpaEYN lA6jpzrrc2kytdjfSkMeBJIiDR n5FTn6VTHcjKclTjChXBE9HrN9 ORT9mQIwhW1inFavgxadmE5q Oyc+T66zzR1sUQH5VTM6ahefTW EaakSoZC11NV23Q4EtIwooyOQb bGU+NDYhpsExtDadPR2cWqWz g8ylc0NrBFgiN8QwUTFkCGisIu o7FKRqGYY3cLD6sG0zQFMyPZvi o1P6rMH3F1RkinZrfw4yx1ub WKUxECacP89bgMWhd3X2CVPfwE I9KXBmfCqfNtHwcC63Elt+PGNv fBpuz0SzEypzt1dlc9kokHu5 TgOsYFOwcyYeqOcwJTL8d2ZvHi 65B35jKEeoHZGbUEQrTBQhYHNf nPzdcn8ggE5zHm6+PGNvbCB3 gRN2xU5lEASvNqU9CUyzA724Gs UncNCrOihcu4yvo9rfuTv0VzOw GSKgriIzrTmvTVL9x0ItWr10 D66oFApaTNIwMFYqRJGsKZKhcS llsg6jgR9xMz4+TN5nu2ppfu28 mF87gYK+JIUzMCL9pXxyYTav YTAjsK8tMUahRaB2RLNxDhVluK 73fEWhMBukAp5kyIwmsZgfQB8y LITkoiofi967HiAjo4avMGAz pCAgTAfsXXK5G38kd2D4KHZcIF WwFZC4nIL7pT4abCjzlyaueUAg mLrzgwAceVraSCqhJDftD436 IHRvcDsnPlBhdGllbnQgTmFtZT n3X7JdPwg7KHVpzMroJU1erTBr BWaeIz4oyVrwfWnzDY4uYMNp qqiif513QxXbv0rhNUGjnNPyHU xmMLC8L92ql7R6TAFtVGFxXPB0 fXQ6qN4ozRvpmexjgPClhPio goNhnYolKTwrTLldW757KEGnrV bcVnRawjMjYYHxaET1CR95AO72 lFHzi2T5uWE8A7MiOCRaezej stelbKW8KCGaJGMyzI95Vh2zzF exFa6tTSOtQYF9GFHvvJKuQ4Wo aC0fCeVdCKVePUXmW4BlmTQs NIpmZ214WExpKeM2NUNovxHtB2 JzFJFieGxrOeA1a7B4Hi4YT1O4 DF21EA72kVAnf7F7jGM3U4Pz AIOxyrszfcbofJM5HWMtDTKpsN 69Fc4bnFkePv7oTHDpQHN0JFZk iVQjH4WwlM3tClTsCBUwWVHp E1PrwOFaUBuoZ828UNveMdU4NF CgxzHfN6JuLFBzhNdcAkM8p3Y1 Il0DMNu8GB84UH61rOMfn5E4 zXR7P3GyWRRksfysndxyqIO5SS HpAAEeaU24Tn9wvHfsBz4tIYHn CKY4RCLwzVRzE0DhdQ3dYkVa MSSvAYNbC4InlCZqUJrvW147LG vcVbE8CUYzkiSkI4VqUYGfcZqh DmC1d5S5Bg7PJPDgAW68AXF1 aUI3JR57LQ22G2TpArklvANdqS U+PHRhYmxlIHdpZHRoPScxMDAl QzJflQpkOL7xVc6rEFMfEXFv eOdevWQfDjToz0cdMSByVYqyKW 7dlNsdL3StdDO8GJInp8x5Ut24 M58jR6PjlEZ+FOMkyNU7mTQ9 cN1pLcHjPyT0UFikR238VsLiaG ZpEatme5wtb0fziFr7JiS4CLCw kmRlyPuzTAI1y8EcNg82S67f IHdpZHRoPSIxNSUiIHZhbGlnbj 9ebI3zQl6+XRLnjQP1rIJ0yG7l EtExEbU3YRpqB187KmSgnZFg Vpeti4pom3zoqAw8JlHcKLPlnk KzyOzeNXS7p4GlUk24Q6HxlVub k6SsUzw8rp92kCBpk5O1iFO9 R2QdLUMtyaohpRRoqOfdYY8mDP ZgisomAMQnbS9rPFQpH9x4WvOy BiP5RWhmB0VeluT4DAQwmXJv RQweDPG7X41dk7I6XCAwQCIbGB J0eNQ9zW6cuGonrpqwvIEgnLxv veVtkAyxRTqrBTokF086JKVf mDjqKEUkcS0tZPGnpHSmbSoiEK 4tJWYdbelvAkjRIxLHIPAFBE9Q ChQTTSZQVPMDDAU5W7SqCzj1 ZJAkrSxgMA0yaZZlTCdnSk4eeS avzVehUI0bNKKkkcpbVQZcmC3i JTYecPToiLhuHF8cNVZyvjnq m583UcAvZOO4RGDyyZQgL1AilE 1yQcJuAINuRRRfI3CkhAQkBOux S832EHpcEbL9AOJkdgVfY7No OXLwsJzjZfQ8c0P6Wl9eYq1kTC 8zEMqeHG65NU32fMXzl6H8uOI5 Y3EwMGPjtstdthmogTB1QTEt IDKtlZ01pEFmIBayMt6we1N7y2 82SMNfAXOyaT35Rr7ulBisWHMd zGLOwV8jndjvd6ughqkfMeLm BGQcTCw2NRr3NRPzsGxkIiBhZO M9PqG9VIX6pTZkoJ0cxZunuzbp fE7uExc+XeHoRTFzydS1D9Xm Wna3GBCuqJnwMU3inXQmALtaNk 3avBuofTduKF7eVHRhiebhAHKm vP0aUVUdsSNyiNobNJ0iPUXw lplxf776NsAjROJ1GGVowHIzX8 YccL3vUkZnJHHiSIUmT7YzeKZo FPlgE431FSjnLhQ6VAGwaiSa A1TiDXKmwDjqWcT2a0G7Jm4KUB 3LSLN2N5GfOua9EMVwfYpvAU4e aYRaLUmbUc8pdHoneMlgYD5l RDWocgdrTAHanO1tWDDmuWIagK xmVD0gGXGcozvxi376DcWrQEQ1 GNLnuLIgB9SrdQ5lWhMjHLJz UWSyL0KdvNFkBWpwH800FIxuAo V2RVVfmkFhT7FjHPEylZcvOnB7 g8N8Nm1QoFEmT3XhL7d9M9Vd PjwvdHI+AF95MGLyHN27lALfuP Jgc3issVu7PcDxXVIgOUW6iUyu NGaue0QsPUHmY76zuYWgh0F7 EOXqiYivsVGsVfPpqGI2bS0xEF ddhtytk5mzfsauCingu6lcoj10 iV27M39xPKmsNETwVNPhYXRk HOXxwTldym3dpF3kMi1+PGNvbC A4wPF8fD9qJeJvLxY9SWbpM624 WuGcpHTgAkvwc3mjg3myyNq9 UdVcEZAnwuAgiChdAJM6n3FvQk 30F10vHPgoYXNkHXJvWWHcTTNn qGcygy3kmI1lFl2+XU9io8qq zy32dI31jIX+LUSzLHV1xXafFZ tjVGOqbQ4mXCsrKcI7HKTuUaNo nK02sNFsVJckVz6zwNgoxDdr NU0wZFRodzxqu571WbFtk8bjUQ OtxRTpSNnpDQX6X01kd9S4BFCz NRVjRUB9jSU2hB0mhEiapvju bGVmdDsgdmVydGljYWwtYWxpZ2 31ZXZjeGvqPxUczCCxU5ofddDJ OT1uBgkmvKX+NWUoLDM7qPkf RPjuFBCuzE4jMLYuQ4q1YuFnZq S0GTqqD6NdpxV6GOOgvXLmMHRq kKBXhI5ntzgqz8zhlxrrCaGk AMJaCAn5UXx2NKUeiCsuMoRiHC K7EcN1TAW3wUIvtY1ayTkouixu fY2gKzj+RklOOjwvdGQ+PHRk JAK3cWhuIMryBJVypD5bIOEeD1 q9EwWnMgI7DLizG7CzsxR9GRMq wHLvGENegVHPiA8zaaeiy8eq shbyVdPcPLEwQSp5DKr1YSPgfR zlIwQuTTH4RdN7SUH6yQAcyY3z jVlihamhcY1aSkz+TVJOOjwv dGQ+WJJvDQB5sEyuBNqdCYCvdJ 8mPIInZ4z6RvQiNpJ8XFxmH3Xn kwY8WXQkgKVhDZKpeBIGnA8w nkcxz9acexfgViWqNDDkRCk1JY c3VNYztFjjWlIiZQP9AnR4JUJ7 cAXnxF4ehMehdldtkY4eGrw+ VUF1UIE6FC86RS77A8ObIaqvgV FibGU+PHRhYmxlIHdpZHRoPScx XYWhNaUicSicJP0oPh1pEJIb LWN (more content not included)... Normal [facility] ED Clinical Summaryon 2021 ED Clinical Summary [facility] - Emergency Department [address] [place] [id number] ED Clinical Summary PERSON INFORMATION Name: KATHY LEMA Age: 31 Years Sex: FEMALE : 1990 MRN: Acct#: Visit Reason: Post surgical problem; POST OP RIGHT LOWER ABD. Arrival: 05/31/2021 10:54:36 Discharge: 05/31/2021 11:30:00 LOS: 000 00:36 Check In: 05/31/2021 10:54:36 Checkout:05/31/2021 11:30:00 Address: [facility] [address] [facility] [address] PCP: Gayle Alanis CNP PROVIDER INFORMATION Provider [...] Location: PATIENT EDUCATION INFORMATION Instructions: Wound Dehiscence, Rfge-ct-Fabu Follow-Up: With: Address: When: Gayle Alanis CNP [address] [place] [address] Within 3 to 5 days DIAGNOSIS: 1:Wound dehiscence Patient Understands: Yes - Patient/family/caregiver verbalizes understanding of instructions given Comment: Normal [facility] ED Patient Summaryon 022 ED Patient Summary [facility] - Emergency Department [address] [place] [id number] PATIENT DISCHARGE INSTRUCTIONS Patient Information Name: KATHY LEMA Age: 31 Years Date of : 1990 Reason For Visit: Post surgical problem; POST OP RIGHT LOWER ABD. Arrival Time: 05/31/2021 10:54:36 Primary Care Physician: Gayle Alanis CNP Attending Physician: Robert Cox MD Comment: Visit Diagnosis: Diagnoses This Visit Post surgical problem ([id number]) Wound dehiscence (T81.30XA) Prescription Information: If you have been given a prescription for narcotics, seek immediate medical attention if you have any difficulty breathing or any sudden status changes such as confusion and sleepiness. If you or anyone you know is experiencing suicidal thoughts, mental health, alcohol and/or drug addiction problems; contact the [facility] 21/12 Crisis Hotline -Text 6LPBJ to 450623. If you received any narcotics, sedation, or [...] documents With: Address: When: Gayle Alanis CNP [address] [place], [place] [id number] Within 3 to 5 days Medication Information: The exam and treatment you received today in the [facility] Emergency Department were for an urgent problem and are not intended as complete care. It is important for you to follow up with a doctor, nurse practitioner, or physician?s assistant branch operations manager for ongoing care. If your symptoms become [...] so we can reach you if necessary. [facility] Emergency Department has provided you with a complete list of medications post discharge. Please inform your primary care nurse practitioner/provider of your visit and for further instruction [...] condition shoul (more content not included)... Normal [facility] Operative Reporton 8 Operative Report MR#: [id number] [facility] Pt. Name: Kathy Lema Room #: 0C Discharge Date: Birthdate: 1990 OPERATIVE REPORTDATE OF SURGERY: 10/29/2017SURGEON: Geovanna Hernandez M.D.NIGHT COORDINATOR: Alexandr Mukherjee M.D.PREOPERATIVE DIAGNOSIS: Right dorsal forearm, benign fibroushistiocytoma.POSTOP ERATIVE DIAGNOSIS: Right dorsal forearm, benign fibroushistiocytoma.PROCED URE PERFORMED: Excision of mass from right dorsal [...] homedischarge. She was provided with scripts for [place], doxycycline, andColace.She will follow up with Dr. Hernandez in approximately 1 week. She mayparticipate in activity as tolerated and we have encouraged finger range ofmotion. DVT prophylaxis not indicated in this case.Dr. Hernandez was present for the entirety of this case and made all criticaldecisions regarding this patient's care.Electronically Signed by:Geovanna Hernandez M.D. 11/12/2017 03:03 P Geovanna Hernandez M.D. I was present for the cortez and critical portions and I was otherwiseimmediately available to assist. Date Dict: 10/29/2017/12:23 P/Farzana Mazariegos Trans: 10/29/2017 10:40 P/[id number] Normal [facility] POC GLUCOSE LABon 10-29-2017 Glucose mass conc 95 mg/dL Normal 70-100 [facility] Comment on above: Performed By: #### 8 [id number] ####[facility] [place] [address], [facility] POC URINE PREGNANCYon 2017 HCG.beta subunit ( test) Ql (U) Negative Normal NEGATIVE [facility] Comment on above: Result Comment: Perf ormed in PACU Performed By: #### 8 [id number] ####[id number] [place] [address] MRI FOREARM WO CONTRAST RIGH Ton 10-09-2017 MRI FOREARM WO CONTRAST RIGHT [facility] Eqrnyyrgk[address] [place] [id number] Radha ent Name: KATHY LEMA Tierra : 1990ex: FAge: Race: WhiteMRN: [id number]. Location: 84Patient Status: DVisit #: [id number] Date: 10/08/2017 4:55:00 PMCompleted Date: 10/09/2017 10:52 AMRequesting Provider: GEOVANNA HERNANDEZ Attending Provider: GEOVANNA HERNANDEZ Report Copy To: MARY WEI Signs & Symptoms: D49.9 Neoplasm of unspecified behavior of unspecified site X42Nchjwvf: [place], No FB per SS Precert ok per Alyse bmw PT HAS IODINE ALLEGRY, IS WORRIED ABOUT THIS BEING W W/O CONTRAST Patient refusing contrast at this time. - CHComments: , , , Ordering Provider - GEOVANNA HERNANDEZ MD , Rendering Provider - GEOVANNA HERNANDEZ MD , Exam: MRI FOREARM WO CONTRAST RIGHTAccession #: [id number] ===MRI FOREARM WO CONTRAST RIGHT 10/09/2017 10:56 AM [...] similar. Electronically signed by:Abdirahman Morales. Transcribed by: [email or web address], User Resident: Electronically Signed by: ABDIRAHMAN MORALES @ 10/10/2017 09:58 AM Normal [facility] Comment on above: Order Comment: , , = ========= , Ordering Esthela HERNANDEZ MD , Rendering Esthela HERNANDEZ MD , CHEST AND LATERALon 09-16-19 CHEST AND LATERAL [facility] Oiqdngufc[address] [place] [address] Radha ent Name: KATHY LEMA : 1990ex: FAge: Race: WhiteMRN: [id number]. Location: 84Patient Status: OVisit #: [id number] Date: 09/15/2017 10:00:00 AMCompleted Date: 09/15/2017 10:07 AMRequesting Provider: GEOVANNA HERNANDEZ Attending Provider: GEOVANNA HERNANDEZ Report Copy To: Signs & Symptoms: D49.9 Neoplasm of unspecified behavior of unspecified site N97Kukabxu: AthenaComments: , , recurrent right arm tumor mass, to rule out mass , , , Ordering Provider - GEOVANNA HERNANDEZ MD , Rendering Provider - GEOVANNA HERNANDEZ MD , Exam: CHEST AND LATERALAccession #: [id number] ===CHEST AND LATERAL 09/15/2017 10:07 AM EDT SIGNS AND SYMPTOMS: D49.9 Neoplasm of unspecified behavior of unspecified site I10 TECHNOLOGIST COMMENTS: patient has recurrent mass in right forearm, evaluate for any lung involvement QUESTION FOR THE RADIOLOGIST: , , recurrent right arm tumor mass, to rule out mass , , , Ordering Provider - GEOVANNA HERNANDEZ MD , Rendering Provider - GEOVANNA HERNANDEZ MD , PROTOCOL: AP(PA) and Lateral views were obtained. COMPARISON: None FINDINGS: 2 views of the chest reveal normal cardiac size and configuration. Lungs and costophrenic recesses are clear. Trachea is in the midline. Bony skeleton appears intact. IMPRESSION: Normal chest x-rays. Electronically signed by:Lindsay Fitch. Transcribed by: [email or web address], User Resident: Electronically Signed by: LINDSAY FITCH @ 09/15/2017 05:03 PM Normal [facility] Comment on above: Order Comment: , , r ecurrent right arm tumor mass, to rule out mass , , , Ordering Provider - GEOVANNA HERNANDEZ MD , Rendering Provider - GEOVANNA HERNANDEZ MD , CNOVSPon 04-02-2017 CNOVSP Visit (SP) Office ([facility]4) KATHY LEMA ([id number]) 1990 FDate Time Provider Dqrpvnqyia58/3/17 10:30 AM KANCHAN BELLE HEMCA4 During your visit today, we recorded the following information about you: Temperature Pulse Respiration Blood pressure 98.3 degrees 81/minute 18/minute 118/61 Weight Height Last Period 76.7 kg 1.56 m 04/01/17Lorena Vinson LPN, LPN 04/02/2017 10:29 AM SignedAdditional intake questions:Has the patient had nausea, vomiting, diarrhea, constipation, fatigue for ANDgt;1 week? None of the aboveDoes the patient have a decreased appetite? NoDoes patient want to see a Wholesale Account Manager? No(yes to any of above refer patient to schedulers for dietitian appointment) )Does patient have any new or increased numbness or tingling of extremities? NoIs patient interested in fertility information? NoDoes patient need any prescription refills? NoElectronically Signed By: Clary Moy MD 04/02/2017 1:10 PM Signed[facility] CANCER INTITUTECONSULT NOTE - Kanchan Belle MD, PhDSOLID TUMOR ONCOLOGYPATIENT NAME: Kathy Mayorga ArleneEDICAL RECORD NUMBER: [id number] OF SERVICE: April 02, 2017CHIEF COMPLAINT: Benign [...] was evaluated by a local doctor in [place] whoattributed this to a benign cyst, but recommended CT imaging. [facility] was seen [facility] where she had the lesion removed [...] SURGICAL HISTORY: No past surgical history on file.C-SectionLEEPDANDamp; CExcisional Biopsy of right forearm lesionALLERGIES:ALLERGIESA llergen Reactions- Iodine [Contrast Dy* Anaphylaxis- Keflex [Cephalexin] Hives- Penicillin G Hives patient states any of the ANDquot;cillinsANDquot;CUR RENT MEDICATIONS:citalopram (CELEXA) 20 mg tablet Take 20 [...] rash, no open woundsPsych: appropriate mood, appropriate affectIMPRESSION/PLAN:Danny Lema is a 26 yo female presenting [...] Belle who formulated the above plan.Sanket Lantigua, JINGY-1Internal [facility] St. ClairOLID TUMOR STAFF:ATTENDING PHYSICIAN NOTE OF PERSONAL INVOLVEMENT IN CAREI have reviewed the note obtained and documented by Dr. Lantigua and I personallyparticipated in the cortez components. The following comments revise or confirmrelevant cortez components of the note.As above, a 26-year-old female being seen for recent resection of a lesion inher right forearm. [facility]. It has been completelyresected and there is a low risk for local recurrence, however this risk cannotbe modified by any additional treatment at this time. She was reassured by theresults of the biopsy. No need for surveillance. She should be reevaluated ifshe develops a recurrence.Kanchan Belle MD, PhDStaff, Hematology and Medical Oncologycc:Mary Wei, [id number] [facility] [address]Tcdzk: [phone]: [phone] R Nill, MD[address] [facility] [address]Meweabtzj Provider: GEOVANNA MONTERROSO [[id number]]Allergies As of Date: 04/02/2017 Noted Allergy ReactionIODINE [...] appetite? NoDoes patient want to see a Wholesale Account Manager? No(yes to any of above refer patient to schedulers for dietitianappointment) )Does patient have any new or increased numbness or tingling ofextremities? NoIs patient interested in fertility information? NoDoes patient need any prescription refills? NoElectronically Signed By: Lorena Garrick, LPNEncounter Status:Closed by KANCHAN BELLE MD on 04/02/17 Normal [facility] PROGRESSon 04-02-2017 PROGRESS HNO ID: [id number] thor: Kanchan Jonervice: (none)Author Type: PhysicianType: Progress NotesFiled: 04/02/2017 1:10 PMNote Text:[facility] CANCER INTITUTECONSULT NOTE - Kanchan Belle MD, PhDSOLID TUMOR ONCOLOGYPATIENT NAME: Kathy Mayorga [facility] NUMBER: [id number] OF SERVICE: April 02, 2017CHIEF COMPLAINT: Benign [...] She was evaluated by a localdoctor in [place] who attributed this to a benign cyst, butrecommended CT imaging. [facility] was [facility] from [facility] because ofthe [facility]. She was seen at [facility] where she had the lesionremoved [...] SURGICAL HISTORY: No past surgical history on file.C-SectionLEEPDANDCExc isional Biopsy of right forearm lesionALLERGIES:ALLERGIESA llergen Reactions- Iodine [Contrast Dy* Anaphylaxis- Keflex [Cephalexin] [...] rash, no open woundsPsych: appropriate mood, appropriate affectIMPRESSION/PLAN:Danny Lema is a 26 yo female presenting [...] Dr. Belle who formulated the aboveplan.Sanket Lantigua, MECHELLE-1Internal MedicineSOLID TUMOR STAFF:ATTENDING PHYSICIAN NOTE OF PERSONAL INVOLVEMENT IN CAREI have reviewed the note obtained and documented by Dr. Lantigua and Ipersonally participated in the cortez components. The following commentsrevise or confirm relevant cortez components of the note.As above, a 26-year-old female being seen for recent resection of a lesionin her right forearm. The pathology has been reviewed here at [facility] and this represents a benign fibrous histiocytoma. It has beencompletely resected and there is a low risk for local recurrence, howeverthis risk cannot be modified by any additional treatment at this time.She was reassured by the results of the biopsy. No need for surveillance. She should be reevaluated if she develops a recurrence.Kanchan Belle MD, PhDStaff, Hematology and Medical Oncologycc:Mary Wei, [id number] [facility] [address]Qwujw: [phone]: [phone] R Nill, MD[address] [place] [address] Normal [facility] Coding Summary.on 03-24-2017 Coding Summary. CODING DATE: FINAL [facility] STATUS: Home (Routine [place]) PAYOR: Government APC DESCRIPTION 5071 Level 1 [...] Z87.891 Personal history of nicotine dependence Z79.84 [facility] (current) use of oral hypoglycemic drugs PYMT PROC APC STAT DESCRIPTION DOCTOR NAME DATE 30037 5071 T Excision, benign lesion Geovanna Monterroso [...] Whitten Revised Date Saved: 03/24/2017 01:20 pm Normal [facility] SURGICAL PATHOLOGYon SURGICAL PATHOLOGY Specimen #: [id number] Physician: GEOVANNA NILL, M.D. FINAL DIAGNOSISSkin and soft tissue, right forearm, excision - Benign fibrous histiocytoma, aneurysmal variant.COMMENTThank you for sending in consultation this specimen from the right forearmof a 26-year-old female.Histologically, there are multiple tissue fragments consisting of a blandplump spindle cell proliferation arranged in a storiform pattern withintermixed hemosiderin, lipid-laden macrophages, inflammatory cells andprominent hemorrhage. The cells show minimal cytologic atypia. Providedimmunohistochemica l stains show the lesions cells are variably positive forCD68 and negative for CK AE1/3, CD34, desmin, Melan-A and S100. Ki-67 showsa low proliferative rate of the tumor cells (5-10%)The histologic findings are those of a benign fibrous histiocytoma withaneurysmal/telangiecta tic features. This benign neoplasm can show somealarming [...] Bone andSoft Tissue Pathology Consultation Service at [phone] with questionsor if additional follow-up information becomes available regarding thispatient. This case was reviewed in conjunction with the bone and softtissue pathology fellow, Zen Bardales MD. BPR/RSDick 03/17/17Cole Krueger M.D., PhD(Electronic Signature) S RICHY SUBMITTEDA: 8 SLIDES & 1 BLOCK ([id number]) CLINICAL DATANone provided. of Report: 03/22/2017Date of Procedure: 03/17/2017Date of Receipt: 03/17/2017Submitted by: GEOVANNA MONTERROSO M.D.Location: Diagnostic interpretation performed at [facility], [address] [place] [address]. Normal [facility] Operative Reporton 7 Operative Report Date of Surgery: 03/11/2017SURGEON: [...] Less than 3 mLGeovanna Monterroso M.D.glsDictated: 03/11/2017 #[id number]: 03/11/2017 #[id number]: Geovanna Monterroso M.D. [facility] Comment on above: Result Comment: Elec tronically Signed By: Geovanna Monterroso MDbr\Date and Time Signed: 03/12/17 16:11 EDT History and Physicalon 03-11 History and Physical Patient: SANDRITA LEMA Age: 26 years Sex: Female : 1990 Associated Diagnoses: None Author: Geovanna Monterroso MD Subjective no changes to [facility] Comment on above: Result Comment: Elec tronically Signed By: Geovanna Monterroso MDbr\Date and Time Signed: 03/11/17 08:00 EDT Inpatient Patient Summaryon 03-11-2017 Inpatient [facility] Dis[facility] InstructionsPERSON INFORMATION Name: KATHY LEMA PHYSICIANS Admitting Physician: Geovanna Monterroso MD Physician: Geovanna Monterroso MD PCP: NONE, XXXXDischarge Diagnosis: Nodule, subcutaneous Comment: PATIENT EDUCATION INFORMATIONInstructions:Mt dication Leaflets:Follow up:With: Address: When: Geovanna Monterroso [place] [address] Business (1) Within 7 to 10 days MEDICATION LISTComment: [facility] Main OR Intraoperative Recor don 03-11-2017 Main OR Intraoperative Record IntraOp Document Type FT Summary Primary Physician: Geovanna Monterroso MD Finalized Date/Time: 03/11/17 12:48:45 Pt. Name: KATHY LEMA Tierra /Sex: 1990 Female Med Rec #: [id number] Physician: Geovanna Monterroso MD #: [id number] Pt. Type: A Room/Bed: [place] [address] Admit/Disch: 03/11/17 07:51:56 - Institution: Case Times [...] Performed Surgeon - Primary Scrub - Primary Professional Nursing Assistant - Primary Time In 03/11/17 09:08:00 03/11/17 09:08:00 03/11/17 09:08:00 Time Out 03/11/17 09:36:00 03/11/17 09:38:00 03/11/17 09:38:00 Procedure CYST LESION CYST LESION CYST LESION REMOVAL(Right) REMOVAL(Right) REMOVAL(Right) Comments Jamshid Acosta MS 3 scrubbed for case Last Modified By: Joseline Alexis RN 03/11/17 Vanesa MILIAN, Joseline 03/11/17 Vanesa MILIAN, Joseline 03/11/17 10:40:13 09:47:08 09:47:08 Perioperative Protocols FT [...] FOREARM Primary Procedure Yes Primary Surgeon Geovanna Monterroso MD Start 03/11/17 09:17:00 Stop 03/11/17 09:36:00 Anesthesia Type Local Surgical Service General Wound Class 1 - Clean Last Modified By: Jsoeline Alexis RN 03/11/17 09:47:16 General Case Data [...] and tissue Entry 1 Skin Integrity Intact, Veazie, Warm, and Skin Abnormality No Dry Outcomes Met? Yes Last Modified By: Joseline Alexis RN 03/11/17 09:23:02 Post-Care Text: The patient is free from signs and symptoms of injury caused by extraneous objects General Comments: Patient has multiple piercings covered with MAICOL Vences Patient Positioning FT Pre-Care Text: Identifies physical [...] Sponges, Sharps Status Correct Correct Time By Carl MARKETING COMPLIANCE MANAGER, Karen E, Carl MARKETING COMPLIANCE MANAGER, Karen E, Joseline Alexis RN, RN, Abby Outcomes Met? Yes Yes Last Modified By: [...] General Comments: Hair clipping done by Dr. Nill. Area prepped was on right lower forarm, [...] RN Patient Status Stable Skin. Condition Intact, Veazie, Warm, and Dry Airway Maintenance Oxygen in Use? No Outcomes Met? Yes Last Modified By: Joseline Alexis RN 03/11/17 09:28:29 Post-Care Text: The patient is free from signs and symptoms of injury related to transfer/transport General Comments: Skin same as preop with exception of surgical site. Patient taken back to asu bay 4 and discharged by MAICOL Garcia -MAICOL Garcia Dressing/Packing FT Pre-Care Text: Administers care to [...] Date Yes Ordered By Geovanna Monterroso MD Verified Transcribed/To Joseline Alexis RN Administered By Geovanna Monterroso MD By Outcomes Met? Yes Last Modified By: Joseline Alexis RN 03/11/17 09:29:15 Post-Care Text: The patient received appropriate medication(s) safely administered during the perioperative period For Bell-Paresh please see scanned medication reconcilliation form for [...] 10:45 Gayle Mccullough CST 03/11/17 12:48 Normal [facility] Main OR Preoperative Recordo n 03-11-2017 Main OR Preoperative Record Holding Area Document Type FT Summary Primary Physician: Geovanna Monterroso MD Finalized Date/Time: 03/11/17 08:34:09 Pt. Name: KATHY LEMA Tierra Ozuna/Sex: 1990 Female Med Rec #: [id number] Physician: Geovanna Monterroso MD Financial #: [id number] Pt. Type: A Room/Bed: [place] [address] Admit/Disch: 03/11/17 07:51:56 - Institution: Case Times [...] Signed By: Xenia Flaherty RN 03/11/17 08:34 [facility] Patient Education - Texton 1 Patient Education - Text Patient Education Materials Follows: [facility] Vital Signs Date Time Vital Sign Value Performing Clinician Facility 09-25-2024 08:31-0400 Body height 152.4 cm Gayle Alanis APRN Work Phone: [facility] 09-25-2024 08:31-0400 Body mass index (BMI) [Ratio] 34 kg/m2 Gayle Alanis APRN Work Phone: [facility] 09-25-2024 08:31-0400 Body temperature 96.8 [degF] Gayle Alanis APRN Work Phone: [facility] 09-25-2024 08:31-0400 Body weight 78.92 kg Gayle Alanis APRN Work Phone: [facility] 09-25-2024 08:31-0400 Diastolic blood pressure 70 mm[Hg] Gayle Alanis APRN Work Phone: [facility] 09-25-2024 08:31-0400 Heart rate 83 /min Gayle Alanis APRN Work Phone: [facility] 09-25-2024 08:31-0400 SaO2% (BldA) [Mass fraction] 98 % Gayle Alanis CHAIN TENDER Work Phone: [facility] 09-25-2024 08:31-0400 Systolic blood pressure 116 mm[Hg] Gayle Alanis APRN Work Phone: [facility] 09-21-2024 05:56-0400 Diastolic blood pressure 67 mm[Hg] Gayle Alanis APRN Work Phone: [facility] 09-21-2024 05:56-0400 Heart rate 85 /min Gayle Alanis APRN Work Phone: [facility] 09-21-2024 05:56-0400 Respiratory rate 18 /min Gayle Alanis APRN Work Phone: [facility] 09-21-2024 05:56-0400 SaO2% (BldA) [Mass fraction] 100 % Gayle Orantespaola CHAIN TENDER Work Phone: [facility] 09-21-2024 05:56-0400 Systolic blood pressure 116 mm[Hg] Gayle Orantespaola CHAIN TENDER Work Phone: [facility] 09-21-2024 03:49-0400 Body height 152.4 cm Gayle Orantesxiaobrianeve CHAIN TENDER Work Phone: [facility] 09-21-2024 03:49-0400 Body temperature 98.4 [degF] Gayle Orantespaola CHAIN TENDER Work Phone: [facility] 09-21-2024 03:49-0400 Body weight 78.92 kg Gayle Orantespaola CHAIN TENDER Work Phone: [facility] 06-09-2024 08:41-0500 Body height 152.4 cm Gayle Orantespaola CHAIN TENDER Work Phone: [facility] 06-09-2024 08:41-0500 Body mass index (BMI) [Ratio] 34.8 kg/m2 Gayle Orantespaola CHAIN TENDER Work Phone: [facility] 06-09-2024 08:41-0500 Body temperature 97.1 [degF] Gayle Zeke CHAIN TENDER Work Phone: [facility] 06-09-2024 08:41-0500 Body weight 80.85 kg Gayle Orantesxiaobrianeev CHAIN TENDER Work Phone: [facility] 06-09-2024 08:41-0500 Diastolic blood pressure 62 mm[Hg] Gayle Zeke MARN Work Phone: [facility] 06-09-2024 08:41-0500 Heart rate 96 /min Gayle Rohrbacher CHAIN TENDER Work Phone: [facility] 06-09-2024 08:41-0500 SaO2% (BldA) [Mass fraction] 97 % Gayle Zeke CHAIN TENDER Work Phone: [facility] 06-09-2024 08:41-0500 Systolic blood pressure 116 mm[Hg] Gayle Alanis CHAIN TENDER Work Phone: [facility] 06-01-2024 20:53-0500 Diastolic blood pressure 62 mm[Hg] Gayle Alanis CHAIN TENDER Work Phone: [facility] 06-01-2024 20:53-0500 Heart rate 92 /min Gayle Alanis CHAIN TENDER Work Phone: [facility] 06-01-2024 20:53-0500 Respiratory rate 18 /min Gayle Alanis CHAIN TENDER Work Phone: [facility] 06-01-2024 20:53-0500 SaO2% (BldA) [Mass fraction] 98 % Gayle Zeke CHAIN TENDER Work Phone: [facility] 06-01-2024 20:53-0500 Systolic blood pressure 107 mm[Hg] Gayle Alanis CHAIN TENDER Work Phone: [facility] 06-01-2024 17:28-0500 Body height 152.4 cm Gayle Alanis CHAIN TENDER Work Phone: [facility] 06-01-2024 17:28-0500 Body temperature 97.6 [degF] Gayle Alanis CHAIN TENDER Work Phone: [facility] 06-01-2024 17:28-0500 Body weight 81.5 kg Gayle Alanis CHAIN TENDER Work Phone: [facility] 03-30-2024 17:29-0400 Diastolic blood pressure 59 mm[Hg] CHAIN TENDER Gayle Rohrbacher Work Phone: [facility] 03-30-2024 17:29-0400 Heart rate 74 /min CHAIN TENDERTierra Araujo Rolandaxiaoacher Work Phone: [facility] 03-30-2024 17:29-0400 Respiratory rate 18 /min CHAIN TENDERTierra Garciaacher Work Phone: [facility] 03-30-2024 17:29-0400 SaO2% (BldA) [Mass fraction] 100 % CHAIN TENDERTierra Araujo Rolandaxiaoacher Work Phone: [facility] 03-30-2024 17:29-0400 Systolic blood pressure 100 mm[Hg] CHAIN TENDERTierra Araujo Rolandaxiaoacher Work Phone: [facility] 03-30-2024 12:08-0400 Body height 152.4 cm CHAIN TENDERTierra Araujo Rolandaxiaoacher Work Phone: [facility] 03-30-2024 12:08-0400 Body weight 78 kg CHAIN TENDERTierra Garciaacher Work Phone: [facility] 03-30-2024 12:07-0400 Body temperature 98 [degF] SAMSON Garciaacher Work Phone: [facility] 03-28-2024 09:55-0400 Body height 152.4 cm [facility] 03-28-2024 09:55-0400 Body mass index (BMI) [Ratio] 33.5 kg/m2 [facility] 03-28-2024 09:55-0400 Body temperature 96.4 [degF] [facility] 03-28-2024 09:55-0400 Body weight 78.01 kg [facility] 03-28-2024 09:55-0400 Diastolic blood pressure 82 mm[Hg] [facility] 03-28-2024 09:55-0400 Heart rate 81 /min [facility] 03-28-2024 09:55-0400 SaO2% (BldA) [Mass fraction] 99 % [facility] 03-28-2024 09:55-0400 Systolic blood pressure 126 mm[Hg] [facility] 02-08-2024 10:36-0400 Body mass index (BMI) [Ratio] 33.98 kg/m2 Dalton Jayden DO Work Phone: [facility] 02-08-2024 10:36-0400 Body weight 78.93 kg Dalton Jayden DO Work Phone: [facility] 02-08-2024 10:36-0400 Diastolic blood pressure 76 mm[Hg] Dalton Jayden DO Work Phone: [facility] 02-08-2024 10:36-0400 Systolic blood pressure 122 mm[Hg] Dalton Jayden DO Work Phone: [facility] 01-06-2024 08:05-0400 Body height 152.4 cm CHAIN TENDER Noa Kiepert Work Phone: [facility] 01-06-2024 08:05-0400 Body mass index (BMI) [Ratio] 34.2 kg/m2 CHAIN TENDER Noa Kiepert Work Phone: [facility] 01-06-2024 08:05-0400 Body weight 79.37 kg CHAIN TENDER Noa Kiepert Work Phone: [facility] 01-06-2024 08:05-0400 Diastolic blood pressure 74 mm[Hg] CHAIN TENDER Noa Kiepert Work Phone: [facility] 01-06-2024 08:05-0400 Heart rate 85 /min CHAIN TENDER Noa Kiepert Work Phone: [facility] 01-06-2024 08:05-0400 SaO2% (BldA) [Mass fraction] 98 % CHAIN TENDER Noa Kiepert Work Phone: [facility] 01-06-2024 08:05-0400 Systolic blood pressure 108 mm[Hg] CHAIN TENDER Noa Kiepert Work Phone: [facility] 11-17-2023 10:25-0400 Body height 152.4 cm CHAIN TENDER Noa Kiepert Work Phone: [facility] 11-17-2023 10:25-0400 Body temperature 98.2 [degF] CHAIN TENDER Noa Kiepert Work Phone: [facility] 11-17-2023 10:25-0400 Body weight 81.64 kg CHAIN TENDER Noa Kiepert Work Phone: [facility] 11-17-2023 10:25-0400 Diastolic blood pressure 66 mm[Hg] CHAIN TENDER Noa Kiepert Work Phone: [facility] 11-17-2023 10:25-0400 Heart rate 100 /min CHAIN TENDER Noa Kiepert Work Phone: [facility] 11-17-2023 10:25-0400 Respiratory rate 20 /min CHAIN TENDER Noa Kiepert Work Phone: [facility] 11-17-2023 10:25-0400 SaO2% (BldA) [Mass fraction] 98 % CHAIN TENDER Noa Kiepert Work Phone: [facility] 11-17-2023 10:25-0400 Systolic blood pressure 141 mm[Hg] CHAIN TENDER Noa Kiepert Work Phone: [facility] 11-01-2023 09:55-0400 Body height 152.4 cm CHAIN TENDER Noa Kiepert Work Phone: [facility] 11-01-2023 09:55-0400 Body mass index (BMI) [Ratio] 35.2 kg/m2 CHAIN TENDER Noa Kiepert Work Phone: [facility] 11-01-2023 09:55-0400 Body weight 81.64 kg CHAIN TENDER Noa Kiepert Work Phone: [facility] 11-01-2023 09:55-0400 Diastolic blood pressure 70 mm[Hg] CHAIN TENDER Noa Kiepert Work Phone: [facility] 11-01-2023 09:55-0400 Heart rate 71 /min CHAIN TENDER Noa Kiepert Work Phone: [facility] 11-01-2023 09:55-0400 SaO2% (BldA) [Mass fraction] 98 % CHAIN TENDER Noa Kiepert Work Phone: [facility] 11-01-2023 09:55-0400 Systolic blood pressure 108 mm[Hg] CHAIN TENDER Noa Kiepert Work Phone: [facility] 10-05-2023 13:58-0400 Body height 152.4 cm CHAIN TENDER Noa Kiepert Work Phone: [facility] 10-05-2023 13:58-0400 Body mass index (BMI) [Ratio] 35.7 kg/m2 CHAIN TENDER Noa Kiepert Work Phone: [facility] 10-05-2023 13:58-0400 Body weight 83 kg CHAIN TENDER Noa Kiepert Work Phone: [facility] 10-05-2023 13:58-0400 Diastolic blood pressure 80 mm[Hg] CHAIN TENDER Noa Kiepert Work Phone: [facility] 10-05-2023 13:58-0400 Heart rate 83 /min CHAIN TENDER Noa Kiepert Work Phone: [facility] 10-05-2023 13:58-0400 SaO2% (BldA) [Mass fraction] 99 % CHAIN TENDER Noa Kiepert Work Phone: [facility] 10-05-2023 13:58-0400 Systolic blood pressure 112 mm[Hg] CHAIN TENDER Noa Kiepert Work Phone: [facility] 05-07-2023 17:20-0500 Body height 152.4 cm Emerald Mcguire Other [facility] Other 05-07-2023 17:20-0500 Body mass index (BMI) [Ratio] 36.89 kg/m2 Emerald Mcguire Other [facility] Other 05-07-2023 17:20-0500 Body temperature 101.3 [degF] Emerald Mcguire Other [facility] Other 05-07-2023 17:20-0500 Body weight 85.69 kg Emerald Mcguire Other [facility] Other 05-07-2023 17:20-0500 Respiratory rate 18 /min Emerald Mcguire Other [facility] Other 05-07-2023 17:20-0500 SaO2% (BldA) [Mass fraction] 96 % Emerald Mcguire Other [facility] Other 12-02-2022 09:30-0400 Body height 152.4 cm Gayle Alanis Other [facility] Other 12-02-2022 09:30-0400 Body mass index (BMI) [Ratio] 36.32 kg/m2 Gayle Alanis Other [facility] Other 12-02-2022 09:30-0400 Body weight 84.37 kg Gayle Alanis Other [facility] Other 12-02-2022 09:30-0400 Diastolic blood pressure 64 mm[Hg] Gayle Alanis Other [facility] Other 12-02-2022 09:30-0400 Systolic blood pressure 120 mm[Hg] Gayle Alanis Other [facility] Other 10-30-2022 11:00-0400 Body height 152.4 cm Jessica Iqbal Other [facility] Other 10-30-2022 11:00-0400 Body mass index (BMI) [Ratio] 35.74 kg/m2 Jessica Iqbal Other [facility] Other 10-30-2022 11:00-0400 Body weight 83.01 kg Jessica Iqbal Other [facility] Other 10-30-2022 11:00-0400 Diastolic blood pressure 78 mm[Hg] Jessica Iqbal Other [facility] Other 10-30-2022 11:00-0400 SaO2% (BldA) [Mass fraction] 97 % Jessica Iqbal Other [facility] Other 10-30-2022 11:00-0400 Systolic blood pressure 122 mm[Hg] Jessica Iqbal Other [facility] Other 08-05-2022 16:00-0500 Body height 152.4 cm Gayle Alanis Other [facility] Other 08-05-2022 16:00-0500 Body mass index (BMI) [Ratio] 34.95 kg/m2 Gayle Alanis Other [facility] Other 08-05-2022 16:00-0500 Body weight 81.19 kg Gayle Alanis Other [facility] Other 08-05-2022 16:00-0500 Diastolic blood pressure 78 mm[Hg] Gayle Orantespaola Other [facility] Other 08-05-2022 16:00-0500 Systolic blood pressure 126 mm[Hg] Gayle Orantesxiaoacher Other [facility] Other 05-21-2022 11:15-0500 Body height 152.4 cm Gayle Zeke Other [facility] Other 05-21-2022 11:15-0500 Body mass index (BMI) [Ratio] 34.17 kg/m2 Gayle Orantespaola Other [facility] Other 05-21-2022 11:15-0500 Body weight 79.38 kg Gayle Zeke Other [facility] Other 05-21-2022 11:15-0500 Diastolic blood pressure 76 mm[Hg] Gayle Orantesmcr Other [facility] Other 05-21-2022 11:15-0500 SaO2% (BldA) [Mass fraction] 96 % Gayle Zeke Other [facility] Other 05-21-2022 11:15-0500 Systolic blood pressure 111 mm[Hg] Gayle Juan Jr Other [facility] Other 04-28-2022 12:30-0500 Body height 152.4 cm Gayle Zeke Other [facility] Other 05-26-2022 09:15-0400 Body height 152.4 cm Gayle Aritar Other [facility] Other 10-23-2021 09:15-0400 Body mass index (BMI) [Ratio] 34.17 kg/m2 Gayle Orantesrbacher Other [facility] Other 10-23-2021 09:15-0400 Body weight 79.38 kg Gayle Garciaacher Other [facility] Other 10-23-2021 09:15-0400 Diastolic blood pressure 78 mm[Hg] Gayle Orantesxiaoacher Other [facility] Other 10-23-2021 09:15-0400 SaO2% (BldA) [Mass fraction] 98 % Gayle Radhaacher Other [facility] Other 10-23-2021 09:15-0400 Systolic blood pressure 120 mm[Hg] Gayle Radhaacher Other [facility] Other 10-01-2021 15:00-0400 Body height 152.4 cm Gayle Radhaacher Other [facility] Other 10-01-2021 15:00-0400 Body mass index (BMI) [Ratio] 34.95 kg/m2 Gayle Orantesrbacher Other [facility] Other 10-01-2021 15:00-0400 Body weight 81.19 kg Gayle Orantesxiaoacher Other [facility] Other 10-01-2021 15:00-0400 Diastolic blood pressure 70 mm[Hg] Gayle Aritaeve Other [facility] Other 10-01-2021 15:00-0400 SaO2% (BldA) [Mass fraction] 97 % Gayle Alanis Other [facility] Other 10-01-2021 15:00-0400 Systolic blood pressure 120 mm[Hg] Gayle Aritaeve Other [facility] Other Encounters Encounter Date Encounter Type Care Provider Facility Start: 09-25-2024 End: 09-25-2024 ambulatory Gayle Orantesxiaobrianeve MARN Work Phone: [facility] Work Phone: Start: 09-25-2024 End: 09-25-2024 Patient encounter procedure Gayle Orantespaola CHAIN TENDER Work Phone: [facility] Work Phone: Start: 09-21-2024 Non-patient / Non-visit Gagandeep greenberg Radhabrianeve CHAIN TENDER Work Phone: [facility] Work Phone: Start: 09-21-2024 End: 09-21-2024 Emergency department patient visit Gayle Orantespaola MARN Work Phone: [facility] Work Phone: Start: 06-09-2024 End: 06-09-2024 ambulatory Gayle Orantesxiaobrianeve CHAIN TENDER Work Phone: [facility] Work Phone: Start: 06-09-2024 End: 06-09-2024 Patient encounter procedure Gayle Orantespaola CHAIN TENDER Work Phone: [facility] Work Phone: Start: 06-05-2024 Non-patient / Non-visit Gagandeep Alanis CHAIN TENDER Work Phone: [facility] Work Phone: Start: 06-04-2024 End: 06-04-2024 Patient encounter procedure Gayle Alanis CHAIN TENDER Work Phone: [facility] Work Phone: Start: 06-04-2024 End: 06-04-2024 ambulatory Gayle Alanis CHAIN TENDER Work Phone: [facility] Work Phone: Start: 06-01-2024 End: 06-01-2024 Emergency department patient visit Gayle Alanis CHAIN TENDER Work Phone: [facility] Work Phone: Start: 03-31-2024 Non-patient / Non-visit Gagandeep Alanis CHAIN TENDER Work Phone: [facility] Work Phone: Start: 03-30-2024 End: 03-30-2024 Emergency department patient visit SAMSON Alanis Work Phone: [facility] Work Phone: Start: 03-28-2024 End: 03-28-2024 ambulatory [facility] Work Phone: Start: 03-28-2024 End: 03-28-2024 Patient encounter procedure [facility] Work Phone: Start: 02-08-2024 End: 02-08-2024 Bamboo flowsheet Dalton Jayden DO Work Phone: [facility] Start: 02-08-2024 End: 02-08-2024 Bamboo flowsheet Dalton Jayden DO Work Phone: [facility] Start: 02-08-2024 End: 02-08-2024 Office outpatient visit 15 minutes Dalton Jayden DO Work Phone: [facility] Comment on above: Pain of ovary; H/O: hysterectomy; Pelvic pain in female Start: 02-08-2024 End: 02-08-2024 ambulatory DALTON JAYDEN Not Available Start: 01-06-2024 End: 01-06-2024 ambulatory CHAIN TENDERTierra Maradiagadebbie Work Phone: [facility] Work Phone: Start: 01-06-2024 End: 01-06-2024 Patient encounter procedure SAMSON Maradiagadebbie Work Phone: [facility] Work Phone: Start: 12-15-2023 End: 12-15-2023 ambulatory ODESSA E RAMBASEK Not Available Start: 12-08-2023 End: 12-08-2023 Patient encounter procedure SAMSON Maradiagat Work Phone: [facility] [place] Work Phone: Start: 12-08-2023 End: 12-08-2023 ambulatory SAMSON Yadav Work Phone: [facility] Work Phone: Start: 11-17-2023 End: 11-17-2023 Emergency department patient visit SAMSON Maradiagat Work Phone: [facility] Work Phone: Start: 11-17-2023 End: 11-17-2023 ambulatory ODESSA E RAMBASEK Not Available Start: 11-04-2023 End: 11-04-2023 ambulatory DALTON JAYDEN Not Available Start: 11-04-2023 Non-patient / Non-visit CHAIN TENDER C james Leif Work Phone: [facility] Work Phone: Start: 11-01-2023 End: 11-01-2023 Patient encounter procedure SAMSON Yadav Work Phone: [facility] Work Phone: Start: 10-05-2023 End: 10-05-2023 Patient encounter procedure SAMSON Yadav Work Phone: [facility] Work Phone: Start: 05-07-2023 End: 05-07-2023 ambulatory Emerald Shayla Other [facility] Other Start: 05-07-2023 Office outpatient vi sit 15 minutes Emerald Mcguire [facility] Start: 05-07-2023 Telephone encounter Gayle Cook her [facility] Start: 03-19-2023 End: 03-19-2023 ambulatory PHYSICIAN NO [facility] Work Phone: Start: 03-19-2023 End: 03-19-2023 Patient encounter procedure PHYSICIAN NO [facility] Start: 12-23-2022 End: 12-23-2022 ambulatory Gayle Alanis Other [facility] Other Start: 12-23-2022 Telephone encounter Gayle Cook her [employer] Start: 12-02-2022 End: 12-02-2022 ambulatory Gayle Alanis Other [facility] Other Start: 12-02-2022 Office outpatient vi sit 15 minutes Gayle Alanis [facility] Start: 11-24-2022 End: 11-24-2022 ambulatory Jessiac Iqbal Other [facility] Other Start: 11-24-2022 Telephone encounter Jessica Iqbal [facility] Start: 11-12-2022 End: 11-12-2022 ambulatory Jessica Iqbal Other [facility] Other Start: 11-12-2022 Telephone encounter Jessica Rasheed [facility] Start: 10-30-2022 End: 10-30-2022 ambulatory Jessica Rasheed Other [facility] Other Start: 10-30-2022 Office outpatient vi sit 15 minutes Jessica Rasheed [facility] Start: 08-24-2022 End: 08-24-2022 ambulatory Gayle Zeke Other [facility] Other Start: 08-24-2022 Telephone encounter Gayle Orantesubaldo her [facility] Start: 08-21-2022 End: 08-21-2022 ambulatory Gayle Rolandarbacher Other [facility] Other Start: 08-21-2022 Telephone encounter Gayle Orantesubaldo her [facility] Start: 08-18-2022 End: 08-18-2022 ambulatory Gayle Rolandarbacher Other [facility] Other Start: 08-18-2022 Telephone encounter Gayle Orantesrbjim her [employer] Start: 08-05-2022 End: 08-05-2022 ambulatory Gayle Rolandarbacher Other [facility] Other Start: 08-05-2022 Office outpatient vi sit 25 minutes Gayle Garciaacher [facility] Start: 06-17-2022 End: 06-17-2022 ambulatory Gayle Rolandarbacher Other [facility] Other Start: 06-17-2022 Telephone encounter Gayle Orantesrbac her [facility] Start: 06-03-2022 End: 06-03-2022 ambulatory Gayle Rolandarbacher Other [facility] Other Start: 06-03-2022 Telephone encounter Gayle Joey her [facility] Start: 05-21-2022 End: 05-21-2022 ambulatory Gayle Alanis Other [facility] Other Start: 05-21-2022 Office outpatient vi sit 15 minutes Gayle Alanis [facility] Start: 05-20-2022 End: 05-20-[address] DALTON CARPENTER Facility: Start: 04-28-2022 End: 04-28-2022 ambulatory Gayle Alanis Other [facility] Other Start: 04-28-2022 Office outpatient vi sit 15 minutes Gayle Alanis [facility] Start: 04-28-2022 Telephone encounter Gayle Joey her [facility] Start: 01-30-2022 End: 01-30-2022 ambulatory Gayle Alanis Facility:[facility] Start: 10-23-2021 End: 10-23-2021 ambulatory Gayle Alanis Other [facility] Other Start: 10-23-2021 Office outpatient vi sit 15 minutes Gayle Alanis [facility] Start: 10-22-2021 End: 10-31-2021 ambulatory JENNY Doyle Facility:[facility] Start: 10-21-2021 End: 10-31-2021 Emergency department patient visit JENNY Doyle Facility:[facility] Start: 10-15-2021 End: 10-15-2021 ambulatory Gayle Alanis Other [facility] Other Start: 10-15-2021 Telephone encounter Gayle Cook her [facility] Start: 10-01-2021 End: 10-01-2021 ambulatory Gayle Zeke Other [facility] Other Start: 10-01-2021 Encounter for genera l adult medical examination without abnormal findings Gayle Zeke [facility] Start: 10-01-2021 Periodic preventive med est patient 18-39 yrs Gayle Alanis [facility] Start: 09-23-2021 Telephone encounter Gayle Orantesubaldo her [facility] Start: 09-23-2021 End: 09-23-2021 ambulatory Rolando Jacome [facility] Other Start: 09-16-2021 End: 09-17-2021 [facility] Start: 09-10-2021 End: 09-11-2021 [facility] Start: 06-01-2021 End: 06-01-2021 ambulatory Gayle Alanis Facility:[facility] Start: 05-31-2021 End: 05-31-2021 Emergency department patient visit [facility] Facility:[facility] Start: 04-16-2021 End: 04-16-2021 ambulatory Gayle Zeke Other [facility] Other Start: 04-16-2021 Telephone encounter Gayle Joey her [facility] Start: 03-27-2021 Telephone encounter Gayle Joey her [facility] Start: 03-24-2021 Office outpatient vi sit 15 minutes Gayle Alanis [facility] Start: 10-29-2017 End: 10-30-2017 Ambulatory GEOVANNA HERNANDEZ Facility:[facility] Start: 10-09-2017 End: 10-10-2017 Ambulatory GEOVANNA HERNANDEZ Facility:[facility] Start: 09-15-2017 End: 09-16-2017 Ambulatory GEOVANNA HERNANDEZ Facility:[facility] Start: 08-31-2017 End: 09-01-2017 Ambulatory DEFAULT PHYSICIAN Facility:[facility] Start: 04-02-2017 End: 11-03-2017 Ambulatory KANCHAN BELLE [facility] Start: 03-11-2017 End: 03-11-2017 Ambulatory Geovanna Monterroso Facility:[facility] Procedures Date Procedure Procedure Detail Performing Clinician Start: 09-21-2024 Plain chest X-ray Ina Orantespaola SAMSON Work Phone: Start: 06-01-2024 Plain chest X-ray Ina Aritaeve CHAIN TENDER Work Phone: Start: 03-30-2024 CT of head without contrast CHAIN TENDER Gayle Zeke Work Phone: Start: 03-30-2024 Respiratory Panel (PCR) SAMSON Araujo Zeke Work Phone: Start: 03-30-2024 Respiratory Panel (PCR) Gayle Aritaeve CHAIN TENDER Work Phone: Start: 02-08-2024 Urnls dip stick/tabl et rgnt non-auto w/o micrscp [employer] Work Phone: Start: 11-17-2023 CT of right knee CHAIN TENDER C james Yadav Work Phone: Start: 11-17-2023 X-ray of right knee APR N Noa Yadav Work Phone: Start: 11-04-2023 Microscopic observat ion [Identifier] in Cervix by Cyto stain [employer] Work Phone: Start: 11-04-2023 Cytp cerv/vag auto t hin layer prep mnl screen [employer] Work Phone: Start: 10-29-2017 Anes integ extremiti es ant trunk & perineum nos TEX TREJO Start: 10-29-2017 EXC FOREARM LES SC 3 CM/> GEOVANNA HERNANDEZ H/O: hysterectomy H/O: hysterectomy Samatoa DO Work Phone: Plan of Treatment Date Care Activity Detail Author Start: 11-03-2028 Screening for malign ant neoplasm of cervix [facility] Start: 09-25-2024 Patient referral [facility] Work Phone: Start: 09-21-2024 Plain chest X-ray XR chest 1V portab le [facility] Start: 09-21-2024 XR Chest Single view [facility] Start: 06-09-2024 Patient referral [facility] Work Phone: Start: 02-08-2024 End: 02-08-2024 Patient encounter procedure 02/08/2024 10:30 AM EDT Office Visit [facility] [address] [place] [address] Dalton Carpenter, DO [address] [place], [place] [id number] Arrived [facility] Comment on above: Arrived Start: 01-30-2024 Influenza vaccination Influenz a Vaccine (#1) [facility] Start: 2020 Screening for malign ant neoplasm of cervix [facility] Start: 2011 Screening for malign ant neoplasm of cervix Pap Smear [facility] Kuwaiti house dust mite IgE Ab [Units/volume] in [facility] Clam IgE Ab [Units/volume] in [facility] Crab IgE Ab [Units/volume] in [facility] house dust mite IgE Ab [Units/volume] in [facility] Holter monitor study [facility] Lobster IgE Ab [Units/volume] in [facility] Oyster IgE Ab [Units/volume] in [facility] Patient Education [facility] Work Phone: Patient referral [facility] Work Phone: Scallop IgE Ab [Units/volume] in [facility] Shrimp IgE Ab [Units/volume] in Serum [facility] Immunizations Immunization Date Immunization Notes Care Provider Fa cility 03-19-2023 influenza, injectabl e, quadrivalent, preservative free CHAIN TENDER Noa Yadav Work Phone: [facility] 03-19-2023 influenza virus vaccine, unspecified formulation Dalton Carpenter DO Work Phone: [facility] 07-30-2022 measles, mumps and rubella virus vaccine SAMSON Yadav Work Phone: [facility] 07-02-2022 measles, mumps and rubella virus vaccine SAMSON Yadav Work Phone: [facility] 01-30-2022 tetanus toxoid, reduced diphtheria toxoid, and acellular pertussis vaccine, adsorbed SAMSON Yadav Work Phone: [facility] 11-01-2020 COVID-19 Vaccine Pfizer - Documentation Purposes Only Gayle Alanis Other [facility] 10-11-2020 COVID-19 Vaccine Pfizer - Documentation Purposes Only Gayle Alanis Other [facility] 05-30-2018 tetanus toxoid, reduced diphtheria toxoid, and acellular pertussis vaccine, adsorbed Gayle Alanis Other [facility] 10-13-2010 TORADOL/KETOROLAC 15 mg/ml Gayle Alanis Other [facility] Other Payers Date Payer Category Payer Self-pay 2021 Unknown [id number] 2021 Unknown 2017 [employer] ( and others) [id number] 2017 [employer] ( and others) 1990 Unknown [id number] 18 1990 Unknown [id number] [id number] 18 1990 Unknown [id number] 2.16.840.1.112601.3.579.2.7 18 1990 Unknown [id number] 2.16.840.1.321747.3.579.2.7 18 1990 Unknown [id number] 2.16.840.1.615480.3.579.2.7 18 1990 Unknown [id number] 2.16.840.1.640585.3.579.2.7 18 1990 Unknown [id number] 2.16.840.1.925008.3.579.2.7 18 1990 Unknown [id number] 2.16.840.1.558107.3.579.2.7 18 1990 Unknown [id number] 2.16.840.1.510339.3.579.2.7 18 1990 Unknown [id number] 2.16.840.1.060563.3.579.2.5 93 1990 Unknown [id number] 2.16.840.1.914733.3.579.2.1 259 1990 Unknown [id number] 2.16.840.1.095597.3.579.2.1 259 1990 Unknown [id number] 2.16.840.1.787841.3.579.2.1 259 1990 Unknown [id number] 2.16.840.1.896979.3.579.2.1 259 1959 [facility] [id number] [id number] Department of [facility] e ( and others) [facility] [id number] Medicaid [employer] [id number] Unknown [id number] 2.16.840.1.611428.3.579.2.5 31 Unknown [id number] 2.16.840.1.386407.3.579.2.5 31 Unknown [id number] 2.16.840.1.265875.3.579.2.5 31 Unknown [id number] 2.16.840.1.098915.3.579.2.5 31 Unknown [id number] 2.16.840.1.160858.3.579.2.5 31 Unknown [id number] 2.16.840.1.248643.3.579.2.5 31 Social History Date Type Detail Facility Unknown if ever smoked [facility] [employer] Other Start: 12-15-2023 End: 02-08-2024 Sex Assigned At [facility] Other Start: 1990 Sex Assigned At Female F [facility] Start: 11-17-2023 End: 06-01-2024 Tobacco smoking status NHIS Never smoked tobacco (finding) [facility] Start: 11-17-2023 Tobacco use and exposure Smokeless tobacco non-user [facility] Start: 12-15-2023 End: 02-08-2024 History of Social function [facility] Start: 1990 Sex assigned at Not on file [facility] Start: 11-03-2023 Sexual orientation Heterosexual (fin ding) [facility] Start: 06-01-2024 End: 09-25-2024 Sex Female (finding) [facility] Start: 09-21-2024 Tobacco smoking status NHIS Ex-smoker (finding) [facility] NEGATED: Highlighted row [facility] Clinical Notes 03-24-2021 to 03-28-2024 Note Date & Type Note Facility 03-28-2024 Evaluation note Diagnosis Onset Date Resolution Gastroenteritis acute March 012023 9:52am [facility] Work Phone: 1(687) 708-536110-29-2024 Evaluation note* Diagnosis Onset Date Resolution Status Admit Date Gastroenteritis acute March 012023 9:52am Atypical chest pain acute Jan2024 8:36am Family history of heart disease acut e June 09, 2024 8:36am Type II diabetes mellitus acute June 09, 2024 8:36am [facility] Work Phone: 1(127) 218-474809-10-2024 History of Present illness Narrative* Alise Zander, LIANNA - 02/08/2024 10:30 AM EDT Reason for Appointment: Patient ID: Kathy Lema is a 33 y.o. female who presents for Pelvic Pain (Pt complains of right ovarian pain. Pt has a h/o hysterectomy.) Patient presents today for Acute Visit. MEDICATIONS Current Outpatient Medications Medication Instructions citalopram (CELEXA) 40 mg, Oral, Daily Continuous Glucose Sensor (FreeStyle Hiwot 2 Sensor) misc REPLACE SENSOR EVERY 14 DAYS EPINEPHrine (Epipen) 0.3 MG/0.3ML injection syringe Once hydrOXYzine HCl (ATARAX) 25 mg, Oral, Take 3 tablets daily ibuprofen 800 MG tablet TAKE 1 TABLET BY MOUTH EVERY 6-8 HOURS NEEDED FOR PAIN ketorolac (Toradol) 10 MG tablet Every 6 hours metFORMIN (MOD) (GLUMETZA) 500 mg, Oral, Daily with breakfast QUEtiapine (SEROQUEL) 25 mg, Oral, Daily QUEtiapine (SEROQUEL) 50 mg, Oral, Nightly semaglutide (Ozempic, 0.25 or 0.5 MG/DOSE,) 2 MG/1.5ML solution pen-injector Semaglutide,0.25 or 0.5MG/DOS, 2 MG/3ML solution pen-injector every week ALLERGIES Allergies Allergen Reactions Iodinated Contrast Media Anaphylaxis Amoxicillin Cephalexin Hives Other Reaction(s): Unknown Other Reaction(s): Unknown, Unknown Reaction Dust Mite Extract Other Reaction(s): Unknown Reaction Iodine Unknown Other Reaction(s): shock Other SUTURES Penicillin G Hives Other Reaction(s): Unknown Other Reaction(s): Unknown, Unknown Reaction patient states any of the cillins Shellfish Allergy Other Reaction(s): Unknown Reaction [place] Extract Other Reaction(s): Unknown Reaction Wound Dressing Adhesive Other Reaction(s): Unknown Other Reaction(s): rash PROBLEMS Active Ambulatory Problems Diagnosis Date Noted No Active Ambulatory Problems Resolved Ambulatory Problems Diagnosis Date Noted No Resolved Ambulatory Problems Past Medical History: Diagnosis Date Asthma (CMS/HCC) Diabetes mellitus (CMS/HCC) Endometriosis Female infertility Menorrhagia Ovarian cyst Polycystic ovary syndrome HISTORY PAST MEDICAL HISTORY SOCIAL HISTORY Past Medical History: Diagnosis Date Asthma (CMS/HCC) Diabetes mellitus (CMS/HCC) Endometriosis Female infertility Menorrhagia Ovarian cyst Polycystic ovary syndrome Social History Tobacco Use Smoking status: Never Smokeless tobacco: Never Substance Use Topics Alcohol use: Not on file Drug use: Never FAMILY HISTORY Family History Problem Relation Name Age of Onset Diabetes Father Laurie Cancer Paternal Grandfather Bhavin Diabetes Paternal Grandfather Bhavin Rheum arthritis Paternal Grandmother Hope Heart failure Paternal Grandmother Hope Rheum arthritis Father's Sister Florina Diabetes Father's Sister Marley SURGICAL HISTORY Past Surgical History: Procedure Laterality Date CERVICAL BIOPSY W/ LOOP ELECTRODE EXCISION SECTION, LOW TRANSVERSE COLPOSCOPY DILATION AND CURETTAGE OF UTERUS ENDOMETRIAL ABLATION HYSTERECTOMY REVIEW OF SYSTEMS Review of Systems: Review of Systems Constitutional: Negative. HENT: Negative. Eyes: Negative. Respiratory: Negative. Cardiovascular: Negative. Gastrointestinal: Negative. Genitourinary: Positive for pelvic pain. Musculoskeletal: Negative. Skin: Negative. Neurological: Negative. All other systems reviewed and are negative. Hematological: Negative. Endocrine: Negative. Allergic/Immunologic: Negative. OBJECTIVE Objective: Physical Exam Constitutional: Appearance: Normal appearance. She is well-developed. Cardiovascular: Rate and Rhythm: Normal rate and regular rhythm. Pulmonary: Effort: Pulmonary effort is normal. Breath sounds: Normal breath sounds. Abdominal: General: Bowel sounds are normal. There is no distension. Palpations: Abdomen is soft. Tenderness: There is no abdominal tenderness. There is no guarding or rebound. Musculoskeletal: General: No swelling. Normal range of motion. Right lower leg: No edema. Left lower leg: No edema. Neurological: Mental Status: She is alert and oriented to person, place, and time. Skin: General: Skin is warm and dry. Psychiatric: Mood and Affect: Mood normal. Behavior: Behavior normal. Vitals and nursing note reviewed. Exam conducted with a child development consultant present. Vitals: Estimated body mass index is 33.98 kg/m as calculated from the following: Height as of 11/17/23: 5'. Weight as of this encounter: 174 lb. BP: 122/76 Patient's last menstrual period was 05/31/2020. ASSESSMENT & PLAN ICD-10-CM 1. Pain of ovary N94.89 2. H/O: hysterectomy Z90.710 Pt presents with right ovarian pain- had ultrasound this morning. UA neg in house. Will call when results return. Discussed dx laparoscopy. Pt is type II diabetic and on ozempic. Documented by Alise Fermin LPN on behalf of: Dalton Carpenter DO documented in this encounterGeneral [facility] [id number] Evaluation note* Encounter Date Diagnosis Assessment Notes Treatment Notes Treatment Clinical Notes Apr, Exposure to COVID-19 virus (ICD-10 [...] days Apr, Sore throat (ICD-10 - J02.9) [facility] Other 07-05-2023 Evaluation note* Encounter Date Diagnosis [...] understanding and agrees to plan of care. [facility] Other 06-02-2023 Evaluation note* Encounter Date Diagnosis Assessment Notes Treatment Notes Treatment Clinical Notes Oct, Hypoglycemia (ICD-10 - E16.2) Initiate further lab work. Discussed potential referral to Endocrinology based on labs. [facility] Other 03-08-2023 Evaluation note* Encounter Date Diagnosis [...] weeks. A1c is normal. A1c is 5.8. [facility] Other 12-22-2022 Evaluation note* Encounter Date Diagnosis [...] verbalizes understanding and agrees to treatment plan. [facility] Other 11-29-2022 Evaluation note* Encounter Date Diagnosis Assessment Notes Treatment Notes Treatment Clinical Notes Mar, Recurrent major depressive disorder, in partial remission (ICD-10 - F33.41) [facility] Other 11-29-2022 Evaluation note* Encounter Date Diagnosis [...] understanding and is agreeable to treatment plan. [facility] Other 09-06-2022 Note [id number]09-02-2022 NotePatient Education Materials Follows:Disease Bacterial Conjunctivitis, [...] to feel better. ? Take or apply iycn-uxa-mlmneen and prescription medicines only as told by [...] provider. Document Revised: 08/27/2021 Document Reviewed: 08/27/2021 [employer] Patient Education ? 2021 [employer] SystemsOhio[facility]09-02-2022 Note Patient Education Materials Follows:Disease Tdap (Tetanus, [...] a fast heartbeat, dizziness, or weakness), call -- and get the person to the nearest hospital. For other signs that concern you, call your health care provider. Adverse reactions should be reported to the Vaccine Adverse Event Reporting System (VAERS). Your health care provider will usually file this report, or you can do it yourself. Visit the CAERS websiteat www.vaers.[facility].gov or call . CAERS is only for reporting reactions, and [facility] staffmembers do not give medical advice. 6. [...] two years. Visit the VICP website at www.[facility].gov/vaccinecompensation or call to learn about the program and about filing a claim. 7. How can I learn more? ? Ask your health care provider. ? Call your local or state health department. ? Visit the website of the Food and Drug Administration (FDA) for vaccine package inserts and additional information at www.fda.gov/vpdujmtr-jfhtm-vbiwkybsx/vaccines. ? Contact the Centers for Disease Control and Prevention (CDC): ? Call (5-967-KKX-INFO) or ? Visit CDC's website at www.cdc.gov/vaccines. Vaccine Information Statement Tdap (Tetanus, Diphtheria, P (more content not included)...[facility] [id number] Evaluation note* Encounter Date Diagnosis Assessment Notes [...] as needed. New order for epi-pens given. [facility] Other 05-24-2022 NoteEducation Materials Immunology Seafood Allergy [...] symptoms of anaphylaxis, such as: ? Feeling director of casino the face (flushed). This may include redness. [...] ? When you eat out, let your sports book server know that you have a seafood allergy. Ask how foods are prepared. General instructions ? Take atbx-fwq-khkpqbx and prescription medicines only as told by [...] auto-injector pen or an (more content not included)...[facility] [id number] Evaluation note* Encounter Date Diagnosis Assessment Notes Treatment Notes Treatment Clinical Notes September, Recurrent major depressive disorder, in partial remission (ICD-10 - F33.41) [facility] Other 05-04-2022 Evaluation note* Encounter Date Diagnosis [...] She is at goal with her A1c. [facility] Other 04-26-2022 Evaluation note* Encounter Date Diagnosis Assessment Notes Treatment Notes Treatment Clinical Notes Aug, Moderate episode of recurrent major depressive disorder (ICD-10 - F33.1) [facility] Other 04-26-2022 NotePatient Education Materials Follows: [facility] [id number] NotePatient Education Materials Follows:[facility] [id number] NotePatient Education Materials Follows: Contusion A contusion [...] sittingor lying down. General instructions ? Take bozy-egu-shjraza and prescription medicines only as told by [...] also called RICE. You may be given phvh-owi-oppyljv medicines for pain. ? Contact a doctor [...] provider. Document Revised: 01/06/2019 Document Reviewed: 01/06/2019 [employer] Patient Education ? 2020 [employer] Finger Sprain, Adult A finger sprain [...] sitting or lying down. Medicines ? Take kybp-abn-iyoudwt and prescription medicines only as told by [...] tear or stretch i (more content not included)...[facility] [id number] NoteEducation Materials Dermatology Wound Dehiscence Monitor for [...] these instructions at home: Medicines ? Take ncwo-rof-moncesx and prescription medicines only as told by [...] cannot use soap and water, use hand extractor machine operator. ? Wash your wound with mild soap [...] provider. Document Revised: 04/29/2018 Document Reviewed: 04/21/2017 [employer] Patient Education ? 2019 [employer].[facility] [id number] Evaluation note* Encounter Date Diagnosis Assessment Notes Treatment Notes Treatment Clinical Notes Mar, Moderate episode of recurrent major depressive disorder (ICD-10 - F33.1) [facility] Other 10-28-2021 Evaluation note* Encounter Date Diagnosis Assessment Notes Treatment Notes Treatment Clinical Notes Feb, Acute non-recurrent maxillary sinusitis (ICD-10 - J01.00) [place] [facility] Other 10-25-2021 Evaluation note* Encounter Date Diagnosis [...] understanding and is agreeable to treatment plan. [facility] Other evaluation noteNo InformationNortHoly Redeemer Hospital [employer] Other evaluation noteNo assessment information available [facility] Work Phone: Evaluation note* Diagnosis Onset Date Resolution Status Type II diabetes mellitus ac [place] Type II diabetes mellitus ac [facility] Work Phone: Evaluation note* Diagnosis Onset Date Resolution Status Type II diabetes mellitus ac [facility] Work Phone: Evaluation note* Diagnosis Onset Date Resolution Status Type II diabetes mellitus ac [place] Gastroenteritis acute [facility] Work Phone: Evaluation note* Diagnosis Pain of ovary H/O: hysterectomy Acquired absence of both cervix and uterus Pelvic pain in female Unspecified symptom associated with female genital organs documented in this encounter [facility]* Diagnosis Onset Date Resolution Status Admit Date Atypical chest pain acute September 25, 2024 8:27am Family history of heart disease acut e September 25, 2024 8:27am Heart palpitations acute September 25, 2024 8:27am Tachycardia acute September 25 8:27am [facility] Work Phone: history general Narrative - Reported* Type Description [...] History ER Maribell positive Cov id 05/21/2020 [facility] Other history general Narrative - Reported* Type [...] History ER Maribell positive Cov id 05/21/2020 [facility] Other history general Narrative - Reported* Type [...] History ER Maribell positive Cov id 05/21/2020 [facility] Other Hospital Discharge instructions Additional Instructions Rest Push fluids Take your Zofran at home for nausea vomiting Phenergan suppositories was also provided Tylenol or Motrin as needed for pain Return here if any problems persist [facility] Work Phone: Hospital Discharge instructions Additional Instructions I ordered a 48 hour Holter monitor study. You can call to schedule. Follow up with your doctor and with cardiology as needed.[facility] Work Phone: Hospital Discharge instructionsAmbulatory Orders* Referral to Cardiology Location: None Selected [facility] Work Phone: Hospital Discharge instructions Additional Instructions We did not see any abnormal rhythms on the monitor. Obviously we were not able to see your EKG when your heart rate went up. Your labs look okay. There is no evidence of a dangerous problem. You may need to talk with your doctor about another outpatient alarm security or surveillance monitor. If you have any significant problems or concerns, we are always happy to see you here.[facility] Work Phone: Summary Purpose Family History No Family History Records Found Relationship Condition Age at Onset Recorded Date/T wolf grandparent Unknown Not Specified Hypertension Unknown History of stroke Unknown natural son Family history of mental disorder Unknown Relationship Condition Age at Onset Recorded Date/T wolf grandparent Unknown mother Hypertension Unknown History of stroke Unknown son Family history of mental disorder Unknown Advance Directives No Advanced Directives Records Found Advance Directive Response Recorded Date/ Time Advance Directives No April 2:04pm Advance Directive Response Recorded Date/ Time Advance Directives No April 1:04pm Reason for Referral Reason *FU 12/09 evaluate Diagnosis 1 Hypoglycemia (E16.2) Diagnosis 2 Impaired fasting glu cose (R73.01) Diagnosis 3 History of gestation al diabetes (Z86.32) Referral Organization [facility] Referring Provider First Name Gayle Referring Provider Last Name Zeke Referring Provider Specialty Nurse Pract itioner Referred Organization [employer] Referred Provider JacquelynElyse Referred Address [address],[place],[address] Referred Provider Specialty Internal Med icine Referral Priority Routine General Notes Keira Montelongo 11:38:36 AM >received today, attachments made, waiting for notes to be locked Keira Montelongo 12/02/2022 02:50:53 PM >note locked, referral faxed Reason 06/15/22 evaluate and treat Diagnosis 1 Moderate episode of recurrent major depressive disorder (F33.1) Referral Organization [facility] Referring Provider First Name Gayle Referring Provider Last Name Zeke Referring Provider Specialty Nurse Pract itioner Referred Organization [facility] [employer] ice Referred Address [address] [place],[address] Referred Provider Specialty Psychiatry Referral Priority Routine [...] AM >faxed second request for confirmation letter JaydaKeira 06/30/2022 03:39:22 PM >received notes and sent to Gayle for review. closing referral at this time. Clinical Notes F: [id number] Chief Complaint and Reason for Visit Chief [...] for Visit Type II diabetes alex litus Chief Complaint 3 month f/u nauseas, headache, dizzy Reason for Visit Type II diabetes alex litus Gastroenteritis Chief Complaint 3 month f/u nauseas, headache, dizzy nausea/vomiting Reason for Visit Type II diabetes alex litus Gastroenteritis Chief Complaint Admit Date nauseas, headache, dizzy March 28 9:52am nausea/vomiting March 30, 2024 1 1:49am Amb Documentation March 31, 2024 9 :03am numbness/tingling June 01, 2024 5: 22pm Reason for Visit Admit Date Gastroenteritis March 28, 2024 9 :52am Chief Complaint Admit Date nauseas, headache, dizzy March 28 9:52am nausea/vomiting March 30, 2024 1 1:49am Amb Documentation March 31, 2024 9 :03am numbness/tingling June 01, 2024 5: 22pm SVT June 04, 2024 10 :46am Chief Complaint Admit Date nauseas, headache, dizzy March 28 9:52am nausea/vomiting March 30, 2024 1 1:49am Amb Documentation March 31, 2024 9 :03am numbness/tingling June 01, 2024 5: 22pm SVT June 04, 2024 10 :46am Amb Documentation June 05, 2024 8: 48am ER f/u chest pain June 09, 2024 8 :36am Reason for Visit Admit Date Gastroenteritis March 28, 2024 9 :52am Atypical chest pain June 09, 2024 8 :36am Family history of heart disease June 09, 2024 8:36am Type II diabetes mellitus June 09, 2024 8:36am Chief Complaint Admit Date left arm numbness September 21, 2024 3:4 7am Chief Complaint Admit Date left arm numbness September 21, 2024 3:4 7am Amb Documentation September 21, 2024 11: 10am [facility]; ab[place] heart rate September 25, 2024 8:27am Reason for Visit Admit Date Atypical chest pain September 25, 2024 8:2 7am Family history of heart disease September 252024 8:27am Heart palpitations September 25, 2024 8:2 7am Tachycardia September 25, 2024 8:2 7am Additional Source Comments INFORMATION SOURCE (unrecogn ized section and content) DATE CREATED AUTHOR 11/16/[address] [facility] DATE CREATED AUTHOR AUTHOR'S ORGANIZ ATION 11/23/2017 [facility] DATE CREATED AUTHOR AUTHOR'S ORGANIZ ATION 11/23/2017 [facility] DATE CREATED AUTHOR AUTHOR'S ORGANIZ ATION 03/01/2022 [facility] DATE CREATED AUTHOR AUTHOR'S ORGANIZ ATION 05/27/2022 [facility] DATE CREATED AUTHOR AUTHOR'S ORGANIZ ATION 02/09/2024 [facility] EPIC DATE CREATED AUTHOR AUTHOR'S ORGANIZ ATION 10/08/2024 [facility] REASON FOR VISIT (unrecogniz ed section and content) Reason Comments Pelvic Pain Pt complains of righ t ovarian pain. Pt has a h/o hysterectomy. Care Teams (unrecognized sec tion and content) Team Status: Active Member Role Status Dates PHYSICIAN NO FAMILY Primary Care Provider Active Team Status: Inactive Member Role Status Dates PHYSICIAN NO FAMILY Primary Care Provider Active Evans Groves DO [facility] Attending Provider Active Team Status: Active Member Role Status Dates Jessica Iqbal MD Primary Care Provider Active Team Status: Inactive Member Role Status Dates PHYSICIAN NO FAMILY Primary Care Provider Active Start: October 05, 2023 End: October 05, 2023 SAMSON Lyons Attending Provider Act uriah Start: October 05, 2023 End: October 05, 2023 Team Status: Inactive Member Role Status Dates PHYSICIAN NO FAMILY Primary Care Provider Active Start: November 01, 2023 End: November 01, 2023 SAMSON Lyons Attending Provider Act uriah Start: November 01, [...] Member Role Status Dates Gayle Alanis APRN DIRECTOR PACKAGING-C Primary Care Provider Active Team Status: Active Member Role Status Dates PHYSICIAN NO FAMILY Primary Care Provider Active Start: November 04, 2023 Dalton Carpenter DO Attending Provider Active Start : November 04, 2023 Team Status: Inactive Member Role Status Dates Gayle Alanis APRN DIRECTOR PACKAGING-C Primary Care Provider Active Start: December 08, 2023 End: December 08, 2023 Odessa Hess MD Attending Provider Active Sta rt: December 08, 2023 End: December 08, 2023 Team Status: Inactive Member Role Status Dates Gayle Alanis APRN DIRECTOR PACKAGING-C Primary Care Provider, Attending Provider Active Start: January 06, 2024 End: January 06, 2024 Team Status: Inactive Member Role Status Dates Gayle Alanis APRN DIRECTOR PACKAGING-C Primary Care Provider, Attending Provider Active Start: March 28, 2024 End: March 28, 2024 Team Status: Inactive Member Role Status Dates Gayle Alanis APRN DIRECTOR PACKAGING-C Primary Care Provider Active Start: February End: March 30, 2024 Rosy Kaye APRN Emergency Provider Active Start: March 30, 2024 End: March 30, 2024 Team Status: Active Member Role Status Dates Gayle Alanis APRN DIRECTOR PACKAGING-C Primary Care Provider Active Start: March Bita Nava CMA Attending Provider Active Start: March 31, 2024 Team Status: Inactive Member Role Status Dates Laurie Galindo MD Emergency Provider Active Star t: June 01, 2024 End: June 01, 2024 Gayle Alanis APRN DIRECTOR PACKAGING-C Primary Care Provider Active Start: June 01, 2024 End: June 01, 2024 Team Status: Inactive Member Role Status Dates Gayle Alanis APRN DIRECTOR PACKAGING-C Primary Care Provider Active Start: June 04, 2024 End: June 04, 2024 Tex Hidalgo Jr, MD Attending Provider Active Start: June 04, 2024 End: June 04, 2024 Team Status: Active Member Role Status Dates Gayle Alanis APRN DIRECTOR PACKAGING-C Primary Care Provider Active Start: June 05, 2024 Bita Nava CMA Attending Provider Active Start: June 05, 2024 Team Status: Inactive Member Role Status Dates Gayle Alanis APRN DIRECTOR PACKAGING-C Primary Care Provider, Attending Provider Active Start: June 09, 2024 End: June 09, 2024 Team Status: Inactive Member Role Status Dates Gayle Alanis APRN DIRECTOR PACKAGING-C Primary Care Provider Active Start: September 21, 2024 End: September 21, 2024 Tex Hidalgo Jr, MD Emergency Provider Active Start: September 21, 2024 End: September 21, 2024 Team Status: Active Member Role Status Dates Gayle Alanis APRN DIRECTOR PACKAGING-C Primary Care Provider Active Start: September 21, 2024 Bita Nava CMA Attending Provider Active Start: September 21, 2024 Team Status: Inactive Member Role Status Dates Gayle Alanis APRN DIRECTOR PACKAGING-C Primary Care Provider, Attending Provider Active Start: September 25, 2024 End: September 25, 2024 Goals (unrecognized section and content) Goals [...] BE BASED ON THE PRIMARY CLINICAL RECORDS. [employer] provides no warranty or guarantee of the accuracy or completeness of information in this document.
[2025-01-25 11:10] LABS: Hematocrit 38.8 % (36.0-48.0); Hemoglobin 13.0 g/dL (12.0-16.0); Immature Granulocytes Abs Auto 0.03 10^3/uL (0.00-0.03); Immature Granulocytes Pct Auto 0.3 % (0.0-0.5); Lymphocytes Absolute Auto 3.5 10^3/uL (1.2-3.8); Mean Corpuscular HGB Conc 33.5 g/dL (29.9-35.2); Mean Corpuscular Hemoglobin 29.0 pg (26.7-34.0); Mean Corpuscular Volume 86.6 fL (81.0-99.0); Platelet Count 444 10^3/uL (150-450); Red Blood Count 4.48 10^6/uL (4.20-5.40); White Blood Count 9.9 10^3/uL (4.0-11.0)
[2025-01-25 11:27] LABS: Alanine Aminotransferase 47 U/L (14-59); Albumin Globulin Ratio 0.8; Albumin Level 3.7 g/dL (3.4-5.0); Alkaline Phosphatase 121 U/L (46-116); Anion Gap 10.1; Aspartate Amino Transferase 22 U/L (15-37); Blood Urea Nitrogen 12.0 mg/dL (7.0-18.0); Calcium 8.7 mg/dL (8.5-10.1); Carbon Dioxide 30.1 mmol/L (21.0-32.0); Chloride 102 mmol/L (98-107); Cholesterol 229 mg/dL (<=200); Estimated GFR (African America >60 (>=60 mL/min/1.73m^2); Estimated GFR (Non-African Ame >60 (>=60 mL/min/1.73m^2); Globulin 4.4 g/dL; Glucose 87 mg/dL (74-106); HDL Cholesterol 77 mg/dL (40-60); Potassium 4.2 mmol/L (3.5-5.1); Sodium 138 mmol/L (136-145); Total Protein 8.1 g/dL (6.4-8.2); Triglycerides 92 mg/dL (<=150); VLDL CHOLESTEROL 18.4 mg/dL
== END 2025-01-25 10:50 | disposition home or self-care (01) ==
LOC: LAB 10:50
PROVIDERS: PCP Nurse Practitioner Family; Visit Provider Nurse Practitioner Family
DX: E78.00 Pure hypercholesterolemia, unspecified (principal); E11.9 Type 2 diabetes mellitus without complications
CPT/HCPCS: 36415; 80053; 80061; 82043; 82570; 85025